=== PATIENT | male | born 1955 | race Caucasian/White ===

== ENCOUNTER 2019-11-23 12:37 | Outpatient (CLI) | payer OTHER, SELFPAY ==
--- NOTE | 2019-11-23 15:55 | N.ONRAD NP_ITS ---
Radiation Oncology New Patient Visit Patient: Paxton Kumar MR#: [id number] : 1955> Age: 63> Sex: Male> Dictated by: Dr. Tom Camarillo Date of Service: 11/23/2019 Referring Physician(s) : Diagnosis: Metastatic carcinoma, primary uncertain, urothelium and lung or primary considerations. Radiotherapy to date: Summary > brain RT in [place] at [facility]. Presumed SRT. He states he received 5 treatments. Chief Complaint / History of Present Illness: Mr. Kumar is a 63-year-old man with a history of carcinoma of the bladder who presented with a recent history of headaches, dysphasia, facial weakness and confusion. A CT of the head was performed which showed an approximately 6 cm metastasis in the right frontal lobe. He was transferred to [facility] in [place] where he underwent surgery. The pathology returned poorly differentiated carcinoma. The primary was not identified from the tissue obtained. Possibilities to consider are a urothelial primary or a lung primary. A PET scan was performed at [facility]. We do not him have images but the report indicates that there is right cervical, supraclavicular, mediastinal, and hilar lymphadenopathy. The largest lymph node mass was in the right hilum and measured 2.2 x 3.3 cm. Other measurements given were right supraclavicular lymphadenopathy measuring 1.7 to 1.4 cm, right cervical lymphadenopathy measuring 2.7 x 1.4 cm and right paratracheal lymphadenopathy measuring 2.8 x 1.5 cm. There were no other areas of abnormality. Specifically, there was no uptake visible to suggest a primary cancer. Mr. Kumar received 5 radiation treatments at [place]. We do not have any specific information. These treatments were delivered to the brain and it is presumed they were SRT to the tumor bed and the other small metastasis. He states that he is referred for evaluation for treatment of the disease in his chest. Mr. Kumar feels well. He has moderate fatigue. He has no pulmonary symptoms at all. He denies pain or weight loss. His only medication is Keppra, which she is taking prophylactically. .Current Medications: Keppra. Allergies: No Known Allergies Medical History: No history of collagen vascular disease. No previous radiation therapy. Surgical History: Bladder cancer and removal of brain tumor. Family History: Father is at age 92 having experienced myocardial infarction. Mother is at age 85 having experienced old age. pt states all other sibilings have no illness to mention Social History: Last screened on 11/23/2019 - Current every day smoker 1.0 pack/day for 39 years (39 pack years). Last screened on 11/23/2019 - Active drinker 2 drinks/day 4 days/week. Current Complaints / Review of Systems: . Moderate fatigue. No neurologic symptoms such as change in vision, headaches, dizziness, blackouts, double vision, seizures, speech difficulty, or unilateral weakness. In terms of pulmonary, he has no cough, hemoptysis, wheezing, or shortness of breath. He denies joint pain, bone pain, stiffness, or back problems. Vital Signs: Performed on 11/23/2019 1:10 PM Height - 64.00 in, Weight - 144.8 lbs (high), BSA - 1.71 sq.m, BMI - 24.86, Temperature - 98.4 f, Pulse - 97 /min, Respiration - 20 /min, O2 Sat - 97 %, Pain - 0, BP - 103/ 71 mm(hg), Performed on 11/23/2019 2:15 PM BMI - 24.855 kg/m2 (high), Height - 64.00 in, Weight - 144.8 lbs, Temperature - 98.4 f, Pulse - 97, Respiration - 20, O2 Sat - 97 %, Pain - 0 and BP - 103/ 71 mm(hg). Physical Exam: Alert oriented no acute distress. No cervical or supraclavicular lymphadenopathy. Lungs are clear to percussion. On auscultation no rales rhonchi or wheezes. Heart rhythm regular with no murmur gallop or rub. Abdomen no distention. No organomegaly or mass or tenderness. Performance Status: KPS: 90 Pathology: Lab: Imaging: See HPI Impression: Mr. 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 He has a history of bladder cancer and that may be the etiology. Lung is also considered a possibility but there is no evidence of a primary lung cancer on imaging. Mr. Kumar has received treatment for the brain metastases at [facility]. He will be getting imaging every 3 months for follow-up. In terms of the chest, he does not have any bulky lymphadenopathy and he is completely asymptomatic. As long as he can receive systemic therapy which is likely to be of benefit, I do not feel that he needs to proceed with any radiation to the thorax at this time. I told him that in the event of failing systemic therapy that radiation can be used for salvage. Also discussed that in the event of an excellent response to systemic therapy, radiation can be used for consolidation. For now, unless Dr. Clark has a different opinion, we will not proceed with radiation. Plan: No radiation planned at this time. Signed by: 11/23/2019 3:54:26 PM <<Signature on File>> Time spent with patient: CPT Code: CPT Code:
--- NOTE | 2019-11-24 10:48 | ONC CON_ITS ---
Dr. Clark New Patient Note Patient: Paxton Kumar Unit #: [id number]: 1955 Dicatated By: Sae Clark M.D.Date of Visit: Nov 23, 2019 Onc MED New Patient/Consult Referring Physician: Dr. AARON STEWART M.D. History of Present Illness: Mr. Paxton Kumar, is a 63-year-old gentleman with history of bladder cancer status post TURP in January 2017 at [facility] in [place], [place], as per patient's daughter that took care of his bladder cancer. And then in September 2019 patient went to local emergency room with headache and facial droop, CT scan of the head was done which showed right frontal lobe mass with edema and midline shift, patient was transferred to [facility] in [place] where on October 23, 2019 he underwent right frontal lobe tumor resection, as repeat neuro CT MR showed solitary, gently lobulated but predominantly well-circumscribed homogeneously low-attenuation, noncalcified, intra-axial 5 x 6.2 x 4.5 cm mass in the right frontal region. There is significant perilesional vasogenic edema, resulting subfalcine herniation and 0.9 cm right to left midline shift. And pathology showed metastatic poorly differentiated carcinoma with solid to papillary/pseudopapillary growth pattern with a brisk mitotic activity and patchy presence of necrosis. Immunohistochemistry showed diffusely positive for CK7, also widespread reactivity for CK 5/6, GATA3, with very focal expression of Napsin-A. Tumor cells are nonreactive to CDX2, p63, CD20, TTF-1, chromogranin, synaptophysin, and uroplakin. AB/PAS histochemical stain demonstrate focal presence of mucin. Pathology comments were morphological findings are dose of poorly differentiated carcinoma, while definite comment on primary site is limited by its somewhat nonspecific immunoprofile, the possibilities being considered are urothelial and lung among others. Further clinical and imaging correlation to confirm exact site of origin is suggested. Again patient has history of bladder cancer, diagnosed in January, at [facility], where he underwent TURP. CT chest /abd scan done on October 21, 2019 showed No definitively suspicious pulmonary nodule or mass mediastinal right hilar and right supraclavicular adenopathy some of which is necrotic favoring a metastatic process including recurrence of patient's history of prior malignancy.Right paratracheal lymph node measures 1.4 x 1.6 cm, right hilar adenopathy Tiny lytic foci in L5 vertebral body of indeterminate. Scattered small enhancing foci in the liver favored to represent focal areas of vascular shunting versus small hemangiomas CT PET scan done on October 25, 2019 showed right hilar lymphadenopathy with a maximum SUV of 14.9 measuring 2.2 x 3.3 cm this is the most FDG avid lesion. Right supraclavicular lymphadenopathy with maximum SUV 12.2 measuring 1.7 x 1.4 cm. Right cervical level 5 lymph nodes with a maximum SUV of 6.7 measuring 2.7 x 1.4 cm Right paratracheal lymphadenopathy measuring 2.8 x 1.5 cm with SUV of 9.9. The lytic focus in L5 vertebral body is not hypermetabolic.Patient underwent CT scan of head on November 12, 2019, which showed postsurgical changes of right craniotomy and right frontal lobe tumor resection with residual enhancement along the anterior, medial and superior/posterior margins of the resection bed suspicious for residual tumor., Subsequently patient was treated with SBRT, as per patient he received 5 doses and completed recently. Patient said he has seen medical oncologist Dr. Lofton at [facility], who informed him that he has a lung cancer and PDL 1 status was ordered and some other blood test were done to identify specific therapy. And they are waiting for the report, as per patient he will send the record to us for further care here as cancer center [place] is more convenient to him. Patient denies any headaches or blurred vision or double vision today, denies any fever or chills, denies any dysphagia, denies any nausea vomiting, denies any hemoptysis or hematemesis, denies any hematuria or dysuria. Appetite is good, Past Medical History: There is no documented medical history. Past Surgical History: Mr. Kumar's surgical/procedural history consists of bladder cancer and removal of brain tumor. Medications: Keppra 1 Tablet (of 1000 mg) Tablet Oral b.i.d. Allergies: No Known Allergies. Social History: Mr. Kumar is and he is an unknown. He is a daily smoker who has smoked 1.0 pack/day for 39 years. He is an active drinker.He consumes 2 drinks/day 4 days/week. Family History: Mr. Kumar's mother at age 85: old age. Mr. Monroes father at age 92: myocardial infarction. pt states all other sibilings have no illness to mention. Review Of Symptoms: Constitutional - Complains of mild fatigue. Denies lack of appetite, fever, night sweats and change in weight, Eyes - Denies blurred vision and double vision, ENMT - Denies dysphagia, ear pain, mouth dryness, stomatitis and altered taste, Neck - Denies neck pain, Integumentary - Has itchiness around the eyes, Cardiovascular - Denies arrhythmias, chest pain and edema, Respiratory - Denies cough, dyspnea, hiccoughs and wheezing, Gastrointestinal - Denies abdominal pain, constipation, diarrhea, heartburn / dyspepsia, hemorrhoids, nausea and vomiting, Genitourinary (M) - Denies dysuria, frequency, hematuria and urgency, Musculoskeletal - Denies bone pain, joint pain and muscle weakness, Neurologic - Denies dizziness, abnormal gait, headaches and seizure, Endocrine - Denies diabetes and thyroid disease, Hematologic/Lymphatic - Denies tender or enlarged lymph nodes, Constitutional - Appetite is good and weight is stable. No fever, night sweats, or hot flashes. Energy level is poor, ENMT - No sinus congestion/drainage. No mouth sores. No sore throat or difficulty swallowing, Hematologic/Lymphatic - No abnormal bruising or bleeding, Respiratory - No shortness of breath. No cough. No pleuritic pain or hemoptysis, Cardiovascular - No angina pain. No palpitations, Gastrointestinal - No nausea or vomiting. No heartburn or acid reflux. No diarrhea or constipation. No blood in the stool or black stools, Genitourinary (M) - No dysuria or hematuria. No urinary frequency. No urgency or incontinence, Musculoskeletal - No joint or bone pain, Neurologic - No headache or dizziness. No numbness or tingling. No other focal neurologic symptoms, Psychiatric - Positive for anxiety, no depression. No insomnia. Vital Signs: Performed on Nov 23, 2019 14:15: 64.00 in, 144.8 lbs, 98.4 F, 97, 20, 103/71 mm(hg), 97 %, 0, Performed on Nov 23, 2019 14:15: 24.855 kg/m2 (HIGH), and Performed on Nov 23, 2019 13:10: 1.71 sq.m. Performance Status: 1 - No physically strenuous activity, but ambulatory and able to carry out light or sedentary work (e.g. office work, light house work). (ECOG) Physical Examination: ENMT - No mouth sores, no thrush no jaundice, Respiratory - Lungs are clear, Cardiovascular - Regular rate and rhythm of heart, Abdomen - Soft, bowel sounds present, Extremities - No visible edema. Lab/Imaging: Most recent lab results are not available for this patient. Impression: Poorly differentiated carcinoma involving right frontal lobe status post partial resection done on October 23, 2019. Immunohistochemistry showed tumor cells to be strongly and diffusely positive for CK7, also widespread reactivity for CK 5/6 and GA TA 3, with very focal expression of Napsin-A. And tumor cell nonreactive to CDX 2, p63, CD20, TTF-1, chromogranin, synaptophysin, uroplakin. AB/PAS histochemical stain demonstrated focal presence of mucin. CT PET scan done on October 25, 2019 showed right hilar lymphadenopathy, 2.2 x 3.3 cm with SUV 14.9 Right supraclavicular lymphadenopathy 1.7 x 1.4 cm with SUV of 12.2 Right paratracheal lymphadenopathy 2.8 x 1.5 cm with SUV of 9.9. Lytic focus in L5 vertebral body is non-hypermetabolic. History of bladder cancer, diagnosed in January 2017 at [facility] in [place], status post TURP Plan: Discussed with patient regarding his disease status and treatment options, patient has already received SBRT to the right frontal lobe post resection residual lesion, as per patient he tolerated radiation therapy to the right frontal lesion well and recently finished it without any problem. Patient has seen Dr. Lofton, medical oncologist at [facility], as per patient and his daughter they were informed that patient has a lung cancer and PDL 1 status and other blood test were ordered to identify specific therapy and results are pending in the meantime patient wants to transfer his care to [place] because of convenience. His pathology was reviewed with him where, it was not clear whether patient has a lung as a primary as pathologist mentioned that tumor ImmunoProfile was somewhat nonspecific and based on tumor morphological finding,, urothelial or lung and others primaries should be considered. We will discuss his case with pathology and request cancer type ID to confirm the primary and also consider next nation sequencing on tumor if is not already done, to identify targetable therapy. Patient will return to clinic in 2 weeks, in the meantime will obtain records from [facility] medical oncology and pathology department. Signed By: Sae Clark M.D. <<Signature on File>>
== END 2019-11-23 12:38 | disposition home or self-care (01) ==
LOC: ONCMED 12:45
PROVIDERS: PCP Emergency Medicine Emergency Medical Services; Visit Provider Internal Medicine Hematology & Oncology
DX: C80.1 Malignant (primary) neoplasm, unspecified (principal); C78.1 Secondary malignant neoplasm of mediastinum; C79.31 Secondary malignant neoplasm of brain; R59.0 Localized enlarged lymph nodes; F17.210 Nicotine dependence, cigarettes, uncomplicated; Z85.51 Personal history of malignant neoplasm of bladder; Z92.3 Personal history of irradiation; Z79.899 Other long term (current) drug therapy
CPT/HCPCS: 99204; 99214

== ENCOUNTER → 2019-12-04 11:32 | Outpatient (BNVA) | payer OTHER, SELFPAY | PROVIDERS: PCP Emergency Medicine Emergency Medical Services; Visit Provider Internal Medicine Hematology & Oncology | DX: C34.90 Malignant neoplasm of unspecified part of unspecified bronchus or lung (principal) | CPT/HCPCS: 80053; 85025 ==

== ENCOUNTER 2019-12-05 12:47 | Outpatient (CLI) | payer OTHER, SELFPAY ==
--- NOTE | 2019-12-05 18:29 | ONC FU_ITS ---
Dr. Clark follow up note Patient: Paxton Kumar Unit #: [id number]: 1955 Dicatated By: Sae Clark M.D.Date of Visit:Dec 05, 2019 Onc Med Follow-up/Prog Note History of Present Illness: Mr. Paxton Kumar, is a 63-year-old gentleman with history of bladder cancer status post TURP in January 2017 at [facility] in [place], [place], as per patient's daughter that took care of his bladder cancer. And then in September 2019 patient went to local emergency room with headache and facial droop, CT scan of the head was done which showed right frontal lobe mass with edema and midline shift, patient was transferred to [facility] in [place] where on October 23, 2019 he underwent right frontal lobe tumor resection, as repeat neuro CT MR showed solitary, gently lobulated but predominantly well-circumscribed homogeneously low-attenuation, noncalcified, intra-axial 5 x 6.2 x 4.5 cm mass in the right frontal region. There is significant perilesional vasogenic edema, resulting subfalcine herniation and 0.9 cm right to left midline shift. And pathology showed metastatic poorly differentiated carcinoma with solid to papillary/pseudopapillary growth pattern with a brisk mitotic activity and patchy presence of necrosis. Immunohistochemistry showed diffusely positive for CK7, also widespread reactivity for CK 5/6, GATA3, with very focal expression of Napsin-A. Tumor cells are nonreactive to CDX2, p63, CD20, TTF-1, chromogranin, synaptophysin, and uroplakin. AB/PAS histochemical stain demonstrate focal presence of mucin. Pathology comments were morphological findings are dose of poorly differentiated carcinoma, while definite comment on primary site is limited by its somewhat nonspecific immunoprofile, the possibilities being considered are urothelial and lung among others. Further clinical and imaging correlation to confirm exact site of origin is suggested. Again patient has history of bladder cancer, diagnosed in January, at [facility], where he underwent TURP. CT chest /abd scan done on October 21, 2019 showed No definitively suspicious pulmonary nodule or mass mediastinal right hilar and right supraclavicular adenopathy some of which is necrotic favoring a metastatic process including recurrence of patient's history of prior malignancy.Right paratracheal lymph node measures 1.4 x 1.6 cm, right hilar adenopathy Tiny lytic foci in L5 vertebral body of indeterminate. Scattered small enhancing foci in the liver favored to represent focal areas of vascular shunting versus small hemangiomas CT PET scan done on October 25, 2019 showed right hilar lymphadenopathy with a maximum SUV of 14.9 measuring 2.2 x 3.3 cm this is the most FDG avid lesion. Right supraclavicular lymphadenopathy with maximum SUV 12.2 measuring 1.7 x 1.4 cm. Right cervical level 5 lymph nodes with a maximum SUV of 6.7 measuring 2.7 x 1.4 cm Right paratracheal lymphadenopathy measuring 2.8 x 1.5 cm with SUV of 9.9. The lytic focus in L5 vertebral body is not hypermetabolic.Patient underwent CT scan of head on November 12, 2019, which showed postsurgical changes of right craniotomy and right frontal lobe tumor resection with residual enhancement along the anterior, medial and superior/posterior margins of the resection bed suspicious for residual tumor., Subsequently patient was treated with SBRT, as per patient he received 5 doses and completed recently. Patient said he has seen medical oncologist Dr. Lofton at [facility], who informed him that he has a lung cancer and PDL 1 status was ordered and some other blood test were done to identify specific therapy. And they are waiting for the report, as per patient, he will send the record to us for further care here as cancer center [place] is more convenient to him. Came for follow-up, denies any specific complaints, no fever chills, no nausea or vomiting, no diarrhea or constipation, no headaches blurred vision double vision but mild to moderate anxiety attacks because of fever of unknown. Medications: Aspirin 81 1 Tablet (of 81 mg) Tablet, enteric coated Oral daily, Keppra 1 Tablet (of 1000 mg) Tablet Oral b.i.d., Multivitamin 1 Tablet Oral daily Allergies: No Known Allergies. Review of Systems: Review of Systems is not available for this patient. Vital Signs: Performed on Dec 05, 2019 13:04 Height - 64.00 in Weight - 146.2 lbs (HIGH) BSA - 1.71 sq.m BMI - 25.10 Temperature - 97.6 F (LOW) Pulse - 91 /min Respiration - 18 /min BP - 102/73 mm(hg) O2 Sat - 98 % Pain - 0 Performance Status: 1 - No physically strenuous activity, but ambulatory and able to carry out light or sedentary work (e.g. office work, light house work). (ECOG) Physical Examination: ENMT - No mouth sores, no thrush, no jaundice, Respiratory - Lungs are clear, Cardiovascular - Regular rate and rhythm of heart, Abdomen - Soft, bowel sounds present, Extremities - No visible edema. Lab/Imaging: Most recent lab results are not available for this patient. Impression: Poorly differentiated carcinoma involving right frontal lobe status post partial resection done on October 23, 2019. Immunohistochemistry showed tumor cells to be strongly and diffusely positive for CK7, also widespread reactivity for CK 5/6 and GA TA 3, with very focal expression of Napsin-A. And tumor cell nonreactive to CDX 2, p63, CD20, TTF-1, chromogranin, synaptophysin, uroplakin. AB/PAS histochemical stain demonstrated focal presence of mucin. CT PET scan done on October 25, 2019 showed right hilar lymphadenopathy, 2.2 x 3.3 cm with SUV 14.9 Right supraclavicular lymphadenopathy 1.7 x 1.4 cm with SUV of 12.2 Right paratracheal lymphadenopathy 2.8 x 1.5 cm with SUV of 9.9. Lytic focus in L5 vertebral body is non-hypermetabolic. History of bladder cancer, diagnosed in January 2017 at [facility] in [place], status post TURP Plan: Discussed with patient regarding his labs white blood count 9 hemoglobin 15 crit 46.6 platelets 446,000 CMP within normal limits Clinically, patient is doing reasonably well, treatment options discussed with patient, as per recommendation by Dr. Spring medical oncologist at [facility], will consider pembrolizumab and makah based regimen e.g. carboplatin and Taxol. As per his note, patient has metastatic non-small cell lung cancer So we will consider weekly carboplatin AUC 2 Taxol 50 mg/m??? day 1 and 8 and repeat every 21 days along with pembrolizumab 200 mg IV every 3 weeks x [address] PET scan if good response, then switch to maintenance therapy with pembrolizumab. All the side effects possible benefits associated with systemic therapy were mentioned and further teaching will be done by chemotherapy nurse in the meantime will obtain approval from his his insurance company and consider Port-A-Cath placement to facilitate chemotherapy. And also start him on Ativan 0.5 mg every 6 hours as needed basis for anxiety but there was a concern regarding pathology as pathologist mentioned that immunohistochemistry was inconclusive whereas morphology showed urothelial type cells and patient has history of bladder cancer in the past. So case was discussed with pathologist at [facility] and cancer type ID was requested to specify primary or to identify targetable therapy. In the meantime we will proceed with systemic therapy and once cancer type ID information available then will review and plan. Patient will return to clinic 1 week after chemotherapy is initiated Signed By: Sae Clark M.D. <<Signature on File>>
== END 2019-12-05 12:48 | disposition home or self-care (01) ==
PROVIDERS: PCP Emergency Medicine Emergency Medical Services; Visit Provider Internal Medicine Hematology & Oncology
DX: C71.1 Malignant neoplasm of frontal lobe (principal); R59.0 Localized enlarged lymph nodes; Z85.51 Personal history of malignant neoplasm of bladder
CPT/HCPCS: 99214

== ENCOUNTER 2019-12-18 06:44 | Day surgery (SDC) | payer OTHER, SELFPAY ==
[2019-12-15 09:11] VITALS: BMI 24.8
--- NOTE | 2019-12-18 | SCC_ITS ---
Procedure Done: Placement of PowerPort in the left subclavian vein 38.5 seconds of fluoroscopic guidance, for a cumulative dose of 5.59 mGy, was provided to Dr. Gaona by the radiology department. C-arm images of the chest were saved for the patient's permanent record. [facility]
[2019-12-18 07:00] VITALS: BP 129/84; PULSE 92; RESP 18; TEMP 36.9; O2SAT 97
[2019-12-18] MEDS: sodium chloride 0.9% 1,000 ML 30 ML IV (07:07)
--- NOTE | 2019-12-18 07:09 | W.PM.OPSUD ---
Surgery/Procedure H&P Update DATE OF PROCEDURE: December 18, 2019 DATE H&P PERFORMED: 12/11/19 H&P UPDATE INFORMATION: I have reviewed H&P completed within last 30 days, I have examined patient prior to procedure and No changes to prior documentation PREOP DIAGNOSIS: Cancer PLANNED PROCEDURE: Operation Date: 12/18/19 08:30 Proposed Procedures p Portacath Placement 07637 C67.9(Not Applicable) - Iain Gaona MD
--- NOTE | 2019-12-18 07:32 | ANES.PREANE2 ---
Pre-Anesthetic Assessment Pre-Anesthetic Assessment: Height/Weight: Height 1.64 m Weight 66.678 kg Temp Pulse Resp BP Pulse Ox 98.5 F 92 18 129/84 97 12/18/19 07:00 12/18/19 07:00 12/18/19 07:00 12/18/19 07:00 12/18/19 07:00 Preop Diagnosis: Cancer Proposed Procedure: Operation Date: 12/18/19 08:30 Proposed Procedures p Portacath Placement 90203 C67.9(Not Applicable) - Iain Gaona MD Familial anesthetic complications: None Was Beta Filipe taken within 24 hours: N/A Last intake: Intake Last Liquid Date 12/17/19 Last Liquid Time 20:00 Last Solid Date 12/17/19 Last Solid Time 20:00 Social: Social History: Tobacco and No alcohol Exam: Pre-Anes Outpt Exam: alert, oriented x 3, clear to auscultation bilaterally and regular rate & rhythm Airway: Cervical ROM: WNL MP: 2 Dentition: Full Pulmonary: Pulmonary: None reported CV/HEM: CV/HEM: None reported : : None reported Comments: bladder cancer Neuropsych: Neuropsych: Seizure Comments: frontal lobe tumor - removed Anesthetic Plan: ASA status: 3 Anesthesia: MAC Risk of > 500 ml blood loss (7ml/kg in children): No Meds/Allergies Current Medications: Current Medications Generic Name Dose Route Start Last Admin Trade Name Freq PRN Reason Stop Dose Admin Sodium Chloride 1,000 mls @ 30 ml s/hr 12/18/19 07:00 12/18/19 07:07 Sodium Chloride 0.9% IV 12/19/19 06:59 30 mls/hr .Q24H RENATA Administration PFSH Anesthesia PFSH: Medical History (Updated 12/11/19 @ 15:04 by Iain Gaona MD) Bladder cancer 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 Surgical History H/O brain surgery H/O colonoscopy past 6 yrs Hx of transurethral resection of prostate S/P thoracostomy tube placement Family History Brother CAD (coronary artery disease) Denies family history of Diabetes Anesthesia complication Bleeding disorder Cancer Social History Smoking and tobacco status: current every day smoker Alcohol intake: current Alcohol intake frequency: holidays/special occasions only Household members: significant other Marital status: Single Current occupational status: retired History of recent travel: No Data Anesthesia Cardiac Studies: No Data to Display
--- NOTE | 2019-12-18 08:37 | SC_ITS ---
WS: [id number] C-ARM RADIOGRAPHS CHEST; 2 IMAGES HISTORY: surgery COMPARISON: None available. Intraoperative imaging during Port-A-Cath placement through the LEFT subclavian vein. SC/C-arm FL for CVA [id number] IMPRESSION: Intraoperative imaging during Port-A-Cath placement.
[2019-12-18] MEDS: heparin, porcine 1,000 unit/mL INJ 10 mL 10000 UNIT INJECTION (08:54)
[2019-12-18] MEDS: lidocaine 1% INJ 20 mL IM (09:14)
--- NOTE | 2019-12-18 09:30 | P.OP_ITS ---
Operative Report Date of procedure: December 18, 2019 Pre-op Diagnosis: Bladder cancer, metastatic non-small cell lung cancer Post-op diagnosis: same Procedure Done: Placement of PowerPort in the left subclavian vein Fluoroscopic guidance and interpretation for placement of catheter Pathology: none sent Surgeon: Iain Gaona Anesthesia: MAC Estimated blood loss (mL): 10 Condition: stable Disposition: same day Procedure: The patient was taken to the Operating Room and the chest and neck bilaterally were prepped and draped in a sterile manner after the antibiotic had been administered and shoulder rolls had been placed. A total of 10 mL of 1% li docaine with 0.5% Marcaine was infiltrated under the clavicle on the left side at the site of the planned entry into the subclavian vein. An introducer needle was then used to access the subclavian vein under the clavicle and after withdrawing blood syringe was removed and a guidewire passed under fluoroscopy into the superior vena cava. The site of the planned port was then marked on the chest and a 15 blade was used to make a 3 cm skin incision this was extended into the subcutaneous tissue using electrocautery and a subcutaneous pocket over the pectoralis fascia was created 2-0 Vicryl suture was used to suture the port to the pectoral fascia in the pocket on 3 sides. The catheter, after having been flushed with hep saline, was attached to the tunneler and a tunnel created between the port site and the subclavian vein entry site. Under fluoroscopy the dilator sheath was passed over the guidewire into the proximal superior vena cava. The inner dilator was removed and the sheath left behind and~ the catheter was introduced through the peel-away sheath with the tip in the superior vena cava. The peel-away sheath was removed. The proximal end of the catheter was cut to the right size and was attached to the port. Using a Borjas needle the port was accessed, it withdrew blood easily and flushed easily. A final 5cc of heparin was used to flush the PowerPort. The subcutaneous tissue was approximated using interrupted 3-0 Vicryl sutures and the skin at the introducer site and the port site was closed using subcuticular running 4-0 Monocryl sutures. Surgical glue was applied and the patient was stable throughout the procedure. Fluoroscopic guidance and interpretation was performed for introduction of the guidewire in the left subclavian vein, passage of dilator and placement of catheter tip in the distal superior vena cava.
[2019-12-18 09:32] VITALS: BP 110/80; PULSE 82; RESP 18; TEMP 35.9; O2SAT 93
[2019-12-18 09:45] VITALS: BP 124/89; PULSE 83; RESP 18; O2SAT 98
== END 2019-12-18 10:10 | disposition home or self-care (01) ==
PROVIDERS: PCP Emergency Medicine Emergency Medical Services; Visit Provider Surgery
PROC: (CPT 36561; principal; 2019-12-18 08:30)
DX: C67.9 Malignant neoplasm of bladder, unspecified (principal); C78.00 Secondary malignant neoplasm of unspecified lung; F17.210 Nicotine dependence, cigarettes, uncomplicated; Z79.82 Long term (current) use of aspirin
CPT/HCPCS: 36561; 12345; 76000; 77001; C1788; J0690; J1644; J2250; J2704; J3490; J7030

== ENCOUNTER 2019-12-28 13:48 | Outpatient (CLI) | payer OTHER, SELFPAY ==
[2019-12-28 14:28] LABS: Basophils % 0.5 %; Eosinophils # 0.4 10^3/uL (0.0-0.8); Eosinophils % 4.8 %; Hematocrit 40.3 % (42.0-52.0); Hemoglobin 12.9 g/dL (11.7-16.6); Lymphocytes # 2.7 10^3/uL (0.8-4.8); Lymphocytes % 32.5 %; Mean Corpuscular Hemoglobin 29.3 pg (28.0-34.0); Mean Corpuscular Volume 91.4 fL (80-94); Mean Platelet Volume 8.9 fL (7.4-10.4); Monocytes # 0.9 10^3/uL (0.2-0.9); Monocytes % 10.4 %; Neutrophils % 51.6 %; Nucleated Red Blood Cells % 0 %; Platelet Count 225 10^3/cmm (130-400); Red Blood Count 4.41 10^6/uL (4.1-5.3); Red Cell Distribution Width 13.2 % (12.1-15.1); White Blood Count 8.3 10^3/uL (4.0-10.0)
[2019-12-28 14:46] LABS: Alanine Aminotransferase 12 U/L (0-41); Albumin Level 4.1 g/dL (3.5-5.2); Alkaline Phosphatase 64 IU/L (40-130); Anion Gap 10.1 (5-19); Aspartate Amino Transferase 18 U/L (0-40); Blood Urea Nitrogen 10 mg/dL (8-23); Calcium 9.1 mg/dL (8.5-10.5); Carbon Dioxide 29 mmol/L (22-29); Chloride 106 mmol/L (98-107); Globulin 2.4 g/dL (1.3-4.6); Glomerular Filtration Rate 96.7 mL/min (90-130); Glucose 94 mg/dL (65-115); Osmolality Calculated 288 mOsm/kg (285-295); Potassium 4.1 mmol/L (3.5-5.1); Sodium 141 mmol/L (136-145); Total Bilirubin 0.2 mg/dL (0.15-1.2); Total Protein 6.5 g/dL (6.6-8.7)
--- NOTE | 2019-12-29 12:15 | ONC FU_ITS ---
Dr. Clark follow up note Patient: Paxton Kumar Unit #: [id number]: [id number] Dicatated By: Sae Clark M.D.Date of Visit:Dec 28, 2019 Onc Med Follow-up/Prog Note History of Present Illness: Mr. Paxton Kumar, is a 64-year-old gentleman with history of bladder cancer status post TURP in January 2017 at [facility] in [place], [place], as per patient's daughter that took care of his bladder cancer. And then in September 2019 patient went to local emergency room with headache and facial droop, CT scan of the head was done which showed right frontal lobe mass with edema and midline shift, patient was transferred to [facility] in [place] where on October 23, 2019 he underwent right frontal lobe tumor resection, as repeat neuro CT MR showed solitary, gently lobulated but predominantly well-circumscribed homogeneously low-attenuation, noncalcified, intra-axial 5 x 6.2 x 4.5 cm mass in the right frontal region. There is significant perilesional vasogenic edema, resulting subfalcine herniation and 0.9 cm right to left midline shift. And pathology showed metastatic poorly differentiated carcinoma with solid to papillary/pseudopapillary growth pattern with a brisk mitotic activity and patchy presence of necrosis. Immunohistochemistry showed diffusely positive for CK7, also widespread reactivity for CK 5/6, GATA3, with very focal expression of Napsin-A. Tumor cells are nonreactive to CDX2, p63, CD20, TTF-1, chromogranin, synaptophysin, and uroplakin. AB/PAS histochemical stain demonstrate focal presence of mucin. Pathology comments were morphological findings are dose of poorly differentiated carcinoma, while definite comment on primary site is limited by its somewhat nonspecific immunoprofile, the possibilities being considered are urothelial and lung among others. Further clinical and imaging correlation to confirm exact site of origin is suggested.So cancer type ID was done which was reported on December 19, 2019, urothelial carcinoma and urinary bladder being primary with 90% probability, Again patient has history of bladder cancer, diagnosed in January, at [facility], where he underwent TURP. CT chest /abd scan done on October 21, 2019 showed No definitively suspicious pulmonary nodule or mass mediastinal right hilar and right supraclavicular adenopathy some of which is necrotic favoring a metastatic process including recurrence of patient's history of prior malignancy.Right paratracheal lymph node measures 1.4 x 1.6 cm, right hilar adenopathy Tiny lytic foci in L5 vertebral body of indeterminate. Scattered small enhancing foci in the liver favored to represent focal areas of vascular shunting versus small hemangiomas CT PET scan done on October 25, 2019 showed right hilar lymphadenopathy with a maximum SUV of 14.9 measuring 2.2 x 3.3 cm this is the most FDG avid lesion. Right supraclavicular lymphadenopathy with maximum SUV 12.2 measuring 1.7 x 1.4 cm. Right cervical level 5 lymph nodes with a maximum SUV of 6.7 measuring 2.7 x 1.4 cm Right paratracheal lymphadenopathy measuring 2.8 x 1.5 cm with SUV of 9.9. The lytic focus in L5 vertebral body is not hypermetabolic.Patient underwent CT scan of head on November 12, 2019, which showed postsurgical changes of right craniotomy and right frontal lobe tumor resection with residual enhancement along the anterior, medial and superior/posterior margins of the resection bed suspicious for residual tumor., Subsequently patient was treated with SBRT, as per patient he received 5 doses and completed recently. Patient said he has seen medical oncologist Dr. Lofton at [facility], who informed him that he has a lung cancer and PDL 1 status was ordered and some other blood test were done to identify specific therapy. And they are waiting for the report, as per patient, he will send the record to us for further care here as [facility] convenient to him. Case was discussed with Dr. Parul Lopez, as it was not sure why significance of urothelial carcinoma or lung cancer so cancer type ID was ordered and reported on December 19, 2019 as urothelial carcinoma, urinary bladder as a primary with 90% probability. Case was discussed with Dr. Lopez on December 28, 2019 and she concurred with cancer type ID confirmation and signing out final pathology report as urothelial carcinoma, Came for follow-up, denies any specific complaints, no fever chills, no nausea or vomiting, no diarrhea or constipation, no hematuria or dysuria, no hemoptysis or hematemesis, no headaches or blurred vision or double vision. Appetite is good. Medications: Aspirin 81 1 Tablet (of 81 mg) Tablet, enteric coated Oral daily, Keppra 1 Tablet (of 1000 mg) Tablet Oral b.i.d., LORazepam 1 - 2 Tablet (of 0.5 mg) Oral q 6 to 8 hours PRN, Multivitamin 1 Tablet Oral daily Allergies: No Known Allergies. Review of Systems: Constitutional - Appetite is good and weight is stable. No fever, night sweats, or hot flashes. Energy level is poor, ENMT - No sinus congestion/drainage. No mouth sores. No sore throat or difficulty swallowing, Hematologic/Lymphatic - No abnormal bruising or bleeding, Respiratory - No shortness of breath. No cough. No pleuritic pain or hemoptysis, Cardiovascular - No angina pain. No palpitations, Gastrointestinal - No nausea or vomiting. No heartburn or acid reflux. No diarrhea or constipation. No blood in the stool or black stools, Genitourinary (M) - No dysuria or hematuria. No urinary frequency. No urgency or incontinence, Musculoskeletal - No joint or bone pain, Neurologic - No headache or dizziness. No numbness or tingling. No other focal neurologic symptoms, Psychiatric - Positive for anxiety, no depression. No insomnia. Vital Signs: Performed on Dec 28, 2019 15:23 Height - 64.00 in Weight - 150.6 lbs (HIGH) BSA - 1.73 sq.m BMI - 25.85 Temperature - 98.4 F Pulse - 87 /min Respiration - 18 /min BP - 122/77 mm(hg) O2 Sat - 96 % Pain - 0 Performance Status: 1 - No physically strenuous activity, but ambulatory and able to carry out light or sedentary work (e.g. office work, light house work). (ECOG) Physical Examination: ENMT - No mouth sores, no thrush, no deafness, Respiratory - Lungs are clear, Cardiovascular - Regular rate and rhythm of heart, Abdomen - Soft, bowel sounds present, Extremities - No visible edema. Lab/Imaging: Most recent lab results are not available for this patient. Impression: Poorly differentiated carcinoma involving right frontal lobe status post partial resection done on October 23, 2019. Immunohistochemistry showed tumor cells to be strongly and diffusely positive for CK7, also widespread reactivity for CK 5/6 and GA TA 3, with very focal expression of Napsin-A. And tumor cell nonreactive to CDX 2, p63, CD20, TTF-1, chromogranin, synaptophysin, uroplakin. AB/PAS histochemical stain demonstrated focal presence of mucin. Cancer type ID reported on December 19, 2019 confirmed urothelial carcinoma, urinary bladder being primary with 90% probability CT PET scan done on October 25, 2019 showed right hilar lymphadenopathy, 2.2 x 3.3 cm with SUV 14.9 Right supraclavicular lymphadenopathy 1.7 x 1.4 cm with SUV of 12.2 Right paratracheal lymphadenopathy 2.8 x 1.5 cm with SUV of 9.9. Lytic focus in L5 vertebral body is non-hypermetabolic. History of bladder cancer, diagnosed in January 2017 at [facility] in [place], status post TURP Plan: Discussed with patient regarding his labs white blood count 8.3 hemoglobin 12.9 hematocrit 40.3 platelets 225,000 CMP within normal limits Cancer type ID reported on December 19, 2019 confirmed brain mets being urothelial carcinoma with urinary bladder being primary with a 90% probability Clinically, patient is doing well with no signs symptoms suggestive of disease progression, there was a concern regarding cancer of unknown primary, lung versus urothelial, so cancer type ID was ordered after discussion with , pathologist at [facility], as mentioned above it confirmed urothelial carcinoma. Discussed with patient regarding systemic chemotherapy and treatment options include MVAC and cisplatin/gemcitabine followed by maintenance immunotherapy with avelumab, considering patient's age and comorbid condition, will consider cisplatin and split dose along with gemcitabine on day 1 and 8 and repeat cycle every 21 days x [address] PET scan and MRI scan of the head if it shows complete remission, then consider maintenance therapy with immunotherapy Avelumab. All the side effects possible benefits associated with cisplatin 25 mg/m??? on day 1 and 8 along with gemcitabine thousand milligrams per meter square, were discussed in detail including but not limited to bone marrow suppression, hair loss, nausea vomiting, thrombocytopenia especially with gemcitabine, nephro/pawel toxicity especially with cisplatin. Further teaching will done by chemotherapy nurse. Patient already has Port-A-Cath placement. Will obtain approval from his insurance prior to the treatment and then patient will return to clinic 1 week after chemotherapy is initiated with CBC CMP Signed By: Sae Clark M.D. <<Signature on File>>
== END 2019-12-28 13:49 | disposition home or self-care (01) ==
LOC: ONCMED 13:51
PROVIDERS: PCP Emergency Medicine Emergency Medical Services; Visit Provider Internal Medicine Hematology & Oncology
DX: C79.31 Secondary malignant neoplasm of brain (principal); Z85.51 Personal history of malignant neoplasm of bladder
CPT/HCPCS: 36591; 80053; 85025; 99214

== ENCOUNTER 2020-01-24 05:42 | Outpatient (RCR) | payer OTHER, SELFPAY ==
[2020-01-10] MEDS: sodium chloride 0.9% 250 ML 75 ML IV (08:34)
[2020-01-10 08:56] LABS: Basophils % 0.4 %; Eosinophils # 0.3 10^3/uL (0.0-0.8); Eosinophils % 3.4 %; Hemoglobin 13.6 g/dL (11.7-16.6); Lymphocytes # 2.2 10^3/uL (0.8-4.8); Lymphocytes % 23.5 %; Mean Corpuscular HGB Conc 32.4 g/dL (30.0-36.0); Mean Corpuscular Volume 92.5 fL (80-94); Mean Platelet Volume 9.1 fL (7.4-10.4); Monocytes % 10.6 %; Neutrophils # 5.91 10^3/uL (1.8-7.7); Neutrophils % 61.8 %; Nucleated Red Blood Cells % 0 %; Platelet Count 251 10^3/cmm (130-400); Red Blood Count 4.54 10^6/uL (4.1-5.3); Red Cell Distribution Width 13.2 % (12.1-15.1); White Blood Count 9.6 10^3/uL (4.0-10.0)
[2020-01-10 09:20] LABS: Alanine Aminotransferase 10 U/L (0-41); Albumin Level 4.1 g/dL (3.5-5.2); Alkaline Phosphatase 69 IU/L (40-130); Anion Gap 10.9 (5-19); Aspartate Amino Transferase 15 U/L (0-40); Blood Urea Nitrogen 11 mg/dL (8-23); Calcium 8.7 mg/dL (8.5-10.5); Carbon Dioxide 28 mmol/L (22-29); Chloride 104 mmol/L (98-107); Globulin 2.9 g/dL (1.3-4.6); Glomerular Filtration Rate 112.8 mL/min (90-130); Glucose 113 mg/dL (65-115); Osmolality Calculated 285 mOsm/kg (285-295); Potassium 3.9 mmol/L (3.5-5.1); Sodium 139 mmol/L (136-145); Total Bilirubin 0.3 mg/dL (0.15-1.2)
[2020-01-10] MEDS: FUROsemide 10 mg/mL SDV 2mL 20 MG IV (13:06)
[2020-01-10] MEDS: potassium chloride 20 MEQ in sodium chloride 0.9% 500 ML 500 MEQ IV (13:08)
[2020-01-17 08:26] LABS: Basophils % 0.8 %; Eosinophils # 0.1 10^3/uL (0.0-0.8); Eosinophils % 2.1 %; Hematocrit 41.5 % (42.0-52.0); Hemoglobin 13.3 g/dL (11.7-16.6); Lymphocytes # 1.4 10^3/uL (0.8-4.8); Lymphocytes % 36.8 %; Mean Corpuscular Volume 90.6 fL (80-94); Mean Platelet Volume 8.9 fL (7.4-10.4); Monocytes # 0.2 10^3/uL (0.2-0.9); Monocytes % 4.2 %; Neutrophils # 2.11 10^3/uL (1.8-7.7); Neutrophils % 55.6 %; Nucleated Red Blood Cells % 0 %; Platelet Count 190 10^3/cmm (130-400); Red Blood Count 4.58 10^6/uL (4.1-5.3); Red Cell Distribution Width 12.6 % (12.1-15.1); White Blood Count 3.8 10^3/uL (4.0-10.0)
[2020-01-17] MEDS: sodium chloride 0.9% 250 ML 75 ML IV ×2 (08:35→12:00)
[2020-01-17 08:48] LABS: Alanine Aminotransferase 18 U/L (0-41); Albumin Level 4.1 g/dL (3.5-5.2); Alkaline Phosphatase 75 IU/L (40-130); Anion Gap 12.9 (5-19); Aspartate Amino Transferase 15 U/L (0-40); Blood Urea Nitrogen 12 mg/dL (8-23); Calcium 8.9 mg/dL (8.5-10.5); Carbon Dioxide 27 mmol/L (22-29); Chloride 103 mmol/L (98-107); Glomerular Filtration Rate 134.8 mL/min (90-130); Glucose 133 mg/dL (65-115); Osmolality Calculated 286 mOsm/kg (285-295); Potassium 3.9 mmol/L (3.5-5.1); Sodium 139 mmol/L (136-145); Total Bilirubin 0.2 mg/dL (0.15-1.2); Total Protein 7.1 g/dL (6.6-8.7)
[2020-01-17] MEDS: FUROsemide 10 mg/mL SDV 2mL 20 MG IV (12:53)
[2020-01-17] MEDS: potassium chloride 20 MEQ in sodium chloride 0.9% 500 ML 500 MEQ IV (12:55)
[2020-01-24 08:38] LABS: Basophils % 0.8 %; Eosinophils % 0.8 %; Hematocrit 37.9 % (42.0-52.0); Hemoglobin 12.4 g/dL (11.7-16.6); Lymphocytes # 1.5 10^3/uL (0.8-4.8); Lymphocytes % 56.8 %; Mean Corpuscular HGB Conc 32.7 g/dL (30.0-36.0); Mean Corpuscular Hemoglobin 30.2 pg (28.0-34.0); Mean Corpuscular Volume 92.2 fL (80-94); Mean Platelet Volume 8.5 fL (7.4-10.4); Monocytes # 0.1 10^3/uL (0.2-0.9); Monocytes % 2.3 %; Neutrophils # 1.01 10^3/uL (1.8-7.7); Neutrophils % 38.9 %; Nucleated Red Blood Cells % 0 %; Platelet Count 97 10^3/cmm (130-400); Red Blood Count 4.11 10^6/uL (4.1-5.3); Red Cell Distribution Width 12.7 % (12.1-15.1); White Blood Count 2.6 10^3/uL (4.0-10.0)
[2020-01-24 09:07] LABS: Alanine Aminotransferase 19 U/L (0-41); Albumin Level 4.2 g/dL (3.5-5.2); Alkaline Phosphatase 77 IU/L (40-130); Anion Gap 10.3 (5-19); Aspartate Amino Transferase 14 U/L (0-40); Blood Urea Nitrogen 11 mg/dL (8-23); Calcium 8.9 mg/dL (8.5-10.5); Carbon Dioxide 26 mmol/L (22-29); Chloride 105 mmol/L (98-107); Globulin 2.7 g/dL (1.3-4.6); Glomerular Filtration Rate 112.8 mL/min (90-130); Glucose 100 mg/dL (65-115); Osmolality Calculated 280 mOsm/kg (285-295); Potassium 4.3 mmol/L (3.5-5.1); Sodium 137 mmol/L (136-145); Total Bilirubin 0.2 mg/dL (0.15-1.2); Total Protein 6.9 g/dL (6.6-8.7)
--- NOTE | 2020-01-28 12:10 | ONC FU_ITS ---
Sharri Young Patient Note Patient: Paxton Kumar Unit #: [id number]: 1955 Dictated By: Eugenio HealyDate of Visit: Jan 24, 2020 Onc MED Follow-Up/Prog Note Chief Complaint: Brain mets History of Present Illness: Mr. Kumar is a 64-year-old gentleman with history of bladder cancer status post TURP in January 2017 at [facility] in [place], [place]. Mr Kumar's daughter reported that took care of his bladder cancer. In September 2019, he went to a local emergency room with headache and facial droop. A CT scan of the head was done which showed right frontal lobe mass with edema and midline shift. Mr Kumar was transferred to [facility] in [place] where on October 23, 2019 he underwent right frontal lobe tumor resection. Repeat neuro CT MR showed solitary, gently lobulated but predominantly well-circumscribed homogeneously low-attenuation, noncalcified, intra-axial 5 x 6.2 x 4.5 cm mass in the right frontal region. There was significant perilesional vasogenic edema, resulting subfalcine herniation and 0.9 cm right to left midline shift. Pathology showed metastatic poorly differentiated carcinoma with solid to papillary/pseudopapillary growth pattern with a brisk mitotic activity and patchy presence of necrosis. Immunohistochemistry showed diffusely positive for CK7, also widespread reactivity for CK 5/6, GATA3, with very focal expression of Napsin-A. Tumor cells are nonreactive to CDX2, p63, CD20, TTF-1, chromogranin, synaptophysin, and uroplakin. AB/PAS histochemical stain demonstrate focal presence of mucin. Pathology comments were morphological findings are dose of poorly differentiated carcinoma, while definite comment on primary site is limited by its somewhat nonspecific immunoprofile, the possibilities being considered are urothelial and lung among others. Further clinical and imaging correlation to confirm exact site of origin is suggested.So cancer type ID was done which was reported on December 19, 2019, urothelial carcinoma and urinary bladder being primary with 90% probability, Again patient has history of bladder cancer, diagnosed in January, at [facility], where he underwent TURP. CT chest /abd scan done on October 21, 2019 showed No definitively suspicious pulmonary nodule or mass mediastinal right hilar and right supraclavicular adenopathy some of which is necrotic favoring a metastatic process including recurrence of patient's history of prior malignancy.Right paratracheal lymph node measures 1.4 x 1.6 cm, right hilar adenopathy Tiny lytic foci in L5 vertebral body of indeterminate. Scattered small enhancing foci in the liver favored to represent focal areas of vascular shunting versus small hemangiomas CT PET scan done on October 25, 2019 showed right hilar lymphadenopathy with a maximum SUV of 14.9 measuring 2.2 x 3.3 cm this is the most FDG avid lesion. Right supraclavicular lymphadenopathy with maximum SUV 12.2 measuring 1.7 x 1.4 cm. Right cervical level 5 lymph nodes with a maximum SUV of 6.7 measuring 2.7 x 1.4 cm Right paratracheal lymphadenopathy measuring 2.8 x 1.5 cm with SUV of 9.9. The lytic focus in L5 vertebral body is not hypermetabolic. Mr Kumar underwent CT scan of head on November 12, 2019, which showed postsurgical changes of right craniotomy and right frontal lobe tumor resection with residual enhancement along the anterior, medial and superior/posterior margins of the resection bed suspicious for residual tumor., Subsequently patient was treated with SBRT, as per patient he received 5 doses and completed recently. Mr Kumar said he has seen medical oncologist Dr. Lofton at [facility], who informed him that he has a lung cancer and PDL 1 status was ordered and some other blood test were done to identify specific therapy. And they are waiting for the report, as per patient, he will send the record to us for further care here as cancer center [place] is more convenient to him. Case was discussed with Dr. Parul Lopez, as it was not sure why significance of urothelial carcinoma or lung cancer so cancer type ID was ordered and reported on December 19, 2019 as urothelial carcinoma, urinary bladder as a primary with 90% probability. Case was discussed with Dr. Lopez on December 28, 2019 and she concurred with cancer type ID confirmation and signing out final pathology report as urothelial carcinoma. With that diagnosis Mr Kumar was offered treatmweent with Cisplatin/gemcitabine. He began his first cycle on 01/10/2020. He has tolerated it well thus far. Mr Kumar is here today for followup. He is accompanied by his daughter. He states overall he feels good! He has been active around home-doing his normal chores. He states he is eating well. He states he had slight nausea after treatment but took 1 nausea medication and lack controlled. He has not had any further nausea and has not required any further antiemetics. He denies any new shortness of breath orthopnea. He denies any chest pain, palpitations or syncope/near syncope. He states he thinks he is doing well overall. He denies any neuropathy. He has had no urinary frequency or hesitancy. He denies diarrhea or constipation. His daughter states she has not noticed any hearing changes. She to thinks he is doing well overall. His ECOG is 0. Past Medical History: Past Surgical History: Bladder cancer Removal of brain tumor Allergies: No Known Allergies. Medications: Aspirin 81 1 Tablet (of 81 mg) Tablet, enteric coated Oral daily Keppra 1 Tablet (of 1000 mg) Tablet Oral b.i.d. LORazepam 1 - 2 Tablet (of 1 mg) Oral q 6 to 8 hours PRN Multivitamin 1 Tablet Oral daily Family History: Mr. Kumar's mother at age 85: old age. Mr. Kumar's father at age 92: myocardial infarction. pt states all other sibilings have no illness to mention. Social History: Mr. Kumar is and he is an unknown. He is a daily smoker who has smoked 1.0 pack/day for 39 years. He is an active drinker.He consumes 2 drinks/day 4 days/week. Review Of Symptoms: Constitutional Denies fevers, chills, night sweats, excessive fatigue or weight loss. Allergic/Immunologic No reactions. Eyes Denies significant visual changes. No diplopia. No amaurosis. ENMT Denies changes in hearing, sore throat, mouth sores, difficulty or changes in swallowing ability, and/or sinus drainage. Endocrine No diabetes, thyroid disease or hormone replacement. Denies hot flashes or night sweats. Hematologic/Lymphatic Denies easy bruising or bleeding. The patient denies any tender or palpable lymph nodes. Respiratory Denies dyspnea on exertion, chest pain, cough or hemoptysis. Denies orthopnea. Cardiovascular Denies anginal chest pain, palpitations or orthopnea. Gastrointestinal Denies persistent nausea, vomiting, diarrhea, GI bleeding, or constipation. Denies change in bowel habits and/or stool color, no heartburn or early satiety. Genitourinary (M) Denies hematuria, dysuria, increased frequency, urgency, hesitancy or incontinence. Musculoskeletal Denies joint pain, swelling or redness. No decreased range of motion. Integumentary Denies chronic rashes, inflammation, ulcerations or skin changes. Neurologic Denies headache, blurred vision, and no areas of focal weakness or numbness. Normal gait. No sensory problems. Psychiatric Denies insomnia, depression, k[place] or mood swings. Vital Signs: Performed on Jan 24, 2020 09:39 Height - 64.00 in Weight - 147.8 lbs (LOW) BSA - 1.72 sq.m BMI - 25.37 Temperature - 97.6 F (LOW) Pulse - 71 /min Respiration - 17 /min BP - 113/77 mm(hg) O2 Sat - 98 % Pain - 0,1 - No physically strenuous activity, but ambulatory and able to carry out light or sedentary work (e.g. office work, light house work). (ECOG) Physical Examination: Constitutional Alert, oriented, no acute distress. Skin pink, warm and dry. Head Normocephalic; atraumatic. Eyes Conjunctivae and sclerae are clear and without icterus. Pupils are reactive and equal. Neck Supple without masses or thyromegaly. No jugular venous distension. Hematologic/Lymphatic No petechiae or purpura. No tender or palpable lymph nodes in the cervical or supraclavicular areas. Respiratory Lungs are clear to auscultation without rhonchi or wheezing. Cardiovascular Regular rate and rhythm of heart without murmurs,clicks, gallops or rubs. Abdomen Non-tender, non-distended, no masses or ascites. Good bowel sounds noted in all quads. No guarding or rebound tenderness. No pulsatile masses. Back/Spine Non-tender to palpation. Extremities No visible deformities, no cyanosis, clubbing or edema. Musculoskeletal No tenderness or swelling, normal range of motion without obvious weakness. Integumentary No rashes or lesions. Neurologic No sensory or motor deficits, normal cerebellar function, normal gait. Psychiatric Alert and oriented times three. Coherent speech. Verbalizes understanding of our discussions today. Laboratory:Test performed on Jan 24, 2020 08:20 Sodium 137 mmol/L Potassium 4.3 mmol/L Chloride 105 mmol/L CO2 26 mmol/L Anion Gap 10.3 BUN 11 mg/dL Creatinine 0.7 mg/dL Cr Clearance (Est) 100.3000 mL/min eGFR 112.8 mL/min Glucose 100 mg/dL Calcium 8.9 mg/dL Protein, Total 6.9 g/dL Albumin 4.2 g/dL Globulin 2.7 g/dL Bilirubin, Total 0.2 mg/dL ALT (SGPT) 19 U/L AST (SGOT) 14 U/L Alkaline Phosphatase 77 IU/L WBC 2.6 10 3/uL RBC 4.11 10 6/uL HGB 12.4 g/dL HCT 37.9 % MCV 92.2 fL MCH 30.2 pg MCHC 32.7 g/dL RDW 12.7 % Platelet Count 97 10 3/cmm MPV 8.5 fL Neutrophils 1.01 10 3/uL Lymphocytes 1.5 10 3/uL Monocytes 0.1 10 3/uL Eosinophils 0.0 10 3/uL Basophils 0.0 10 3/uL Neutrophil % 38.9 % Lymphocyte % 56.8 % Monocyte % 2.3 % Eosinophil % 0.8 % Basophils % 0.8 % NRBC % 0 % Impression: Poorly differentiated carcinoma involving right frontal lobe status post partial resection done on October 23, 2019. Immunohistochemistry showed tumor cells to be strongly and diffusely positive for CK7, also widespread reactivity for CK 5/6 and GA TA 3, with very focal expression of Napsin-A. And tumor cell nonreactive to CDX 2, p63, CD20, TTF-1, chromogranin, synaptophysin, uroplakin. AB/PAS histochemical stain demonstrated focal presence of mucin. Cancer type ID reported on December 19, 2019 confirmed urothelial carcinoma, urinary bladder being primary with 90% probability CT PET scan done on October 25, 2019 showed right hilar lymphadenopathy, 2.2 x 3.3 cm with SUV 14.9 Right supraclavicular lymphadenopathy 1.7 x 1.4 cm with SUV of 12.2 Right paratracheal lymphadenopathy 2.8 x 1.5 cm with SUV of 9.9. Lytic focus in L5 vertebral body is non-hypermetabolic. History of bladder cancer, diagnosed in January 2017 at [facility] in [place], status post TURP Cancer type ID reported on December 19, 2019 confirmed brain mets being urothelial carcinoma with urinary bladder being primary with a 90% probability Clinically, patient is doing well with no signs symptoms suggestive of disease progression, there was a concern regarding cancer of unknown primary, lung versus urothelial, so cancer type ID was ordered after discussion with , pathologist at [facility], as mentioned above it confirmed urothelial carcinoma. Discussed with patient regarding systemic chemotherapy and treatment options include MVAC and cisplatin/gemcitabine followed by maintenance immunotherapy with avelumab, considering patient's age and comorbid condition, will consider cisplatin and split dose along with gemcitabine on day 1 and 8 and repeat cycle every 21 days x [address] PET scan and MRI scan of the head if it shows complete remission, then consider maintenance therapy with immunotherapy Avelumab. All the side effects possible benefits associated with cisplatin 25 mg/m??? on day 1 and 8 along with gemcitabine thousand milligrams per meter square, were discussed in detail including but not limited to bone marrow suppression, hair loss, nausea vomiting, thrombocytopenia especially with gemcitabine, nephro/pawel toxicity especially with cisplatin. Plan: 1. Continue with cycle 1. This is day 15. He has tolerated it well overall. 2. We will request a prior authorization for Neulasta. He may need it with future cycles. His ANC on day 1 was 5900. Today on day 15 it is 1000. He is asymptomatic. 3. He will continue his current antiemetics premeds and antiemetics at home as this is working well for him. 4. Labs from today were reviewed in detail and discussed with Mr. Kumar and his daughter and a copy was given to them. WBC 2.6, hemoglobin 12.4, platelets 97,000 ANC is 8000. Sodium 137 creatinine 0.7 LFTs are normal. 5. A prescription for Levaquin 500 mg 1 daily #14 was [facility] to [facility] for use of neutropenia in the event that he does develop a fever or signs or symptoms of infection. 6. Neutropenic precautions were reviewed in detail and written information sheet was given to them. 7. We will plan to see him back in 1 week with CBC CMP for cycle 2-day 1 cisplatin gemcitabine. The current plan is to complete 4 cycles of gemcitabine cisplatin and then follow-up with a PET CT and MRI scan of the head. 8. Mr. Kumar was instructed to contact us in interim should questions or problems arise. Signed By: Eugenio Healy-, [facility] Sae Clark MD <<Signature on File>>
== END 2020-01-29 23:59 | disposition home or self-care (01) ==
LOC: ONCMED 05:42
PROVIDERS: Internal Medicine Hematology & Oncology; PCP Emergency Medicine Emergency Medical Services; Visit Provider Nurse Practitioner
DX: Z51.11 Encounter for antineoplastic chemotherapy (principal); C79.31 Secondary malignant neoplasm of brain; C77.8 Secondary and unspecified malignant neoplasm of lymph nodes of multiple regions; Z85.51 Personal history of malignant neoplasm of bladder
CPT/HCPCS: 36591; 80053; 85025; 96366; 96367; 96375; 96413; 96417; 99214; J1100; J1200; J1453; J1940; J2469; J3475; J3480; J7030; J7040; J7050; J9060; J9201

== ENCOUNTER 2020-02-28 05:32 | Outpatient (RCR) | payer OTHER, SELFPAY ==
[2020-01-31] MEDS: sodium chloride 0.9% 250 ML 75 ML IV (08:24)
[2020-01-31 08:42] LABS: Basophils % 0.2 %; Eosinophils # 0.1 10^3/uL (0.0-0.8); Eosinophils % 1.5 %; Hematocrit 37.8 % (42.0-52.0); Hemoglobin 12.4 g/dL (11.7-16.6); Lymphocytes # 1.4 10^3/uL (0.8-4.8); Lymphocytes % 26.7 %; Mean Corpuscular HGB Conc 32.8 g/dL (30.0-36.0); Mean Corpuscular Hemoglobin 29.6 pg (28.0-34.0); Mean Corpuscular Volume 90.2 fL (80-94); Mean Platelet Volume 8.5 fL (7.4-10.4); Monocytes # 0.5 10^3/uL (0.2-0.9); Monocytes % 9.6 %; Neutrophils # 3.27 10^3/uL (1.8-7.7); Neutrophils % 61.6 %; Nucleated Red Blood Cells % 0 %; Platelet Count 309 10^3/cmm (130-400); Red Blood Count 4.19 10^6/uL (4.1-5.3); Red Cell Distribution Width 13.2 % (12.1-15.1); White Blood Count 5.3 10^3/uL (4.0-10.0)
[2020-01-31 09:05] LABS: Alanine Aminotransferase 18 U/L (0-41); Alkaline Phosphatase 75 IU/L (40-130); Anion Gap 11.8 (5-19); Aspartate Amino Transferase 15 U/L (0-40); Blood Urea Nitrogen 8 mg/dL (8-23); Calcium 8.9 mg/dL (8.5-10.5); Carbon Dioxide 27 mmol/L (22-29); Chloride 105 mmol/L (98-107); Globulin 2.6 g/dL (1.3-4.6); Glomerular Filtration Rate 96.7 mL/min (90-130); Glucose 143 mg/dL (65-115); Osmolality Calculated 288 mOsm/kg (285-295); Potassium 3.8 mmol/L (3.5-5.1); Sodium 140 mmol/L (136-145); Total Bilirubin 0.3 mg/dL (0.15-1.2); Total Protein 6.6 g/dL (6.6-8.7)
[2020-01-31] MEDS: FUROsemide 10 mg/mL SDV 2mL 20 MG IV (13:14)
[2020-01-31] MEDS: potassium chloride 20 MEQ in sodium chloride 0.9% 500 ML 500 MEQ IV (13:16)
--- NOTE | 2020-02-01 13:26 | ONC FU_ITS ---
Dr. Clark follow up note Patient: Paxton Kumar Unit #: [id number]: 1955 Dicatated By: Sae Clark M.D.Date of Visit:Jan 31, 2020 Onc Med Follow-up/Prog Note History of Present Illness: Mr. Kumar is a 64-year-old gentleman with history of bladder cancer status post TURP in January 2017 at [facility] in [place], [place]. Mr Kumar's daughter reported that took care of his bladder cancer. In September 2019, he went to a local emergency room with headache and facial droop. A CT scan of the head was done which showed right frontal lobe mass with edema and midline shift. Mr Kumar was transferred to [facility] in [place] where on October 23, 2019 he underwent right frontal lobe tumor resection. Repeat neuro CT MR showed solitary, gently lobulated but predominantly well-circumscribed homogeneously low-attenuation, noncalcified, intra-axial 5 x 6.2 x 4.5 cm mass in the right frontal region. There was significant perilesional vasogenic edema, resulting subfalcine herniation and 0.9 cm right to left midline shift. Pathology showed metastatic poorly differentiated carcinoma with solid to papillary/pseudopapillary growth pattern with a brisk mitotic activity and patchy presence of necrosis. Immunohistochemistry showed diffusely positive for CK7, also widespread reactivity for CK 5/6, GATA3, with very focal expression of Napsin-A. Tumor cells are nonreactive to CDX2, p63, CD20, TTF-1, chromogranin, synaptophysin, and uroplakin. AB/PAS histochemical stain demonstrate focal presence of mucin. Pathology comments were morphological findings are dose of poorly differentiated carcinoma, while definite comment on primary site is limited by its somewhat nonspecific immunoprofile, the possibilities being considered are urothelial and lung among others. Further clinical and imaging correlation to confirm exact site of origin is suggested.So cancer type ID was done which was reported on December 19, 2019, urothelial carcinoma and urinary bladder being primary with 90% probability, Again patient has history of bladder cancer, diagnosed in January, at [facility], where he underwent TURP. CT chest /abd scan done on October 21, 2019 showed No definitively suspicious pulmonary nodule or mass mediastinal right hilar and right supraclavicular adenopathy some of which is necrotic favoring a metastatic process including recurrence of patient's history of prior malignancy.Right paratracheal lymph node measures 1.4 x 1.6 cm, right hilar adenopathy Tiny lytic foci in L5 vertebral body of indeterminate. Scattered small enhancing foci in the liver favored to represent focal areas of vascular shunting versus small hemangiomas CT PET scan done on October 25, 2019 showed right hilar lymphadenopathy with a maximum SUV of 14.9 measuring 2.2 x 3.3 cm this is the most FDG avid lesion. Right supraclavicular lymphadenopathy with maximum SUV 12.2 measuring 1.7 x 1.4 cm. Right cervical level 5 lymph nodes with a maximum SUV of 6.7 measuring 2.7 x 1.4 cm Right paratracheal lymphadenopathy measuring 2.8 x 1.5 cm with SUV of 9.9. The lytic focus in L5 vertebral body is not hypermetabolic. Mr Kumar underwent CT scan of head on November 12, 2019, which showed postsurgical changes of right craniotomy and right frontal lobe tumor resection with residual enhancement along the anterior, medial and superior/posterior margins of the resection bed suspicious for residual tumor., Subsequently patient was treated with SBRT, as per patient he received 5 doses and completed recently. Mr Kumar said he has seen medical oncologist Dr. Lofton at [facility], who informed him that he has a lung cancer and PDL 1 status was ordered and some other blood test were done to identify specific therapy. And they are waiting for the report, as per patient, he will send the record to us for further care here as cancer center [place] is more convenient to him. Case was discussed with Dr. Parul Lopez, as it was not sure why significance of urothelial carcinoma or lung cancer so cancer type ID was ordered and reported on December 19, 2019 as urothelial carcinoma, urinary bladder as a primary with 90% probability. Case was discussed with Dr. Lopez on December 28, 2019 and she concurred with cancer type ID confirmation and signing out final pathology report as urothelial carcinoma. With that diagnosis Mr Kumar was offered treatmweent with Cisplatin/gemcitabine. He began his first cycle on 01/10/2020. He has tolerated it well thus far. Came for follow-up, denies any specific complaints, no fever chills, no nausea or vomiting, no diarrhea constipation, no more cough, patient quit smoking about a month ago. Tolerating systemic chemotherapy with cisplatin/gemcitabine well Medications: Aspirin 81 1 Tablet (of 81 mg) Tablet, enteric coated Oral daily, Keppra 1 Tablet (of 1000 mg) Tablet Oral b.i.d., LORazepam 1 - 2 Tablet (of 1 mg) Oral q 6 to 8 hours PRN, Multivitamin 1 Tablet Oral daily Allergies: No Known Allergies. Review of Systems: Review of Systems is not available for this patient. Vital Signs: Performed on Jan 31, 2020 09:30 Height - 64.00 in Weight - 149.4 lbs (HIGH) BSA - 1.73 sq.m BMI - 25.64 Temperature - 98.0 F (LOW) Pulse - 92 /min Respiration - 18 /min BP - 120/77 mm(hg) O2 Sat - 99 % Pain - 0 Performance Status: 0 - Fully active, able to carry on all predisease activities without restrictions. (ECOG) Physical Examination: ENMT - No mouth sores, no thrush, no jaundice, Respiratory - Lungs are clear, Cardiovascular - Regular rate and rhythm of heart, Abdomen - Soft, bowel sounds present, Extremities - No visible edema or rash. Lab/Imaging: Test performed on Jan 24, 2020 08:20 Sodium 137 mmol/L Potassium 4.3 mmol/L Chloride 105 mmol/L CO2 26 mmol/L Anion Gap 10.3 BUN 11 mg/dL Creatinine 0.7 mg/dL Cr Clearance (Est) 100.3000 mL/min eGFR 112.8 mL/min Glucose 100 mg/dL Calcium 8.9 mg/dL Protein, Total 6.9 g/dL Albumin 4.2 g/dL Globulin 2.7 g/dL Bilirubin, Total 0.2 mg/dL ALT (SGPT) 19 U/L AST (SGOT) 14 U/L Alkaline Phosphatase 77 IU/L WBC 2.6 10 3/uL RBC 4.11 10 6/uL HGB 12.4 g/dL HCT 37.9 % MCV 92.2 fL MCH 30.2 pg MCHC 32.7 g/dL RDW 12.7 % Platelet Count 97 10 3/cmm MPV 8.5 fL Neutrophils 1.01 10 3/uL Lymphocytes 1.5 10 3/uL Monocytes 0.1 10 3/uL Eosinophils 0.0 10 3/uL Basophils 0.0 10 3/uL Neutrophil % 38.9 % Lymphocyte % 56.8 % Monocyte % 2.3 % Eosinophil % 0.8 % Basophils % 0.8 % NRBC % 0 % Impression: Poorly differentiated carcinoma involving right frontal lobe status post partial resection done on October 23, 2019. Immunohistochemistry showed tumor cells to be strongly and diffusely positive for CK7, also widespread reactivity for CK 5/6 and GA TA 3, with very focal expression of Napsin-A. And tumor cell nonreactive to CDX 2, p63, CD20, TTF-1, chromogranin, synaptophysin, uroplakin. AB/PAS histochemical stain demonstrated focal presence of mucin. Cancer type ID reported on December 19, 2019 confirmed urothelial carcinoma, urinary bladder being primary with 90% probability CT PET scan done on October 25, 2019 showed right hilar lymphadenopathy, 2.2 x 3.3 cm with SUV 14.9 Right supraclavicular lymphadenopathy 1.7 x 1.4 cm with SUV of 12.2 Right paratracheal lymphadenopathy 2.8 x 1.5 cm with SUV of 9.9. Lytic focus in L5 vertebral body is non-hypermetabolic. History of bladder cancer, diagnosed in January 2017 at [facility] in [place], status post TURP Cancer type ID reported on December 19, 2019 confirmed brain mets being urothelial carcinoma with urinary bladder being primary with a 90% probability Clinically, patient is doing well with no signs symptoms suggestive of disease progression, there was a concern regarding cancer of unknown primary, lung versus urothelial, so cancer type ID was ordered after discussion with , pathologist at [facility], as mentioned above it confirmed urothelial carcinoma. Discussed with patient regarding systemic chemotherapy and treatment options include MVAC and cisplatin/gemcitabine followed by maintenance immunotherapy with avelumab, considering patient's age and comorbid condition, will consider cisplatin and split dose along with gemcitabine on day 1 and 8 and repeat cycle every 21 days x [address] PET scan and MRI scan of the head if it shows complete remission, then consider maintenance therapy with immunotherapy Avelumab. All the side effects possible benefits associated with cisplatin 25 mg/m??? on day 1 and 8 along with gemcitabine thousand milligrams per meter square, were discussed in detail including but not limited to bone marrow suppression, hair loss, nausea vomiting, thrombocytopenia especially with gemcitabine, nephro/pawel toxicity especially with cisplatin. Plan: Discussed with patient regarding his labs white blood count 5.3 hemoglobin 12.4 hematocrit 37.8 platelets 309,000 CMP within normal limits Clinically, patient is doing well, tolerating systemic chemotherapy with split dose cisplatin/gemcitabine well but with expected side effects. We will proceed with next cycle #2 with day 1 cisplatin/gemcitabine today and then he will return to clinic in 1 week with CBC CMP blood count looks reasonable for day 8 chemotherapy. Signed By: Sae Clark M.D. <<Signature on File>>
[2020-02-06] MEDS: sodium chloride 0.9% 250 ML 75 ML IV (08:30)
[2020-02-06 09:25] LABS: Basophils % 0.6 %; Eosinophils % 1.1 %; Hematocrit 37.2 % (42.0-52.0); Lymphocytes # 1.8 10^3/uL (0.8-4.8); Lymphocytes % 49.9 %; Mean Corpuscular HGB Conc 32.3 g/dL (30.0-36.0); Mean Corpuscular Hemoglobin 29.4 pg (28.0-34.0); Mean Corpuscular Volume 91.2 fL (80-94); Monocytes # 0.2 10^3/uL (0.2-0.9); Monocytes % 4.2 %; Neutrophils # 1.54 10^3/uL (1.8-7.7); Neutrophils % 42.8 %; Nucleated Red Blood Cells % 0 %; Platelet Count 491 10^3/cmm (130-400); Red Blood Count 4.08 10^6/uL (4.1-5.3); Red Cell Distribution Width 13.2 % (12.1-15.1); White Blood Count 3.6 10^3/uL (4.0-10.0)
[2020-02-06 09:45] LABS: Alanine Aminotransferase 17 U/L (0-41); Albumin Level 3.9 g/dL (3.5-5.2); Alkaline Phosphatase 72 IU/L (40-130); Aspartate Amino Transferase 14 U/L (0-40); Blood Urea Nitrogen 11 mg/dL (8-23); Calcium 8.5 mg/dL (8.5-10.5); Carbon Dioxide 26 mmol/L (22-29); Chloride 105 mmol/L (98-107); Globulin 2.8 g/dL (1.3-4.6); Glomerular Filtration Rate 134.8 mL/min (90-130); Glucose 99 mg/dL (65-115); Osmolality Calculated 280 mOsm/kg (285-295); Sodium 137 mmol/L (136-145); Total Bilirubin 0.2 mg/dL (0.15-1.2); Total Protein 6.7 g/dL (6.6-8.7)
[2020-02-06] MEDS: FUROsemide 10 mg/mL SDV 2mL 20 MG IV (13:57)
[2020-02-06] MEDS: potassium chloride 20 MEQ in sodium chloride 0.9% 500 ML 500 MEQ IV (14:00)
[2020-02-06] MEDS: pegfilgrastim 6 mg/0.6 mL Kit (onpro) SUBCUT (15:33)
--- NOTE | 2020-02-10 14:59 | ONC FU_ITS ---
Sharri Young Patient Note Patient: Paxton Kumar Unit #: [id number]: [id number] Dictated By: Eugenio HealyDate of Visit: Feb 06, 2020 Onc MED Follow-Up/Prog Note Chief Complaint: Bladder Cancer with brain metastasis History of Present Illness: Mr. Kumar is a 64-year-old gentleman with history of bladder cancer status post TURP in January 2017 at [facility] in [place], [place]. Mr Kumar's daughter reported that took care of his bladder cancer. In September 2019, he went to a local emergency room with headache and facial droop. A CT scan of the head was done which showed right frontal lobe mass with edema and midline shift. Mr Kumar was transferred to [facility] in [place] where on October 23, 2019 he underwent right frontal lobe tumor resection. Repeat neuro CT MR showed solitary, gently lobulated but predominantly well-circumscribed homogeneously low-attenuation, noncalcified, intra-axial 5 x 6.2 x 4.5 cm mass in the right frontal region. There was significant perilesional vasogenic edema, resulting subfalcine herniation and 0.9 cm right to left midline shift. Pathology showed metastatic poorly differentiated carcinoma with solid to papillary/pseudopapillary growth pattern with a brisk mitotic activity and patchy presence of necrosis. Immunohistochemistry showed diffusely positive for CK7, also widespread reactivity for CK 5/6, GATA3, with very focal expression of Napsin-A. Tumor cells are nonreactive to CDX2, p63, CD20, TTF-1, chromogranin, synaptophysin, and uroplakin. AB/PAS histochemical stain demonstrate focal presence of mucin. Pathology comments were morphological findings are dose of poorly differentiated carcinoma, while definite comment on primary site is limited by its somewhat nonspecific immunoprofile, the possibilities being considered are urothelial and lung among others. Further clinical and imaging correlation to confirm exact site of origin is suggested.So cancer type ID was done which was reported on December 19, 2019, urothelial carcinoma and urinary bladder being primary with 90% probability, Again patient has history of bladder cancer, diagnosed in January, at [facility], where he underwent TURP. CT chest /abd scan done on October 21, 2019 showed No definitively suspicious pulmonary nodule or mass mediastinal right hilar and right supraclavicular adenopathy some of which is necrotic favoring a metastatic process including recurrence of patient's history of prior malignancy.Right paratracheal lymph node measures 1.4 x 1.6 cm, right hilar adenopathy Tiny lytic foci in L5 vertebral body of indeterminate. Scattered small enhancing foci in the liver favored to represent focal areas of vascular shunting versus small hemangiomas CT PET scan done on October 25, 2019 showed right hilar lymphadenopathy with a maximum SUV of 14.9 measuring 2.2 x 3.3 cm this is the most FDG avid lesion. Right supraclavicular lymphadenopathy with maximum SUV 12.2 measuring 1.7 x 1.4 cm. Right cervical level 5 lymph nodes with a maximum SUV of 6.7 measuring 2.7 x 1.4 cm Right paratracheal lymphadenopathy measuring 2.8 x 1.5 cm with SUV of 9.9. The lytic focus in L5 vertebral body is not hypermetabolic. Mr Kumar underwent CT scan of head on November 12, 2019, which showed postsurgical changes of right craniotomy and right frontal lobe tumor resection with residual enhancement along the anterior, medial and superior/posterior margins of the resection bed suspicious for residual tumor., Subsequently patient was treated with SBRT, as per patient he received 5 doses and completed recently. Mr Kumar said he has seen medical oncologist Dr. Lofton at [facility], who informed him that he has a lung cancer and PDL 1 status was ordered and some other blood test were done to identify specific therapy. And they are waiting for the report, as per patient, he will send the record to us for further care here as cancer [facility] is more convenient to him. His case was discussed with Dr. Parul Lopez, as it was not sure why significance of urothelial carcinoma or lung cancer so cancer type ID was ordered and reported on December 19, 2019 as urothelial carcinoma, urinary bladder as a primary with 90% probability. Once again his case was discussed with Dr. Lopez on December 28, 2019 and she concurred with cancer type ID confirmation and signing out final pathology report as urothelial carcinoma. With that diagnosis Mr Kumar was offered treatmweent with Cisplatin/gemcitabine. He began his first cycle on 01/10/2020. He has tolerated it well thus far. Mr. Kumar is here today for follow-up. He is due for cycle 2-day 8 cisplatin gemcitabine. He states overall he is doing good. He states he is more tired in the afternoon but does rest and he feels much better. He denies any recent seizures. He states his seizure medication is now at 2 twice daily and he is tolerating this well. He states he might of had slight hearing changes with the treatment but has not noticed a significant difference at all. He states his appetite is good. Overall he is able to do all his ADLs without any assistance. He denies any mouth sores, he has had no shortness of breath orthopnea. He denies fever or chills. He states that his breathing is good he has not had any productive cough or no hemoptysis. He denies nausea or vomiting. He has had no peripheral neuropathy symptoms at present. He states his bowels and bladder are normal for him. His ECOG is 1. Past Medical History: Past Surgical History: Bladder cancer Removal of brain tumor Allergies: No Known Allergies. Medications: Aspirin 81 1 Tablet (of 81 mg) Tablet, enteric coated Oral daily Keppra 1 Tablet (of 1000 mg) Tablet Oral b.i.d. levoFLOXacin 1 Tablet (of 750 mg) Oral PRN LORazepam 1 - 2 Tablet (of 1 mg) Oral q 6 to 8 hours PRN Multivitamin 1 Tablet Oral daily Prochlorperazine Maleate 1 Tablet (of 10 mg) Oral q 4 hours PRN Family History: Mr. Kumar's mother at age 85: old age. Mr. Kumar's father at age 92: myocardial infarction. pt states all other sibilings have no illness to mention. Social History: Mr. Kumar is and he is an unknown. He is a daily smoker who has smoked 1.0 pack/day for 39 years. He is an active drinker.He consumes 2 drinks/day 4 days/week. Review Of Symptoms: Constitutional Denies fevers, chills, night sweats, excessive fatigue or weight loss. Slight hearing changes but not dramatic. Mild fatigue. Allergic/Immunologic No reactions. Eyes Denies significant visual changes. No diplopia. No amaurosis. ENMT Denies changes in hearing, sore throat, mouth sores, difficulty or changes in swallowing ability, and/or sinus drainage. Endocrine No diabetes, thyroid disease or hormone replacement. Denies hot flashes or night sweats. Hematologic/Lymphatic Denies easy bruising or bleeding. The patient denies any tender or palpable lymph nodes. Respiratory Denies dyspnea on exertion, chest pain, cough or hemoptysis. Denies orthopnea. Cardiovascular Denies anginal chest pain, palpitations or orthopnea. Gastrointestinal Denies persistent nausea, vomiting, diarrhea, GI bleeding, or constipation. Denies change in bowel habits and/or stool color, no heartburn or early satiety. Genitourinary (M) Denies hematuria, dysuria, increased frequency, urgency, hesitancy or incontinence. Musculoskeletal Denies joint pain, swelling or redness. No decreased range of motion. Integumentary Denies chronic rashes, inflammation, ulcerations or skin changes. Neurologic Denies headache, blurred vision, and no areas of focal weakness or numbness. Normal gait. No sensory problems. Psychiatric Denies insomnia, depression, [place] or mood swings. Vital Signs: Performed on Feb 06, 2020 09:25 Height - 64.00 in Weight - 150.8 lbs (HIGH) BSA - 1.73 sq.m BMI - 25.88 Temperature - 97.6 F (LOW) Pulse - 79 /min Respiration - 16 /min BP - 110/72 mm(hg) O2 Sat - 100 % Pain - 0,1 - No physically strenuous activity, but ambulatory and able to carry out light or sedentary work (e.g. office work, light house work). (ECOG) Physical Examination: Constitutional Alert, oriented, no acute distress. Skin pink, warm and dry. Head Normocephalic; atraumatic. Eyes Conjunctivae and sclerae are clear and without icterus. Pupils are reactive and equal. ENMT No oral exudates, ulcers, masses, thrush or mucositis. Oropharynx clear. Tongue normal. Neck Supple without masses or thyromegaly. No jugular venous distension. Hematologic/Lymphatic No petechiae or purpura. No tender or palpable lymph nodes in the cervical or supraclavicular areas. Respiratory Lungs are clear to auscultation without rhonchi or wheezing. Cardiovascular Regular rate and rhythm of heart without murmurs,clicks, gallops or rubs. Abdomen Non-tender, non-distended, no masses or ascites. Good bowel sounds noted in all quads. No guarding or rebound tenderness. No pulsatile masses. Back/Spine Non-tender to palpation. Extremities No visible deformities, no cyanosis, clubbing or edema. Musculoskeletal No tenderness or swelling, normal range of motion without obvious weakness. Integumentary No rashes or lesions. Neurologic No sensory or motor deficits, normal cerebellar function, normal gait. Psychiatric Alert and oriented times three. Coherent speech. Verbalizes understanding of our discussions today. Laboratory:Test performed on Feb 06, 2020 08:20 Sodium 137 mmol/L Potassium 4.0 mmol/L Chloride 105 mmol/L CO2 26 mmol/L Anion Gap 10.0 BUN 11 mg/dL Creatinine 0.6 mg/dL Cr Clearance (Est) 117.0200 mL/min eGFR 134.8 mL/min Glucose 99 mg/dL Calcium 8.5 mg/dL Protein, Total 6.7 g/dL Albumin 3.9 g/dL Globulin 2.8 g/dL Bilirubin, Total 0.2 mg/dL ALT (SGPT) 17 U/L AST (SGOT) 14 U/L Alkaline Phosphatase 72 IU/L WBC 3.6 10 3/uL RBC 4.08 10 6/uL HGB 12.0 g/dL HCT 37.2 % MCV 91.2 fL MCH 29.4 pg MCHC 32.3 g/dL RDW 13.2 % Platelet Count 491 10 3/cmm MPV 9.0 fL Neutrophils 1.54 10 3/uL Lymphocytes 1.8 10 3/uL Monocytes 0.2 10 3/uL Eosinophils 0.0 10 3/uL Basophils 0.0 10 3/uL Neutrophil % 42.8 % Lymphocyte % 49.9 % Monocyte % 4.2 % Eosinophil % 1.1 % Basophils % 0.6 % NRBC % 0 % Impression: Poorly differentiated carcinoma involving right frontal lobe status post partial resection done on October 23, 2019. Immunohistochemistry showed tumor cells to be strongly and diffusely positive for CK7, also widespread reactivity for CK 5/6 and GA TA 3, with very focal expression of Napsin-A. And tumor cell nonreactive to CDX 2, p63, CD20, TTF-1, chromogranin, synaptophysin, uroplakin. AB/PAS histochemical stain demonstrated focal presence of mucin. Cancer type ID reported on December 19, 2019 confirmed urothelial carcinoma, urinary bladder being primary with 90% probability CT PET scan done on October 25, 2019 showed right hilar lymphadenopathy, 2.2 x 3.3 cm with SUV 14.9 Right supraclavicular lymphadenopathy 1.7 x 1.4 cm with SUV of 12.2 Right paratracheal lymphadenopathy 2.8 x 1.5 cm with SUV of 9.9. Lytic focus in L5 vertebral body is non-hypermetabolic. History of bladder cancer, diagnosed in January 2017 at [facility] in [place], status post TURP Cancer type ID reported on December 19, 2019 confirmed brain mets being urothelial carcinoma with urinary bladder being primary with a 90% probability Clinically, patient is doing well with no signs symptoms suggestive of disease progression, there was a concern regarding cancer of unknown primary, lung versus urothelial, so cancer type ID was ordered after discussion with , pathologist at [facility], as mentioned above it confirmed urothelial carcinoma. Discussed with patient regarding systemic chemotherapy and treatment options include MVAC and cisplatin/gemcitabine followed by maintenance immunotherapy with avelumab, considering patient's age and comorbid condition, will consider cisplatin and split dose along with gemcitabine on day 1 and 8 and repeat cycle every 21 days x [address] PET scan and MRI scan of the head if it shows complete remission, then consider maintenance therapy with immunotherapy Avelumab. Mr Kumar is tolerating treatment well overall but does have chemo induced neutropenia. We will try adding Neulasta and proceeding with cycle 2 day 8. Plan: 1. Continue with cycle 2 day 8 Cisplatin gemcitabine. Add Neulasta Onc Pro today for chemo induced neutropenia-ANC today is 1540. He is on high risk regimen with extensive disease. He is high risk for continue worsening of his chemo induced neutropenia. 2. He will continue his current antiemetics premeds and antiemetics at home as this is working well for him. 3. He does havve Levaquin 500 mg tablets on hand in the event of fever or signs of infection. 4. Labs from today were reviewed in detail and discussed with Mr. Kumar and a copy was given to him. WBC 3.6, hemoglobin 12.0, platelets 491,000 ANC is 1540. 5. Neutropenic precautions were reviewed in detail. 6. We will plan to see him back in 2 weeks with CBC CMP for cycle 3-day 1 cisplatin gemcitabine. The current plan is to complete 4 cycles of gemcitabine cisplatin and then follow-up with a PET CT and MRI scan of the head. 7. Mr. Kumar was instructed to contact us in interim should questions or problems arise. 8. REfill lorazepam 0.5 mg 2 tablets am and 1 tablet pm # 90. Signed By: Mike HealyNHeather-, CNP Sae Clark MD <<Signature on File>>
[2020-02-13 11:13] LABS: Hematocrit 36.8 % (42.0-52.0); Hemoglobin 12.1 g/dL (11.7-16.6); Mean Corpuscular HGB Conc 32.9 g/dL (30.0-36.0); Mean Corpuscular Hemoglobin 30.3 pg (28.0-34.0); Mean Corpuscular Volume 92.2 fL (80-94); Mean Platelet Volume 8.8 fL (7.4-10.4); Platelet Count 161 10^3/cmm (130-400); Red Blood Count 3.99 10^6/uL (4.1-5.3); Red Cell Distribution Width 13.8 % (12.1-15.1); White Blood Count 24.4 10^3/uL (4.0-10.0)
[2020-02-13 11:34] LABS: Alanine Aminotransferase 15 U/L (0-41); Alkaline Phosphatase 184 IU/L (40-130); Anion Gap 12.8 (5-19); Aspartate Amino Transferase 20 U/L (0-40); Blood Urea Nitrogen 8 mg/dL (8-23); Carbon Dioxide 27 mmol/L (22-29); Chloride 102 mmol/L (98-107); Globulin 2.6 g/dL (1.3-4.6); Glomerular Filtration Rate 96.7 mL/min (90-130); Glucose 129 mg/dL (65-115); Osmolality Calculated 284 mOsm/kg (285-295); Potassium 3.8 mmol/L (3.5-5.1); Sodium 138 mmol/L (136-145); Total Bilirubin 0.2 mg/dL (0.15-1.2); Total Protein 6.6 g/dL (6.6-8.7)
[2020-02-13 11:42] LABS: Slide Review Slide Review Perform
[2020-02-13 11:44] LABS: Absolute Neutrophil 18.8 10^3/cmm (1.4-6.5); Absolute Segmented Neutrophil 7.6 10/cmm (1.6-7.1); Band Neutrophils Absolute 11.2 10^3/cmm (0.0-1.2); Lymphocytes 13 %; Monocytes Absolute 2.2 10^3/cmm (0.1-0.6); Platelet Estimate Normal (Normal); Segmented Neutrophils 31 %; Total Cells Counted 100 (0-100)
[2020-02-20] MEDS: sodium chloride 0.9% 250 ML 75 ML IV (08:20)
[2020-02-20 08:25] LABS: Hematocrit 36.8 % (42.0-52.0); Mean Corpuscular HGB Conc 32.6 g/dL (30.0-36.0); Mean Corpuscular Hemoglobin 29.9 pg (28.0-34.0); Mean Corpuscular Volume 91.8 fL (80-94); Mean Platelet Volume 9.4 fL (7.4-10.4); Platelet Count 189 10^3/cmm (130-400); Red Blood Count 4.01 10^6/uL (4.1-5.3); Red Cell Distribution Width 14.7 % (12.1-15.1); White Blood Count 17.1 10^3/uL (4.0-10.0)
[2020-02-20 08:43] LABS: Alanine Aminotransferase 18 U/L (0-41); Alkaline Phosphatase 116 IU/L (40-130); Anion Gap 12.1 (5-19); Aspartate Amino Transferase 18 U/L (0-40); Blood Urea Nitrogen 11 mg/dL (8-23); Calcium 8.6 mg/dL (8.5-10.5); Carbon Dioxide 27 mmol/L (22-29); Chloride 105 mmol/L (98-107); Globulin 2.7 g/dL (1.3-4.6); Glomerular Filtration Rate 112.8 mL/min (90-130); Glucose 106 mg/dL (65-115); Osmolality Calculated 290 mOsm/kg (285-295); Potassium 4.1 mmol/L (3.5-5.1); Sodium 140 mmol/L (136-145); Total Bilirubin 0.2 mg/dL (0.15-1.2); Total Protein 6.7 g/dL (6.6-8.7)
[2020-02-20 09:29] LABS: Slide Review Slide Review Perform
[2020-02-20 09:31] LABS: Absolute Neutrophil 12.1 10^3/cmm (1.4-6.5); Absolute Segmented Neutrophil 6.8 10/cmm (1.6-7.1); Band Neutrophils Absolute 5.3 10^3/cmm (0.0-1.2); Lymphocytes 19 %; Monocytes Absolute 0.9 10^3/cmm (0.1-0.6); Platelet Estimate Normal (Normal); Poikilocytosis Trace; Polychromasia Trace; Segmented Neutrophils 40 %; Tear Drop Cells Trace; Total Cells Counted 100 (0-100)
[2020-02-20] MEDS: FUROsemide 10 mg/mL SDV 2mL 20 MG IV (13:02)
[2020-02-20] MEDS: potassium chloride 20 MEQ in sodium chloride 0.9% 500 ML 500 MEQ IV (13:05)
--- NOTE | 2020-02-21 17:41 | ONC FU_ITS ---
Dr. Clark follow up note Patient: Paxton Kumar Unit #: [id number]: [id number] Dicatated By: Sae Clark M.D.Date of Visit:Feb 20, 2020 Onc Med Follow-up/Prog Note History of Present Illness: Mr. Kumar is a 64-year-old gentleman with history of bladder cancer status post TURP in January 2017 at [facility] in [place], [place]. Mr Kumar's daughter reported that took care of his bladder cancer. In September 2019, he went to a local emergency room with headache and facial droop. A CT scan of the head was done which showed right frontal lobe mass with edema and midline shift. Mr Kumar was transferred to [facility] in [place] where on October 23, 2019 he underwent right frontal lobe tumor resection. Repeat neuro CT MR showed solitary, gently lobulated but predominantly well-circumscribed homogeneously low-attenuation, noncalcified, intra-axial 5 x 6.2 x 4.5 cm mass in the right frontal region. There was significant perilesional vasogenic edema, resulting subfalcine herniation and 0.9 cm right to left midline shift. Pathology showed metastatic poorly differentiated carcinoma with solid to papillary/pseudopapillary growth pattern with a brisk mitotic activity and patchy presence of necrosis. Immunohistochemistry showed diffusely positive for CK7, also widespread reactivity for CK 5/6, GATA3, with very focal expression of Napsin-A. Tumor cells are nonreactive to CDX2, p63, CD20, TTF-1, chromogranin, synaptophysin, and uroplakin. AB/PAS histochemical stain demonstrate focal presence of mucin. Pathology comments were morphological findings are dose of poorly differentiated carcinoma, while definite comment on primary site is limited by its somewhat nonspecific immunoprofile, the possibilities being considered are urothelial and lung among others. Further clinical and imaging correlation to confirm exact site of origin is suggested.So cancer type ID was done which was reported on December 19, 2019, urothelial carcinoma and urinary bladder being primary with 90% probability, Again patient has history of bladder cancer, diagnosed in January, at [facility], where he underwent TURP. CT chest /abd scan done on October 21, 2019 showed No definitively suspicious pulmonary nodule or mass mediastinal right hilar and right supraclavicular adenopathy some of which is necrotic favoring a metastatic process including recurrence of patient's history of prior malignancy.Right paratracheal lymph node measures 1.4 x 1.6 cm, right hilar adenopathy Tiny lytic foci in L5 vertebral body of indeterminate. Scattered small enhancing foci in the liver favored to represent focal areas of vascular shunting versus small hemangiomas CT PET scan done on October 25, 2019 showed right hilar lymphadenopathy with a maximum SUV of 14.9 measuring 2.2 x 3.3 cm this is the most FDG avid lesion. Right supraclavicular lymphadenopathy with maximum SUV 12.2 measuring 1.7 x 1.4 cm. Right cervical level 5 lymph nodes with a maximum SUV of 6.7 measuring 2.7 x 1.4 cm Right paratracheal lymphadenopathy measuring 2.8 x 1.5 cm with SUV of 9.9. The lytic focus in L5 vertebral body is not hypermetabolic. Mr Kumar underwent CT scan of head on November 12, 2019, which showed postsurgical changes of right craniotomy and right frontal lobe tumor resection with residual enhancement along the anterior, medial and superior/posterior margins of the resection bed suspicious for residual tumor., Subsequently patient was treated with SBRT, as per patient he received 5 doses and completed recently. Mr Kumar said he has seen medical oncologist Dr. Lofton at [facility], who informed him that he has a lung cancer and PDL 1 status was ordered and some other blood test were done to identify specific therapy. And they are waiting for the report, as per patient, he will send the record to us for further care here as cancer [facility] more convenient to him. His case was discussed with Dr. Parul Lopez, as it was not sure why significance of urothelial carcinoma or lung cancer so cancer type ID was ordered and reported on December 19, 2019 as urothelial carcinoma, urinary bladder as a primary with 90% probability. Once again his case was discussed with Dr. Lopez on December 28, 2019 and she concurred with cancer type ID confirmation and signing out final pathology report as urothelial carcinoma. With that diagnosis Mr Kumar was offered treatmweent with Cisplatin/gemcitabine. He began his first cycle on 01/10/2020. He has tolerated it well thus far. Came for follow-up, denies any specific complaints, except generalized weakness and fatigue. But no fever chills, no nausea or vomiting, no diarrhea constipation, patient is on antiseizure medication as well as antianxiety meds. And not seeing neurologist to monitor antiseizure medication. Tolerating systemic therapy with cisplatin/gemcitabine well Medications: Aspirin 81 1 Tablet (of 81 mg) Tablet, enteric coated Oral daily, Keppra 1 Tablet (of 1000 mg) Tablet Oral b.i.d., levoFLOXacin 1 Tablet (of 750 mg) Oral PRN, LORazepam 1 - 2 Tablet (of 1 mg) Oral q 6 to 8 hours PRN, Multivitamin 1 Tablet Oral daily, Prochlorperazine Maleate 1 Tablet (of 10 mg) Oral q 4 hours PRN Allergies: No Known Allergies. Review of Systems: Constitutional - Appetite is good and weight is stable. No fever, night sweats, or hot flashes. Energy level is poor, ENMT - No sinus congestion/drainage. No mouth sores. No sore throat or difficulty swallowing, Hematologic/Lymphatic - No abnormal bruising or bleeding, Respiratory - No shortness of breath. No cough. No pleuritic pain or hemoptysis, Cardiovascular - No angina pain. No palpitations, Gastrointestinal - No nausea or vomiting. No heartburn or acid reflux. No diarrhea or constipation. No blood in the stool or black stools, Genitourinary (M) - No dysuria or hematuria. No urinary frequency. No urgency or incontinence, Musculoskeletal - No joint or bone pain, Neurologic - No headache or dizziness. No numbness or tingling. No other focal neurologic symptoms, Psychiatric - Positive for anxiety, no depression. No insomnia. Vital Signs: Performed on Feb 20, 2020 09:09 Height - 64.00 in Weight - 149.8 lbs (LOW) BSA - 1.73 sq.m BMI - 25.71 Temperature - 98.5 F Pulse - 92 /min Respiration - 18 /min BP - 113/74 mm(hg) O2 Sat - 97 % Pain - 0 Performance Status: 1 - No physically strenuous activity, but ambulatory and able to carry out light or sedentary work (e.g. office work, light house work). (ECOG) Physical Examination: ENMT - No mouth sores, no thrush, no jaundice, Respiratory - Lungs are clear to auscultation, Cardiovascular - Regular rate and rhythm of heart, Abdomen - Soft, bowel sounds present, Extremities - No visible edema. Lab/Imaging: Test performed on Feb 06, 2020 08:20 Sodium 137 mmol/L Potassium 4.0 mmol/L Chloride 105 mmol/L CO2 26 mmol/L Anion Gap 10.0 BUN 11 mg/dL Creatinine 0.6 mg/dL Cr Clearance (Est) 117.0200 mL/min eGFR 134.8 mL/min Glucose 99 mg/dL Calcium 8.5 mg/dL Protein, Total 6.7 g/dL Albumin 3.9 g/dL Globulin 2.8 g/dL Bilirubin, Total 0.2 mg/dL ALT (SGPT) 17 U/L AST (SGOT) 14 U/L Alkaline Phosphatase 72 IU/L Test performed on Dec 28, 2019 14:12 WBC 8.3 10 3/uL RBC 4.41 10 6/uL HGB 12.9 g/dL HCT 40.3 % MCV 91.4 fL MCH 29.3 pg MCHC 32.0 g/dL RDW 13.2 % Platelet Count 225 10 3/cmm MPV 8.9 fL Neutrophils 4.30 10 3/uL Lymphocytes 2.7 10 3/uL Monocytes 0.9 10 3/uL Eosinophils 0.4 10 3/uL Basophils 0.0 10 3/uL Neutrophil % 51.6 % Lymphocyte % 32.5 % Monocyte % 10.4 % Eosinophil % 4.8 % Basophils % 0.5 % NRBC % 0 % Impression: Poorly differentiated carcinoma involving right frontal lobe status post partial resection done on October 23, 2019. Immunohistochemistry showed tumor cells to be strongly and diffusely positive for CK7, also widespread reactivity for CK 5/6 and GA TA 3, with very focal expression of Napsin-A. And tumor cell nonreactive to CDX 2, p63, CD20, TTF-1, chromogranin, synaptophysin, uroplakin. AB/PAS histochemical stain demonstrated focal presence of mucin. Cancer type ID reported on December 19, 2019 confirmed urothelial carcinoma, urinary bladder being primary with 90% probability CT PET scan done on October 25, 2019 showed right hilar lymphadenopathy, 2.2 x 3.3 cm with SUV 14.9 Right supraclavicular lymphadenopathy 1.7 x 1.4 cm with SUV of 12.2 Right paratracheal lymphadenopathy 2.8 x 1.5 cm with SUV of 9.9. Lytic focus in L5 vertebral body is non-hypermetabolic. History of bladder cancer, diagnosed in January 2017 at [facility] in [place], status post TURP Cancer type ID reported on December 19, 2019 confirmed brain mets being urothelial carcinoma with urinary bladder being primary with a 90% probability Clinically, patient is doing well with no signs symptoms suggestive of disease progression, there was a concern regarding cancer of unknown primary, lung versus urothelial, so cancer type ID was ordered after discussion with , pathologist at [facility], as mentioned above it confirmed urothelial carcinoma. Discussed with patient regarding systemic chemotherapy and treatment options include MVAC and cisplatin/gemcitabine followed by maintenance immunotherapy with avelumab, considering patient's age and comorbid condition, will consider cisplatin and split dose along with gemcitabine on day 1 and 8 and repeat cycle every 21 days x [address] PET scan and MRI scan of the head if it shows complete remission, then consider maintenance therapy with immunotherapy Avelumab. Mr Kumar is tolerating treatment well overall but does have chemo induced neutropenia. We will try adding Neulasta and proceeding with cycle 2 day 8. Plan: Discussed with patient regarding his labs white blood count 17.1 hemoglobin 12 hematocrit 36.8 platelets 179,000 CMP within normal limits Clinically, patient is doing well, tolerating systemic therapy with cisplatin/gemcitabine well but with expected side effects. We will proceed with next cycle number 3-day 1 with split dose cisplatin/gemcitabine today and then he will return to clinic in 1 week with CBC CMP and a blood count looks reasonable for systemic chemotherapy. As far as generalized weakness and fatigue is concerned could be due to antiseizure/antianxiety meds as well. We will refer him to neurology for evaluation and adjustment of antiseizure medication. Signed By: Sae Clark M.D. <<Signature on File>>
[2020-02-28 08:38] LABS: Basophils % 0.6 %; Eosinophils # 0.1 10^3/uL (0.0-0.8); Hematocrit 34.1 % (42.0-52.0); Hemoglobin 11.2 g/dL (11.7-16.6); Lymphocytes # 1.7 10^3/uL (0.8-4.8); Mean Corpuscular HGB Conc 32.8 g/dL (30.0-36.0); Mean Corpuscular Hemoglobin 29.7 pg (28.0-34.0); Mean Corpuscular Volume 90.5 fL (80-94); Mean Platelet Volume 9.1 fL (7.4-10.4); Monocytes # 0.8 10^3/uL (0.2-0.9); Monocytes % 11.3 %; Neutrophils # 4.51 10^3/uL (1.8-7.7); Neutrophils % 62.1 %; Nucleated Red Blood Cells % 0 %; Platelet Count 270 10^3/cmm (130-400); Red Blood Count 3.77 10^6/uL (4.1-5.3); Red Cell Distribution Width 14.5 % (12.1-15.1); White Blood Count 7.3 10^3/uL (4.0-10.0)
[2020-02-28] MEDS: sodium chloride 0.9% 250 ML 35 ML IV ×2 (08:55)
[2020-02-28 08:59] LABS: Alanine Aminotransferase 19 U/L (0-41); Albumin Level 4.1 g/dL (3.5-5.2); Alkaline Phosphatase 79 IU/L (40-130); Anion Gap 11.8 (5-19); Aspartate Amino Transferase 17 U/L (0-40); Blood Urea Nitrogen 8 mg/dL (8-23); Calcium 8.8 mg/dL (8.5-10.5); Carbon Dioxide 27 mmol/L (22-29); Chloride 103 mmol/L (98-107); Globulin 2.6 g/dL (1.3-4.6); Glomerular Filtration Rate 134.8 mL/min (90-130); Glucose 108 mg/dL (65-115); Osmolality Calculated 285 mOsm/kg (285-295); Potassium 3.8 mmol/L (3.5-5.1); Sodium 138 mmol/L (136-145); Total Bilirubin 0.2 mg/dL (0.15-1.2); Total Protein 6.7 g/dL (6.6-8.7)
[2020-02-28] MEDS: FUROsemide 10 mg/mL SDV 2mL 20 MG IV (13:37)
[2020-02-28] MEDS: potassium chloride 20 MEQ in sodium chloride 0.9% 500 ML 255 MEQ IV (13:40)
--- NOTE | 2020-02-28 14:22 | ONC FU_ITS ---
Dr. Clark follow up note Patient: Paxton Kumar Unit #: [id number]: 1955 Dicatated By: Sae Clark M.D.Date of Visit:Feb 28, 2020 Onc Med Follow-up/Prog Note History of Present Illness: Mr. Kumar is a 64-year-old gentleman with history of bladder cancer status post TURP in January 2017 at [facility] in [place], [place]. Mr Kumar's daughter reported that took care of his bladder cancer. In September 2019, he went to a local emergency room with headache and facial droop. A CT scan of the head was done which showed right frontal lobe mass with edema and midline shift. Mr Kumar was transferred to [facility] in [place] where on October 23, 2019 he underwent right frontal lobe tumor resection. Repeat neuro CT MR showed solitary, gently lobulated but predominantly well-circumscribed homogeneously low-attenuation, noncalcified, intra-axial 5 x 6.2 x 4.5 cm mass in the right frontal region. There was significant perilesional vasogenic edema, resulting subfalcine herniation and 0.9 cm right to left midline shift. Pathology showed metastatic poorly differentiated carcinoma with solid to papillary/pseudopapillary growth pattern with a brisk mitotic activity and patchy presence of necrosis. Immunohistochemistry showed diffusely positive for CK7, also widespread reactivity for CK 5/6, GATA3, with very focal expression of Napsin-A. Tumor cells are nonreactive to CDX2, p63, CD20, TTF-1, chromogranin, synaptophysin, and uroplakin. AB/PAS histochemical stain demonstrate focal presence of mucin. Pathology comments were morphological findings are dose of poorly differentiated carcinoma, while definite comment on primary site is limited by its somewhat nonspecific immunoprofile, the possibilities being considered are urothelial and lung among others. Further clinical and imaging correlation to confirm exact site of origin is suggested.So cancer type ID was done which was reported on December 19, 2019, urothelial carcinoma and urinary bladder being primary with 90% probability, Again patient has history of bladder cancer, diagnosed in January, at [facility], where he underwent TURP. CT chest /abd scan done on October 21, 2019 showed No definitively suspicious pulmonary nodule or mass mediastinal right hilar and right supraclavicular adenopathy some of which is necrotic favoring a metastatic process including recurrence of patient's history of prior malignancy.Right paratracheal lymph node measures 1.4 x 1.6 cm, right hilar adenopathy Tiny lytic foci in L5 vertebral body of indeterminate. Scattered small enhancing foci in the liver favored to represent focal areas of vascular shunting versus small hemangiomas CT PET scan done on October 25, 2019 showed right hilar lymphadenopathy with a maximum SUV of 14.9 measuring 2.2 x 3.3 cm this is the most FDG avid lesion. Right supraclavicular lymphadenopathy with maximum SUV 12.2 measuring 1.7 x 1.4 cm. Right cervical level 5 lymph nodes with a maximum SUV of 6.7 measuring 2.7 x 1.4 cm Right paratracheal lymphadenopathy measuring 2.8 x 1.5 cm with SUV of 9.9. The lytic focus in L5 vertebral body is not hypermetabolic. Mr Kumar underwent CT scan of head on November 12, 2019, which showed postsurgical changes of right craniotomy and right frontal lobe tumor resection with residual enhancement along the anterior, medial and superior/posterior margins of the resection bed suspicious for residual tumor., Subsequently patient was treated with SBRT, as per patient he received 5 doses and completed recently. Mr Kumar said he has seen medical oncologist Dr. Lofton at [facility], who informed him that he has a lung cancer and PDL 1 status was ordered and some other blood test were done to identify specific therapy. And they are waiting for the report, as per patient, he will send the record to us for further care here as [facility] more convenient to him. His case was discussed with Dr. Parul Lopez, as it was not sure why significance of urothelial carcinoma or lung cancer so cancer type ID was ordered and reported on December 19, 2019 as urothelial carcinoma, urinary bladder as a primary with 90% probability. Once again his case was discussed with Dr. Lopez on December 28, 2019 and she concurred with cancer type ID confirmation and signing out final pathology report as urothelial carcinoma. With that diagnosis Mr Kumar was offered treatmweent with Cisplatin/gemcitabine. He began his first cycle on 01/10/2020. He has tolerated it well thus far. Came for follow-up, denies any specific complaints, no fever chills, no nausea or vomiting, no diarrhea constipation, no seizure-like activity, no melena or hematochezia, no nosebleed. Patient said he went to [facility] where he had MRI scan of the head done and he was told that 'looks' good. Tolerating systemic chemotherapy with cisplatin/gemcitabine well Medications: Aspirin 81 1 Tablet (of 81 mg) Tablet, enteric coated Oral daily, Keppra 1 Tablet (of 1000 mg) Tablet Oral b.i.d., levoFLOXacin 1 Tablet (of 750 mg) Oral PRN, LORazepam 1 - 2 Tablet (of 1 mg) Oral q 6 to 8 hours PRN, Multivitamin 1 Tablet Oral daily, Prochlorperazine Maleate 1 Tablet (of 10 mg) Oral q 4 hours PRN Allergies: No Known Allergies. Review of Systems: Constitutional - Appetite is good and weight is stable. No fever, night sweats, or hot flashes. Energy level is poor, ENMT - No sinus congestion/drainage. No mouth sores. No sore throat or difficulty swallowing, Hematologic/Lymphatic - No abnormal bruising or bleeding, Respiratory - No shortness of breath. No cough. No pleuritic pain or hemoptysis, Cardiovascular - No angina pain. No palpitations, Gastrointestinal - No nausea or vomiting. No heartburn or acid reflux. No diarrhea or constipation. No blood in the stool or black stools, Genitourinary (M) - No dysuria or hematuria. No urinary frequency. No urgency or incontinence, Musculoskeletal - No joint or bone pain, Neurologic - No headache or dizziness. No numbness or tingling. No other focal neurologic symptoms, Psychiatric - Positive for anxiety, no depression. No insomnia. Vital Signs: Performed on Feb 28, 2020 09:54 Height - 64.00 in Weight - 147.6 lbs (LOW) BSA - 1.72 sq.m BMI - 25.34 Temperature - 98.2 F (LOW) Pulse - 78 /min Respiration - 18 /min BP - 126/80 mm(hg) O2 Sat - 98 % Pain - 0 Performance Status: 0 - Fully active, able to carry on all predisease activities without restrictions. (ECOG) Physical Examination: ENMT - No mouth sores, no thrush, no jaundice, Respiratory - Lungs are clear to auscultation, Cardiovascular - Regular rate and rhythm of heart, Abdomen - Soft, bowel sounds present, Extremities - No visible edema. Lab/Imaging: Test performed on Feb 06, 2020 08:20 Sodium 137 mmol/L Potassium 4.0 mmol/L Chloride 105 mmol/L CO2 26 mmol/L Anion Gap 10.0 BUN 11 mg/dL Creatinine 0.6 mg/dL Cr Clearance (Est) 117.0200 mL/min eGFR 134.8 mL/min Glucose 99 mg/dL Calcium 8.5 mg/dL Protein, Total 6.7 g/dL Albumin 3.9 g/dL Globulin 2.8 g/dL Bilirubin, Total 0.2 mg/dL ALT (SGPT) 17 U/L AST (SGOT) 14 U/L Alkaline Phosphatase 72 IU/L Test performed on Dec 28, 2019 14:12 WBC 8.3 10 3/uL RBC 4.41 10 6/uL HGB 12.9 g/dL HCT 40.3 % MCV 91.4 fL MCH 29.3 pg MCHC 32.0 g/dL RDW 13.2 % Platelet Count 225 10 3/cmm MPV 8.9 fL Neutrophils 4.30 10 3/uL Lymphocytes 2.7 10 3/uL Monocytes 0.9 10 3/uL Eosinophils 0.4 10 3/uL Basophils 0.0 10 3/uL Neutrophil % 51.6 % Lymphocyte % 32.5 % Monocyte % 10.4 % Eosinophil % 4.8 % Basophils % 0.5 % NRBC % 0 % Impression: Poorly differentiated carcinoma involving right frontal lobe status post partial resection done on October 23, 2019. Immunohistochemistry showed tumor cells to be strongly and diffusely positive for CK7, also widespread reactivity for CK 5/6 and GA TA 3, with very focal expression of Napsin-A. And tumor cell nonreactive to CDX 2, p63, CD20, TTF-1, chromogranin, synaptophysin, uroplakin. AB/PAS histochemical stain demonstrated focal presence of mucin. Cancer type ID reported on December 19, 2019 confirmed urothelial carcinoma, urinary bladder being primary with 90% probability CT PET scan done on October 25, 2019 showed right hilar lymphadenopathy, 2.2 x 3.3 cm with SUV 14.9 Right supraclavicular lymphadenopathy 1.7 x 1.4 cm with SUV of 12.2 Right paratracheal lymphadenopathy 2.8 x 1.5 cm with SUV of 9.9. Lytic focus in L5 vertebral body is non-hypermetabolic. History of bladder cancer, diagnosed in January 2017 at [facility] in [place], status post TURP Cancer type ID reported on December 19, 2019 confirmed brain mets being urothelial carcinoma with urinary bladder being primary with a 90% probability Clinically, patient is doing well with no signs symptoms suggestive of disease progression, there was a concern regarding cancer of unknown primary, lung versus urothelial, so cancer type ID was ordered after discussion with , pathologist at [facility], as mentioned above it confirmed urothelial carcinoma. Discussed with patient regarding systemic chemotherapy and treatment options include MVAC and cisplatin/gemcitabine followed by maintenance immunotherapy with avelumab, considering patient's age and comorbid condition, will consider cisplatin and split dose along with gemcitabine on day 1 and 8 and repeat cycle every 21 days x [address] PET scan and MRI scan of the head if it shows complete remission, then consider maintenance therapy with immunotherapy Avelumab. Mr Kumar is tolerating treatment well overall but does have chemo induced neutropenia. We will try adding Neulasta and proceeding with cycle 2 day 8. Plan: Discussed with patient regarding his labs white blood count 7.3 hemoglobin 11.2 hematocrit 34.1 platelets 270,000, CMP within normal limits Clinically, patient is doing well with no signs symptom suggestive of disease progression, tolerating systemic chemotherapy with cisplatin/gemcitabine well, will proceed with day 8 chemotherapy with cisplatin/gemcitabine and then he will return to clinic in 2 weeks with CBC CMP. And we will obtain his MRI scan report from [facility] and planning to consider CT PET scan after next cycle to assess disease response Signed By: Sae Clark M.D. <<Signature on File>>
[2020-02-28] MEDS: pegfilgrastim 6 mg/0.6 mL Kit (onpro) SUBCUT (14:35)
== END 2020-02-28 23:59 | disposition home or self-care (01) ==
LOC: ONCMED 05:32
PROVIDERS: Nurse Practitioner; PCP Emergency Medicine Emergency Medical Services; Visit Provider Internal Medicine Hematology & Oncology
DX: Z51.11 Encounter for antineoplastic chemotherapy (principal); C67.9 Malignant neoplasm of bladder, unspecified; C79.31 Secondary malignant neoplasm of brain; R59.1 Generalized enlarged lymph nodes
CPT/HCPCS: 36591; 80053; 85007; 85025; 96366; 96367; 96372; 96375; 96413; 96417; 99214; J1100; J1200; J1453; J1940; J2469; J2505; J3475; J3480; J7030; J7040; J7050; J9060; J9201

== ENCOUNTER 2020-03-21 05:38 | Outpatient (RCR) | payer OTHER, SELFPAY ==
[2020-03-13] MEDS: sodium chloride 0.9% 250 ML 75 ML IV (09:35)
[2020-03-13 09:46] LABS: Basophils # 0.1 10^3/uL (0.0-0.1); Basophils % 0.4 %; Eosinophils # 0.2 10^3/uL (0.0-0.8); Eosinophils % 1.6 %; Hematocrit 36.3 % (42.0-52.0); Hemoglobin 11.7 g/dL (11.7-16.6); Lymphocytes # 2.5 10^3/uL (0.8-4.8); Lymphocytes % 19.4 %; Mean Corpuscular HGB Conc 32.2 g/dL (30.0-36.0); Mean Corpuscular Hemoglobin 30.1 pg (28.0-34.0); Mean Corpuscular Volume 93.3 fL (80-94); Mean Platelet Volume 9.2 fL (7.4-10.4); Monocytes # 1.7 10^3/uL (0.2-0.9); Monocytes % 12.6 %; Neutrophils # 8.19 10^3/uL (1.8-7.7); Neutrophils % 62.8 %; Nucleated Red Blood Cells % 0 %; Platelet Count 263 10^3/cmm (130-400); Red Blood Count 3.89 10^6/uL (4.1-5.3); White Blood Count 13.1 10^3/uL (4.0-10.0)
[2020-03-13 10:07] LABS: Alanine Aminotransferase 13 U/L (0-41); Albumin Level 4.2 g/dL (3.5-5.2); Alkaline Phosphatase 128 IU/L (40-130); Anion Gap 13.2 (5-19); Aspartate Amino Transferase 17 U/L (0-40); Blood Urea Nitrogen 11 mg/dL (8-23); Calcium 9.6 mg/dL (8.5-10.5); Carbon Dioxide 25 mmol/L (22-29); Chloride 104 mmol/L (98-107); Globulin 2.9 g/dL (1.3-4.6); Glomerular Filtration Rate 112.8 mL/min (90-130); Glucose 86 mg/dL (65-115); Osmolality Calculated 285 mOsm/kg (285-295); Potassium 4.2 mmol/L (3.5-5.1); Sodium 138 mmol/L (136-145); Total Bilirubin 0.2 mg/dL (0.15-1.2); Total Protein 7.1 g/dL (6.6-8.7)
--- NOTE | 2020-03-13 10:56 | ONC FU_ITS ---
Dr. Clark follow up note Patient: Paxton Kumar Unit #: [id number]: 1955 Dicatated By: Sae Clark M.D.Date of Visit:Mar 13, 2020 Onc Med Follow-up/Prog Note History of Present Illness: Mr. Kumar is a 64-year-old gentleman with history of bladder cancer status post TURP in January 2017 at [facility] in [place], [place]. Mr Kumar's daughter reported that took care of his bladder cancer. In September 2019, he went to a local emergency room with headache and facial droop. A CT scan of the head was done which showed right frontal lobe mass with edema and midline shift. Mr Kumar was transferred to [facility] in [place] where on October 23, 2019 he underwent right frontal lobe tumor resection. Repeat neuro CT MR showed solitary, gently lobulated but predominantly well-circumscribed homogeneously low-attenuation, noncalcified, intra-axial 5 x 6.2 x 4.5 cm mass in the right frontal region. There was significant perilesional vasogenic edema, resulting subfalcine herniation and 0.9 cm right to left midline shift. Pathology showed metastatic poorly differentiated carcinoma with solid to papillary/pseudopapillary growth pattern with a brisk mitotic activity and patchy presence of necrosis. Immunohistochemistry showed diffusely positive for CK7, also widespread reactivity for CK 5/6, GATA3, with very focal expression of Napsin-A. Tumor cells are nonreactive to CDX2, p63, CD20, TTF-1, chromogranin, synaptophysin, and uroplakin. AB/PAS histochemical stain demonstrate focal presence of mucin. Pathology comments were morphological findings are dose of poorly differentiated carcinoma, while definite comment on primary site is limited by its somewhat nonspecific immunoprofile, the possibilities being considered are urothelial and lung among others. Further clinical and imaging correlation to confirm exact site of origin is suggested.So cancer type ID was done which was reported on December 19, 2019, urothelial carcinoma and urinary bladder being primary with 90% probability, Again patient has history of bladder cancer, diagnosed in January, at [facility] [place] [facility], where he underwent TURP. CT chest /abd scan done on October 21, 2019 showed No definitively suspicious pulmonary nodule or mass mediastinal right hilar and right supraclavicular adenopathy some of which is necrotic favoring a metastatic process including recurrence of patient's history of prior malignancy.Right paratracheal lymph node measures 1.4 x 1.6 cm, right hilar adenopathy Tiny lytic foci in L5 vertebral body of indeterminate. Scattered small enhancing foci in the liver favored to represent focal areas of vascular shunting versus small hemangiomas CT PET scan done on October 25, 2019 showed right hilar lymphadenopathy with a maximum SUV of 14.9 measuring 2.2 x 3.3 cm this is the most FDG avid lesion. Right supraclavicular lymphadenopathy with maximum SUV 12.2 measuring 1.7 x 1.4 cm. Right cervical level 5 lymph nodes with a maximum SUV of 6.7 measuring 2.7 x 1.4 cm Right paratracheal lymphadenopathy measuring 2.8 x 1.5 cm with SUV of 9.9. The lytic focus in L5 vertebral body is not hypermetabolic. Mr Kumar underwent CT scan of head on November 12, 2019, which showed postsurgical changes of right craniotomy and right frontal lobe tumor resection with residual enhancement along the anterior, medial and superior/posterior margins of the resection bed suspicious for residual tumor., Subsequently patient was treated with SBRT, as per patient he received 5 doses and completed recently. Mr Kumar said he has seen medical oncologist Dr. Lofton at [facility], who informed him that he has a lung cancer and PDL 1 status was ordered and some other blood test were done to identify specific therapy. And they are waiting for the report, as per patient, he will send the record to us for further care here as [facility] is more convenient to him. His case was discussed with Dr. Parul Lopez, as it was not sure why significance of urothelial carcinoma or lung cancer so cancer type ID was ordered and reported on December 19, 2019 as urothelial carcinoma, urinary bladder as a primary with 90% probability. Once again his case was discussed with Dr. Lopez on December 28, 2019 and she concurred with cancer type ID confirmation and signing out final pathology report as urothelial carcinoma. With that diagnosis Mr uKmar was offered treatmweent with Cisplatin/gemcitabine. He began his first cycle on 01/10/2020. He has tolerated it well thus far. Came for follow-up, denies any specific complaints, no fever chills, no diarrhea or constipation, no mouth sores, no headaches no blurred vision double vision, no jaundice. Tolerating systemic therapy with cisplatin/gemcitabine well Medications: Aspirin 81 1 Tablet (of 81 mg) Tablet, enteric coated Oral daily, Keppra 1 Tablet (of 1000 mg) Tablet Oral b.i.d., levoFLOXacin 1 Tablet (of 750 mg) Oral PRN, LORazepam 1 - 2 Tablet (of 1 mg) Oral q 6 to 8 hours PRN, Multivitamin 1 Tablet Oral daily, Prochlorperazine Maleate 1 Tablet (of 10 mg) Oral q 4 hours PRN Allergies: No Known Allergies. Review of Systems: Constitutional - Appetite is good and weight is stable. No fever, night sweats, or hot flashes. Energy level is fair today, ENMT - No sinus congestion/drainage. No mouth sores. No sore throat or difficulty swallowing, Hematologic/Lymphatic - No abnormal bruising or bleeding, Respiratory - No shortness of breath. No cough. No pleuritic pain or hemoptysis, Cardiovascular - No angina pain. No palpitations, Gastrointestinal - No nausea or vomiting. No heartburn or acid reflux. No diarrhea or constipation. No blood in the stool or black stools, Genitourinary (M) - No dysuria or hematuria. No urinary frequency. No urgency or incontinence, Musculoskeletal - No joint or bone pain, Neurologic - No headache or dizziness. No numbness or tingling. No other focal neurologic symptoms, Psychiatric - Positive for anxiety, no depression. No insomnia. Vital Signs: Performed on Mar 13, 2020 10:37 Height - 64.00 in Weight - 153.4 lbs (HIGH) BSA - 1.75 sq.m BMI - 26.33 Temperature - 97.5 F (LOW) Pulse - 86 /min Respiration - 16 /min BP - 127/78 mm(hg) O2 Sat - 97 % Pain - 0 Performance Status: 0 - Fully active, able to carry on all predisease activities without restrictions. (ECOG) Physical Examination: ENMT - No mouth sores, no thrush, no jaundice, Respiratory - Lungs are clear to auscultation, Cardiovascular - Regular rate and rhythm of heart, Abdomen - Soft, bowel sounds present, Extremities - No visible edema. Lab/Imaging: Test performed on Feb 06, 2020 08:20 Sodium 137 mmol/L Potassium 4.0 mmol/L Chloride 105 mmol/L CO2 26 mmol/L Anion Gap 10.0 BUN 11 mg/dL Creatinine 0.6 mg/dL Cr Clearance (Est) 117.0200 mL/min eGFR 134.8 mL/min Glucose 99 mg/dL Calcium 8.5 mg/dL Protein, Total 6.7 g/dL Albumin 3.9 g/dL Globulin 2.8 g/dL Bilirubin, Total 0.2 mg/dL ALT (SGPT) 17 U/L AST (SGOT) 14 U/L Alkaline Phosphatase 72 IU/L Test performed on Dec 28, 2019 14:12 WBC 8.3 10 3/uL RBC 4.41 10 6/uL HGB 12.9 g/dL HCT 40.3 % MCV 91.4 fL MCH 29.3 pg MCHC 32.0 g/dL RDW 13.2 % Platelet Count 225 10 3/cmm MPV 8.9 fL Neutrophils 4.30 10 3/uL Lymphocytes 2.7 10 3/uL Monocytes 0.9 10 3/uL Eosinophils 0.4 10 3/uL Basophils 0.0 10 3/uL Neutrophil % 51.6 % Lymphocyte % 32.5 % Monocyte % 10.4 % Eosinophil % 4.8 % Basophils % 0.5 % NRBC % 0 % Impression: Poorly differentiated carcinoma involving right frontal lobe status post partial resection done on October 23, 2019. Immunohistochemistry showed tumor cells to be strongly and diffusely positive for CK7, also widespread reactivity for CK 5/6 and GA TA 3, with very focal expression of Napsin-A. And tumor cell nonreactive to CDX 2, p63, CD20, TTF-1, chromogranin, synaptophysin, uroplakin. AB/PAS histochemical stain demonstrated focal presence of mucin. Cancer type ID reported on December 19, 2019 confirmed urothelial carcinoma, urinary bladder being primary with 90% probability CT PET scan done on October 25, 2019 showed right hilar lymphadenopathy, 2.2 x 3.3 cm with SUV 14.9 Right supraclavicular lymphadenopathy 1.7 x 1.4 cm with SUV of 12.2 Right paratracheal lymphadenopathy 2.8 x 1.5 cm with SUV of 9.9. Lytic focus in L5 vertebral body is non-hypermetabolic. History of bladder cancer, diagnosed in January 2017 at [facility] in [place], status post TURP Cancer type ID reported on December 19, 2019 confirmed brain mets being urothelial carcinoma with urinary bladder being primary with a 90% probability Clinically, patient is doing well with no signs symptoms suggestive of disease progression, there was a concern regarding cancer of unknown primary, lung versus urothelial, so cancer type ID was ordered after discussion with , pathologist at [facility], as mentioned above it confirmed urothelial carcinoma. Discussed with patient regarding systemic chemotherapy and treatment options include MVAC and cisplatin/gemcitabine followed by maintenance immunotherapy with avelumab, considering patient's age and comorbid condition, will consider cisplatin and split dose along with gemcitabine on day 1 and 8 and repeat cycle every 21 days x [address] PET scan and MRI scan of the head if it shows complete remission, then consider maintenance therapy with immunotherapy Avelumab. Mr Kumar is tolerating treatment well overall but does have chemo induced neutropenia. We will try adding Neulasta and proceeding with cycle 2 day 8. Plan: Discussed with patient regarding his labs white blood count 13.1 hemoglobin 11.7 hematocrit 36.3 platelets 263,000 CMP within normal limits Clinically, patient doing well, tolerating systemic chemotherapy with cisplatin/gemcitabine well, will proceed with cycle number 4-day 1 with weekly cisplatin/gemcitabine today and then he will return to clinic in 1 week with CBC CMP if blood count looks reasonable for day 8 chemotherapy with cisplatin/gemcitabine and after that he will get CT PET scan to assess disease response. Signed By: Sae Clark M.D. <<Signature on File>>
[2020-03-13] MEDS: FUROsemide 10 mg/mL SDV 2mL 20 MG IV (14:11)
[2020-03-13] MEDS: potassium chloride 20 MEQ in sodium chloride 0.9% 500 ML 500 MEQ IV (14:15)
[2020-03-21] MEDS: sodium chloride 0.9% 250 ML 75 ML IV (09:16)
[2020-03-21 09:28] LABS: Basophils % 0.5 %; Eosinophils # 0.1 10^3/uL (0.0-0.8); Eosinophils % 1.4 %; Hematocrit 33.2 % (42.0-52.0); Hemoglobin 10.7 g/dL (11.7-16.6); Lymphocytes # 1.9 10^3/uL (0.8-4.8); Lymphocytes % 30.8 %; Mean Corpuscular HGB Conc 32.2 g/dL (30.0-36.0); Mean Platelet Volume 8.9 fL (7.4-10.4); Monocytes # 0.6 10^3/uL (0.2-0.9); Monocytes % 9.2 %; Neutrophils # 3.59 10^3/uL (1.8-7.7); Nucleated Red Blood Cells % 0 %; Platelet Count 246 10^3/cmm (130-400); Red Blood Count 3.57 10^6/uL (4.1-5.3); Red Cell Distribution Width 16.2 % (12.1-15.1); White Blood Count 6.3 10^3/uL (4.0-10.0)
[2020-03-21 09:52] LABS: Alanine Aminotransferase 16 U/L (0-41); Albumin Level 4.1 g/dL (3.5-5.2); Alkaline Phosphatase 86 IU/L (40-130); Aspartate Amino Transferase 15 U/L (0-40); Blood Urea Nitrogen 14 mg/dL (8-23); Calcium 9.1 mg/dL (8.5-10.5); Carbon Dioxide 26 mmol/L (22-29); Chloride 103 mmol/L (98-107); Globulin 2.5 g/dL (1.3-4.6); Glomerular Filtration Rate 112.8 mL/min (90-130); Glucose 88 mg/dL (65-115); Osmolality Calculated 284 mOsm/kg (285-295); Sodium 137 mmol/L (136-145); Total Bilirubin 0.2 mg/dL (0.15-1.2); Total Protein 6.6 g/dL (6.6-8.7)
[2020-03-21] MEDS: FUROsemide 10 mg/mL SDV 2mL 20 MG IV (14:18)
[2020-03-21] MEDS: potassium chloride 20 MEQ in sodium chloride 0.9% 500 ML 500 MEQ IV (14:20)
[2020-03-21] MEDS: pegfilgrastim 6 mg/0.6 mL Kit (onpro) SUBCUT (15:20)
--- NOTE | 2020-03-23 14:52 | ONC FU_ITS ---
[facility] Patient Note Patient: Paxton Kumar Unit #: [id number]: 1955 Dictated By: Eugenio HealyDate of Visit: Mar 21, 2020 Onc MED Follow-Up/Prog Note Chief Complaint: Brain mets History of Present Illness: Mr. Kumar is a 64-year-old gentleman with history of bladder cancer status post TURP in January 2017 at [facility] in [place], [place]. Mr Kumar's daughter reported that took care of his bladder cancer. In September 2019, he went to a local emergency room with headache and facial droop. A CT scan of the head was done which showed right frontal lobe mass with edema and midline shift. Mr Kumar was transferred to [facility] [address] in [place] where on October 23, 2019 he underwent right frontal lobe tumor resection. Repeat neuro CT MR showed solitary, gently lobulated but predominantly well-circumscribed homogeneously low-attenuation, noncalcified, intra-axial 5 x 6.2 x 4.5 cm mass in the right frontal region. There was significant perilesional vasogenic edema, resulting subfalcine herniation and 0.9 cm right to left midline shift. Pathology showed metastatic poorly differentiated carcinoma with solid to papillary/pseudopapillary growth pattern with a brisk mitotic activity and patchy presence of necrosis. Immunohistochemistry showed diffusely positive for CK7, also widespread reactivity for CK 5/6, GATA3, with very focal expression of Napsin-A. Tumor cells are nonreactive to CDX2, p63, CD20, TTF-1, chromogranin, synaptophysin, and uroplakin. AB/PAS histochemical stain demonstrate focal presence of mucin. Pathology comments were morphological findings are dose of poorly differentiated carcinoma, while definite comment on primary site is limited by its somewhat nonspecific immunoprofile, the possibilities being considered are urothelial and lung among others. Further clinical and imaging correlation to confirm exact site of origin is suggested.So cancer type ID was done which was reported on December 19, 2019, urothelial carcinoma and urinary bladder being primary with 90% probability, Again patient has history of bladder cancer, diagnosed in January, at [facility], where he underwent TURP. CT chest /abd scan done on October 21, 2019 showed No definitively suspicious pulmonary nodule or mass mediastinal right hilar and right supraclavicular adenopathy some of which is necrotic favoring a metastatic process including recurrence of patient's history of prior malignancy.Right paratracheal lymph node measures 1.4 x 1.6 cm, right hilar adenopathy Tiny lytic foci in L5 vertebral body of indeterminate. Scattered small enhancing foci in the liver favored to represent focal areas of vascular shunting versus small hemangiomas CT PET scan done on October 25, 2019 showed right hilar lymphadenopathy with a maximum SUV of 14.9 measuring 2.2 x 3.3 cm this is the most FDG avid lesion. Right supraclavicular lymphadenopathy with maximum SUV 12.2 measuring 1.7 x 1.4 cm. Right cervical level 5 lymph nodes with a maximum SUV of 6.7 measuring 2.7 x 1.4 cm Right paratracheal lymphadenopathy measuring 2.8 x 1.5 cm with SUV of 9.9. The lytic focus in L5 vertebral body is not hypermetabolic. Mr Kumar underwent CT scan of head on November 12, 2019, which showed postsurgical changes of right craniotomy and right frontal lobe tumor resection with residual enhancement along the anterior, medial and superior/posterior margins of the resection bed suspicious for residual tumor., Subsequently patient was treated with SBRT, as per patient he received 5 doses and completed recently. Mr Kumar said he has seen medical oncologist Dr. Lofton at [facility] [address], who informed him that he has a lung cancer and PDL 1 status was ordered and some other blood test were done to identify specific therapy. And they are waiting for the report, as per patient, he will send the record to us for further care here as [facility] more convenient to him. His case was discussed with Dr. Parul Lopez, as it was not sure why significance of urothelial carcinoma or lung cancer so cancer type ID was ordered and reported on December 19, 2019 as urothelial carcinoma, urinary bladder as a primary with 90% probability. Once again his case was discussed with Dr. Lopez on December 28, 2019 and she concurred with cancer type ID confirmation and signing out final pathology report as urothelial carcinoma. With that diagnosis Mr Kumar was offered treatmweent with Cisplatin/gemcitabine. He began his first cycle on 01/10/2020. He has tolerated it well thus far. Mr. Kumar is here today for follow-up. He is due for cycle 4-day 8 cisplatin gemcitabine. He has tolerated it well overall. He has been able to obtain his day 1 and 8 treatments thus far. His blood counts have held well. He does do Neulasta support on day 8. He has no new concerns today. He states overall he feels good. He denies any fever or chills. He has had no mouth sores, sore throat or difficulty swallowing. He denies any known Covid exposure, symptoms or pending test. He states his appetite is good. He is swallowing good. He states he continues to be somewhat short of breath but overall it is better. He does have occasional productive cough but no hemoptysis. He denies any diarrhea or constipation. He denies any hearing changes. He denies any neuropathy symptoms at this time. He states his energy is slowly improving as well. His ECOG is 1. Past Medical History: Past Surgical History: Bladder cancer Removal of brain tumor Allergies: No Known Allergies. Medications: Aspirin 81 1 Tablet (of 81 mg) Tablet, enteric coated Oral daily Keppra 1 Tablet (of 1000 mg) Tablet Oral b.i.d. levoFLOXacin 1 Tablet (of 750 mg) Oral PRN LORazepam 1 - 2 Tablet (of 1 mg) Oral q 6 to 8 hours PRN Multivitamin 1 Tablet Oral daily Prochlorperazine Maleate 1 Tablet (of 10 mg) Oral q 4 hours PRN Family History: Mr. Kumar's mother at age 85: old age. Mr. Kumar's father at age 92: myocardial infarction. pt states all other sibilings have no illness to mention. Social History: Mr. Kumar is and he is an unknown. Mr. Kumar no longer smokes but had smoked 1.0 pack/day for 39 years. He has no history of drinking. Review Of Symptoms: Constitutional Denies fevers, chills, night sweats, excessive fatigue or weight loss. Mild fatigue. Allergic/Immunologic No reactions. Eyes Denies significant visual changes. No diplopia. No amaurosis. ENMT Denies changes in hearing, sore throat, mouth sores, difficulty or changes in swallowing ability, and/or sinus drainage. Endocrine No diabetes, thyroid disease or hormone replacement. Denies hot flashes or night sweats. Hematologic/Lymphatic Denies easy bruising or bleeding. The patient denies any tender or palpable lymph nodes. Respiratory Denies dyspnea on exertion, chest pain, cough or hemoptysis. Denies orthopnea. Cardiovascular Denies anginal chest pain, palpitations or orthopnea. Gastrointestinal Denies persistent nausea, vomiting, diarrhea, GI bleeding, or constipation. Denies change in bowel habits and/or stool color, no heartburn or early satiety. Genitourinary (M) Denies hematuria, dysuria, increased frequency, urgency, hesitancy or incontinence. Musculoskeletal Denies joint pain, swelling or redness. No decreased range of motion. Integumentary Denies chronic rashes, inflammation, ulcerations or skin changes. Neurologic Denies headache, blurred vision, and no areas of focal weakness or numbness. Normal gait. No sensory problems. Psychiatric Denies insomnia, depression, ken[place] or mood swings. Vital Signs: Performed on Mar 21, 2020 10:39 Height - 64.00 in Weight - 150.6 lbs (LOW) BSA - 1.73 sq.m BMI - 25.85 Temperature - 97.5 F (LOW) Pulse - 81 /min Respiration - 18 /min BP - 114/76 mm(hg) O2 Sat - 100 % Pain - 0,1 - No physically strenuous activity, but ambulatory and able to carry out light or sedentary work (e.g. office work, light house work). (ECOG) Physical Examination: Constitutional Alert, oriented, no acute distress. Skin pink, warm and dry. Head Normocephalic; atraumatic. Eyes Conjunctivae and sclerae are clear and without icterus. Pupils are reactive and equal. ENMT No oral exudates, ulcers, masses, thrush or mucositis. Oropharynx clear. Tongue normal. Neck Supple without masses or thyromegaly. No jugular venous distension. Hematologic/Lymphatic No petechiae or purpura. No tender or palpable lymph nodes in the cervical or supraclavicular areas. Respiratory Lungs are clear to auscultation without rhonchi or wheezing. Cardiovascular Regular rate and rhythm of heart without murmurs,clicks, gallops or rubs. Chest Left subclavian venous access device insertion site has healed well. Abdomen Non-tender, non-distended, no masses or ascites. Good bowel sounds noted in all quads. No guarding or rebound tenderness. No pulsatile masses. Back/Spine Non-tender to palpation. Extremities No visible deformities, no cyanosis, clubbing or edema. Musculoskeletal No tenderness or swelling, normal range of motion without obvious weakness. Integumentary No rashes or lesions. Neurologic No sensory or motor deficits, normal cerebellar function, normal gait. Psychiatric Alert and oriented times three. Coherent speech. Verbalizes understanding of our discussions today. Laboratory:Test performed on Mar 21, 2020 09:09 Sodium 137 mmol/L Potassium 4.0 mmol/L Chloride 103 mmol/L CO2 26 mmol/L Anion Gap 12.0 BUN 14 mg/dL Creatinine 0.7 mg/dL Cr Clearance (Est) 100.3000 mL/min eGFR 112.8 mL/min Glucose 88 mg/dL Osmolality - Calculated 284 mOsm/kg Calcium 9.1 mg/dL Protein, Total 6.6 g/dL Albumin 4.1 g/dL Globulin 2.5 g/dL Bilirubin, Total 0.2 mg/dL ALT (SGPT) 16 U/L AST (SGOT) 15 U/L Alkaline Phosphatase 86 IU/L WBC 6.3 10 3/uL RBC 3.57 10 6/uL HGB 10.7 g/dL HCT 33.2 % MCV 93.0 fL MCH 30.0 pg MCHC 32.2 g/dL RDW 16.2 % Platelet Count 246 10 3/cmm MPV 8.9 fL Neutrophils 3.59 10 3/uL Lymphocytes 1.9 10 3/uL Monocytes 0.6 10 3/uL Eosinophils 0.1 10 3/uL Basophils 0.0 10 3/uL Neutrophil % 57.0 % Lymphocyte % 30.8 % Monocyte % 9.2 % Eosinophil % 1.4 % Basophils % 0.5 % NRBC % 0 % Impression: Poorly differentiated carcinoma involving right frontal lobe status post partial resection done on October 23, 2019. Immunohistochemistry showed tumor cells to be strongly and diffusely positive for CK7, also widespread reactivity for CK 5/6 and GA TA 3, with very focal expression of Napsin-A. And tumor cell nonreactive to CDX 2, p63, CD20, TTF-1, chromogranin, synaptophysin, uroplakin. AB/PAS histochemical stain demonstrated focal presence of mucin. Cancer type ID reported on December 19, 2019 confirmed urothelial carcinoma, urinary bladder being primary with 90% probability CT PET scan done on October 25, 2019 showed right hilar lymphadenopathy, 2.2 x 3.3 cm with SUV 14.9 Right supraclavicular lymphadenopathy 1.7 x 1.4 cm with SUV of 12.2 Right paratracheal lymphadenopathy 2.8 x 1.5 cm with SUV of 9.9. Lytic focus in L5 vertebral body is non-hypermetabolic. History of bladder cancer, diagnosed in January 2017 at [facility] in [place], status post TURP Cancer type ID reported on December 19, 2019 confirmed brain mets being urothelial carcinoma with urinary bladder being primary with a 90% probability Clinically, patient is doing well with no signs symptoms suggestive of disease progression, there was a concern regarding cancer of unknown primary, lung versus urothelial, so cancer type ID was ordered after discussion with , pathologist at [facility], as mentioned above it confirmed urothelial carcinoma. Discussed with patient regarding systemic chemotherapy and treatment options include MVAC and cisplatin/gemcitabine followed by maintenance immunotherapy with avelumab, considering patient's age and comorbid condition, will consider cisplatin and split dose along with gemcitabine on day 1 and 8 and repeat cycle every 21 days x [address] scan and MRI scan of the head if it shows complete remission, then consider maintenance therapy with immunotherapy Avelumab. Mr Kumar is tolerating treatment well overall but does have chemo induced neutropenia. We will try adding Neulasta and proceeding with cycle 2 day 8. Plan: Discussed with patient regarding his labs white blood count 13.1 hemoglobin 11.7 hematocrit 36.3 platelets 263,000 CMP within normal limits Clinically, patient doing well, tolerating systemic chemotherapy with cisplatin/gemcitabine well, will proceed with cycle number 4-day 1 with weekly cisplatin/gemcitabine today and then he will return to clinic in 1 week with CBC CMP if blood count looks reasonable for day 8 chemotherapy with cisplatin/gemcitabine and after that he will get CT PET scan to assess disease response. 1. Continue with cycle 4 day 8 Cisplatin gemcitabine. Continue Neulasta Onc Pro today for chemo induced neutropenia-ANC today is 3600. He is on high risk regimen with extensive disease. He is high risk for continue worsening of his chemo induced neutropenia. 2. He will continue his current antiemetics premeds and antiemetics at home as this is working well for him. 3. He does have Levaquin 500 mg tablets on hand in the event of fever or signs of infection. 4. Labs from today were reviewed in detail and discussed with Mr. Kumar and a copy was given to him. WBC 6.3, hemoglobin 10.7, platelets 10 46,000, ANC is 3600. Creatinine 0.7 random glucose 88 LFTs are normal. 6. We will plan to see him back in 2-3 weeks with CBC CMP for possible cycle 5-day 1 cisplatin gemcitabine. The current plan is to complete 4 cycles of gemcitabine cisplatin and then follow-up with a PET CT and MRI scan of the head. The followup PEt/CT was requested for 04/06/2020. 7. Mr. Kumar was instructed to contact us in interim should questions or problems arise. Signed By: Eugenio Healy-AOCNP Sae Clark MD <<Signature on File>>
== END 2020-03-30 23:59 | disposition home or self-care (01) ==
LOC: ONCMED 05:38
PROVIDERS: Internal Medicine Hematology & Oncology; PCP Emergency Medicine Emergency Medical Services; Visit Provider Nurse Practitioner
DX: Z51.11 Encounter for antineoplastic chemotherapy (principal); C67.9 Malignant neoplasm of bladder, unspecified; C79.31 Secondary malignant neoplasm of brain; C77.8 Secondary and unspecified malignant neoplasm of lymph nodes of multiple regions; D70.1 Agranulocytosis secondary to cancer chemotherapy; T45.1X5A Adverse effect of antineoplastic and immunosuppressive drugs, initial encounter; Z79.82 Long term (current) use of aspirin
CPT/HCPCS: 80053; 85025; 96366; 96367; 96372; 96375; 96413; 96417; 99214; J1100; J1200; J1453; J1940; J2469; J2505; J3475; J3480; J7030; J7040; J7050; J9060; J9201

== ENCOUNTER 2020-04-18 05:20 | Outpatient (RCR) | payer OTHER, SELFPAY ==
[2020-04-11] MEDS: sodium chloride 0.9% 250 ML 75 ML IV ×2 (08:28)
[2020-04-11 08:31] LABS: Basophils % 0.4 %; Eosinophils # 0.2 10^3/uL (0.0-0.8); Hematocrit 37.6 % (42.0-52.0); Hemoglobin 11.9 g/dL (11.7-16.6); Lymphocytes # 2.1 10^3/uL (0.8-4.8); Lymphocytes % 28.4 %; Mean Corpuscular HGB Conc 31.6 g/dL (30.0-36.0); Mean Corpuscular Hemoglobin 30.8 pg (28.0-34.0); Mean Corpuscular Volume 97.4 fL (80-94); Mean Platelet Volume 9.1 fL (7.4-10.4); Monocytes # 1.2 10^3/uL (0.2-0.9); Monocytes % 15.9 %; Neutrophils # 3.93 10^3/uL (1.8-7.7); Neutrophils % 52.4 %; Nucleated Red Blood Cells % 0 %; Platelet Count 321 10^3/cmm (130-400); Red Blood Count 3.86 10^6/uL (4.1-5.3); Red Cell Distribution Width 17.5 % (12.1-15.1); White Blood Count 7.5 10^3/uL (4.0-10.0)
[2020-04-11 08:53] LABS: Alanine Aminotransferase 16 U/L (0-41); Alkaline Phosphatase 99 IU/L (40-130); Anion Gap 11.1 (5-19); Aspartate Amino Transferase 16 U/L (0-40); Blood Urea Nitrogen 12 mg/dL (8-23); Calcium 8.8 mg/dL (8.5-10.5); Carbon Dioxide 27 mmol/L (22-29); Chloride 107 mmol/L (98-107); Globulin 2.4 g/dL (1.3-4.6); Glomerular Filtration Rate 134.8 mL/min (90-130); Glucose 95 mg/dL (65-115); Osmolality Calculated 292 mOsm/kg (285-295); Potassium 4.1 mmol/L (3.5-5.1); Sodium 141 mmol/L (136-145); Total Bilirubin 0.2 mg/dL (0.15-1.2); Total Protein 6.4 g/dL (6.6-8.7)
[2020-04-11] MEDS: FUROsemide 10 mg/mL SDV 2mL 20 MG IV (13:23)
[2020-04-11] MEDS: potassium chloride 20 MEQ in sodium chloride 0.9% 500 ML 500 MEQ IV (13:25)
--- NOTE | 2020-04-11 17:06 | ONC FU_ITS ---
Dr. Clark follow up note Patient: Paxton Kumar Unit #: [id number]: 1955 Dicatated By: Sae Clark M.D.Date of Visit:Apr 11, 2020 Onc Med Follow-up/Prog Note History of Present Illness: Mr. Kumar is a 64-year-old gentleman with history of bladder cancer status post TURP in January 2017 at [facility] in [place], [place]. Mr Kumar's daughter reported that took care of his bladder cancer. In September 2019, he went to a local emergency room with headache and facial droop. A CT scan of the head was done which showed right frontal lobe mass with edema and midline shift. Mr Kumar was transferred to [facility] in [place] where on October 23, 2019 he underwent right frontal lobe tumor resection. Repeat neuro CT MR showed solitary, gently lobulated but predominantly well-circumscribed homogeneously low-attenuation, noncalcified, intra-axial 5 x 6.2 x 4.5 cm mass in the right frontal region. There was significant perilesional vasogenic edema, resulting subfalcine herniation and 0.9 cm right to left midline shift. Pathology showed metastatic poorly differentiated carcinoma with solid to papillary/pseudopapillary growth pattern with a brisk mitotic activity and patchy presence of necrosis. Immunohistochemistry showed diffusely positive for CK7, also widespread reactivity for CK 5/6, GATA3, with very focal expression of Napsin-A. Tumor cells are nonreactive to CDX2, p63, CD20, TTF-1, chromogranin, synaptophysin, and uroplakin. AB/PAS histochemical stain demonstrate focal presence of mucin. Pathology comments were morphological findings are dose of poorly differentiated carcinoma, while definite comment on primary site is limited by its somewhat nonspecific immunoprofile, the possibilities being considered are urothelial and lung among others. Further clinical and imaging correlation to confirm exact site of origin is suggested.So cancer type ID was done which was reported on December 19, 2019, urothelial carcinoma and urinary bladder being primary with 90% probability, Again patient has history of bladder cancer, diagnosed in January, at [facility], where he underwent TURP. CT chest /abd scan done on October 21, 2019 showed No definitively suspicious pulmonary nodule or mass mediastinal right hilar and right supraclavicular adenopathy some of which is necrotic favoring a metastatic process including recurrence of patient's history of prior malignancy.Right paratracheal lymph node measures 1.4 x 1.6 cm, right hilar adenopathy Tiny lytic foci in L5 vertebral body of indeterminate. Scattered small enhancing foci in the liver favored to represent focal areas of vascular shunting versus small hemangiomas CT PET scan done on October 25, 2019 showed right hilar lymphadenopathy with a maximum SUV of 14.9 measuring 2.2 x 3.3 cm this is the most FDG avid lesion. Right supraclavicular lymphadenopathy with maximum SUV 12.2 measuring 1.7 x 1.4 cm. Right cervical level 5 lymph nodes with a maximum SUV of 6.7 measuring 2.7 x 1.4 cm Right paratracheal lymphadenopathy measuring 2.8 x 1.5 cm with SUV of 9.9. The lytic focus in L5 vertebral body is not hypermetabolic. Mr Kumar underwent CT scan of head on November 12, 2019, which showed postsurgical changes of right craniotomy and right frontal lobe tumor resection with residual enhancement along the anterior, medial and superior/posterior margins of the resection bed suspicious for residual tumor., Subsequently patient was treated with SBRT, as per patient he received 5 doses and completed recently. Mr Kumar said he has seen medical oncologist Dr. Lofton at [facility], who informed him that he has a lung cancer and PDL 1 status was ordered and some other blood test were done to identify specific therapy. And they are waiting for the report, as per patient, he will send the record to us for further care here as [facility] more convenient to him. His case was discussed with Dr. Parul Lopez, as it was not sure why significance of urothelial carcinoma or lung cancer so cancer type ID was ordered and reported on December 19, 2019 as urothelial carcinoma, urinary bladder as a primary with 90% probability. Once again his case was discussed with Dr. Lopez on December 28, 2019 and she concurred with cancer type ID confirmation and signing out final pathology report as urothelial carcinoma. With that diagnosis Mr Kumar was offered treatmweent with Cisplatin/gemcitabine. He began his first cycle on 01/10/2020. He has tolerated it well thus far. Follow-up CT PET scan done on April 10, 2020 at [facility] in [place] showed right-sided level 3 lymph node involvement with a single 1.5 x 1.2 cm lymph node with SUV of 8.48, right-sided pretracheal, paratracheal, precarinal, bronchial lymphadenopathy with index lesion right precarinal lymph node is 0.7 cm with SUV of 13.82. Soft tissue nodular lesion is present in the right upper lobe posteriorly with increased metabolic activity 1.1 x 0.8 cm with SUV of 6.92. No other abnormality seen. No intra-abdominal disease. And this PET scan was not compared with the PET scan done in September 2019 at [facility] prior to palliative chemotherapy started in December 2019 Medications: Aspirin 81 1 Tablet (of 81 mg) Tablet, enteric coated Oral daily, Keppra 1 Tablet (of 1000 mg) Tablet Oral b.i.d., levoFLOXacin 1 Tablet (of 750 mg) Oral PRN, LORazepam 1 - 2 Tablet (of 1 mg) Oral q 6 to 8 hours PRN, Multivitamin 1 Tablet Oral daily, Prochlorperazine Maleate 1 Tablet (of 10 mg) Oral q 4 hours PRN Allergies: No Known Allergies. Review of Systems: Constitutional - Appetite is good and weight is stable. No fever, night sweats, or hot flashes. Energy level is fair today, ENMT - No sinus congestion/drainage. No mouth sores. No sore throat or difficulty swallowing, Hematologic/Lymphatic - No abnormal bruising or bleeding, Respiratory - No shortness of breath. No cough. No pleuritic pain or hemoptysis, Cardiovascular - No angina pain. No palpitations, Gastrointestinal - No nausea or vomiting. No heartburn or acid reflux. No diarrhea or constipation. No blood in the stool or black stools, Genitourinary (M) - No dysuria or hematuria. No urinary frequency. No urgency or incontinence, Musculoskeletal - No joint or bone pain, Neurologic - No headache or dizziness. No numbness or tingling. No other focal neurologic symptoms, Psychiatric - Positive for anxiety, no depression. No insomnia. Vital Signs: Performed on Apr 11, 2020 09:15 Height - 64.00 in Weight - 155.4 lbs (HIGH) BSA - 1.76 sq.m BMI - 26.67 Temperature - 97.8 F (LOW) Pulse - 90 /min Respiration - 24 /min BP - 118/80 mm(hg) O2 Sat - 99 % Pain - 0 Performance Status: 1 - No physically strenuous activity, but ambulatory and able to carry out light or sedentary work (e.g. office work, light house work). (ECOG) Physical Examination: ENMT - No mouth sores, no thrush, no jaundice, Respiratory - Lungs are clear to auscultation, Cardiovascular - Regular rate and rhythm of heart, Abdomen - Soft, bowel sounds present, Extremities - No visible edema. Lab/Imaging: Test performed on Apr 10, 2020 12:45 Glucose 76 mg/dL Test performed on Mar 21, 2020 09:09 Sodium 137 mmol/L Potassium 4.0 mmol/L Chloride 103 mmol/L CO2 26 mmol/L Anion Gap 12.0 BUN 14 mg/dL Creatinine 0.7 mg/dL Cr Clearance (Est) 100.3000 mL/min eGFR 112.8 mL/min Osmolality - Calculated 284 mOsm/kg Calcium 9.1 mg/dL Protein, Total 6.6 g/dL Albumin 4.1 g/dL Globulin 2.5 g/dL Bilirubin, Total 0.2 mg/dL ALT (SGPT) 16 U/L AST (SGOT) 15 U/L Alkaline Phosphatase 86 IU/L WBC 6.3 10 3/uL RBC 3.57 10 6/uL HGB 10.7 g/dL HCT 33.2 % MCV 93.0 fL MCH 30.0 pg MCHC 32.2 g/dL RDW 16.2 % Platelet Count 246 10 3/cmm MPV 8.9 fL Neutrophils 3.59 10 3/uL Lymphocytes 1.9 10 3/uL Monocytes 0.6 10 3/uL Eosinophils 0.1 10 3/uL Basophils 0.0 10 3/uL Neutrophil % 57.0 % Lymphocyte % 30.8 % Monocyte % 9.2 % Eosinophil % 1.4 % Basophils % 0.5 % NRBC % 0 % Test performed on Feb 20, 2020 08:10 Manual Segs % 40 % Manual Bands % 31.0 % Manual Lymphs % 19 % Manual Monos % 5.0 % Total Cells Counted 100 Metamyelocytes % 4.0 % Myelocytes % 1.0 % Polychromasia Trace CBC Slide Review Slide Review Perform Poikilocytosis Trace Tear Drop Cells Trace Platelet Estimate Normal Manual Segs Abs 6.8 10/cmm Manual Bands Abs 5.3 10 3/cmm Manual Neutrophils Abs 12.1 10 3/cmm Manual Monocytes Abs 0.9 10 3/cmm Impression: Poorly differentiated carcinoma involving right frontal lobe status post partial resection done on October 23, 2019. Immunohistochemistry showed tumor cells to be strongly and diffusely positive for CK7, also widespread reactivity for CK 5/6 and GA TA 3, with very focal expression of Napsin-A. And tumor cell nonreactive to CDX 2, p63, CD20, TTF-1, chromogranin, synaptophysin, uroplakin. AB/PAS histochemical stain demonstrated focal presence of mucin. Cancer type ID reported on December 19, 2019 confirmed urothelial carcinoma, urinary bladder being primary with 90% probability CT PET scan done on October 25, 2019 showed right hilar lymphadenopathy, 2.2 x 3.3 cm with SUV 14.9 Right supraclavicular lymphadenopathy 1.7 x 1.4 cm with SUV of 12.2 Right paratracheal lymphadenopathy 2.8 x 1.5 cm with SUV of 9.9. Lytic focus in L5 vertebral body is non-hypermetabolic. History of bladder cancer, diagnosed in January 2017 at [facility] in [place], status post TURP Cancer type ID reported on December 19, 2019 confirmed brain mets being urothelial carcinoma with urinary bladder being primary with a 90% probability Clinically, patient is doing well with no signs symptoms suggestive of disease progression, there was a concern regarding cancer of unknown primary, lung versus urothelial, so cancer type ID was ordered after discussion with , pathologist at [facility], as mentioned above it confirmed urothelial carcinoma. Discussed with patient regarding systemic chemotherapy and treatment options include MVAC and cisplatin/gemcitabine followed by maintenance immunotherapy with avelumab, considering patient's age and comorbid condition, will consider cisplatin and split dose along with gemcitabine on day 1 and 8 and repeat cycle every 21 days x [address] PET scan and MRI scan of the head if it shows complete remission, then consider maintenance therapy with immunotherapy Avelumab. Mr Kumar is tolerating treatment well overall but does have chemo induced neutropenia. We will try adding Neulasta and proceeding with cycle 2 day 8. Plan: Discussed with patient regarding his labs white blood count 7.5 hemoglobin 11.9 hematocrit 37.6 platelets 321,000 CMP within normal limits and follow-up CT PET scan, Clinically, patient doing well with no new signs symptoms, tolerating palliative chemotherapy with split dose cisplatin and gemcitabine well, his follow-up CT PET scan done after 4 cycles of chemotherapy showed excellent response when compared to CT PET scan done in September 2019 at [facility] and keeping in mind his chemotherapy was started in December 2019 as patient was undergoing radiation therapy to the brain and also time taken by cancer type ID to confirm the primary as initial impression was lung being primary bilateral cancer type ID confirmed urothelial carcinoma., At this point we will continue with same chemotherapy regimen for 3 more cycles and then repeat CT PET scan as follow-up CT PET scan done recently shows significant improvement but with still active disease with a high SUV value. We will proceed with cycle #5 with split dose cisplatin and gemcitabine today and then return to clinic in 1 week with CBC CMP if reasonable, day 8 cisplatin/gemcitabine. Signed By: Sae Clark M.D. <<Signature on File>>
[2020-04-18 09:20] LABS: Basophils % 0.6 %; Eosinophils # 0.1 10^3/uL (0.0-0.8); Eosinophils % 1.1 %; Hematocrit 34.3 % (42.0-52.0); Lymphocytes % 37.2 %; Mean Corpuscular HGB Conc 32.1 g/dL (30.0-36.0); Mean Corpuscular Hemoglobin 30.7 pg (28.0-34.0); Mean Corpuscular Volume 95.8 fL (80-94); Mean Platelet Volume 8.9 fL (7.4-10.4); Monocytes # 0.3 10^3/uL (0.2-0.9); Monocytes % 5.4 %; Neutrophils # 2.97 10^3/uL (1.8-7.7); Neutrophils % 55.3 %; Nucleated Red Blood Cells % 0 %; Platelet Count 200 10^3/cmm (130-400); Red Blood Count 3.58 10^6/uL (4.1-5.3); Red Cell Distribution Width 15.4 % (12.1-15.1); White Blood Count 5.4 10^3/uL (4.0-10.0)
[2020-04-18 09:40] LABS: Alanine Aminotransferase 18 U/L (0-41); Albumin Level 4.2 g/dL (3.5-5.2); Alkaline Phosphatase 83 IU/L (40-130); Aspartate Amino Transferase 17 U/L (0-40); Blood Urea Nitrogen 10 mg/dL (8-23); Calcium 8.9 mg/dL (8.5-10.5); Carbon Dioxide 28 mmol/L (22-29); Chloride 102 mmol/L (98-107); Globulin 2.3 g/dL (1.3-4.6); Glomerular Filtration Rate 112.8 mL/min (90-130); Glucose 127 mg/dL (65-115); Osmolality Calculated 287 mOsm/kg (285-295); Sodium 138 mmol/L (136-145); Total Bilirubin 0.2 mg/dL (0.15-1.2); Total Protein 6.5 g/dL (6.6-8.7)
[2020-04-18] MEDS: sodium chloride 0.9% 250 ML 75 ML IV (12:00)
[2020-04-18] MEDS: FUROsemide 10 mg/mL SDV 2mL 20 MG IV (14:22)
[2020-04-18] MEDS: potassium chloride 20 MEQ in sodium chloride 0.9% 500 ML 15 MEQ IV (14:25)
[2020-04-18] MEDS: pegfilgrastim 6 mg/0.6 mL Kit (onpro) SUBCUT (15:10)
--- NOTE | 2020-04-23 23:13 | ONC FU_ITS ---
[facility] Patient Note Patient: Paxton Kumar Unit #: [id number]: 1955 Dictated By: Eugenio HealyDate of Visit: Apr 18, 2020 Onc MED Follow-Up/Prog Note Chief Complaint: Brain mets, Bladder Cancer History of Present Illness: Mr. Kumar is a 64-year-old gentleman with history of bladder cancer status post TURP in January 2017 at [facility] in [place], [place]. Mr Kumar's daughter reported that took care of his bladder cancer. In September 2019, he went to a local emergency room with headache and facial droop. A CT scan of the head was done which showed right frontal lobe mass with edema and midline shift. Mr Kumar was transferred to [facility] in [place] where on October 23, 2019 he underwent right frontal lobe tumor resection. Repeat neuro CT MR showed solitary, gently lobulated but predominantly well-circumscribed homogeneously low-attenuation, noncalcified, intra-axial 5 x 6.2 x 4.5 cm mass in the right frontal region. There was significant perilesional vasogenic edema, resulting subfalcine herniation and 0.9 cm right to left midline shift. Pathology showed metastatic poorly differentiated carcinoma with solid to papillary/pseudopapillary growth pattern with a brisk mitotic activity and patchy presence of necrosis. Immunohistochemistry showed diffusely positive for CK7, also widespread reactivity for CK 5/6, GATA3, with very focal expression of Napsin-A. Tumor cells are nonreactive to CDX2, p63, CD20, TTF-1, chromogranin, synaptophysin, and uroplakin. AB/PAS histochemical stain demonstrate focal presence of mucin. Pathology comments were morphological findings are dose of poorly differentiated carcinoma, while definite comment on primary site is limited by its somewhat nonspecific immunoprofile, the possibilities being considered are urothelial and lung among others. Further clinical and imaging correlation to confirm exact site of origin is suggested. A cancer type ID was done which was reported on December 19, 2019, urothelial carcinoma and urinary bladder being primary with 90% probability, Again patient has history of bladder cancer, diagnosed in January, at [facility], where he underwent TURP. CT chest /abd scan done on October 21, 2019 showed No definitively suspicious pulmonary nodule or mass mediastinal right hilar and right supraclavicular adenopathy some of which is necrotic favoring a metastatic process including recurrence of patient's history of prior malignancy.Right paratracheal lymph node measures 1.4 x 1.6 cm, right hilar adenopathy Tiny lytic foci in L5 vertebral body of indeterminate. Scattered small enhancing foci in the liver favored to represent focal areas of vascular shunting versus small hemangiomas CT PET scan done on October 25, 2019 showed right hilar lymphadenopathy with a maximum SUV of 14.9 measuring 2.2 x 3.3 cm this is the most FDG avid lesion. Right supraclavicular lymphadenopathy with maximum SUV 12.2 measuring 1.7 x 1.4 cm. Right cervical level 5 lymph nodes with a maximum SUV of 6.7 measuring 2.7 x 1.4 cm Right paratracheal lymphadenopathy measuring 2.8 x 1.5 cm with SUV of 9.9. The lytic focus in L5 vertebral body is not hypermetabolic. Mr Kumar underwent CT scan of head on November 12, 2019, which showed postsurgical changes of right craniotomy and right frontal lobe tumor resection with residual enhancement along the anterior, medial and superior/posterior margins of the resection bed suspicious for residual tumor., Subsequently patient was treated with SBRT, as per patient he received 5 doses and completed recently. Mr Kumar said he has seen medical oncologist Dr. Lofton at [facility], who informed him that he has a lung cancer and PDL 1 status was ordered and some other blood test were done to identify specific therapy. And they are waiting for the report, as per patient, He did send the record to us for further care here as [facility] to him. His case was discussed with Dr. Parul Lopez, as it was not sure why significance of urothelial carcinoma or lung cancer so cancer type ID was ordered and reported on December 19, 2019 as urothelial carcinoma, urinary bladder as a primary with 90% probability. Once again his case was discussed with Dr. Lopez on December 28, 2019 and she concurred with cancer type ID confirmation and signing out final pathology report as urothelial carcinoma. With that diagnosis Mr Kumar was offered treatmweent with Cisplatin/gemcitabine. He began his first cycle on 01/10/2020. He has tolerated it well thus far. Follow-up CT PET scan done on April 10, 2020 at [facility] in [place] showed right-sided level 3 lymph node involvement with a single 1.5 x 1.2 cm lymph node with SUV of 8.48, right-sided pretracheal, paratracheal, precarinal, bronchial lymphadenopathy with index lesion right precarinal lymph node is 0.7 cm with SUV of 13.82. Soft tissue nodular lesion is present in the right upper lobe posteriorly with increased metabolic activity 1.1 x 0.8 cm with SUV of 6.92. No other abnormality seen. No intra-abdominal disease. And this PET scan was not compared with the PET scan done in September 2019 at [facility] prior to palliative chemotherapy started in December 2019. Mr Kumar is here today for followup. His last treatment of cisplatin gemcitabine was on April 11, 2020. He is here today for follow-up and consideration of cycle 5-day 8 cisplatin gemcitabine. He has no complaints. He states he is doing well. His energy is good and his appetite is good. He is able to get some things accomplished around the house best to stop and rest. He denies any fever or chills. He denies mouth sores, sore throat or difficulty swallowing. He denies any chest pain orthopnea. He denies diarrhea or constipation. He has had no hearing changes and states that he has not noted any numbness or tingling in his hands or feet at this point. His ECOG is 1. Past Medical History: Past Surgical History: Bladder cancer Removal of brain tumor Allergies: No Known Allergies. Medications: Aspirin 81 1 Tablet (of 81 mg) Tablet, enteric coated Oral daily Keppra 1 Tablet (of 1000 mg) Tablet Oral b.i.d. levoFLOXacin 1 Tablet (of 750 mg) Oral PRN LORazepam 1 - 2 Tablet (of 1 mg) Oral q 6 to 8 hours PRN Multivitamin 1 Tablet Oral daily Prochlorperazine Maleate 1 Tablet (of 10 mg) Oral q 4 hours PRN Family History: Mr. Kumar's mother at age 85: old age. Mr. Kumar's father at age 92: myocardial infarction. pt states all other sibilings have no illness to mention. Social History: Mr. Kumar is and he is an unknown. Mr. Kumar no longer smokes but had smoked 1.0 pack/day for 40 years. He has no history of drinking. Review Of Symptoms: Constitutional Denies fevers, chills, night sweats, excessive fatigue or weight loss. Mild fatigue. Allergic/Immunologic No reactions. Eyes Denies significant visual changes. No diplopia. No amaurosis. ENMT Denies changes in hearing, sore throat, mouth sores, difficulty or changes in swallowing ability, and/or sinus drainage. Endocrine No diabetes, thyroid disease or hormone replacement. Denies hot flashes or night sweats. Hematologic/Lymphatic Denies easy bruising or bleeding. The patient denies any tender or palpable lymph nodes. Respiratory Denies dyspnea on exertion, chest pain, cough or hemoptysis. Denies orthopnea. Cardiovascular Denies anginal chest pain, palpitations or orthopnea. Gastrointestinal Denies persistent nausea, vomiting, diarrhea, GI bleeding, or constipation. Denies change in bowel habits and/or stool color, no heartburn or early satiety. Genitourinary (M) Denies hematuria, dysuria, increased frequency, urgency, hesitancy or incontinence. Musculoskeletal Denies joint pain, swelling or redness. No decreased range of motion. Integumentary Denies chronic rashes, inflammation, ulcerations or skin changes. Neurologic Denies headache, blurred vision, and no areas of focal weakness or numbness. Normal gait. No sensory problems. Psychiatric Denies insomnia, depression, k[place] or mood swings. Vital Signs: Performed on Apr 18, 2020 15:27 Height - 64.00 in Temperature - 98.1 F (LOW) Pulse - 103 /min (HIGH) Respiration - 20 /min BP - 129/86 mm(hg),1 - No physically strenuous activity, but ambulatory and able to carry out light or sedentary work (e.g. office work, light house work). (ECOG) Physical Examination: Constitutional Alert, oriented, no acute distress. Skin pink, warm and dry. Head Normocephalic; atraumatic. Eyes Conjunctivae and sclerae are clear and without icterus. Pupils are reactive and equal. ENMT No oral exudates, ulcers, masses, thrush or mucositis. Oropharynx clear. Tongue normal. Neck Supple without masses or thyromegaly. No jugular venous distension. Hematologic/Lymphatic No petechiae or purpura. No tender or palpable lymph nodes in the cervical or supraclavicular areas. Respiratory Lungs are clear to auscultation without rhonchi or wheezing. Cardiovascular Regular rate and rhythm of heart without murmurs,clicks, gallops or rubs. Chest Left subclavian venous access device insertion site has healed well. Abdomen Non-tender, non-distended, no masses or ascites. Good bowel sounds noted in all quads. No guarding or rebound tenderness. No pulsatile masses. Back/Spine Non-tender to palpation. Extremities No visible deformities, no cyanosis, clubbing or edema. Musculoskeletal No tenderness or swelling, normal range of motion without obvious weakness. Integumentary No rashes or lesions. Neurologic No sensory or motor deficits, normal cerebellar function, normal gait. Psychiatric Alert and oriented times three. Coherent speech. Verbalizes understanding of our discussions today. Laboratory:Test performed on Apr 18, 2020 09:10 Sodium 138 mmol/L Potassium 4.0 mmol/L Chloride 102 mmol/L CO2 28 mmol/L Anion Gap 12.0 BUN 10 mg/dL Creatinine 0.7 mg/dL Cr Clearance (Est) 100.3000 mL/min eGFR 112.8 mL/min Glucose 127 mg/dL Osmolality - Calculated 287 mOsm/kg Calcium 8.9 mg/dL Protein, Total 6.5 g/dL Albumin 4.2 g/dL Globulin 2.3 g/dL Bilirubin, Total 0.2 mg/dL ALT (SGPT) 18 U/L AST (SGOT) 17 U/L Alkaline Phosphatase 83 IU/L WBC 5.4 10 3/uL RBC 3.58 10 6/uL HGB 11.0 g/dL HCT 34.3 % MCV 95.8 fL MCH 30.7 pg MCHC 32.1 g/dL RDW 15.4 % Platelet Count 200 10 3/cmm MPV 8.9 fL Neutrophils 2.97 10 3/uL Lymphocytes 2.0 10 3/uL Monocytes 0.3 10 3/uL Eosinophils 0.1 10 3/uL Basophils 0.0 10 3/uL Neutrophil % 55.3 % Lymphocyte % 37.2 % Monocyte % 5.4 % Eosinophil % 1.1 % Basophils % 0.6 % NRBC % 0 % Impression: Poorly differentiated carcinoma involving right frontal lobe status post partial resection done on October 23, 2019. Immunohistochemistry showed tumor cells to be strongly and diffusely positive for CK7, also widespread reactivity for CK 5/6 and GA TA 3, with very focal expression of Napsin-A. And tumor cell nonreactive to CDX 2, p63, CD20, TTF-1, chromogranin, synaptophysin, uroplakin. AB/PAS histochemical stain demonstrated focal presence of mucin. Cancer type ID reported on December 19, 2019 confirmed urothelial carcinoma, urinary bladder being primary with 90% probability CT PET scan done on October 25, 2019 showed right hilar lymphadenopathy, 2.2 x 3.3 cm with SUV 14.9 Right supraclavicular lymphadenopathy 1.7 x 1.4 cm with SUV of 12.2 Right paratracheal lymphadenopathy 2.8 x 1.5 cm with SUV of 9.9. Lytic focus in L5 vertebral body is non-hypermetabolic. History of bladder cancer, diagnosed in January 2017 at [facility] in [place], status post TURP Cancer type ID reported on December 19, 2019 confirmed brain mets being urothelial carcinoma with urinary bladder being primary with a 90% probability Clinically, patient is doing well with no signs symptoms suggestive of disease progression, there was a concern regarding cancer of unknown primary, lung versus urothelial, so cancer type ID was ordered after discussion with , pathologist at [facility], as mentioned above it confirmed urothelial carcinoma. Discussed with patient regarding systemic chemotherapy and treatment options include MVAC and cisplatin/gemcitabine followed by maintenance immunotherapy with avelumab, considering patient's age and comorbid condition, will consider cisplatin and split dose along with gemcitabine on day 1 and 8 and repeat cycle every 21 days x [address] PET scan and MRI scan of the head if it shows complete remission, then consider maintenance therapy with immunotherapy Avelumab. Mr Kumar is tolerating treatment well overall but does have chemo induced neutropenia. We will try adding Neulasta and proceeding with cycle 2 day 8. The additional growth factor support with Neulasta has allowed him to stay on treatment as planned. He is currently on cycle 5. He is due for day 8 today. Clinically, patient doing well with no new signs symptoms, tolerating palliative chemotherapy with split dose cisplatin and gemcitabine well, his follow-up CT PET scan done after 4 cycles of chemotherapy. It showed excellent response when compared to CT PET scan done in September [address] [facility]. Keep in mind his chemotherapy was started in December 2019 as patient was undergoing radiation therapy to the brain. Time was taken by cancer type ID to confirm the primary as initial impression was lung being primary bilateral cancer type ID confirmed urothelial carcinoma., At this point we will continue with same chemotherapy regimen for 3 more cycles and then repeat CT PET scan as follow-up CT PET scan done recently shows significant improvement but with still active disease with a high SUV value. Plan: 1. Proceed with cycle 5-day 8 cisplatin gemcitabine. 2. Labs from today reviewed in detail discussed with Mr. Kumar and a copy was given to him. 3. We will plan to have him return in 3-4 weeks depending on the students. He will need CBC, CMP and followup with that treatment plan. 4. Mr. Kumar was encouraged to contact us in the interim should questions or problems arise. Signed By: Eugenio Healy-, AOCNP Sae Clark MD <<Signature on File>>
== END 2020-04-29 23:59 | disposition home or self-care (01) ==
LOC: ONCMED 05:20
PROVIDERS: Internal Medicine Hematology & Oncology; PCP Emergency Medicine Emergency Medical Services; Visit Provider Nurse Practitioner
DX: Z51.11 Encounter for antineoplastic chemotherapy (principal); C67.9 Malignant neoplasm of bladder, unspecified; C79.31 Secondary malignant neoplasm of brain; C77.8 Secondary and unspecified malignant neoplasm of lymph nodes of multiple regions; Z79.899 Other long term (current) drug therapy
CPT/HCPCS: 80053; 85025; 96366; 96367; 96372; 96375; 96413; 96417; 99214; J1100; J1200; J1453; J1940; J2469; J2505; J3475; J3480; J7030; J7040; J7050; J9060; J9201

== ENCOUNTER → 2020-05-07 11:28 | Outpatient (BNVA) | payer OTHER, SELFPAY | PROVIDERS: PCP Emergency Medicine Emergency Medical Services; Referring Provider Emergency Medicine Emergency Medical Services; Visit Provider Specialist | DX: G40.909 Epilepsy, unspecified, not intractable, without status epilepticus (principal); C67.9 Malignant neoplasm of bladder, unspecified; C79.31 Secondary malignant neoplasm of brain; F17.210 Nicotine dependence, cigarettes, uncomplicated | CPT/HCPCS: 99204 ==

== ENCOUNTER 2020-05-30 05:40 | Outpatient (RCR) | payer OTHER, SELFPAY ==
[2020-05-01] MEDS: sodium chloride 0.9% 250 ML 75 ML IV ×2 (08:40)
[2020-05-01 08:47] LABS: Basophils % 0.3 %; Eosinophils # 0.2 10^3/uL (0.0-0.8); Eosinophils % 1.5 %; Hematocrit 35.5 % (42.0-52.0); Hemoglobin 11.6 g/dL (11.7-16.6); Lymphocytes # 2.4 10^3/uL (0.8-4.8); Lymphocytes % 19.4 %; Mean Corpuscular HGB Conc 32.7 g/dL (30.0-36.0); Mean Corpuscular Hemoglobin 31.6 pg (28.0-34.0); Mean Corpuscular Volume 96.7 fL (80-94); Mean Platelet Volume 9.2 fL (7.4-10.4); Monocytes # 0.9 10^3/uL (0.2-0.9); Monocytes % 7.5 %; Neutrophils # 8.61 10^3/uL (1.8-7.7); Neutrophils % 69.4 %; Nucleated Red Blood Cells % 0 %; Platelet Count 241 10^3/cmm (130-400); Red Blood Count 3.67 10^6/uL (4.1-5.3); Red Cell Distribution Width 15.9 % (12.1-15.1); White Blood Count 12.4 10^3/uL (4.0-10.0)
[2020-05-01 09:09] LABS: Alanine Aminotransferase 14 U/L (0-41); Albumin Level 4.2 g/dL (3.5-5.2); Alkaline Phosphatase 136 IU/L (40-130); Anion Gap 11.9 (5-19); Aspartate Amino Transferase 14 U/L (0-40); Blood Urea Nitrogen 8 mg/dL (8-23); Calcium 9.1 mg/dL (8.5-10.5); Carbon Dioxide 28 mmol/L (22-29); Chloride 104 mmol/L (98-107); Globulin 2.4 g/dL (1.3-4.6); Glomerular Filtration Rate 112.8 mL/min (90-130); Glucose 118 mg/dL (65-115); Osmolality Calculated 289 mOsm/kg (285-295); Potassium 3.9 mmol/L (3.5-5.1); Sodium 140 mmol/L (136-145); Total Bilirubin 0.2 mg/dL (0.15-1.2); Total Protein 6.6 g/dL (6.6-8.7)
[2020-05-01] MEDS: diphenhydrAMINE 50 mg/mL SDV 1mL 25 MG IV (10:05)
[2020-05-01] MEDS: palonosetron 0.25 mg/5 mL SDV IV (10:11)
[2020-05-01] MEDS: potassium chloride 20 MEQ in sodium chloride 0.9% 500 ML 900 MEQ IV (13:00)
[2020-05-01] MEDS: FUROsemide 10 mg/mL SDV 2mL 20 MG IV (13:09)
[2020-05-08 08:33] LABS: Basophils % 0.5 %; Eosinophils # 0.1 10^3/uL (0.0-0.8); Eosinophils % 1.1 %; Hematocrit 32.2 % (42.0-52.0); Hemoglobin 10.4 g/dL (11.7-16.6); Lymphocytes # 1.8 10^3/uL (0.8-4.8); Lymphocytes % 40.8 %; Mean Corpuscular HGB Conc 32.3 g/dL (30.0-36.0); Mean Corpuscular Hemoglobin 31.8 pg (28.0-34.0); Mean Corpuscular Volume 98.5 fL (80-94); Mean Platelet Volume 8.6 fL (7.4-10.4); Monocytes # 0.4 10^3/uL (0.2-0.9); Monocytes % 8.9 %; Neutrophils # 2.09 10^3/uL (1.8-7.7); Neutrophils % 47.6 %; Nucleated Red Blood Cells % 0 %; Platelet Count 322 10^3/cmm (130-400); Red Blood Count 3.27 10^6/uL (4.1-5.3); Red Cell Distribution Width 14.4 % (12.1-15.1); White Blood Count 4.4 10^3/uL (4.0-10.0)
[2020-05-08] MEDS: sodium chloride 0.9% 250 ML 75 ML IV (08:40)
[2020-05-08 09:10] LABS: Alanine Aminotransferase 18 U/L (0-41); Alkaline Phosphatase 95 IU/L (40-130); Anion Gap 10.9 (5-19); Aspartate Amino Transferase 14 U/L (0-40); Blood Urea Nitrogen 9 mg/dL (8-23); Calcium 8.8 mg/dL (8.5-10.5); Carbon Dioxide 27 mmol/L (22-29); Chloride 103 mmol/L (98-107); Globulin 2.2 g/dL (1.3-4.6); Glomerular Filtration Rate 112.8 mL/min (90-130); Glucose 89 mg/dL (65-115); Osmolality Calculated 282 mOsm/kg (285-295); Potassium 3.9 mmol/L (3.5-5.1); Sodium 137 mmol/L (136-145); Total Bilirubin 0.2 mg/dL (0.15-1.2); Total Protein 6.2 g/dL (6.6-8.7)
--- NOTE | 2020-05-08 09:20 | ONC FU_ITS ---
Shar[facility] Young Patient Note Patient: Paxton Kumar Unit #: [id number]: 1955 Dictated By: Eugenio HealyDate of Visit: May 01, 2020 Onc MED Follow-Up/Prog Note Chief Complaint: Brain mets History of Present Illness: Mr. Kumar is a 64-year-old gentleman with history of bladder cancer status post TURP in January 2017 at [facility] in [place], [place]. Mr Kumar's daughter reported that took care of his bladder cancer. In September 2019, he went to a local emergency room with headache and facial droop. A CT scan of the head was done which showed right frontal lobe mass with edema and midline shift. Mr Kumar was transferred to [facility] in [place] where on October 23, 2019 he underwent right frontal lobe tumor resection. Repeat neuro CT MR showed solitary, gently lobulated but predominantly well-circumscribed homogeneously low-attenuation, noncalcified, intra-axial 5 x 6.2 x 4.5 cm mass in the right frontal region. There was significant perilesional vasogenic edema, resulting subfalcine herniation and 0.9 cm right to left midline shift. Pathology showed metastatic poorly differentiated carcinoma with solid to papillary/pseudopapillary growth pattern with a brisk mitotic activity and patchy presence of necrosis. Immunohistochemistry showed diffusely positive for CK7, also widespread reactivity for CK 5/6, GATA3, with very focal expression of Napsin-A. Tumor cells are nonreactive to CDX2, p63, CD20, TTF-1, chromogranin, synaptophysin, and uroplakin. AB/PAS histochemical stain demonstrate focal presence of mucin. Pathology comments were morphological findings are dose of poorly differentiated carcinoma, while definite comment on primary site is limited by its somewhat nonspecific immunoprofile, the possibilities being considered are urothelial and lung among others. Further clinical and imaging correlation to confirm exact site of origin is suggested. A cancer type ID was done which was reported on December 19, 2019, urothelial carcinoma and urinary bladder being primary with 90% probability, Again patient has history of bladder cancer, diagnosed in January, at [facility], where he underwent TURP. CT chest /abd scan done on October 21, 2019 showed No definitively suspicious pulmonary nodule or mass mediastinal right hilar and right supraclavicular adenopathy some of which is necrotic favoring a metastatic process including recurrence of patient's history of prior malignancy.Right paratracheal lymph node measures 1.4 x 1.6 cm, right hilar adenopathy Tiny lytic foci in L5 vertebral body of indeterminate. Scattered small enhancing foci in the liver favored to represent focal areas of vascular shunting versus small hemangiomas CT PET scan done on October 25, 2019 showed right hilar lymphadenopathy with a maximum SUV of 14.9 measuring 2.2 x 3.3 cm this is the most FDG avid lesion. Right supraclavicular lymphadenopathy with maximum SUV 12.2 measuring 1.7 x 1.4 cm. Right cervical level 5 lymph nodes with a maximum SUV of 6.7 measuring 2.7 x 1.4 cm Right paratracheal lymphadenopathy measuring 2.8 x 1.5 cm with SUV of 9.9. The lytic focus in L5 vertebral body is not hypermetabolic. Mr Kumar underwent CT scan of head on November 12, 2019, which showed postsurgical changes of right craniotomy and right frontal lobe tumor resection with residual enhancement along the anterior, medial and superior/posterior margins of the resection bed suspicious for residual tumor., Subsequently patient was treated with SBRT, as per patient he received 5 doses and completed recently. Mr Kumar said he has seen medical oncologist Dr. Lofton at [facility], who informed him that he has a lung cancer and PDL 1 status was ordered and some other blood test were done to identify specific therapy. And they are waiting for the report, as per patient, he will send the record to us for further care here [facility] to him. His case was discussed with Dr. Parul Lopez, as it was not sure why significance of urothelial carcinoma or lung cancer so cancer type ID was ordered and reported on December 19, 2019 as urothelial carcinoma, urinary bladder as a primary with 90% probability. Once again his case was discussed with Dr. Lopez on December 28, 2019 and she concurred with cancer type ID confirmation and signing out final pathology report as urothelial carcinoma. With that diagnosis, Mr Kumar was offered treatmweent with Cisplatin/gemcitabine. He began his first cycle on 01/10/2020. He has tolerated it well thus far. Follow-up CT PET scan done on April 10, 2020 at [facility] in [place] showed right-sided level 3 lymph node involvement with a single 1.5 x 1.2 cm lymph node with SUV of 8.48, right-sided pretracheal, paratracheal, precarinal, bronchial lymphadenopathy with index lesion right precarinal lymph node is 0.7 cm with SUV of 13.82. Soft tissue nodular lesion is present in the right upper lobe posteriorly with increased metabolic activity 1.1 x 0.8 cm with SUV of 6.92. No other abnormality seen. No intra-abdominal disease. And this PET scan was not compared with the PET scan done in September 2019 at [facility] prior to palliative chemotherapy started in December 2019. Mr Kumar is here today for followup. His last treatment of cisplatin gemcitabine was on April 18, 2020. He is here today for follow-up and consideration of cycle 6-day 1 cisplatin gemcitabine. He states that he is doing well overall. He states he is sleeping better. He denies any fever or chills. He has had no known Covid exposure or symptoms. He states his appetite is good. He denies any trouble with mouth sores or trouble swallowing. He states his breathing is good. He denies any chest pain or palpitations. He states his nausea is pretty well gone at this point. He denies any emesis. He denies any diarrhea or constipation. He states his bladder is normal for him as well. He denies any lower extremity edema. He denies any neuropathy symptoms at this time. Overall he seems to be tolerating chemotherapy well. He has not noted any hearing changes. His ECOG is 0. Past Medical History: Past Surgical History: Bladder cancer Removal of brain tumor Allergies: No Known Allergies. Medications: Aspirin 81 1 Tablet (of 81 mg) Tablet, enteric coated Oral daily Keppra 1 Tablet (of 750 mg) Oral b.i.d. levoFLOXacin 1 Tablet (of 750 mg) Oral PRN LORazepam 1 - 2 Tablet (of 1 mg) Oral q 6 to 8 hours PRN Multivitamin 1 Tablet Oral daily Prochlorperazine Maleate 1 Tablet (of 10 mg) Oral q 4 hours PRN Family History: Mr. Kumar's mother at age 85: old age. Mr. Monroes father at age 92: myocardial infarction. pt states all other sibilings have no illness to mention. Social History: Mr. Kumar is and he is an unknown. Mr. Kumar no longer smokes but had smoked 1.0 pack/day for 40 years. He has no history of drinking. Review Of Symptoms: Constitutional Denies fevers, chills, night sweats, excessive fatigue or weight loss. Mild fatigue. Allergic/Immunologic No reactions. Eyes Denies significant visual changes. No diplopia. No amaurosis. ENMT Denies changes in hearing, sore throat, mouth sores, difficulty or changes in swallowing ability, and/or sinus drainage. Endocrine No diabetes, thyroid disease or hormone replacement. Denies hot flashes or night sweats. Hematologic/Lymphatic Denies easy bruising or bleeding. The patient denies any tender or palpable lymph nodes. Respiratory Denies dyspnea on exertion, chest pain, cough or hemoptysis. Denies orthopnea. Cardiovascular Denies anginal chest pain, palpitations or orthopnea. Gastrointestinal Denies persistent nausea, vomiting, diarrhea, GI bleeding, or constipation. Denies change in bowel habits and/or stool color, no heartburn or early satiety. Genitourinary (M) Denies hematuria, dysuria, increased frequency, urgency, hesitancy or incontinence. Musculoskeletal Denies joint pain, swelling or redness. No decreased range of motion. Integumentary Denies chronic rashes, inflammation, ulcerations or skin changes. Neurologic Denies headache, blurred vision, and no areas of focal weakness or numbness. Normal gait. No sensory problems. Psychiatric Denies insomnia, depression, k[place] or mood swings. Vital Signs: Performed on May 01, 2020 09:12 Height - 64.00 in Weight - 151.2 lbs (LOW) BSA - 1.74 sq.m BMI - 25.95 Temperature - 98.1 F (LOW) Pulse - 88 /min Respiration - 18 /min BP - 105/67 mm(hg) O2 Sat - 97 % Pain - 0,0 - Fully active, able to carry on all predisease activities without restrictions. (ECOG) Physical Examination: Constitutional Alert, oriented, no acute distress. Skin pink, warm and dry. Head Normocephalic; atraumatic. Eyes Conjunctivae and sclerae are clear and without icterus. Pupils are reactive and equal. Neck Supple without masses or thyromegaly. No jugular venous distension. Hematologic/Lymphatic No petechiae or purpura. No tender or palpable lymph nodes in the cervical or supraclavicular areas. Respiratory Lungs are clear to auscultation without rhonchi or wheezing. Cardiovascular Regular rate and rhythm of heart without murmurs,clicks, gallops or rubs. Chest Left subclavian venous access device insertion site has healed well. Abdomen Non-tender, non-distended, no masses or ascites. Good bowel sounds noted in all quads. No guarding or rebound tenderness. No pulsatile masses. Back/Spine Non-tender to palpation. Extremities No visible deformities, no cyanosis, clubbing or edema. Musculoskeletal No tenderness or swelling, normal range of motion without obvious weakness. Integumentary No rashes or lesions. Neurologic No sensory or motor deficits, normal cerebellar function, normal gait. Psychiatric Alert and oriented times three. Coherent speech. Verbalizes understanding of our discussions today. Laboratory:Test performed on May 01, 2020 08:04 Sodium 140 mmol/L Potassium 3.9 mmol/L Chloride 104 mmol/L CO2 28 mmol/L Anion Gap 11.9 BUN 8 mg/dL Creatinine 0.7 mg/dL Cr Clearance (Est) 100.3000 mL/min eGFR 112.8 mL/min Glucose 118 mg/dL Osmolality - Calculated 289 mOsm/kg Calcium 9.1 mg/dL Protein, Total 6.6 g/dL Albumin 4.2 g/dL Globulin 2.4 g/dL Bilirubin, Total 0.2 mg/dL ALT (SGPT) 14 U/L AST (SGOT) 14 U/L Alkaline Phosphatase 136 IU/L WBC 12.4 10 3/uL RBC 3.67 10 6/uL HGB 11.6 g/dL HCT 35.5 % MCV 96.7 fL MCH 31.6 pg MCHC 32.7 g/dL RDW 15.9 % Platelet Count 241 10 3/cmm MPV 9.2 fL Neutrophils 8.61 10 3/uL Lymphocytes 2.4 10 3/uL Monocytes 0.9 10 3/uL Eosinophils 0.2 10 3/uL Basophils 0.0 10 3/uL Neutrophil % 69.4 % Lymphocyte % 19.4 % Monocyte % 7.5 % Eosinophil % 1.5 % Basophils % 0.3 % NRBC % 0 % Test performed on Feb 20, 2020 08:10 Manual Segs % 40 % Manual Bands % 31.0 % Manual Lymphs % 19 % Manual Monos % 5.0 % Total Cells Counted 100 Metamyelocytes % 4.0 % Myelocytes % 1.0 % Polychromasia Trace CBC Slide Review Slide Review Perform Poikilocytosis Trace Tear Drop Cells Trace Platelet Estimate Normal Manual Segs Abs 6.8 10/cmm Manual Bands Abs 5.3 10 3/cmm Manual Neutrophils Abs 12.1 10 3/cmm Manual Monocytes Abs 0.9 10 3/cmm Impression: Poorly differentiated carcinoma involving right frontal lobe status post partial resection done on October 23, 2019. Immunohistochemistry showed tumor cells to be strongly and diffusely positive for CK7, also widespread reactivity for CK 5/6 and GA TA 3, with very focal expression of Napsin-A. And tumor cell nonreactive to CDX 2, p63, CD20, TTF-1, chromogranin, synaptophysin, uroplakin. AB/PAS histochemical stain demonstrated focal presence of mucin. Cancer type ID reported on December 19, 2019 confirmed urothelial carcinoma, urinary bladder being primary with 90% probability CT PET scan done on October 25, 2019 showed right hilar lymphadenopathy, 2.2 x 3.3 cm with SUV 14.9 Right supraclavicular lymphadenopathy 1.7 x 1.4 cm with SUV of 12.2 Right paratracheal lymphadenopathy 2.8 x 1.5 cm with SUV of 9.9. Lytic focus in L5 vertebral body is non-hypermetabolic. History of bladder cancer, diagnosed in January 2017 at [facility] in [place], status post TURP Cancer type ID reported on December 19, 2019 confirmed brain mets being urothelial carcinoma with urinary bladder being primary with a 90% probability Clinically, patient is doing well with no signs symptoms suggestive of disease progression, there was a concern regarding cancer of unknown primary, lung versus urothelial, so cancer type ID was ordered after discussion with Dr.Dahiya, pathologist at [facility] [place] [facility], as mentioned above it confirmed urothelial carcinoma. Discussed with patient regarding systemic chemotherapy and treatment options include MVAC and cisplatin/gemcitabine followed by maintenance immunotherapy with avelumab, considering patient's age and comorbid condition, will consider cisplatin and split dose along with gemcitabine on day 1 and 8 and repeat cycle every 21 days x [address] PET scan and MRI scan of the head if it shows complete remission, then consider maintenance therapy with immunotherapy Avelumab. Mr Kumar is tolerating treatment well overall but does have chemo induced neutropenia. We will try adding Neulasta and proceeding with cycle 2 day 8. The additional growth factor support with Neulasta has allowed him to stay on treatment as planned. He is currently on cycle 6 . He is due for day 1 today. Clinically, patient doing well with no new signs symptoms, tolerating palliative chemotherapy with split dose cisplatin and gemcitabine well, his 04-10-2020 follow-up CT PET scan done after 4 cycles of chemotherapy. It showed excellent response when compared to CT PET scan done in September 2019 at [facility]. Keep in mind his chemotherapy was started in December 2019 as patient was undergoing radiation therapy to the brain. Time was taken by cancer type ID to confirm the primary as initial impression was lung being primary bilateral cancer type ID confirmed urothelial carcinoma., At this point we will continue with same chemotherapy regimen for 3 more cycles and then repeat CT PET scan as follow-up CT PET scan (03/2020) done recently shows significant improvement but with still active disease with a high SUV value. Plan: 1. Proceed with cycle 6-day 1 cisplatin gemcitabine. 2. Labs from today reviewed in detail discussed with Mr. Kumar and a copy was given to him. WBC 12.4, hemoglobin 11.6, platelets 241,000, ANC is 8600. Creatinine 0.7 LFTs are normal potassium 3.9. 3. We will plan to have him return in 1 week for day 8 treatment. He will need CBC, CMP and followup with that treatment plan. He will most likely need Neulasta after his treatment on day 8. 4. Mr. Kumar was encouraged to contact us in the interim should questions or problems arise. Signed By: Eugenio Healy-BECCA, AOGALLITO Clark MD <<Signature on File>>
--- NOTE | 2020-05-08 09:59 | ONC FU_ITS ---
[facility] Patient Note Patient: Paxton Kumar Unit #: [id number]: [id number] Dictated By: Eugenio HealyDate of Visit: May 08, 2020 Onc MED Follow-Up/Prog Note Chief Complaint: Bladder cancer with brain mets History of Present Illness: Mr. Kumar is a 64-year-old gentleman with history of bladder cancer status post TURP in January 2017 at [facility] in [place], [place]. Mr Kumar's daughter reported that took care of his bladder cancer. In September 2019, he went to a local emergency room with headache and facial droop. A CT scan of the head was done which showed right frontal lobe mass with edema and midline shift. Mr Kumar was transferred to [facility] in [place] where on October 23, 2019 he underwent right frontal lobe tumor resection. Repeat neuro CT MR showed solitary, gently lobulated but predominantly well-circumscribed homogeneously low-attenuation, noncalcified, intra-axial 5 x 6.2 x 4.5 cm mass in the right frontal region. There was significant perilesional vasogenic edema, resulting subfalcine herniation and 0.9 cm right to left midline shift. Pathology showed metastatic poorly differentiated carcinoma with solid to papillary/pseudopapillary growth pattern with a brisk mitotic activity and patchy presence of necrosis. Immunohistochemistry showed diffusely positive for CK7, also widespread reactivity for CK 5/6, GATA3, with very focal expression of Napsin-A. Tumor cells are nonreactive to CDX2, p63, CD20, TTF-1, chromogranin, synaptophysin, and uroplakin. AB/PAS histochemical stain demonstrate focal presence of mucin. Pathology comments were morphological findings are dose of poorly differentiated carcinoma, while definite comment on primary site is limited by its somewhat nonspecific immunoprofile, the possibilities being considered are urothelial and lung among others. Further clinical and imaging correlation to confirm exact site of origin is suggested. A cancer type ID was done which was reported on December 19, 2019, urothelial carcinoma and urinary bladder being primary with 90% probability, Again patient has history of bladder cancer, diagnosed in January, at [facility], where he underwent TURP. CT chest /abd scan done on October 21, 2019 showed No definitively suspicious pulmonary nodule or mass mediastinal right hilar and right supraclavicular adenopathy some of which is necrotic favoring a metastatic process including recurrence of patient's history of prior malignancy.Right paratracheal lymph node measures 1.4 x 1.6 cm, right hilar adenopathy Tiny lytic foci in L5 vertebral body of indeterminate. Scattered small enhancing foci in the liver favored to represent focal areas of vascular shunting versus small hemangiomas CT PET scan done on October 25, 2019 showed right hilar lymphadenopathy with a maximum SUV of 14.9 measuring 2.2 x 3.3 cm this is the most FDG avid lesion. Right supraclavicular lymphadenopathy with maximum SUV 12.2 measuring 1.7 x 1.4 cm. Right cervical level 5 lymph nodes with a maximum SUV of 6.7 measuring 2.7 x 1.4 cm Right paratracheal lymphadenopathy measuring 2.8 x 1.5 cm with SUV of 9.9. The lytic focus in L5 vertebral body is not hypermetabolic. Mr Kumar underwent CT scan of head on November 12, 2019, which showed postsurgical changes of right craniotomy and right frontal lobe tumor resection with residual enhancement along the anterior, medial and superior/posterior margins of the resection bed suspicious for residual tumor., Subsequently patient was treated with SBRT, as per patient he received 5 doses and completed recently. Mr Kumar said he has seen medical oncologist Dr. Lofton at [facility], who informed him that he has a lung cancer and PDL 1 status was ordered and some other blood test were done to identify specific therapy. And they are waiting for the report, as per patient, he will send the record to us for further care here as cancer center [facility] is more convenient to him. His case was discussed with Dr. Parul Lopez, as it was not sure why significance of urothelial carcinoma or lung cancer so cancer type ID was ordered and reported on December 19, 2019 as urothelial carcinoma, urinary bladder as a primary with 90% probability. Once again his case was discussed with Dr. Lopez on December 28, 2019 and she concurred with cancer type ID confirmation and signing out final pathology report as urothelial carcinoma. With that diagnosis, Mr Kumar was offered treatmweent with Cisplatin/gemcitabine. He began his first cycle on 01/10/2020. He has tolerated it well thus far. Follow-up CT PET scan done on April 10, 2020 at [facility] in [place] showed right-sided level 3 lymph node involvement with a single 1.5 x 1.2 cm lymph node with SUV of 8.48, right-sided pretracheal, paratracheal, precarinal, bronchial lymphadenopathy with index lesion right precarinal lymph node is 0.7 cm with SUV of 13.82. Soft tissue nodular lesion is present in the right upper lobe posteriorly with increased metabolic activity 1.1 x 0.8 cm with SUV of 6.92. No other abnormality seen. No intra-abdominal disease. And this PET scan was not compared with the PET scan done in September 2019 at [facility] prior to palliative chemotherapy started in December 2019. Mr Kumar is here today for followup. His last treatment of cisplatin gemcitabine was on April 18, 2020. He is here today for follow-up and consideration of cycle 6-day 8 cisplatin gemcitabine. Mr. Kumar reports that he continues to do well. He states he has had some nausea in the morning but Compazine controls it. He states it only takes 1 dose and he has no further nausea. He reports he did see Dr. Wan yesterday and she has begin to wean his seizure medicine. He denies any headaches or vision changes. He denies any seizures. He states he has never had seizures after the brain surgery. He states he is eating good. His energy is good. He states the first couple days after chemo he is a little draggy but then on day 3 and 4 he recovers and can do his normal activities without restrictions. He denies any diarrhea or constipation. He denies any trouble with his bladder. He denies any hematuria. He has no new concerns today. His ECOG is 0. Past Medical History: Past Surgical History: Bladder cancer Removal of brain tumor Allergies: No Known Allergies. Medications: Aspirin 81 1 Tablet (of 81 mg) Tablet, enteric coated Oral daily Keppra 1 Tablet (of 750 mg) Oral b.i.d. levoFLOXacin 1 Tablet (of 750 mg) Oral PRN LORazepam 1 - 2 Tablet (of 1 mg) Oral q 6 to 8 hours PRN Multivitamin 1 Tablet Oral daily Prochlorperazine Maleate 1 Tablet (of 10 mg) Oral q 4 hours PRN Family History: Mr. Kumar's mother at age 85: old age. Mr. Kumar's father at age 92: myocardial infarction. pt states all other sibilings have no illness to mention. Social History: Mr. Kumar is and he is an unknown. Mr. Kumar no longer smokes but had smoked 1.0 pack/day for 40 years. He has no history of drinking. Review Of Symptoms: Constitutional Denies fevers, chills, night sweats, excessive fatigue or weight loss. Mild fatigue for 2 days post treatment-no worse. Allergic/Immunologic No reactions. Eyes Denies significant visual changes. No diplopia. No amaurosis. ENMT Denies changes in hearing, sore throat, mouth sores, difficulty or changes in swallowing ability, and/or sinus drainage. Hematologic/Lymphatic Denies easy bruising or bleeding. The patient denies any tender or palpable lymph nodes. Respiratory Denies dyspnea on exertion, chest pain, cough or hemoptysis. Denies orthopnea. Cardiovascular Denies anginal chest pain, palpitations or orthopnea. Gastrointestinal Denies persistent nausea, vomiting, diarrhea, GI bleeding, or constipation. Denies change in bowel habits and/or stool color, no heartburn or early satiety. Has nausea of am sometimes but Compazine controls it and it only takes 1 dose. Genitourinary (M) Denies hematuria, dysuria, increased frequency, urgency, hesitancy or incontinence. Musculoskeletal Denies joint pain, swelling or redness. No decreased range of motion. Integumentary Denies chronic rashes, inflammation, ulcerations or skin changes. Neurologic Denies headache, blurred vision, and no areas of focal weakness or numbness. Normal gait. No sensory problems. Psychiatric Denies insomnia, depression, ken[place] or mood swings. Vital Signs: Performed on May 08, 2020 09:07 Height - 64.00 in Weight - 151.4 lbs (HIGH) BSA - 1.74 sq.m BMI - 25.99 Temperature - 97.8 F (LOW) Pulse - 89 /min Respiration - 16 /min BP - 131/76 mm(hg) O2 Sat - 99 % Pain - 0,1 - No physically strenuous activity, but ambulatory and able to carry out light or sedentary work (e.g. office work, light house work). (ECOG) Physical Examination: Extremities He is missing his third and fourth digit on the right hand. This is an old injury. Otherwise his extremities are normal. Constitutional Alert, oriented, no acute distress. Skin pink, warm and dry. Head Normocephalic; atraumatic. Eyes Conjunctivae and sclerae are clear and without icterus. Pupils are reactive and equal. Neck Supple without masses or thyromegaly. No jugular venous distension. Hematologic/Lymphatic No petechiae or purpura. No tender or palpable lymph nodes in the cervical or supraclavicular areas. Respiratory Lungs are clear to auscultation without rhonchi or wheezing. Cardiovascular Regular rate and rhythm of heart without murmurs,clicks, gallops or rubs. Chest Left subclavian venous access device insertion site has healed well. Abdomen Non-tender, non-distended, no masses or ascites. Good bowel sounds noted in all quads. No guarding or rebound tenderness. No pulsatile masses. Back/Spine Non-tender to palpation. Musculoskeletal No tenderness or swelling, normal range of motion without obvious weakness. Integumentary No rashes or lesions. Neurologic No sensory or motor deficits, normal cerebellar function, normal gait. Psychiatric Alert and oriented times three. Coherent speech. Verbalizes understanding of our discussions today. Laboratory:Test performed on May 08, 2020 08:15 Sodium 137 mmol/L Potassium 3.9 mmol/L Chloride 103 mmol/L CO2 27 mmol/L Anion Gap 10.9 BUN 9 mg/dL Creatinine 0.7 mg/dL Cr Clearance (Est) 100.3000 mL/min eGFR 112.8 mL/min Glucose 89 mg/dL Osmolality - Calculated 282 mOsm/kg Calcium 8.8 mg/dL Protein, Total 6.2 g/dL Albumin 4.0 g/dL Globulin 2.2 g/dL Bilirubin, Total 0.2 mg/dL ALT (SGPT) 18 U/L AST (SGOT) 14 U/L Alkaline Phosphatase 95 IU/L WBC 4.4 10 3/uL RBC 3.27 10 6/uL HGB 10.4 g/dL HCT 32.2 % MCV 98.5 fL MCH 31.8 pg MCHC 32.3 g/dL RDW 14.4 % Platelet Count 322 10 3/cmm MPV 8.6 fL Neutrophils 2.09 10 3/uL Lymphocytes 1.8 10 3/uL Monocytes 0.4 10 3/uL Eosinophils 0.1 10 3/uL Basophils 0.0 10 3/uL Neutrophil % 47.6 % Lymphocyte % 40.8 % Monocyte % 8.9 % Eosinophil % 1.1 % Basophils % 0.5 % NRBC % 0 % Impression: Poorly differentiated carcinoma involving right frontal lobe status post partial resection done on October 23, 2019. Immunohistochemistry showed tumor cells to be strongly and diffusely positive for CK7, also widespread reactivity for CK 5/6 and GA TA 3, with very focal expression of Napsin-A. And tumor cell nonreactive to CDX 2, p63, CD20, TTF-1, chromogranin, synaptophysin, uroplakin. AB/PAS histochemical stain demonstrated focal presence of mucin. Cancer type ID reported on December 19, 2019 confirmed urothelial carcinoma, urinary bladder being primary with 90% probability CT PET scan done on October 25, 2019 showed right hilar lymphadenopathy, 2.2 x 3.3 cm with SUV 14.9 Right supraclavicular lymphadenopathy 1.7 x 1.4 cm with SUV of 12.2 Right paratracheal lymphadenopathy 2.8 x 1.5 cm with SUV of 9.9. Lytic focus in L5 vertebral body is non-hypermetabolic. History of bladder cancer, diagnosed in January 2017 at [facility] in [place], status post TURP Cancer type ID reported on December 19, 2019 confirmed brain mets being urothelial carcinoma with urinary bladder being primary with a 90% probability Clinically, patient is doing well with no signs symptoms suggestive of disease progression, there was a concern regarding cancer of unknown primary, lung versus urothelial, so cancer type ID was ordered after discussion with , pathologist at [facility], as mentioned above it confirmed urothelial carcinoma. Discussed with patient regarding systemic chemotherapy and treatment options include MVAC and cisplatin/gemcitabine followed by maintenance immunotherapy with avelumab, considering patient's age and comorbid condition, will consider cisplatin and split dose along with gemcitabine on day 1 and 8 and repeat cycle every 21 days x [address] PET scan and MRI scan of the head if it shows complete remission, then consider maintenance therapy with immunotherapy Avelumab. Mr Kumar is tolerating treatment well overall but does have chemo induced neutropenia. We tried adding Neulasta with cycle 2 day 8. The additional growth factor support with Neulasta has allowed him to stay on treatment as planned. He is currently on cycle 6 . He is due for day 8 today. Clinically, patient doing well with no new signs symptoms, tolerating palliative chemotherapy with split dose cisplatin and gemcitabine well, his 04-10-2020 follow-up CT PET scan done after 4 cycles of chemotherapy. It showed excellent response when compared to CT PET scan done in September 2019 at [facility]. Keep in mind his chemotherapy was started in December 2019 as patient was undergoing radiation therapy to the brain. Time was taken by cancer type ID to confirm the primary as initial impression was lung being primary bilateral cancer type ID confirmed urothelial carcinoma. At this point we will continue with same chemotherapy regimen for 3 more cycles and then repeat CT PET scan as follow-up CT PET scan (03/2020) done recently shows significant improvement but with still active disease with a high SUV value. He will complete 2 of the 3 cycles planned (before the next PET/CT) today. Plan: 1. Metastatic bladder cancer: A. Proceed with cycle 6-day 8 cisplatin gemcitabine. He will require Neulasta with this cycle. His ANC last week was 8600. It is 2000 today. B. Labs from today reviewed in detail discussed with Mr. Kumar and a copy was given to him. WBC 4.4, hemoglobin 10.4, platelets 03/19/2000 ANC is 2000 creatinine 0.7 random glucose 89 LFTs are normal. C. Continue prn use of Compazine for intermittnet nausea of am-chemotherapy related. 2. Brain metastasis: Wean Keppra per Dr. Wan's instructions. Follow-up brain MRI due in May [address] [facility]. 3. Followup Plan: We will plan to have him return in 2 weeks for cycle 7 treatment. He will need CBC, CMP and followup with that treatment plan. 4. Mr. Kumar was encouraged to contact us in the interim should questions or problems arise. Signed By: Aron Healy.P.-BECCA, AOGALLITO Clark MD <<Signature on File>>
[2020-05-08] MEDS: diphenhydrAMINE 50 mg/mL SDV 1mL 25 MG IV (10:13)
[2020-05-08] MEDS: palonosetron 0.25 mg/5 mL SDV IV (10:40)
[2020-05-08] MEDS: FUROsemide 10 mg/mL SDV 2mL 20 MG IV (12:40)
[2020-05-08] MEDS: potassium chloride 20 MEQ in sodium chloride 0.9% 500 ML 255 MEQ IV (12:45)
[2020-05-08] MEDS: pegfilgrastim 6 mg/0.6 mL Kit (onpro) SUBCUT (13:30)
[2020-05-22] MEDS: sodium chloride 0.9% 250 ML 75 ML IV (11:45)
[2020-05-22 11:48] LABS: Basophils # 0.1 10^3/uL (0.0-0.1); Basophils % 0.5 %; Eosinophils # 0.1 10^3/uL (0.0-0.8); Eosinophils % 0.5 %; Hematocrit 34.5 % (42.0-52.0); Lymphocytes # 2.4 10^3/uL (0.8-4.8); Lymphocytes % 16.9 %; Mean Corpuscular HGB Conc 31.9 g/dL (30.0-36.0); Mean Corpuscular Hemoglobin 31.8 pg (28.0-34.0); Mean Corpuscular Volume 99.7 fL (80-94); Mean Platelet Volume 9.2 fL (7.4-10.4); Monocytes # 1.2 10^3/uL (0.2-0.9); Monocytes % 8.3 %; Neutrophils % 71.8 %; Nucleated Red Blood Cells % 0 %; Platelet Count 253 10^3/cmm (130-400); Red Blood Count 3.46 10^6/uL (4.1-5.3); Red Cell Distribution Width 15.2 % (12.1-15.1); White Blood Count 14.3 10^3/uL (4.0-10.0)
[2020-05-22 12:21] LABS: Alanine Aminotransferase 13 U/L (0-41); Alkaline Phosphatase 124 IU/L (40-130); Anion Gap 11.9 (5-19); Aspartate Amino Transferase 15 U/L (0-40); Blood Urea Nitrogen 8 mg/dL (8-23); Calcium 8.8 mg/dL (8.5-10.5); Carbon Dioxide 27 mmol/L (22-29); Chloride 105 mmol/L (98-107); Globulin 2.4 g/dL (1.3-4.6); Glomerular Filtration Rate 112.8 mL/min (90-130); Glucose 102 mg/dL (65-115); Osmolality Calculated 289 mOsm/kg (285-295); Potassium 3.9 mmol/L (3.5-5.1); Sodium 140 mmol/L (136-145); Total Bilirubin 0.2 mg/dL (0.15-1.2); Total Protein 6.4 g/dL (6.6-8.7)
[2020-05-22] MEDS: palonosetron 0.25 mg/5 mL SDV IV (13:30)
--- NOTE | 2020-05-22 13:42 | ONC FU_ITS ---
Dr. Clark follow up note Patient: Paxton Kumar Unit #: [id number]: [id number] Dicatated By: Sae Clark M.D.Date of Visit:May 22, 2020 Onc Med Follow-up/Prog Note History of Present Illness: Mr. Kumar is a 64-year-old gentleman with history of bladder cancer status post TURP in January 2017 at [facility] in [place], [place]. Mr Kumar's daughter reported that took care of his bladder cancer. In September 2019, he went to a local emergency room with headache and facial droop. A CT scan of the head was done which showed right frontal lobe mass with edema and midline shift. Mr Kumar was transferred to [facility] in [place] where on October 23, 2019 he underwent right frontal lobe tumor resection. Repeat neuro CT MR showed solitary, gently lobulated but predominantly well-circumscribed homogeneously low-attenuation, noncalcified, intra-axial 5 x 6.2 x 4.5 cm mass in the right frontal region. There was significant perilesional vasogenic edema, resulting subfalcine herniation and 0.9 cm right to left midline shift. Pathology showed metastatic poorly differentiated carcinoma with solid to papillary/pseudopapillary growth pattern with a brisk mitotic activity and patchy presence of necrosis. Immunohistochemistry showed diffusely positive for CK7, also widespread reactivity for CK 5/6, GATA3, with very focal expression of Napsin-A. Tumor cells are nonreactive to CDX2, p63, CD20, TTF-1, chromogranin, synaptophysin, and uroplakin. AB/PAS histochemical stain demonstrate focal presence of mucin. Pathology comments were morphological findings are dose of poorly differentiated carcinoma, while definite comment on primary site is limited by its somewhat nonspecific immunoprofile, the possibilities being considered are urothelial and lung among others. Further clinical and imaging correlation to confirm exact site of origin is suggested. A cancer type ID was done which was reported on December 19, 2019, urothelial carcinoma and urinary bladder being primary with 90% probability, Again patient has history of bladder cancer, diagnosed in January, at [facility], where he underwent TURP. CT chest /abd scan done on October 21, 2019 showed No definitively suspicious pulmonary nodule or mass mediastinal right hilar and right supraclavicular adenopathy some of which is necrotic favoring a metastatic process including recurrence of patient's history of prior malignancy.Right paratracheal lymph node measures 1.4 x 1.6 cm, right hilar adenopathy Tiny lytic foci in L5 vertebral body of indeterminate. Scattered small enhancing foci in the liver favored to represent focal areas of vascular shunting versus small hemangiomas CT PET scan done on October 25, 2019 showed right hilar lymphadenopathy with a maximum SUV of 14.9 measuring 2.2 x 3.3 cm this is the most FDG avid lesion. Right supraclavicular lymphadenopathy with maximum SUV 12.2 measuring 1.7 x 1.4 cm. Right cervical level 5 lymph nodes with a maximum SUV of 6.7 measuring 2.7 x 1.4 cm Right paratracheal lymphadenopathy measuring 2.8 x 1.5 cm with SUV of 9.9. The lytic focus in L5 vertebral body is not hypermetabolic. Mr Kumar underwent CT scan of head on November 12, 2019, which showed postsurgical changes of right craniotomy and right frontal lobe tumor resection with residual enhancement along the anterior, medial and superior/posterior margins of the resection bed suspicious for residual tumor., Subsequently patient was treated with SBRT, as per patient he received 5 doses and completed recently. Mr Kumar said he has seen medical oncologist Dr. Lofton at [facility], who informed him that he has a lung cancer and PDL 1 status was ordered and some other blood test were done to identify specific therapy. And they are waiting for the report, as per patient, he will send the record to us for further care here as [facility] to him. His case was discussed with Dr. Parul Lopez, as it was not sure why significance of urothelial carcinoma or lung cancer so cancer type ID was ordered and reported on December 19, 2019 as urothelial carcinoma, urinary bladder as a primary with 90% probability. Once again his case was discussed with Dr. Lopez on December 28, 2019 and she concurred with cancer type ID confirmation and signing out final pathology report as urothelial carcinoma. With that diagnosis, Mr Kumar was offered treatmweent with Cisplatin/gemcitabine. He began his first cycle on 01/10/2020. He has tolerated it well thus far. Follow-up CT PET scan done on April 10, 2020 at [facility] in [place] showed right-sided level 3 lymph node involvement with a single 1.5 x 1.2 cm lymph node with SUV of 8.48, right-sided pretracheal, paratracheal, precarinal, bronchial lymphadenopathy with index lesion right precarinal lymph node is 0.7 cm with SUV of 13.82. Soft tissue nodular lesion is present in the right upper lobe posteriorly with increased metabolic activity 1.1 x 0.8 cm with SUV of 6.92. No other abnormality seen. No intra-abdominal disease. And this PET scan was not compared with the PET scan done in September 2019 at [facility] prior to palliative chemotherapy started in December 2019. Came for follow-up, denies any specific complaints, no fever chills, no nausea or vomiting, no diarrhea constipation, no peripheral neuropathy, no headaches, no hemoptysis or hematemesis, no hematuria, no melena or hematochezia. Tolerating systemic chemotherapy with cisplatin/gemcitabine well Medications: Aspirin 81 1 Tablet (of 81 mg) Tablet, enteric coated Oral daily, Keppra 1 Tablet (of 750 mg) Oral b.i.d., levoFLOXacin 1 Tablet (of 750 mg) Oral PRN, LORazepam 1 - 2 Tablet (of 1 mg) Oral q 6 to 8 hours PRN, Multivitamin 1 Tablet Oral daily, Prochlorperazine Maleate 1 Tablet (of 10 mg) Oral q 4 hours PRN Allergies: No Known Allergies. Review of Systems: Review of Systems is not available for this patient. Vital Signs: Performed on May 22, 2020 12:58 Height - 64.00 in Weight - 154.8 lbs (HIGH) BSA - 1.75 sq.m BMI - 26.57 Temperature - 98.1 F (LOW) Pulse - 82 /min Respiration - 14 /min BP - 122/81 mm(hg) O2 Sat - 98 % Pain - 0 Performance Status: 1 - No physically strenuous activity, but ambulatory and able to carry out light or sedentary work (e.g. office work, light house work). (ECOG) Physical Examination: ENMT - No mouth sores, no thrush, no jaundice, Respiratory - Lungs are clear to auscultation, Cardiovascular - Regular rate and rhythm of heart, Abdomen - Soft, bowel sounds present, Extremities - No visible edema or rash. Lab/Imaging: Test performed on May 08, 2020 08:15 Sodium 137 mmol/L Potassium 3.9 mmol/L Chloride 103 mmol/L CO2 27 mmol/L Anion Gap 10.9 BUN 9 mg/dL Creatinine 0.7 mg/dL Cr Clearance (Est) 100.3000 mL/min eGFR 112.8 mL/min Glucose 89 mg/dL Osmolality - Calculated 282 mOsm/kg Calcium 8.8 mg/dL Protein, Total 6.2 g/dL Albumin 4.0 g/dL Globulin 2.2 g/dL Bilirubin, Total 0.2 mg/dL ALT (SGPT) 18 U/L AST (SGOT) 14 U/L Alkaline Phosphatase 95 IU/L WBC 4.4 10 3/uL RBC 3.27 10 6/uL HGB 10.4 g/dL HCT 32.2 % MCV 98.5 fL MCH 31.8 pg MCHC 32.3 g/dL RDW 14.4 % Platelet Count 322 10 3/cmm MPV 8.6 fL Neutrophils 2.09 10 3/uL Lymphocytes 1.8 10 3/uL Monocytes 0.4 10 3/uL Eosinophils 0.1 10 3/uL Basophils 0.0 10 3/uL Neutrophil % 47.6 % Lymphocyte % 40.8 % Monocyte % 8.9 % Eosinophil % 1.1 % Basophils % 0.5 % NRBC % 0 % Test performed on Feb 20, 2020 08:10 Manual Segs % 40 % Manual Bands % 31.0 % Manual Lymphs % 19 % Manual Monos % 5.0 % Total Cells Counted 100 Metamyelocytes % 4.0 % Myelocytes % 1.0 % Polychromasia Trace CBC Slide Review Slide Review Perform Poikilocytosis Trace Tear Drop Cells Trace Platelet Estimate Normal Manual Segs Abs 6.8 10/cmm Manual Bands Abs 5.3 10 3/cmm Manual Neutrophils Abs 12.1 10 3/cmm Manual Monocytes Abs 0.9 10 3/cmm Impression: Poorly differentiated carcinoma involving right frontal lobe status post partial resection done on October 23, 2019. Immunohistochemistry showed tumor cells to be strongly and diffusely positive for CK7, also widespread reactivity for CK 5/6 and GA TA 3, with very focal expression of Napsin-A. And tumor cell nonreactive to CDX 2, p63, CD20, TTF-1, chromogranin, synaptophysin, uroplakin. AB/PAS histochemical stain demonstrated focal presence of mucin. Cancer type ID reported on December 19, 2019 confirmed urothelial carcinoma, urinary bladder being primary with 90% probability CT PET scan done on October 25, 2019 showed right hilar lymphadenopathy, 2.2 x 3.3 cm with SUV 14.9 Right supraclavicular lymphadenopathy 1.7 x 1.4 cm with SUV of 12.2 Right paratracheal lymphadenopathy 2.8 x 1.5 cm with SUV of 9.9. Lytic focus in L5 vertebral body is non-hypermetabolic. History of bladder cancer, diagnosed in January [address] [facility] in [place], status post TURP Cancer type ID reported on December 19, 2019 confirmed brain mets being urothelial carcinoma with urinary bladder being primary with a 90% probability Clinically, patient is doing well with no signs symptoms suggestive of disease progression, there was a concern regarding cancer of unknown primary, lung versus urothelial, so cancer type ID was ordered after discussion with , pathologist at [facility], as mentioned above it confirmed urothelial carcinoma. Discussed with patient regarding systemic chemotherapy and treatment options include MVAC and cisplatin/gemcitabine followed by maintenance immunotherapy with avelumab, considering patient's age and comorbid condition, will consider cisplatin and split dose along with gemcitabine on day 1 and 8 and repeat cycle every 21 days x [address] scan and MRI scan of the head if it shows complete remission, then consider maintenance therapy with immunotherapy Avelumab. Mr Kumar is tolerating treatment well overall but does have chemo induced neutropenia. We will try adding Neulasta and proceeding with cycle 2 day 8. The additional growth factor support with Neulasta has allowed him to stay on treatment as planned. He is currently on cycle 6 . He is due for day 8 today. Clinically, patient doing well with no new signs symptoms, tolerating palliative chemotherapy with split dose cisplatin and gemcitabine well, his 04-10-2020 follow-up CT PET scan done after 4 cycles of chemotherapy. It showed excellent response when compared to CT PET scan done in September 2019 at [facility]. Keep in mind his chemotherapy was started in December 2019 as patient was undergoing radiation therapy to the brain. Time was taken by cancer type ID to confirm the primary as initial impression was lung being primary bilateral cancer type ID confirmed urothelial carcinoma. At this point we will continue with same chemotherapy regimen for 3 more cycles and then repeat CT PET scan as follow-up CT PET scan (03/2020) done recently shows significant improvement but with still active disease with a high SUV value. He will complete 2 of the 3 cycles planned (before the next PET/CT) today. Plan: Discussed with patient regarding his labs white blood count 14.3 hemoglobin 11 hematocrit 34.5 platelets 253,000 CMP within normal limits Clinically, patient doing well with no new signs symptoms, tolerating palliative chemotherapy with split dose cisplatin/gemcitabine well, will proceed with next cycle day 1 with split dose cisplatin and gemcitabine return to clinic 1 week with CBC CMP if reasonable for next dose of chemotherapy followed by CT PET scan to assess the response. We will schedule him for CT PET scan after next cycle of chemotherapy to assess the response and then plan accordingly Signed By: Sae Clark M.D. <<Signature on File>>
[2020-05-22] MEDS: diphenhydrAMINE 50 mg/mL SDV 1mL 25 MG IVP (13:46)
[2020-05-22] MEDS: FUROsemide 10 mg/mL SDV 2mL 20 MG IV (15:45)
[2020-05-22] MEDS: potassium chloride 20 MEQ in sodium chloride 0.9% 500 ML 500 MEQ IV (15:50)
[2020-05-30 10:41] LABS: Basophils % 0.5 %; Eosinophils # 0.1 10^3/uL (0.0-0.8); Eosinophils % 2.2 %; Hematocrit 32.9 % (42.0-52.0); Hemoglobin 10.6 g/dL (11.7-16.6); Lymphocytes # 1.8 10^3/uL (0.8-4.8); Lymphocytes % 27.8 %; Mean Corpuscular HGB Conc 32.2 g/dL (30.0-36.0); Mean Corpuscular Hemoglobin 32.3 pg (28.0-34.0); Mean Corpuscular Volume 100.3 fL (80-94); Mean Platelet Volume 9.1 fL (7.4-10.4); Monocytes # 0.5 10^3/uL (0.2-0.9); Monocytes % 8.2 %; Neutrophils # 3.93 10^3/uL (1.8-7.7); Neutrophils % 60.4 %; Nucleated Red Blood Cells % 0 %; Platelet Count 261 10^3/cmm (130-400); Red Blood Count 3.28 10^6/uL (4.1-5.3); White Blood Count 6.5 10^3/uL (4.0-10.0)
[2020-05-30 10:58] LABS: Alanine Aminotransferase 13 U/L (0-41); Alkaline Phosphatase 91 IU/L (40-130); Anion Gap 10.9 (5-19); Aspartate Amino Transferase 14 U/L (0-40); Blood Urea Nitrogen 10 mg/dL (8-23); Calcium 8.9 mg/dL (8.5-10.5); Carbon Dioxide 28 mmol/L (22-29); Chloride 104 mmol/L (98-107); Globulin 2.4 g/dL (1.3-4.6); Glomerular Filtration Rate 112.8 mL/min (90-130); Glucose 140 mg/dL (65-115); Osmolality Calculated 289 mOsm/kg (285-295); Potassium 3.9 mmol/L (3.5-5.1); Sodium 139 mmol/L (136-145); Total Bilirubin 0.2 mg/dL (0.15-1.2); Total Protein 6.4 g/dL (6.6-8.7)
[2020-05-30] MEDS: diphenhydrAMINE 50 mg/mL SDV 1mL 25 MG IVP (12:30)
[2020-05-30] MEDS: sodium chloride 0.9% 250 ML 75 ML IV (12:30)
[2020-05-30] MEDS: palonosetron 0.25 mg/5 mL SDV IV (12:38)
[2020-05-30] MEDS: pegfilgrastim 6 mg/0.6 mL Kit (onpro) SUBCUT (14:40)
[2020-05-30] MEDS: FUROsemide 10 mg/mL SDV 2mL 20 MG IV (14:40)
[2020-05-30] MEDS: potassium chloride 20 MEQ in sodium chloride 0.9% 500 ML 500 MEQ IV (16:23)
--- NOTE | 2020-06-04 23:31 | ONC FU_ITS ---
[facility] Patient Note Patient: Paxton Kumar Unit #: [id number]: 1955 Dictated By: Eugenio HealyDate of Visit: May 30, 2020 Onc MED Follow-Up/Prog Note Chief Complaint: Brain mets History of Present Illness: Mr. Kumar is a 64-year-old gentleman with history of bladder cancer status post TURP in January 2017 at [facility] in [place], [place]. Mr Kumar's daughter reported that took care of his bladder cancer. In September 2019, he went to a local emergency room with headache and facial droop. A CT scan of the head was done which showed right frontal lobe mass with edema and midline shift. Mr Kumar was transferred to [facility] in [place] where on October 23, 2019 he underwent right frontal lobe tumor resection. Repeat neuro CT MR showed solitary, gently lobulated but predominantly well-circumscribed homogeneously low-attenuation, noncalcified, intra-axial 5 x 6.2 x 4.5 cm mass in the right frontal region. There was significant perilesional vasogenic edema, resulting subfalcine herniation and 0.9 cm right to left midline shift. Pathology showed metastatic poorly differentiated carcinoma with solid to papillary/pseudopapillary growth pattern with a brisk mitotic activity and patchy presence of necrosis. Immunohistochemistry showed diffusely positive for CK7, also widespread reactivity for CK 5/6, GATA3, with very focal expression of Napsin-A. Tumor cells are nonreactive to CDX2, p63, CD20, TTF-1, chromogranin, synaptophysin, and uroplakin. AB/PAS histochemical stain demonstrate focal presence of mucin. Pathology comments were morphological findings are dose of poorly differentiated carcinoma, while definite comment on primary site is limited by its somewhat nonspecific immunoprofile, the possibilities being considered are urothelial and lung among others. Further clinical and imaging correlation to confirm exact site of origin is suggested. A cancer type ID was done which was reported on December 19, 2019, urothelial carcinoma and urinary bladder being primary with 90% probability, Again patient has history of bladder cancer, diagnosed in January, at [facility], where he underwent TURP. CT chest /abd scan done on October 21, 2019 showed No definitively suspicious pulmonary nodule or mass mediastinal right hilar and right supraclavicular adenopathy some of which is necrotic favoring a metastatic process including recurrence of patient's history of prior malignancy.Right paratracheal lymph node measures 1.4 x 1.6 cm, right hilar adenopathy Tiny lytic foci in L5 vertebral body of indeterminate. Scattered small enhancing foci in the liver favored to represent focal areas of vascular shunting versus small hemangiomas CT PET scan done on October 25, 2019 showed right hilar lymphadenopathy with a maximum SUV of 14.9 measuring 2.2 x 3.3 cm this is the most FDG avid lesion. Right supraclavicular lymphadenopathy with maximum SUV 12.2 measuring 1.7 x 1.4 cm. Right cervical level 5 lymph nodes with a maximum SUV of 6.7 measuring 2.7 x 1.4 cm Right paratracheal lymphadenopathy measuring 2.8 x 1.5 cm with SUV of 9.9. The lytic focus in L5 vertebral body is not hypermetabolic. Mr Kumar underwent CT scan of head on November 12, 2019, which showed postsurgical changes of right craniotomy and right frontal lobe tumor resection with residual enhancement along the anterior, medial and superior/posterior margins of the resection bed suspicious for residual tumor., Subsequently patient was treated with SBRT, as per patient he received 5 doses and completed recently. Mr Kumar said he has seen medical oncologist Dr. Lofton at [facility], who informed him that he has a lung cancer and PDL 1 status was ordered and some other blood test were done to identify specific therapy. And they are waiting for the report, as per patient, he will send the record to us for further care here as cancer [facility] is more convenient to him. His case was discussed with Dr. Parul Lopez, as it was not sure why significance of urothelial carcinoma or lung cancer so cancer type ID was ordered and reported on December 19, 2019 as urothelial carcinoma, urinary bladder as a primary with 90% probability. Once again his case was discussed with Dr. Lopez on December 28, 2019 and she concurred with cancer type ID confirmation and signing out final pathology report as urothelial carcinoma. With that diagnosis, Mr Kumar was offered treatmweent with Cisplatin/gemcitabine. He began his first cycle on 01/10/2020. He has tolerated it well thus far. Follow-up CT PET scan done on April 10, 2020 at [facility] in [place] showed right-sided level 3 lymph node involvement with a single 1.5 x 1.2 cm lymph node with SUV of 8.48, right-sided pretracheal, paratracheal, precarinal, bronchial lymphadenopathy with index lesion right precarinal lymph node is 0.7 cm with SUV of 13.82. Soft tissue nodular lesion is present in the right upper lobe posteriorly with increased metabolic activity 1.1 x 0.8 cm with SUV of 6.92. No other abnormality seen. No intra-abdominal disease. And this PET scan was not compared with the PET scan done in September 2019 at [facility] prior to palliative chemotherapy started in December 2019. Mr. Kumar is here today for follow-up. He is due for cycle 7-day 8 cisplatin gemcitabine. He states overall he is doing well. His appetite is good. His energy is good. He denies any new concerns. He denies any headaches or vision changes. He denies any nausea or vomiting. He states he has not had any neuropathy symptoms. He denies any hearing changes. He states he has not had any mouth sores, sore throat or difficulty swallowing. He denies any new shortness of breath orthopnea. He denies any hemoptysis. He states he has not had problems with diarrhea or constipation. He also states that his urinary function is normal for him. His ECOG is 1. Past Medical History: High-grade superficial bladder cancer diagnosed on 02/11/2017 treated with TURBT followed by adjuvant BCG. 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 Past Surgical History: Bladder cancer Removal of brain tumor Allergies: No Known Allergies. Medications: Aspirin 81 1 Tablet (of 81 mg) Tablet, enteric coated Oral daily Cholecalciferol 1 Tablet (of 125 mcg ) Oral daily Keppra 1 Tablet (of 750 mg) Oral b.i.d. levoFLOXacin 1 Tablet (of 750 mg) Oral PRN LORazepam 1 - 2 Tablet (of 1 mg) Oral q 6 to 8 hours PRN Prochlorperazine Maleate 1 Tablet (of 10 mg) Oral q 4 hours PRN Family History: Mr. Kumar's mother at age 85: old age. Mr. Kumar's father at age 92: myocardial infarction. pt states all other sibilings have no illness to mention. Social History: Mr. Kumar is and he is an unknown. Mr. Kumar no longer smokes but had smoked 1.0 pack/day for 40 years. He has no history of drinking. Review Of Symptoms: Constitutional Denies fevers, chills, night sweats, excessive fatigue or weight loss. Mild fatigue for 2 days post treatment-no worse. Allergic/Immunologic No reactions. Eyes Denies significant visual changes. No diplopia. No amaurosis. ENMT Denies changes in hearing, sore throat, mouth sores, difficulty or changes in swallowing ability, and/or sinus drainage. Endocrine No diabetes, thyroid disease or hormone replacement. Denies hot flashes or night sweats. Hematologic/Lymphatic Denies easy bruising or bleeding. The patient denies any tender or palpable lymph nodes. Respiratory Denies dyspnea on exertion, chest pain, cough or hemoptysis. Denies orthopnea. Cardiovascular Denies anginal chest pain, palpitations or orthopnea. Gastrointestinal Denies persistent nausea, vomiting, diarrhea, GI bleeding, or constipation. Denies change in bowel habits and/or stool color, no heartburn or early satiety. Has nausea of am sometimes but Compazine controls it. Genitourinary (M) Denies hematuria, dysuria, increased frequency, urgency, hesitancy or incontinence. Musculoskeletal Denies joint pain, swelling or redness. No decreased range of motion. Integumentary Denies chronic rashes, inflammation, ulcerations or skin changes. Neurologic Denies headache, blurred vision, and no areas of focal weakness or numbness. Normal gait. No sensory problems. Psychiatric Denies insomnia, depression, [place] or mood swings. Vital Signs: Performed on May 30, 2020 12:08 Height - 64.00 in Weight - 154.0 lbs (LOW) BSA - 1.75 sq.m BMI - 26.43 Temperature - 97.2 F (LOW) Pulse - 88 /min Respiration - 16 /min BP - 134/81 mm(hg) O2 Sat - 99 % Pain - 0 Fatigue - 0,1 - No physically strenuous activity, but ambulatory and able to carry out light or sedentary work (e.g. office work, light house work). (ECOG) Physical Examination: Constitutional Alert, oriented, no acute distress. Skin pink, warm and dry. Head Normocephalic; atraumatic. Eyes Conjunctivae and sclerae are clear and without icterus. Pupils are reactive and equal. ENMT No oral exudates, ulcers, masses, thrush or mucositis. Oropharynx clear. Tongue normal. Neck Supple without masses or thyromegaly. No jugular venous distension. Hematologic/Lymphatic No petechiae or purpura. No tender or palpable lymph nodes in the cervical or supraclavicular areas. Respiratory Lungs are clear to auscultation without rhonchi or wheezing. Cardiovascular Regular rate and rhythm of heart without murmurs,clicks, gallops or rubs. Chest Left subclavian venous access device insertion site has healed well. Abdomen Non-tender, non-distended, no masses or ascites. Good bowel sounds noted in all quads. No guarding or rebound tenderness. No pulsatile masses. Back/Spine Non-tender to palpation. Extremities He is missing his third and fourth digit on the right hand. This is an old injury. Otherwise his extremities are normal. Musculoskeletal No tenderness or swelling, normal range of motion without obvious weakness. Integumentary No rashes or lesions. Neurologic No sensory or motor deficits, normal cerebellar function, normal gait. Psychiatric Alert and oriented times three. Coherent speech. Verbalizes understanding of our discussions today. Laboratory:Test performed on May 30, 2020 10:10 Sodium 139 mmol/L Potassium 3.9 mmol/L Chloride 104 mmol/L CO2 28 mmol/L Anion Gap 10.9 BUN 10 mg/dL Creatinine 0.7 mg/dL Cr Clearance (Est) 100.3000 mL/min eGFR 112.8 mL/min Glucose 140 mg/dL Osmolality - Calculated 289 mOsm/kg Calcium 8.9 mg/dL Protein, Total 6.4 g/dL Albumin 4.0 g/dL Globulin 2.4 g/dL Bilirubin, Total 0.2 mg/dL ALT (SGPT) 13 U/L AST (SGOT) 14 U/L Alkaline Phosphatase 91 IU/L WBC 6.5 10 3/uL RBC 3.28 10 6/uL HGB 10.6 g/dL HCT 32.9 % MCV 100.3 fL MCH 32.3 pg MCHC 32.2 g/dL RDW 14.0 % Platelet Count 261 10 3/cmm MPV 9.1 fL Neutrophils 3.93 10 3/uL Lymphocytes 1.8 10 3/uL Monocytes 0.5 10 3/uL Eosinophils 0.1 10 3/uL Basophils 0.0 10 3/uL Neutrophil % 60.4 % Lymphocyte % 27.8 % Monocyte % 8.2 % Eosinophil % 2.2 % Basophils % 0.5 % NRBC % 0 % Impression: Poorly differentiated carcinoma involving right frontal lobe status post partial resection done on October 23, 2019. Immunohistochemistry showed tumor cells to be strongly and diffusely positive for CK7, also widespread reactivity for CK 5/6 and GA TA 3, with very focal expression of Napsin-A. And tumor cell nonreactive to CDX 2, p63, CD20, TTF-1, chromogranin, synaptophysin, uroplakin. AB/PAS histochemical stain demonstrated focal presence of mucin. Cancer type ID reported on December 19, 2019 confirmed urothelial carcinoma, urinary bladder being primary with 90% probability CT PET scan done on October 25, 2019 showed right hilar lymphadenopathy, 2.2 x 3.3 cm with SUV 14.9 Right supraclavicular lymphadenopathy 1.7 x 1.4 cm with SUV of 12.2 Right paratracheal lymphadenopathy 2.8 x 1.5 cm with SUV of 9.9. Lytic focus in L5 vertebral body is non-hypermetabolic. History of bladder cancer, diagnosed in January 2017 at [facility] in [place], status post TURP Cancer type ID reported on December 19, 2019 confirmed brain mets being urothelial carcinoma with urinary bladder being primary with a 90% probability Clinically, patient is doing well with no signs symptoms suggestive of disease progression, there was a concern regarding cancer of unknown primary, lung versus urothelial, so cancer type ID was ordered after discussion with , pathologist at [facility], as mentioned above it confirmed urothelial carcinoma. Discussed with patient regarding systemic chemotherapy and treatment options include MVAC and cisplatin/gemcitabine followed by maintenance immunotherapy with avelumab, considering patient's age and comorbid condition, will consider cisplatin and split dose along with gemcitabine on day 1 and 8 and repeat cycle every 21 days x [address] scan and MRI scan of the head if it shows complete remission, then consider maintenance therapy with immunotherapy Avelumab. Mr Kumar is tolerating treatment well overall but does have chemo induced neutropenia. We will try adding Neulasta and proceeding with cycle 2 day 8. The additional growth factor support with Neulasta has allowed him to stay on treatment as planned. He is currently on cycle 7 . He is due for day 8 today. Clinically, patient doing well with no new signs symptoms, tolerating palliative chemotherapy with split dose cisplatin and gemcitabine well, his 04-10-2020 follow-up CT PET scan done after 4 cycles of chemotherapy. It showed excellent response when compared to CT PET scan done in September 2019 at [facility]. Keep in mind his chemotherapy was started in December 2019 as patient was undergoing radiation therapy to the brain. Time was taken by cancer type ID to confirm the primary as initial impression was lung being primary bilateral cancer type ID confirmed urothelial carcinoma. It was recommended that he continue with same chemotherapy regimen for 3 more cycles and then repeat CT PET scan as follow-up CT PET scan (03/2020) done recently shows significant improvement but with still active disease with a high SUV value. He will complete 3 of the 3 cycles planned (before the next PET/CT) today. Plan: 1. Proceed with cycle 7 day 8 Cisplatin/Gemzar at same dosing. 2. Continue current antiemetics as previously administered as these are working well for him. He has required aggressive antiemetics due to his regimen. 3. He will continue support with growth factor with Neulasta Onpro given that his ANC on day 1 was 10,300 and today is 3930. 4. Labs from today were reviewed in detail and discussed with Mr. Kumar and a copy was given to him. WBC 6.5, hemoglobin 10.6 platelets 261,000 ANC is 3930 creatinine 0.7 potassium 3.9 random glucose 140 calcium 8.9 sodium 139 LFTs are normal. His weight is stable at 154. 5. Mr. Kumar reports that he has a MRI of the brain for follow-up scheduled in [place] on June 04. He will also see his neurosurgeon for follow-up after the MRI. 6. He has now completed 3 additional cycles of chemotherapy and will be due for restaging PET CT just prior to his next exam. We will plan to see him back in 3 weeks with CBC CMP and consideration of further chemotherapy depending on the PET CT results. 7. We will refill his lorazepam to [facility]. 8. We will inquire to see if there is any kind of transportation assistance for him to return for visits as his daughter has been staying with him but permanently lives in [place] and is wanting to go home later in May 2020. He states that he feels he can drive over for his chemotherapy but is somewhat sleepy afterwards and is concerned about driving home post treatment. 9. Mr. Kumar is encouraged to contact us in the interim should questions or problems arise. Signed By: Eugenio Healy-, AOCNP Sae Clark MD <<Signature on File>>
== END 2020-05-30 23:59 | disposition home or self-care (01) ==
LOC: ONCMED 05:40
PROVIDERS: Internal Medicine Hematology & Oncology; PCP Emergency Medicine Emergency Medical Services; Visit Provider Nurse Practitioner
DX: Z51.11 Encounter for antineoplastic chemotherapy (principal); C79.31 Secondary malignant neoplasm of brain; C67.9 Malignant neoplasm of bladder, unspecified; D70.1 Agranulocytosis secondary to cancer chemotherapy; T45.1X5A Adverse effect of antineoplastic and immunosuppressive drugs, initial encounter; Z51.81 Encounter for therapeutic drug level monitoring; Z79.899 Other long term (current) drug therapy; Z92.3 Personal history of irradiation; Z87.891 Personal history of nicotine dependence
CPT/HCPCS: 80053; 85025; 96366; 96367; 96372; 96375; 96413; 96417; 99214; J1100; J1200; J1453; J1940; J2469; J2505; J3475; J3480; J7030; J7040; J7050; J9060; J9201

== ENCOUNTER 2020-06-26 05:33 | Outpatient (RCR) | payer OTHER, SELFPAY ==
[2020-06-20] MEDS: sodium chloride 0.9% 250 ML 75 ML IV (08:15)
[2020-06-20 08:47] LABS: Basophils % 0.3 %; Eosinophils # 0.1 10^3/uL (0.0-0.8); Eosinophils % 1.6 %; Hematocrit 35.9 % (42.0-52.0); Hemoglobin 11.5 g/dL (11.7-16.6); Lymphocytes # 1.9 10^3/uL (0.8-4.8); Lymphocytes % 25.5 %; Mean Corpuscular Hemoglobin 31.1 pg (28.0-34.0); Mean Platelet Volume 8.7 fL (7.4-10.4); Monocytes # 1.1 10^3/uL (0.2-0.9); Monocytes % 14.2 %; Neutrophils # 4.25 10^3/uL (1.8-7.7); Neutrophils % 57.7 %; Nucleated Red Blood Cells % 0 %; Platelet Count 356 10^3/cmm (130-400); Red Cell Distribution Width 13.6 % (12.1-15.1); White Blood Count 7.4 10^3/uL (4.0-10.0)
[2020-06-20 09:10] LABS: Alanine Aminotransferase 10 U/L (0-41); Alkaline Phosphatase 104 IU/L (40-130); Aspartate Amino Transferase 15 U/L (0-40); Blood Urea Nitrogen 11 mg/dL (8-23); Calcium 8.9 mg/dL (8.5-10.5); Carbon Dioxide 28 mmol/L (22-29); Chloride 103 mmol/L (98-107); Globulin 2.7 g/dL (1.3-4.6); Glomerular Filtration Rate 112.8 mL/min (90-130); Glucose 133 mg/dL (65-115); Osmolality Calculated 289 mOsm/kg (285-295); Sodium 139 mmol/L (136-145); Total Bilirubin 0.2 mg/dL (0.15-1.2); Total Protein 6.7 g/dL (6.6-8.7)
[2020-06-20] MEDS: diphenhydrAMINE 50 mg/mL SDV 1mL 25 MG IVP (10:30)
[2020-06-20] MEDS: palonosetron 0.25 mg/5 mL SDV IVP (10:45)
[2020-06-20] MEDS: potassium chloride 20 MEQ in sodium chloride 0.9% 500 ML 500 MEQ IV (13:10)
[2020-06-20] MEDS: pegfilgrastim 6 mg/0.6 mL Kit (onpro) SUBCUT (13:45)
[2020-06-20] MEDS: FUROsemide 10 mg/mL SDV 2mL 20 MG IV (15:00)
--- NOTE | 2020-06-21 13:14 | ONC FU_ITS ---
Dr. Clark follow up note Patient: Paxton Kumar Unit #: [id number]: [id number] Dicatated By: Sae Clark M.D.Date of Visit:Jun 20, 2020 Onc Med Follow-up/Prog Note History of Present Illness: Mr. Kumar is a 64-year-old gentleman with history of bladder cancer status post TURP in January 2017 at [facility] in [place], [place]. Mr Kumar's daughter reported that took care of his bladder cancer. In September 2019, he went to a local emergency room with headache and facial droop. A CT scan of the head was done which showed right frontal lobe mass with edema and midline shift. Mr Kumar was transferred to [facility] in [place] where on October 23, 2019 he underwent right frontal lobe tumor resection. Repeat neuro CT MR showed solitary, gently lobulated but predominantly well-circumscribed homogeneously low-attenuation, noncalcified, intra-axial 5 x 6.2 x 4.5 cm mass in the right frontal region. There was significant perilesional vasogenic edema, resulting subfalcine herniation and 0.9 cm right to left midline shift. Pathology showed metastatic poorly differentiated carcinoma with solid to papillary/pseudopapillary growth pattern with a brisk mitotic activity and patchy presence of necrosis. Immunohistochemistry showed diffusely positive for CK7, also widespread reactivity for CK 5/6, GATA3, with very focal expression of Napsin-A. Tumor cells are nonreactive to CDX2, p63, CD20, TTF-1, chromogranin, synaptophysin, and uroplakin. AB/PAS histochemical stain demonstrate focal presence of mucin. Pathology comments were morphological findings are dose of poorly differentiated carcinoma, while definite comment on primary site is limited by its somewhat nonspecific immunoprofile, the possibilities being considered are urothelial and lung among others. Further clinical and imaging correlation to confirm exact site of origin is suggested. A cancer type ID was done which was reported on December 19, 2019, urothelial carcinoma and urinary bladder being primary with 90% probability, Again patient has history of bladder cancer, diagnosed in January, at [facility] [place] [facility], where he underwent TURP. CT chest /abd scan done on October 21, 2019 showed No definitively suspicious pulmonary nodule or mass mediastinal right hilar and right supraclavicular adenopathy some of which is necrotic favoring a metastatic process including recurrence of patient's history of prior malignancy.Right paratracheal lymph node measures 1.4 x 1.6 cm, right hilar adenopathy Tiny lytic foci in L5 vertebral body of indeterminate. Scattered small enhancing foci in the liver favored to represent focal areas of vascular shunting versus small hemangiomas CT PET scan done on October 25, 2019 showed right hilar lymphadenopathy with a maximum SUV of 14.9 measuring 2.2 x 3.3 cm this is the most FDG avid lesion. Right supraclavicular lymphadenopathy with maximum SUV 12.2 measuring 1.7 x 1.4 cm. Right cervical level 5 lymph nodes with a maximum SUV of 6.7 measuring 2.7 x 1.4 cm Right paratracheal lymphadenopathy measuring 2.8 x 1.5 cm with SUV of 9.9. The lytic focus in L5 vertebral body is not hypermetabolic. Mr Kumar underwent CT scan of head on November 12, 2019, which showed postsurgical changes of right craniotomy and right frontal lobe tumor resection with residual enhancement along the anterior, medial and superior/posterior margins of the resection bed suspicious for residual tumor., Subsequently patient was treated with SBRT, as per patient he received 5 doses and completed recently. Mr Kumar said he has seen medical oncologist Dr. Lofton at [facility], who informed him that he has a lung cancer and PDL 1 status was ordered and some other blood test were done to identify specific therapy. And they are waiting for the report, as per patient, he will send the record to us for further care here as cancer [facility] is more convenient to him. His case was discussed with Dr. Parul Lopez, as it was not sure why significance of urothelial carcinoma or lung cancer so cancer type ID was ordered and reported on December 19, 2019 as urothelial carcinoma, urinary bladder as a primary with 90% probability. Once again his case was discussed with Dr. Lopez on December 28, 2019 and she concurred with cancer type ID confirmation and signing out final pathology report as urothelial carcinoma. With that diagnosis, Mr Kumar was offered treatmweent with Cisplatin/gemcitabine. He began his first cycle on 01/10/2020. He has tolerated it well thus far. Follow-up CT PET scan done on April 10, [address] [facility] in [place] showed right-sided level 3 lymph node involvement with a single 1.5 x 1.2 cm lymph node with SUV of 8.48, right-sided pretracheal, paratracheal, precarinal, bronchial lymphadenopathy with index lesion right precarinal lymph node is 0.7 cm with SUV of 13.82. Soft tissue nodular lesion is present in the right upper lobe posteriorly with increased metabolic activity 1.1 x 0.8 cm with SUV of 6.92. No other abnormality seen. No intra-abdominal disease. And this PET scan was not compared with the PET scan done in September 2019 at [facility] prior to palliative chemotherapy started in December 2019 .Follow-up CT PET scan done After 7 cycles of palliative chemotherapy with cisplatin/gemcitabine on June 13, 2020 showed persistent photopenic defect within the right frontal lobe. Right supraclavicular lymph node measuring 1.4 x 0.9 cm with maximum SUV of 8.46 compared to 8.48 previously. No additional cervical lymphadenopathy. Right paratracheal lymph node measuring 1.1 x 0.8 cm with SUV of 10.8 previously 1.1 x 0.8 cm SUV of 13.8. Right upper lobe pulmonary nodule with maximal SUV of 4.8 previously 6.9. Overall findings, consistent with partial response Came for follow-up, denies any specific complaints, no fever chills, no nausea or vomiting, no diarrhea or constipation, no shortness of breath, no peripheral numbness, no headaches blurred vision double vision, no dysphagia, no hemoptysis or hematemesis, tolerating palliative chemotherapy with split dose cisplatin and gemcitabine well Medications: Aspirin 81 1 Tablet (of 81 mg) Tablet, enteric coated Oral daily, Cholecalciferol 1 Tablet (of 125 mcg ) Oral daily, Keppra 1 Tablet (of 750 mg) Oral b.i.d., levoFLOXacin 1 Tablet (of 750 mg) Oral PRN, LORazepam 1 - 2 Tablet (of 1 mg) Oral q 6 to 8 hours PRN, Prochlorperazine Maleate 1 Tablet (of 10 mg) Oral q 4 hours PRN Allergies: No Known Allergies. Review of Systems: Constitutional - Appetite is good and weight is stable. No fever, night sweats, or hot flashes. Energy level is fair today, ENMT - No sinus congestion/drainage. No mouth sores. No sore throat or difficulty swallowing, Hematologic/Lymphatic - No abnormal bruising or bleeding, Respiratory - No shortness of breath. No cough. No pleuritic pain or hemoptysis, Cardiovascular - No angina pain. No palpitations, Gastrointestinal - No nausea or vomiting. No heartburn or acid reflux. No diarrhea or constipation. No blood in the stool or black stools, Genitourinary (M) - No dysuria or hematuria. No urinary frequency. No urgency or incontinence, Musculoskeletal - No joint or bone pain, Neurologic - No headache or dizziness. No numbness or tingling. No other focal neurologic symptoms, Psychiatric - Positive for anxiety, no depression. No insomnia. Vital Signs: Performed on Jun 20, 2020 13:50 Height - 64.00 in Temperature - 97 F (LOW) Pulse - 98 /min Respiration - 18 /min BP - 120/79 mm(hg) O2 Sat - 97 % Pain - 0 Fatigue - 0 Performed on Jun 20, 2020 09:29 Height - 64.00 in Weight - 150.0 lbs (LOW) BSA - 1.73 sq.m BMI - 25.75 Temperature - 97.6 F (LOW) Pulse - 91 /min Respiration - 16 /min BP - 115/73 mm(hg) O2 Sat - 99 % Pain - 0 Performance Status: 1 - No physically strenuous activity, but ambulatory and able to carry out light or sedentary work (e.g. office work, light house work). (ECOG) Physical Examination: ENMT - No visible mouth sores or thrush or jaundice, Respiratory - Lungs are clear to auscultation, Cardiovascular - Regular rate and rhythm of heart, Abdomen - Soft, bowel sounds present, Extremities - No visible edema. Lab/Imaging: Test performed on May 30, 2020 10:10 Sodium 139 mmol/L Potassium 3.9 mmol/L Chloride 104 mmol/L CO2 28 mmol/L Anion Gap 10.9 BUN 10 mg/dL Creatinine 0.7 mg/dL Cr Clearance (Est) 100.3000 mL/min eGFR 112.8 mL/min Glucose 140 mg/dL Osmolality - Calculated 289 mOsm/kg Calcium 8.9 mg/dL Protein, Total 6.4 g/dL Albumin 4.0 g/dL Globulin 2.4 g/dL Bilirubin, Total 0.2 mg/dL ALT (SGPT) 13 U/L AST (SGOT) 14 U/L Alkaline Phosphatase 91 IU/L WBC 6.5 10 3/uL RBC 3.28 10 6/uL HGB 10.6 g/dL HCT 32.9 % MCV 100.3 fL MCH 32.3 pg MCHC 32.2 g/dL RDW 14.0 % Platelet Count 261 10 3/cmm MPV 9.1 fL Neutrophils 3.93 10 3/uL Lymphocytes 1.8 10 3/uL Monocytes 0.5 10 3/uL Eosinophils 0.1 10 3/uL Basophils 0.0 10 3/uL Neutrophil % 60.4 % Lymphocyte % 27.8 % Monocyte % 8.2 % Eosinophil % 2.2 % Basophils % 0.5 % NRBC % 0 % Test performed on Feb 20, 2020 08:10 Manual Segs % 40 % Manual Bands % 31.0 % Manual Lymphs % 19 % Manual Monos % 5.0 % Total Cells Counted 100 Metamyelocytes % 4.0 % Myelocytes % 1.0 % Polychromasia Trace CBC Slide Review Slide Review Perform Poikilocytosis Trace Tear Drop Cells Trace Platelet Estimate Normal Manual Segs Abs 6.8 10/cmm Manual Bands Abs 5.3 10 3/cmm Manual Neutrophils Abs 12.1 10 3/cmm Manual Monocytes Abs 0.9 10 3/cmm Impression: Poorly differentiated carcinoma involving right frontal lobe status post partial resection done on October 23, 2019. Immunohistochemistry showed tumor cells to be strongly and diffusely positive for CK7, also widespread reactivity for CK 5/6 and GA TA 3, with very focal expression of Napsin-A. And tumor cell nonreactive to CDX 2, p63, CD20, TTF-1, chromogranin, synaptophysin, uroplakin. AB/PAS histochemical stain demonstrated focal presence of mucin. Cancer type ID reported on December 19, 2019 confirmed urothelial carcinoma, urinary bladder being primary with 90% probability CT PET scan done on October 25, 2019 showed right hilar lymphadenopathy, 2.2 x 3.3 cm with SUV 14.9 Right supraclavicular lymphadenopathy 1.7 x 1.4 cm with SUV of 12.2 Right paratracheal lymphadenopathy 2.8 x 1.5 cm with SUV of 9.9. Lytic focus in L5 vertebral body is non-hypermetabolic. History of bladder cancer, diagnosed in January 2017 at [facility] in [place], status post TURP Cancer type ID reported on December 19, 2019 confirmed brain mets being urothelial carcinoma with urinary bladder being primary with a 90% probability Clinically, patient is doing well with no signs symptoms suggestive of disease progression, there was a concern regarding cancer of unknown primary, lung versus urothelial, so cancer type ID was ordered after discussion with , pathologist at [facility], as mentioned above it confirmed urothelial carcinoma. Discussed with patient regarding systemic chemotherapy and treatment options include MVAC and cisplatin/gemcitabine followed by maintenance immunotherapy with avelumab, considering patient's age and comorbid condition, will consider cisplatin and split dose along with gemcitabine on day 1 and 8 and repeat cycle every 21 days x [address] PET scan and MRI scan of the head if it shows complete remission, then consider maintenance therapy with immunotherapy Avelumab. Mr Kumar is tolerating treatment well overall but does have chemo induced neutropenia. We will try adding Neulasta and proceeding with cycle 2 day 8. The additional growth factor support with Neulasta has allowed him to stay on treatment as planned. He is currently on cycle 7 . He is due for day 8 today. Clinically, patient doing well with no new signs symptoms, tolerating palliative chemotherapy with split dose cisplatin and gemcitabine well, his 04-10-2020 follow-up CT PET scan done after 4 cycles of chemotherapy. It showed excellent response when compared to CT PET scan done in September 2019 at [facility]. Keep in mind his chemotherapy was started in December 2019 as patient was undergoing radiation therapy to the brain. Time was taken by cancer type ID to confirm the primary as initial impression was lung being primary bilateral cancer type ID confirmed urothelial carcinoma. Follow-up CT PET scan done after total of 7 cycles of cisplatin/gemcitabine on June 13, 2020 showed partial response with a decrease FDG uptake within the right upper lobe pulmonary nodule as well as decreased FDG uptake within mediastinal lymphadenopathy and unchanged size and FDG uptake in the right supraclavicular lymph node. No evidence of new lesion or metastatic disease below diaphragm. Plan: Discussed with patient regarding his labs white blood count 7.4 hemoglobin 11.5 hematocrit 35.9 platelets 356,000 CMP within normal limits and CT PET scan finding Clinically, patient is doing well with no new signs symptoms, tolerating palliative chemotherapy with split dose cisplatin and gemcitabine well but with expected side effect e.g. off and on generalized weakness and fatigue. Discussed with patient regarding his f follow-up CT PET scan which was done after total of 7 cycles of split dose cisplatin/gemcitabine and when compared with PET scan done in March 2020 it showed further improvement in the metastatic disease and read as a partial response. So treatment options including continue with same regimen as patient is tolerating well and his response seen in the metastatic disease with 3 more cycles followed by CT PET scan and second option was referred to radiation oncology for evaluation for SBRT and third option was switching him to single agent immunotherapy with Keytruda and fourth was observation alone with follow-up CT scan. As per patient and his daughter Dacia who was on the phone, they would prefer to continue with systemic chemotherapy as patient is tolerating very well and follow-up scan shows no new lesions and consistent improvement in the low volume metastatic disease and if in future there is a disease progression then there may consider immunotherapy or refer to radiation oncology or if future scan shows no further improvement but stable disease then the consider observation alone. So in that case we will proceed with cycle #8 with split dose cisplatin and gemcitabine and then he will return to clinic in 1 week with CBC CMP and for next dose and will plan CT PET scan after 3 cycles to assess disease status Signed By: Sae Clark M.D. <<Signature on File>>
[2020-06-26] MEDS: sodium chloride 0.9% 250 ML 75 ML IV (08:40)
[2020-06-26 12:12] LABS: Hematocrit 35.7 % (42.0-52.0); Hemoglobin 11.5 g/dL (11.7-16.6); Mean Corpuscular HGB Conc 32.2 g/dL (30.0-36.0); Mean Corpuscular Hemoglobin 31.6 pg (28.0-34.0); Mean Corpuscular Volume 98.1 fL (80-94); Mean Platelet Volume 9.2 fL (7.4-10.4); Platelet Count 228 10^3/cmm (130-400); Red Blood Count 3.64 10^6/uL (4.1-5.3); Red Cell Distribution Width 14.1 % (12.1-15.1)
[2020-06-26 12:48] LABS: Alanine Aminotransferase 18 U/L (0-41); Alkaline Phosphatase 293 IU/L (40-130); Anion Gap 11.7 (5-19); Aspartate Amino Transferase 13 U/L (0-40); Blood Urea Nitrogen 10 mg/dL (8-23); Calcium 9.2 mg/dL (8.5-10.5); Carbon Dioxide 30 mmol/L (22-29); Chloride 101 mmol/L (98-107); Globulin 2.7 g/dL (1.3-4.6); Glomerular Filtration Rate 112.8 mL/min (90-130); Glucose 116 mg/dL (65-115); Osmolality Calculated 288 mOsm/kg (285-295); Potassium 3.7 mmol/L (3.5-5.1); Sodium 139 mmol/L (136-145); Total Bilirubin 0.2 mg/dL (0.15-1.2); Total Protein 6.7 g/dL (6.6-8.7)
[2020-06-26 12:56] LABS: Slide Review Slide Review Perform
[2020-06-26 12:57] LABS: White Blood Count 40.2 10^3/uL (4.0-10.0)
[2020-06-26 13:05] LABS: Absolute Neutrophil 37.4 10^3/cmm (1.4-6.5); Absolute Segmented Neutrophil 17.3 10/cmm (1.6-7.1); Band Neutrophils Absolute 20.1 10^3/cmm (0.0-1.2); Lymphocytes 4 %; Monocytes Absolute 1.2 10^3/cmm (0.1-0.6); Platelet Estimate Normal (Normal); Segmented Neutrophils 43 %; Total Cells Counted 100 (0-100)
[2020-06-26 13:06] LABS: Eosinophils 0 %
--- NOTE | 2020-07-01 12:35 | ONC FU_ITS ---
[facility] Patient Note Patient: Paxton Kumar Unit #: [id number]: [id number] Dictated By: Eugenio HealyDate of Visit: Jun 26, 2020 Onc MED Follow-Up/Prog Note Chief Complaint: Brain mets History of Present Illness: Mr. Kumar is a 64-year-old gentleman with history of bladder cancer status post TURP in January 2017 at [facility] in [place], [place]. Mr Kumar's daughter reported that took care of his bladder cancer. In September 2019, he went to a local emergency room with headache and facial droop. A CT scan of the head was done which showed right frontal lobe mass with edema and midline shift. Mr Kumar was transferred to [facility] [address] [facility] in [place] where on October 23, 2019 he underwent right frontal lobe tumor resection. Repeat neuro CT MR showed solitary, gently lobulated but predominantly well-circumscribed homogeneously low-attenuation, noncalcified, intra-axial 5 x 6.2 x 4.5 cm mass in the right frontal region. There was significant perilesional vasogenic edema, resulting subfalcine herniation and 0.9 cm right to left midline shift. Pathology showed metastatic poorly differentiated carcinoma with solid to papillary/pseudopapillary growth pattern with a brisk mitotic activity and patchy presence of necrosis. Immunohistochemistry showed diffusely positive for CK7, also widespread reactivity for CK 5/6, GATA3, with very focal expression of Napsin-A. Tumor cells are nonreactive to CDX2, p63, CD20, TTF-1, chromogranin, synaptophysin, and uroplakin. AB/PAS histochemical stain demonstrate focal presence of mucin. Pathology comments were morphological findings are dose of poorly differentiated carcinoma, while definite comment on primary site is limited by its somewhat nonspecific immunoprofile, the possibilities being considered are urothelial and lung among others. Further clinical and imaging correlation to confirm exact site of origin is suggested. A cancer type ID was done which was reported on December 19, 2019, urothelial carcinoma and urinary bladder being primary with 90% probability, Again patient has history of bladder cancer, diagnosed in January, at [facility], where he underwent TURP. CT chest /abd scan done on October 21, 2019 showed No definitively suspicious pulmonary nodule or mass mediastinal right hilar and right supraclavicular adenopathy some of which is necrotic favoring a metastatic process including recurrence of patient's history of prior malignancy.Right paratracheal lymph node measures 1.4 x 1.6 cm, right hilar adenopathy Tiny lytic foci in L5 vertebral body of indeterminate. Scattered small enhancing foci in the liver favored to represent focal areas of vascular shunting versus small hemangiomas CT PET scan done on October 25, 2019 showed right hilar lymphadenopathy with a maximum SUV of 14.9 measuring 2.2 x 3.3 cm this is the most FDG avid lesion. Right supraclavicular lymphadenopathy with maximum SUV 12.2 measuring 1.7 x 1.4 cm. Right cervical level 5 lymph nodes with a maximum SUV of 6.7 measuring 2.7 x 1.4 cm Right paratracheal lymphadenopathy measuring 2.8 x 1.5 cm with SUV of 9.9. The lytic focus in L5 vertebral body is not hypermetabolic. Mr Kumar underwent CT scan of head on November 12, 2019, which showed postsurgical changes of right craniotomy and right frontal lobe tumor resection with residual enhancement along the anterior, medial and superior/posterior margins of the resection bed suspicious for residual tumor., Subsequently patient was treated with SBRT, as per patient he received 5 doses and completed recently. Mr Kumar said he has seen medical oncologist Dr. Lofton at [facility], who informed him that he has a lung cancer and PDL 1 status was ordered and some other blood test were done to identify specific therapy. And they are waiting for the report, as per patient, he will send the record to us for further care here as [facility] is more convenient to him. His case was discussed with Dr. Parul Lopez, as it was not sure why significance of urothelial carcinoma or lung cancer so cancer type ID was ordered and reported on December 19, 2019 as urothelial carcinoma, urinary bladder as a primary with 90% probability. Once again his case was discussed with Dr. Lopez on December 28, 2019 and she concurred with cancer type ID confirmation and signing out final pathology report as urothelial carcinoma. With that diagnosis, Mr Kumar was offered treatmweent with Cisplatin/gemcitabine. He began his first cycle on 01/10/2020. He has tolerated it well thus far. Follow-up CT PET scan done on April 10, 2020 at [facility] in [place] showed right-sided level 3 lymph node involvement with a single 1.5 x 1.2 cm lymph node with SUV of 8.48, right-sided pretracheal, paratracheal, precarinal, bronchial lymphadenopathy with index lesion right precarinal lymph node is 0.7 cm with SUV of 13.82. Soft tissue nodular lesion is present in the right upper lobe posteriorly with increased metabolic activity 1.1 x 0.8 cm with SUV of 6.92. No other abnormality seen. No intra-abdominal disease. And this PET scan was not compared with the PET scan done in September 2019 at [facility] prior to palliative chemotherapy started in December 2019 .Follow-up CT PET scan done After 7 cycles of palliative chemotherapy with cisplatin/gemcitabine on June 13, 2020 showed persistent photopenic defect within the right frontal lobe. Right supraclavicular lymph node measuring 1.4 x 0.9 cm with maximum SUV of 8.46 compared to 8.48 previously. No additional cervical lymphadenopathy. Right paratracheal lymph node measuring 1.1 x 0.8 cm with SUV of 10.8 previously 1.1 x 0.8 cm SUV of 13.8. Right upper lobe pulmonary nodule with maximal SUV of 4.8 previously 6.9. Overall findings, consistent with partial response Mr. Kumar is here today for follow-up. He is due for cycle 8-day 8 chemotherapy. Review of his treatment from 05/20/2021 it was discovered that he did have Neulasta on pro on day 1 and state of day 8 for unknown reasons. His white count today is reported at 40,200. He has no concerns today. He denies any fever or chills. Has had no bone aches. He denies any Covid symptoms, exposure or pending test. He denies nausea or vomiting. He states overall he feels good. His ECOG is 1. Past Medical History: Past Surgical History: Bladder cancer Removal of brain tumor Allergies: No Known Allergies. Medications: Aspirin 81 1 Tablet (of 81 mg) Tablet, enteric coated Oral daily Cholecalciferol 1 Tablet (of 125 mcg ) Oral daily Keppra 1 Tablet (of 750 mg) Oral b.i.d. levoFLOXacin 1 Tablet (of 750 mg) Oral PRN LORazepam 1 - 2 Tablet (of 1 mg) Oral q 6 to 8 hours PRN Prochlorperazine Maleate 1 Tablet (of 10 mg) Oral q 4 hours PRN Family History: Mr. Kumar's mother at age 85: old age. Mr. Kumar's father at age 92: myocardial infarction. pt states all other sibilings have no illness to mention. Social History: Mr. Kmuar is and he is an unknown. He is an occasional smoker who has smoked 1.0 pack/day for 40 years. He has no history of drinking. Review Of Symptoms: Constitutional Denies fevers, chills, night sweats, excessive fatigue or weight loss. Feels good today. Allergic/Immunologic No reactions. ENMT Denies changes in hearing, sore throat, mouth sores, difficulty or changes in swallowing ability, and/or sinus drainage. Hematologic/Lymphatic Denies easy bruising or bleeding. The patient denies any tender or palpable lymph nodes. Respiratory Denies dyspnea on exertion, chest pain, cough or hemoptysis. Denies orthopnea. Cardiovascular Denies anginal chest pain, palpitations or orthopnea. Gastrointestinal Denies persistent nausea, vomiting, diarrhea, GI bleeding, or constipation. Denies change in bowel habits and/or stool color, no heartburn or early satiety. Genitourinary (M) Denies hematuria, dysuria, increased frequency, urgency, hesitancy or incontinence. Musculoskeletal Denies joint pain, swelling or redness. No decreased range of motion. Integumentary Denies chronic rashes, inflammation, ulcerations or skin changes. Neurologic Denies headache, blurred vision, and no areas of focal weakness or numbness. Normal gait. No sensory problems. Psychiatric Denies insomnia, depression, [place] or mood swings. Vital Signs: ,1 - No physically strenuous activity, but ambulatory and able to carry out light or sedentary work (e.g. office work, light house work). (ECOG) Physical Examination: Constitutional Alert, oriented, no acute distress. Skin pink, warm and dry. Head Normocephalic; atraumatic. Eyes Conjunctivae and sclerae are clear and without icterus. Pupils are reactive and equal. Hematologic/Lymphatic No petechiae or purpura. Chest Left subclavian venous access device insertion site has healed well. Back/Spine Non-tender to palpation. Extremities He is missing his third and fourth digit on the right hand. This is an old injury. Otherwise his extremities are normal. Musculoskeletal No tenderness or swelling, normal range of motion without obvious weakness. Integumentary No rashes or lesions. Neurologic No sensory or motor deficits, normal cerebellar function, normal gait. Psychiatric Alert and oriented times three. Coherent speech. Verbalizes understanding of our discussions today. Laboratory:Test performed on Jun 26, 2020 11:30 Sodium 139 mmol/L Potassium 3.7 mmol/L Chloride 101 mmol/L CO2 30 mmol/L Anion Gap 11.7 BUN 10 mg/dL Creatinine 0.7 mg/dL Cr Clearance (Est) 100.3000 mL/min eGFR 112.8 mL/min Glucose 116 mg/dL Osmolality - Calculated 288 mOsm/kg Calcium 9.2 mg/dL Protein, Total 6.7 g/dL Albumin 4.0 g/dL Globulin 2.7 g/dL Bilirubin, Total 0.2 mg/dL ALT (SGPT) 18 U/L AST (SGOT) 13 U/L Alkaline Phosphatase 293 IU/L WBC 40.2 10 3/uL Manual Segs % 43 % Manual Bands % 50.0 % RBC 3.64 10 6/uL HGB 11.5 g/dL Manual Lymphs % 4 % Atypical Lymphs % 0.0 % HCT 35.7 % MCV 98.1 fL Total Cells Counted 100 Manual Monos % 3.0 % MCH 31.6 pg Manual Eos % 0 % MCHC 32.2 g/dL Manual Basos % 0.0 % RDW 14.1 % Platelet Count 228 10 3/cmm MPV 9.2 fL CBC Slide Review Slide Review Perform Platelet Estimate Normal Manual Segs Abs 17.3 10/cmm Manual Bands Abs 20.1 10 3/cmm Manual Neutrophils Abs 37.4 10 3/cmm Manual Monocytes Abs 1.2 10 3/cmm Manual Eosinophils Abs 0.0 10 3/cmm Manual Basophils Abs 0.0 10 3/cmm Test performed on May 30, 2020 10:10 Neutrophils 3.93 10 3/uL Lymphocytes 1.8 10 3/uL Monocytes 0.5 10 3/uL Eosinophils 0.1 10 3/uL Basophils 0.0 10 3/uL Neutrophil % 60.4 % Lymphocyte % 27.8 % Monocyte % 8.2 % Eosinophil % 2.2 % Basophils % 0.5 % NRBC % 0 % Test performed on Feb 20, 2020 08:10 Metamyelocytes % 4.0 % Myelocytes % 1.0 % Polychromasia Trace Poikilocytosis Trace Tear Drop Cells Trace Impression: Poorly differentiated carcinoma involving right frontal lobe status post partial resection done on October 23, 2019. Immunohistochemistry showed tumor cells to be strongly and diffusely positive for CK7, also widespread reactivity for CK 5/6 and GA TA 3, with very focal expression of Napsin-A. And tumor cell nonreactive to CDX 2, p63, CD20, TTF-1, chromogranin, synaptophysin, uroplakin. AB/PAS histochemical stain demonstrated focal presence of mucin. Cancer type ID reported on December 19, 2019 confirmed urothelial carcinoma, urinary bladder being primary with 90% probability CT PET scan done on October 25, 2019 showed right hilar lymphadenopathy, 2.2 x 3.3 cm with SUV 14.9 Right supraclavicular lymphadenopathy 1.7 x 1.4 cm with SUV of 12.2 Right paratracheal lymphadenopathy 2.8 x 1.5 cm with SUV of 9.9. Lytic focus in L5 vertebral body is non-hypermetabolic. History of bladder cancer, diagnosed in January 2017 at [facility] in [place], status post TURP Cancer type ID reported on December 19, 2019 confirmed brain mets being urothelial carcinoma with urinary bladder being primary with a 90% probability Clinically, patient is doing well with no signs symptoms suggestive of disease progression, there was a concern regarding cancer of unknown primary, lung versus urothelial, so cancer type ID was ordered after discussion with , pathologist at [facility], as mentioned above it confirmed urothelial carcinoma. Discussed with patient regarding systemic chemotherapy and treatment options include MVAC and cisplatin/gemcitabine followed by maintenance immunotherapy with avelumab, considering patient's age and comorbid condition, will consider cisplatin and split dose along with gemcitabine on day 1 and 8 and repeat cycle every 21 days x [address] PET scan and MRI scan of the head if it shows complete remission, then consider maintenance therapy with immunotherapy Avelumab. Mr Kumar is tolerating treatment well overall but does have chemo induced neutropenia. We will try adding Neulasta and proceeding with cycle 2 day 8. The additional growth factor support with Neulasta has allowed him to stay on treatment as planned. He is currently on cycle 8 . He is due for day 8 today. Clinically, patient doing well with no new signs symptoms, tolerating palliative chemotherapy with split dose cisplatin and gemcitabine well, his 04-10-2020 follow-up CT PET scan done after 4 cycles of chemotherapy. It showed excellent response when compared to CT PET scan done in September 2019 at [facility]. Keep in mind his chemotherapy was started in December 2019 as patient was undergoing radiation therapy to the brain. Time was taken by cancer type ID to confirm the primary as initial impression was lung being primary bilateral cancer type ID confirmed urothelial carcinoma. Follow-up CT PET scan done after total of 7 cycles of cisplatin/gemcitabine on June 13, 2020 showed partial response with a decrease FDG uptake within the right upper lobe pulmonary nodule as well as decreased FDG uptake within mediastinal lymphadenopathy and unchanged size and FDG uptake in the right supraclavicular lymph node. No evidence of new lesion or metastatic disease below diaphragm. Clinically, patient is doing well with no new signs symptoms and is tolerating palliative chemotherapy with split dose cisplatin and gemcitabine well but with expected side effect e.g. off and on generalized weakness and fatigue. Dr Clark reviewed the follow-up CT PET scan from 06-13-2020 (which was obtained after total of 7 cycles of split dose cisplatin/gemcitabine)-when compared with PET scan done in March 2020 it showed further improvement in the metastatic disease and read as a partial response. So treatment options include; continue with same regimen as patient is tolerating well and reassess his response after 3 more cycles followed by CT PET scan; the second option would be to refer to radiation oncology for evaluation for SBRT; third option would be to switch him to single agent immunotherapy with Keytruda; and fourth option would be to proceed with observation alone with follow-up with interval CT scans. Mr Kumar and his daughter, Dacia have opted to pursue systemic chemotherapy and reassess after 3 more cycles. Plan: PROBLEMS ADDRESSED TODAY 1. Poorly differentiated carcinoma involving right frontal region of the brain. Cancer I D reported on December 19, 2019 urothelial carcinoma and urinary bladder being primary with 9% probability. Undergoing systemic chemotherapy treatment currently. A. He is due for cycle 8-day 8 cisplatin gemcitabine however he was given Neulasta on pro on June 20, 2019. B. Today's labs reviewed in detail discussed with Mr. Kumar and a copy was given to him. WBC 40.2, hemoglobin 11.5, platelets 1 28,000. Potassium 3.7 creatinine 0.7 LFTs are normal alk phos is 293 presumed to be from the Neulasta on pro. C. We did review his recent PET/CT from June 13, 2020 reports partial response with decreased FDG uptake within the right upper lobe pulmonary nodule as well as decreased FDG uptake in the mediastinal lymphadenopathy, unchanged size and FDG uptake within the right supraclavicular lymphadenopathy. There is no evidence of new lesion or metastatic disease below the hemidiaphragm. D. We will plan to postpone his chemotherapy due to the Neulasta on pro administration on June 20, 2020. E. We will plan to see him back in 2 weeks with CBC CMP for cycle 9-day 1 chemotherapy with cisplatin gemcitabine. F. His current reimaging plan will be to follow-up 3 cycles after his PET/CT from June 13, 2020. After he completes 3 additional cycles we will repeat his PET/CT. G. Mr. Kumar was encouraged to contact us in interim should questions or problems arise. Signed By: Eugenio Healy-, AOCNP Estephania Clark MD <<Signature on File>>
== END 2020-06-30 23:59 | disposition home or self-care (01) ==
LOC: ONCMED 05:33
PROVIDERS: Internal Medicine Hematology & Oncology; PCP Emergency Medicine Emergency Medical Services; Visit Provider Nurse Practitioner
DX: Z51.11 Encounter for antineoplastic chemotherapy (principal); C67.9 Malignant neoplasm of bladder, unspecified; C77.8 Secondary and unspecified malignant neoplasm of lymph nodes of multiple regions; Z79.899 Other long term (current) drug therapy
CPT/HCPCS: 80053; 85007; 85025; 96365; 96366; 96367; 96372; 96375; 96413; 96417; 99214; 99215; J1100; J1200; J1453; J1940; J2469; J2505; J3475; J3480; J7030; J7040; J7050; J9060; J9201

== ENCOUNTER 2020-07-25 05:30 | Outpatient (RCR) | payer OTHER, SELFPAY ==
[2020-07-09 17:37] LABS: Basophils % 0.3 %; Eosinophils # 0.2 10^3/uL (0.0-0.8); Eosinophils % 2.1 %; Hematocrit 40.1 % (42.0-52.0); Hemoglobin 12.7 g/dL (11.7-16.6); Lymphocytes # 2.8 10^3/uL (0.8-4.8); Lymphocytes % 28.5 %; Mean Corpuscular HGB Conc 31.7 g/dL (30.0-36.0); Mean Corpuscular Hemoglobin 30.8 pg (28.0-34.0); Mean Corpuscular Volume 97.3 fL (80-94); Mean Platelet Volume 9.3 fL (7.4-10.4); Monocytes # 1.4 10^3/uL (0.2-0.9); Monocytes % 14.4 %; Neutrophils % 54.3 %; Nucleated Red Blood Cells % 0 %; Platelet Count 313 10^3/cmm (130-400); Red Blood Count 4.12 10^6/uL (4.1-5.3); Red Cell Distribution Width 14.4 % (12.1-15.1); White Blood Count 9.9 10^3/uL (4.0-10.0)
[2020-07-09 17:54] LABS: Alanine Aminotransferase 12 U/L (0-41); Albumin Level 4.2 g/dL (3.5-5.2); Alkaline Phosphatase 102 IU/L (40-130); Anion Gap 12.4 (5-19); Aspartate Amino Transferase 15 U/L (0-40); Blood Urea Nitrogen 8 mg/dL (8-23); Calcium 9.1 mg/dL (8.5-10.5); Carbon Dioxide 29 mmol/L (22-29); Chloride 101 mmol/L (98-107); Glomerular Filtration Rate 112.8 mL/min (90-130); Glucose 105 mg/dL (65-115); Osmolality Calculated 287 mOsm/kg (285-295); Potassium 3.4 mmol/L (3.5-5.1); Sodium 139 mmol/L (136-145); Total Bilirubin 0.2 mg/dL (0.15-1.2); Total Protein 7.2 g/dL (6.6-8.7)
[2020-07-16 16:56] LABS: Basophils % 0.3 %; Eosinophils # 0.2 10^3/uL (0.0-0.8); Eosinophils % 2.2 %; Hematocrit 39.7 % (42.0-52.0); Hemoglobin 12.7 g/dL (11.7-16.6); Lymphocytes # 3.1 10^3/uL (0.8-4.8); Lymphocytes % 31.2 %; Mean Corpuscular Hemoglobin 30.5 pg (28.0-34.0); Mean Corpuscular Volume 95.4 fL (80-94); Mean Platelet Volume 9.7 fL (7.4-10.4); Monocytes # 1.3 10^3/uL (0.2-0.9); Monocytes % 13.2 %; Neutrophils # 5.22 10^3/uL (1.8-7.7); Nucleated Red Blood Cells % 0 %; Platelet Count 307 10^3/cmm (130-400); Red Blood Count 4.16 10^6/uL (4.1-5.3); Red Cell Distribution Width 13.8 % (12.1-15.1); White Blood Count 9.9 10^3/uL (4.0-10.0)
[2020-07-16 17:13] LABS: Alanine Aminotransferase 14 U/L (0-41); Albumin Level 4.5 g/dL (3.5-5.2); Alkaline Phosphatase 90 IU/L (40-130); Anion Gap 14.6 (5-19); Aspartate Amino Transferase 17 U/L (0-40); Blood Urea Nitrogen 9 mg/dL (8-23); Calcium 9.2 mg/dL (8.5-10.5); Carbon Dioxide 26 mmol/L (22-29); Chloride 101 mmol/L (98-107); Globulin 2.7 g/dL (1.3-4.6); Glomerular Filtration Rate 112.8 mL/min (90-130); Glucose 105 mg/dL (65-115); Osmolality Calculated 285 mOsm/kg (285-295); Potassium 3.6 mmol/L (3.5-5.1); Sodium 138 mmol/L (136-145); Total Bilirubin 0.3 mg/dL (0.15-1.2); Total Protein 7.2 g/dL (6.6-8.7)
[2020-07-18] MEDS: sodium chloride 0.9% 250 ML 75 ML IV (14:05)
[2020-07-18] MEDS: fosaprepitant 150 MG in sodium chloride 0.9% 150 ML 300 MG IV (15:05)
[2020-07-18] MEDS: diphenhydrAMINE 50 mg/mL SDV 1mL 25 MG IV (15:25)
[2020-07-18] MEDS: palonosetron 0.25 mg/5 mL SDV IV (16:09)
[2020-07-18] MEDS: FUROsemide 10 mg/mL SDV 2mL 20 MG IV (16:15)
--- NOTE | 2020-07-19 11:36 | ONC FU_ITS ---
[facility] Patient Note Patient: Paxton Kumar Unit #: [id number]: [id number] Dictated By: Eugenio HealyDate of Visit: Jul 18, 2020 Onc MED Follow-Up/Prog Note Chief Complaint: Bladder cancer with brain mets History of Present Illness: Mr. Kumar is a 64-year-old gentleman with history of bladder cancer status post TURP in January 2017 at [facility] in [place], [place]. Mr Kumar's daughter reported that took care of his bladder cancer. In September 2019, he went to a local emergency room with headache and facial droop. A CT scan of the head was done which showed right frontal lobe mass with edema and midline shift. Mr Kumar was transferred to [facility] in [place] where on October 23, 2019 he underwent right frontal lobe tumor resection. Repeat neuro CT MR showed solitary, gently lobulated but predominantly well-circumscribed homogeneously low-attenuation, noncalcified, intra-axial 5 x 6.2 x 4.5 cm mass in the right frontal region. There was significant perilesional vasogenic edema, resulting subfalcine herniation and 0.9 cm right to left midline shift. Pathology showed metastatic poorly differentiated carcinoma with solid to papillary/pseudopapillary growth pattern with a brisk mitotic activity and patchy presence of necrosis. Immunohistochemistry showed diffusely positive for CK7, also widespread reactivity for CK 5/6, GATA3, with very focal expression of Napsin-A. Tumor cells are nonreactive to CDX2, p63, CD20, TTF-1, chromogranin, synaptophysin, and uroplakin. AB/PAS histochemical stain demonstrate focal presence of mucin. Pathology comments were morphological findings are dose of poorly differentiated carcinoma, while definite comment on primary site is limited by its somewhat nonspecific immunoprofile, the possibilities being considered are urothelial and lung among others. Further clinical and imaging correlation to confirm exact site of origin is suggested. A cancer type ID was done which was reported on December 19, 2019, urothelial carcinoma and urinary bladder being primary with 90% probability, Again patient has history of bladder cancer, diagnosed in January, at [facility], where he underwent TURP. CT chest /abd scan done on October 21, 2019 showed No definitively suspicious pulmonary nodule or mass mediastinal right hilar and right supraclavicular adenopathy some of which is necrotic favoring a metastatic process including recurrence of patient's history of prior malignancy.Right paratracheal lymph node measures 1.4 x 1.6 cm, right hilar adenopathy Tiny lytic foci in L5 vertebral body of indeterminate. Scattered small enhancing foci in the liver favored to represent focal areas of vascular shunting versus small hemangiomas CT PET scan done on October 25, 2019 showed right hilar lymphadenopathy with a maximum SUV of 14.9 measuring 2.2 x 3.3 cm this is the most FDG avid lesion. Right supraclavicular lymphadenopathy with maximum SUV 12.2 measuring 1.7 x 1.4 cm. Right cervical level 5 lymph nodes with a maximum SUV of 6.7 measuring 2.7 x 1.4 cm Right paratracheal lymphadenopathy measuring 2.8 x 1.5 cm with SUV of 9.9. The lytic focus in L5 vertebral body is not hypermetabolic. Mr Kumar underwent CT scan of head on November 12, 2019, which showed postsurgical changes of right craniotomy and right frontal lobe tumor resection with residual enhancement along the anterior, medial and superior/posterior margins of the resection bed suspicious for residual tumor., Subsequently patient was treated with SBRT, as per patient he received 5 doses and completed recently. Mr Kumar said he has seen medical oncologist Dr. Lofton at [facility], who informed him that he has a lung cancer and PDL 1 status was ordered and some other blood test were done to identify specific therapy. And they are waiting for the report, as per patient, he will send the record to us for further care here as [facility] to him. His case was discussed with Dr. Parul Lopez, as it was not sure why significance of urothelial carcinoma or lung cancer so cancer type ID was ordered and reported on December 19, 2019 as urothelial carcinoma, urinary bladder as a primary with 90% probability. Once again his case was discussed with Dr. Lopez on December 28, 2019 and she concurred with cancer type ID confirmation and signing out final pathology report as urothelial carcinoma. With that diagnosis, Mr Kumar was offered treatmweent with Cisplatin/gemcitabine. He began his first cycle on 01/10/2020. He has tolerated it well thus far. Follow-up CT PET scan done on April 10, 2020 at [facility] in [place] showed right-sided level 3 lymph node involvement with a single 1.5 x 1.2 cm lymph node with SUV of 8.48, right-sided pretracheal, paratracheal, precarinal, bronchial lymphadenopathy with index lesion right precarinal lymph node is 0.7 cm with SUV of 13.82. Soft tissue nodular lesion is present in the right upper lobe posteriorly with increased metabolic activity 1.1 x 0.8 cm with SUV of 6.92. No other abnormality seen. No intra-abdominal disease. And this PET scan was not compared with the PET scan done in September 2019 at [facility] prior to palliative chemotherapy started in December 2019 .Follow-up CT PET scan done After 7 cycles of palliative chemotherapy with cisplatin/gemcitabine on June 13, 2020 showed persistent photopenic defect within the right frontal lobe. Right supraclavicular lymph node measuring 1.4 x 0.9 cm with maximum SUV of 8.46 compared to 8.48 previously. No additional cervical lymphadenopathy. Right paratracheal lymph node measuring 1.1 x 0.8 cm with SUV of 10.8 previously 1.1 x 0.8 cm SUV of 13.8. Right upper lobe pulmonary nodule with maximal SUV of 4.8 previously 6.9. Overall findings, consistent with partial response Mr. Kumar is here today for follow-up. He is due for cycle 9-day 1 chemotherapy. Review of cycle 8 from 06/20/2020, it was discovered that he did have Neulasta on day 1 instead day 8 for unknown reasons. His day 8 was not given due to the adminstration of the Neulasta. He was unable to return the following week due inclement weather. He is here today for followup and consideration of day 1 of cycle 9. He has no concerns today. He denies any fever or chills. He denies any Covid symptoms, exposure or pending test. He denies nausea or vomiting. He states his bowels and bladder are normal for him. He denies any hematuria. He denies any neuropathy symptoms. He states he is eating good. He states overall he feels good. His ECOG is 1. Past Medical History: Past Surgical History: Bladder cancer Removal of brain tumor Allergies: No Known Allergies. Medications: Aspirin 81 1 Tablet (of 81 mg) Tablet, enteric coated Oral daily Cholecalciferol 1 Tablet (of 125 mcg ) Oral daily Keppra 1 Tablet (of 750 mg) Oral b.i.d. levoFLOXacin 1 Tablet (of 750 mg) Oral PRN LORazepam 1 - 2 Tablet (of 1 mg) Oral q 6 to 8 hours PRN Prochlorperazine Maleate 1 Tablet (of 10 mg) Oral q 4 hours PRN Family History: Mr. Kumar's mother at age 85: old age. Mr. Kumar's father at age 92: myocardial infarction. pt states all other sibilings have no illness to mention. Social History: Mr. Kumar is and he is an unknown. He is an occasional smoker who has smoked 1.0 pack/day for 40 years. He has no history of drinking. Review Of Symptoms: Constitutional Denies fevers, chills, night sweats, excessive fatigue or weight loss. Allergic/Immunologic No reactions. Eyes Denies significant visual changes. No diplopia. No amaurosis. ENMT Denies changes in hearing, sore throat, mouth sores, difficulty or changes in swallowing ability, and/or sinus drainage. Endocrine No diabetes, thyroid disease or hormone replacement. Denies hot flashes or night sweats. Hematologic/Lymphatic Denies easy bruising or bleeding. The patient denies any tender or palpable lymph nodes. Respiratory Denies dyspnea on exertion, chest pain, cough or hemoptysis. Denies orthopnea. Cardiovascular Denies anginal chest pain, palpitations or orthopnea. Gastrointestinal Denies persistent nausea, vomiting, diarrhea, GI bleeding, or constipation. Denies change in bowel habits and/or stool color, no heartburn or early satiety. Genitourinary (M) Denies hematuria, dysuria, increased frequency, urgency, hesitancy or incontinence. Musculoskeletal Denies joint pain, swelling or redness. No decreased range of motion. Integumentary Denies chronic rashes, inflammation, ulcerations or skin changes. Neurologic Denies headache, blurred vision, and no areas of focal weakness or numbness. Normal gait. No sensory problems. Psychiatric Denies insomnia, depression, [place] or mood swings. Vital Signs: Performed on Jul 18, 2020 13:24 Height - 64.00 in Temperature - 97.4 F (LOW) Pulse - 90 /min Respiration - 18 /min BP - 112/75 mm(hg) O2 Sat - 96 % Pain - 0 Fatigue - 0,1 - No physically strenuous activity, but ambulatory and able to carry out light or sedentary work (e.g. office work, light house work). (ECOG) Physical Examination: Constitutional Alert, oriented, no acute distress. Skin pink, warm and dry. Head Normocephalic; atraumatic. Eyes Conjunctivae and sclerae are clear and without icterus. Pupils are reactive and equal. Hematologic/Lymphatic No petechiae or purpura. Respiratory Lungs are clear to auscultation without rhonchi or wheezing. Cardiovascular Regular rate and rhythm of heart without murmurs,clicks, gallops or rubs. Chest Left subclavian venous access device insertion site has healed well. Abdomen Non-tender, non-distended, no masses or ascites. Good bowel sounds noted in all quads. No guarding or rebound tenderness. No pulsatile masses. Back/Spine Non-tender to palpation. Extremities He is missing his third and fourth digit on the right hand. This is an old injury. Otherwise his extremities are normal. Musculoskeletal No tenderness or swelling, normal range of motion without obvious weakness. Integumentary No rashes or lesions. Neurologic No sensory or motor deficits, normal cerebellar function, normal gait. Psychiatric Alert and oriented times three. Coherent speech. Verbalizes understanding of our discussions today. Laboratory:Test performed on Jun 26, 2020 11:30 Sodium 139 mmol/L Potassium 3.7 mmol/L Chloride 101 mmol/L CO2 30 mmol/L Anion Gap 11.7 BUN 10 mg/dL Creatinine 0.7 mg/dL Cr Clearance (Est) 100.3000 mL/min eGFR 112.8 mL/min Glucose 116 mg/dL Osmolality - Calculated 288 mOsm/kg Calcium 9.2 mg/dL Protein, Total 6.7 g/dL Albumin 4.0 g/dL Globulin 2.7 g/dL Bilirubin, Total 0.2 mg/dL ALT (SGPT) 18 U/L AST (SGOT) 13 U/L Alkaline Phosphatase 293 IU/L WBC 40.2 10 3/uL Manual Segs % 43 % Manual Bands % 50.0 % RBC 3.64 10 6/uL HGB 11.5 g/dL Manual Lymphs % 4 % Atypical Lymphs % 0.0 % HCT 35.7 % MCV 98.1 fL Total Cells Counted 100 Manual Monos % 3.0 % MCH 31.6 pg Manual Eos % 0 % MCHC 32.2 g/dL Manual Basos % 0.0 % RDW 14.1 % Platelet Count 228 10 3/cmm MPV 9.2 fL CBC Slide Review Slide Review Perform Platelet Estimate Normal Manual Segs Abs 17.3 10/cmm Manual Bands Abs 20.1 10 3/cmm Manual Neutrophils Abs 37.4 10 3/cmm Manual Monocytes Abs 1.2 10 3/cmm Manual Eosinophils Abs 0.0 10 3/cmm Manual Basophils Abs 0.0 10 3/cmm Test performed on Jun 20, 2020 08:29 Neutrophils 4.25 10 3/uL Lymphocytes 1.9 10 3/uL Monocytes 1.1 10 3/uL Eosinophils 0.1 10 3/uL Basophils 0.0 10 3/uL Neutrophil % 57.7 % Lymphocyte % 25.5 % Monocyte % 14.2 % Eosinophil % 1.6 % Basophils % 0.3 % NRBC % 0 % Test performed on Feb 20, 2020 08:10 Metamyelocytes % 4.0 % Myelocytes % 1.0 % Polychromasia Trace Poikilocytosis Trace Tear Drop Cells Trace Impression: Poorly differentiated carcinoma involving right frontal lobe status post partial resection done on October 23, 2019. Immunohistochemistry showed tumor cells to be strongly and diffusely positive for CK7, also widespread reactivity for CK 5/6 and GA TA 3, with very focal expression of Napsin-A. And tumor cell nonreactive to CDX 2, p63, CD20, TTF-1, chromogranin, synaptophysin, uroplakin. AB/PAS histochemical stain demonstrated focal presence of mucin. Cancer type ID reported on December 19, 2019 confirmed urothelial carcinoma, urinary bladder being primary with 90% probability CT PET scan done on October 25, 2019 showed right hilar lymphadenopathy, 2.2 x 3.3 cm with SUV 14.9 Right supraclavicular lymphadenopathy 1.7 x 1.4 cm with SUV of 12.2 Right paratracheal lymphadenopathy 2.8 x 1.5 cm with SUV of 9.9. Lytic focus in L5 vertebral body is non-hypermetabolic. History of bladder cancer, diagnosed in January 2017 at [facility] in [place], status post TURP Cancer type ID reported on December 19, 2019 confirmed brain mets being urothelial carcinoma with urinary bladder being primary with a 90% probability Clinically, patient is doing well with no signs symptoms suggestive of disease progression, there was a concern regarding cancer of unknown primary, lung versus urothelial, so cancer type ID was ordered after discussion with , pathologist at [facility], as mentioned above it confirmed urothelial carcinoma. Discussed with patient regarding systemic chemotherapy and treatment options include MVAC and cisplatin/gemcitabine followed by maintenance immunotherapy with avelumab, considering patient's age and comorbid condition, will consider cisplatin and split dose along with gemcitabine on day 1 and 8 and repeat cycle every 21 days x [address] scan and MRI scan of the head if it shows complete remission, then consider maintenance therapy with immunotherapy Avelumab. Mr Kumar is tolerating treatment well overall but does have chemo induced neutropenia. We will try adding Neulasta and proceeding with cycle 2 day 8. The additional growth factor support with Neulasta has allowed him to stay on treatment as planned. He is currently on cycle 8 . He is due for day 8 today. Clinically, patient doing well with no new signs symptoms, tolerating palliative chemotherapy with split dose cisplatin and gemcitabine well, his 04-10-2020 follow-up CT PET scan done after 4 cycles of chemotherapy. It showed excellent response when compared to CT PET scan done in September 2019 at [facility]. Keep in mind his chemotherapy was started in December 2019 as patient was undergoing radiation therapy to the brain. Time was taken by cancer type ID to confirm the primary as initial impression was lung being primary bilateral cancer type ID confirmed urothelial carcinoma. Follow-up CT PET scan done after total of 7 cycles of cisplatin/gemcitabine on June 13, 2020 showed partial response with a decrease FDG uptake within the right upper lobe pulmonary nodule as well as decreased FDG uptake within mediastinal lymphadenopathy and unchanged size and FDG uptake in the right supraclavicular lymph node. No evidence of new lesion or metastatic disease below diaphragm. Clinically, patient is doing well with no new signs symptoms and is tolerating palliative chemotherapy with split dose cisplatin and gemcitabine well but with expected side effect e.g. off and on generalized weakness and fatigue. Dr Clark reviewed the follow-up CT PET scan from 06-13-2020 (which was obtained after total of 7 cycles of split dose cisplatin/gemcitabine)-when compared with PET scan done in March 2020 it showed further improvement in the metastatic disease and read as a partial response. So treatment options include; continue with same regimen as patient is tolerating well and reassess his response after 3 more cycles followed by CT PET scan; the second option would be to refer to radiation oncology for evaluation for SBRT; third option would be to switch him to single agent immunotherapy with Keytruda; and fourth option would be to proceed with observation alone with follow-up with interval CT scans. Mr Kumar and his daughter, Dacia have opted to pursue systemic chemotherapy and reassess after 3 more cycles. Plan: PROBLEMS ADDRESSED TODAY 1. Poorly differentiated carcinoma involving right frontal region of the brain. Cancer I D reported on December 19, 2019 urothelial carcinoma and urinary bladder being primary with 9% probability. A. He is due for cycle 9-day 1 cisplatin gemcitabine. Cycle 8-day 8 gemcitabine cisplatin was not given as he was administered Neulasta on day 1 instead of day 8 of that cycle. He was then delayed the following week due to increment weather. B. lLabs from July 16, 2020 were reviewed in detail and discussed with Mr. Kumar and a copy was given to him. WBC 9.9, hemoglobin 12.7, platelets 307,000 ANC is 5220. Creatinine 0.7 random glucose 105 potassium 3.4 LFTs are normal. C. His recent PET/CT from June 13, 2020 reports partial response with decreased FDG uptake within the right upper lobe pulmonary nodule as well as decreased FDG uptake in the mediastinal lymphadenopathy, unchanged size and FDG uptake within the right supraclavicular lymphadenopathy. There is no evidence of new lesion or metastatic disease below the hemidiaphragm. D. We will plan to see him back in 1 week with CBC CMP for cycle 9-day 8 chemotherapy with cisplatin gemcitabine. E. His current reimaging plan will be to follow-up 3 cycles after his PET/CT from June 13, 2020. After he completes 3 additional cycles we will repeat his PET/CT. F. Mr. Kumar was encouraged to contact us in interim should questions or problems arise. Signed By: Eugenio Healy-, [facility] Sae [place] MD <<Signature on File>>
[2020-07-23 18:58] LABS: Basophils % 0.3 %; Eosinophils # 0.2 10^3/uL (0.0-0.8); Eosinophils % 3.2 %; Hematocrit 37.6 % (42.0-52.0); Lymphocytes # 2.2 10^3/uL (0.8-4.8); Lymphocytes % 36.4 %; Mean Corpuscular HGB Conc 31.9 g/dL (30.0-36.0); Mean Corpuscular Volume 97.2 fL (80-94); Mean Platelet Volume 9.9 fL (7.4-10.4); Monocytes # 0.1 10^3/uL (0.2-0.9); Monocytes % 1.2 %; Neutrophils % 58.7 %; Nucleated Red Blood Cells % 0 %; Platelet Count 211 10^3/cmm (130-400); Red Blood Count 3.87 10^6/uL (4.1-5.3); Red Cell Distribution Width 13.4 % (12.1-15.1)
[2020-07-23 20:37] LABS: Alanine Aminotransferase 19 U/L (0-41); Albumin Level 4.1 g/dL (3.5-5.2); Alkaline Phosphatase 82 IU/L (40-130); Aspartate Amino Transferase 14 U/L (0-40); Blood Urea Nitrogen 16 mg/dL (8-23); Calcium 9.1 mg/dL (8.5-10.5); Carbon Dioxide 29 mmol/L (22-29); Chloride 102 mmol/L (98-107); Globulin 2.4 g/dL (1.3-4.6); Glomerular Filtration Rate 112.8 mL/min (90-130); Glucose 80 mg/dL (65-115); Osmolality Calculated 286 mOsm/kg (285-295); Sodium 138 mmol/L (136-145); Total Bilirubin 0.2 mg/dL (0.15-1.2); Total Protein 6.5 g/dL (6.6-8.7)
[2020-07-25] MEDS: sodium chloride 0.9% 250 ML 75 ML IV (10:40)
[2020-07-25] MEDS: famotidine 20 mg/2 mL INJ IVP (11:35)
[2020-07-25] MEDS: palonosetron 0.25 mg/5 mL SDV IV (11:37)
[2020-07-25] MEDS: fosaprepitant 150 MG in sodium chloride 0.9% 150 ML 300 MG IV (11:50)
[2020-07-25] MEDS: diphenhydrAMINE 50 mg/mL SDV 1mL 25 MG IV (11:53)
[2020-07-25] MEDS: FUROsemide 10 mg/mL SDV 2mL 20 MG IV (13:16)
[2020-07-25] MEDS: pegfilgrastim 6 mg/0.6 mL Kit (onpro) SUBCUT (14:15)
--- NOTE | 2020-07-31 19:50 | ONC FU_ITS ---
[facility] Patient Note Patient: Paxton Kumar Unit #: [id number]: [id number] Dictated By: Eugenio HealyDate of Visit: Jul 25, 2020 Onc MED Follow-Up/Prog Note Chief Complaint: Brain mets History of Present Illness: Mr. Kumar is a 64-year-old gentleman with history of bladder cancer status post TURP in January 2017 at [facility] in [place], [place]. Mr Kumar's daughter reported that took care of his bladder cancer. In September 2019, he went to a local emergency room with headache and facial droop. A CT scan of the head was done which showed right frontal lobe mass with edema and midline shift. Mr Kumar was transferred to [facility] in [place] where on October 23, 2019 he underwent right frontal lobe tumor resection. Repeat neuro CT MR showed solitary, gently lobulated but predominantly well-circumscribed homogeneously low-attenuation, noncalcified, intra-axial 5 x 6.2 x 4.5 cm mass in the right frontal region. There was significant perilesional vasogenic edema, resulting subfalcine herniation and 0.9 cm right to left midline shift. Pathology showed metastatic poorly differentiated carcinoma with solid to papillary/pseudopapillary growth pattern with a brisk mitotic activity and patchy presence of necrosis. Immunohistochemistry showed diffusely positive for CK7, also widespread reactivity for CK 5/6, GATA3, with very focal expression of Napsin-A. Tumor cells are nonreactive to CDX2, p63, CD20, TTF-1, chromogranin, synaptophysin, and uroplakin. AB/PAS histochemical stain demonstrate focal presence of mucin. Pathology comments were morphological findings are dose of poorly differentiated carcinoma, while definite comment on primary site is limited by its somewhat nonspecific immunoprofile, the possibilities being considered are urothelial and lung among others. Further clinical and imaging correlation to confirm exact site of origin is suggested. A cancer type ID was done which was reported on December 19, 2019, urothelial carcinoma and urinary bladder being primary with 90% probability, Again patient has history of bladder cancer, diagnosed in January, at [facility], where he underwent TURP. CT chest /abd scan done on October 21, 2019 showed No definitively suspicious pulmonary nodule or mass mediastinal right hilar and right supraclavicular adenopathy some of which is necrotic favoring a metastatic process including recurrence of patient's history of prior malignancy.Right paratracheal lymph node measures 1.4 x 1.6 cm, right hilar adenopathy Tiny lytic foci in L5 vertebral body of indeterminate. Scattered small enhancing foci in the liver favored to represent focal areas of vascular shunting versus small hemangiomas CT PET scan done on October 25, 2019 showed right hilar lymphadenopathy with a maximum SUV of 14.9 measuring 2.2 x 3.3 cm this is the most FDG avid lesion. Right supraclavicular lymphadenopathy with maximum SUV 12.2 measuring 1.7 x 1.4 cm. Right cervical level 5 lymph nodes with a maximum SUV of 6.7 measuring 2.7 x 1.4 cm Right paratracheal lymphadenopathy measuring 2.8 x 1.5 cm with SUV of 9.9. The lytic focus in L5 vertebral body is not hypermetabolic. Mr Kumar underwent CT scan of head on November 12, 2019, which showed postsurgical changes of right craniotomy and right frontal lobe tumor resection with residual enhancement along the anterior, medial and superior/posterior margins of the resection bed suspicious for residual tumor., Subsequently patient was treated with SBRT, as per patient he received 5 doses and completed recently. Mr Kumar said he has seen medical oncologist Dr. Lofton at [facility], who informed him that he has a lung cancer and PDL 1 status was ordered and some other blood test were done to identify specific therapy. And they are waiting for the report, as per patient, he will send the record to us for further care here as [facility] [place] is more convenient to him. His case was discussed with Dr. Parul Lopez, as it was not sure why significance of urothelial carcinoma or lung cancer so cancer type ID was ordered and reported on December 19, 2019 as urothelial carcinoma, urinary bladder as a primary with 90% probability. Once again his case was discussed with Dr. Lopez on December 28, 2019 and she concurred with cancer type ID confirmation and signing out final pathology report as urothelial carcinoma. With that diagnosis, Mr Kumar was offered treatmweent with Cisplatin/gemcitabine. He began his first cycle on 01/10/2020. He has tolerated it well thus far. Follow-up CT PET scan done on April 10, 2020 at [facility] in [place] showed right-sided level 3 lymph node involvement with a single 1.5 x 1.2 cm lymph node with SUV of 8.48, right-sided pretracheal, paratracheal, precarinal, bronchial lymphadenopathy with index lesion right precarinal lymph node is 0.7 cm with SUV of 13.82. Soft tissue nodular lesion is present in the right upper lobe posteriorly with increased metabolic activity 1.1 x 0.8 cm with SUV of 6.92. No other abnormality seen. No intra-abdominal disease. And this PET scan was not compared with the PET scan done in September 2019 at [facility] prior to palliative chemotherapy started in December 2019 .Follow-up CT PET scan done After 7 cycles of palliative chemotherapy with cisplatin/gemcitabine on June 13, 2020 showed persistent photopenic defect within the right frontal lobe. Right supraclavicular lymph node measuring 1.4 x 0.9 cm with maximum SUV of 8.46 compared to 8.48 previously. No additional cervical lymphadenopathy. Right paratracheal lymph node measuring 1.1 x 0.8 cm with SUV of 10.8 previously 1.1 x 0.8 cm SUV of 13.8. Right upper lobe pulmonary nodule with maximal SUV of 4.8 previously 6.9. Overall findings, consistent with partial response Mr. Kumar is here today for follow-up. He is due for cycle 9-day 8 chemotherapy. Review of cycle 8 from 06/20/2020, it was discovered that he did have Neulasta on day 1 instead day 8 for unknown reasons. His day 8 was not given due to the adminstration of the Neulasta. He was unable to return the following week due inclement weather. So his cycle 9 was delayed by 1 week. He began cycle 9 on 07/18/2020. He is here today for followup and consideration of day 1 of cycle 9. He has no concerns today. He denies any fever or chills. He denies any Covid symptoms, exposure or pending test. He states he did have a little mild nausea after treatment last week. It responded to oral antiemetics at home he states only took 1 or 2 doses and is resolved currently. He denies vomiting. He states his bowels and bladder are normal for him. He denies any hematuria. He denies any neuropathy symptoms. He states he is eating good. He states overall he feels good. His ECOG is 1. Past Medical History: Past Surgical History: Bladder cancer Removal of brain tumor Allergies: No Known Allergies. Medications: Aspirin 81 1 Tablet (of 81 mg) Tablet, enteric coated Oral daily Cholecalciferol 1 Tablet (of 125 mcg ) Oral daily Keppra 1 Tablet (of 750 mg) Oral b.i.d. levoFLOXacin 1 Tablet (of 750 mg) Oral PRN LORazepam 1 - 2 Tablet (of 1 mg) Oral q 6 to 8 hours PRN Prochlorperazine Maleate 1 Tablet (of 10 mg) Oral q 4 hours PRN Family History: Mr. Kumar's mother at age 85: old age. Mr. Kumar's father at age 92: myocardial infarction. pt states all other sibilings have no illness to mention. Social History: Mr. Kumar is and he is an unknown. He is an occasional smoker who has smoked 1.0 pack/day for 40 years. He has no history of drinking. Review Of Symptoms: Constitutional Denies fevers, chills, night sweats, excessive fatigue or weight loss. Allergic/Immunologic No reactions. Eyes Denies significant visual changes. No diplopia. No amaurosis. ENMT Denies changes in hearing, sore throat, mouth sores, difficulty or changes in swallowing ability, and/or sinus drainage. Endocrine No diabetes, thyroid disease or hormone replacement. Denies hot flashes or night sweats. Hematologic/Lymphatic Denies easy bruising or bleeding. The patient denies any tender or palpable lymph nodes. Respiratory Denies dyspnea on exertion, chest pain, cough or hemoptysis. Denies orthopnea. Cardiovascular Denies anginal chest pain, palpitations or orthopnea. Gastrointestinal Denies persistent nausea, vomiting, diarrhea, GI bleeding, or constipation. Denies change in bowel habits and/or stool color, no heartburn or early satiety. Genitourinary (M) Denies hematuria, dysuria, increased frequency, urgency, hesitancy or incontinence. Musculoskeletal Denies joint pain, swelling or redness. No decreased range of motion. Integumentary Denies chronic rashes, inflammation, ulcerations or skin changes. Neurologic Denies headache, blurred vision, and no areas of focal weakness or numbness. Normal gait. No sensory problems. Psychiatric Denies insomnia, depression, [place] or mood swings. Vital Signs: Performed on Jul 25, 2020 09:24 Height - 64.00 in Weight - 152 lbs (HIGH) BSA - 1.74 sq.m BMI - 26.09 Temperature - 98 F (LOW) Pulse - 90 /min Respiration - 18 /min BP - 144/85 mm(hg) (HIGH) O2 Sat - 99 % Pain - 6 Fatigue - 0,1 - No physically strenuous activity, but ambulatory and able to carry out light or sedentary work (e.g. office work, light house work). (ECOG) Physical Examination: Constitutional Alert, oriented, no acute distress. Skin pink, warm and dry. Head Normocephalic; atraumatic. Eyes Conjunctivae and sclerae are clear and without icterus. Pupils are reactive and equal. Neck Supple without masses or thyromegaly. No jugular venous distension. Hematologic/Lymphatic No petechiae or purpura. Respiratory Lungs are clear to auscultation without rhonchi or wheezing. Cardiovascular Regular rate and rhythm of heart without murmurs,clicks, gallops or rubs. Chest Left subclavian venous access device insertion site is unremarkable. Abdomen Non-tender, non-distended, no masses or ascites. Good bowel sounds noted in all quads. No guarding or rebound tenderness. No pulsatile masses. Back/Spine Non-tender to palpation. Extremities He is missing his third and fourth digit on the right hand. This is an old injury. Otherwise his extremities are normal. Musculoskeletal No tenderness or swelling, normal range of motion without obvious weakness. Integumentary No rashes or lesions. Neurologic No sensory or motor deficits, normal cerebellar function, normal gait. Psychiatric Alert and oriented times three. Coherent speech. Verbalizes understanding of our discussions today. Laboratory:Test performed on Jun 26, 2020 11:30 Sodium 139 mmol/L Potassium 3.7 mmol/L Chloride 101 mmol/L CO2 30 mmol/L Anion Gap 11.7 BUN 10 mg/dL Creatinine 0.7 mg/dL Cr Clearance (Est) 100.3000 mL/min eGFR 112.8 mL/min Glucose 116 mg/dL Osmolality - Calculated 288 mOsm/kg Calcium 9.2 mg/dL Protein, Total 6.7 g/dL Albumin 4.0 g/dL Globulin 2.7 g/dL Bilirubin, Total 0.2 mg/dL ALT (SGPT) 18 U/L AST (SGOT) 13 U/L Alkaline Phosphatase 293 IU/L WBC 40.2 10 3/uL Manual Segs % 43 % Manual Bands % 50.0 % RBC 3.64 10 6/uL HGB 11.5 g/dL Manual Lymphs % 4 % Atypical Lymphs % 0.0 % HCT 35.7 % MCV 98.1 fL Total Cells Counted 100 Manual Monos % 3.0 % MCH 31.6 pg Manual Eos % 0 % MCHC 32.2 g/dL Manual Basos % 0.0 % RDW 14.1 % Platelet Count 228 10 3/cmm MPV 9.2 fL CBC Slide Review Slide Review Perform Platelet Estimate Normal Manual Segs Abs 17.3 10/cmm Manual Bands Abs 20.1 10 3/cmm Manual Neutrophils Abs 37.4 10 3/cmm Manual Monocytes Abs 1.2 10 3/cmm Manual Eosinophils Abs 0.0 10 3/cmm Manual Basophils Abs 0.0 10 3/cmm Test performed on Jun 20, 2020 08:29 Neutrophils 4.25 10 3/uL Lymphocytes 1.9 10 3/uL Monocytes 1.1 10 3/uL Eosinophils 0.1 10 3/uL Basophils 0.0 10 3/uL Neutrophil % 57.7 % Lymphocyte % 25.5 % Monocyte % 14.2 % Eosinophil % 1.6 % Basophils % 0.3 % NRBC % 0 % Test performed on Feb 20, 2020 08:10 Metamyelocytes % 4.0 % Myelocytes % 1.0 % Polychromasia Trace Poikilocytosis Trace Tear Drop Cells Trace Impression: Poorly differentiated carcinoma involving right frontal lobe status post partial resection done on October 23, 2019. Immunohistochemistry showed tumor cells to be strongly and diffusely positive for CK7, also widespread reactivity for CK 5/6 and GA TA 3, with very focal expression of Napsin-A. And tumor cell nonreactive to CDX 2, p63, CD20, TTF-1, chromogranin, synaptophysin, uroplakin. AB/PAS histochemical stain demonstrated focal presence of mucin. Cancer type ID reported on December 19, 2019 confirmed urothelial carcinoma, urinary bladder being primary with 90% probability CT PET scan done on October 25, 2019 showed right hilar lymphadenopathy, 2.2 x 3.3 cm with SUV 14.9 Right supraclavicular lymphadenopathy 1.7 x 1.4 cm with SUV of 12.2 Right paratracheal lymphadenopathy 2.8 x 1.5 cm with SUV of 9.9. Lytic focus in L5 vertebral body is non-hypermetabolic. History of bladder cancer, diagnosed in January 2017 at [facility] in [place], status post TURP Cancer type ID reported on December 19, 2019 confirmed brain mets being urothelial carcinoma with urinary bladder being primary with a 90% probability Clinically, patient is doing well with no signs symptoms suggestive of disease progression, there was a concern regarding cancer of unknown primary, lung versus urothelial, so cancer type ID was ordered after discussion with , pathologist at [facility], as mentioned above it confirmed urothelial carcinoma. Discussed with patient regarding systemic chemotherapy and treatment options include MVAC and cisplatin/gemcitabine followed by maintenance immunotherapy with avelumab, considering patient's age and comorbid condition, will consider cisplatin and split dose along with gemcitabine on day 1 and 8 and repeat cycle every 21 days x [address] scan and MRI scan of the head if it shows complete remission, then consider maintenance therapy with immunotherapy Avelumab. Mr Kumar is tolerating treatment well overall but does have chemo induced neutropenia. We will try adding Neulasta and proceeding with cycle 2 day 8. The additional growth factor support with Neulasta has allowed him to stay on treatment as planned. He is currently on cycle 8 . He is due for day 8 today. Clinically, patient doing well with no new signs symptoms, tolerating palliative chemotherapy with split dose cisplatin and gemcitabine well, his 04-10-2020 follow-up CT PET scan done after 4 cycles of chemotherapy. It showed excellent response when compared to CT PET scan done in September 2019 at [facility]. Keep in mind his chemotherapy was started in December 2019 as patient was undergoing radiation therapy to the brain. Time was taken by cancer type ID to confirm the primary as initial impression was lung being primary bilateral cancer type ID confirmed urothelial carcinoma. Follow-up CT PET scan done after total of 7 cycles of cisplatin/gemcitabine on June 13, 2020 showed partial response with a decrease FDG uptake within the right upper lobe pulmonary nodule as well as decreased FDG uptake within mediastinal lymphadenopathy and unchanged size and FDG uptake in the right supraclavicular lymph node. No evidence of new lesion or metastatic disease below diaphragm. Clinically, patient is doing well with no new signs symptoms and is tolerating palliative chemotherapy with split dose cisplatin and gemcitabine well but with expected side effect e.g. off and on generalized weakness and fatigue. Dr Clark reviewed the follow-up CT PET scan from 06-13-2020 (which was obtained after total of 7 cycles of split dose cisplatin/gemcitabine)-when compared with PET scan done in March 2020 it showed further improvement in the metastatic disease and read as a partial response. So treatment options include; continue with same regimen as patient is tolerating well and reassess his response after 3 more cycles followed by CT PET scan; the second option would be to refer to radiation oncology for evaluation for SBRT; third option would be to switch him to single agent immunotherapy with Keytruda; and fourth option would be to proceed with observation alone with follow-up with interval CT scans. Mr Kumar and his daughter, Dacia have opted to pursue systemic chemotherapy and reassess after 3 more cycles. Plan: PROBLEMS ADDRESSED TODAY 1. Poorly differentiated carcinoma involving right frontal region of the brain. Cancer I D reported on December 19, 2019 urothelial carcinoma and urinary bladder being primary with 9% probability. A. He is due for cycle 9-day 8 cisplatin gemcitabine. Cycle 8-day 8 gemcitabine cisplatin was not given as he was administered Neulasta on day 1 instead of day 8 of that cycle. He was then delayed the following week due to increment weather. B. Labs from July 23, 2020 were reviewed in detail and discussed with Mr. Kumar and a copy was given to him. WBC 6.0, hemoglobin 12.0, platelets 211,000 ANC is 3500. Creatinine 0.7 potassium 4.0 random glucose 80 LFTs are normal. C. His recent PET/CT from June 13, 2020 reports partial response with decreased FDG uptake within the right upper lobe pulmonary nodule as well as decreased FDG uptake in the mediastinal lymphadenopathy, unchanged size and FDG uptake within the right supraclavicular lymphadenopathy. There is no evidence of new lesion or metastatic disease below the hemidiaphragm. D. We will plan to see him back in 2 weeks with CBC CMP for cycle 10-day 1 chemotherapy with cisplatin gemcitabine. E. His current reimaging plan will be to follow-up 3 cycles after his PET/CT from June 13, 2020. After he completes 3 additional cycles we will repeat his PET/CT. This will complete his second cycle of the 3. F. Mr. Kumar was encouraged to contact us in interim should questions or problems arise. Signed By: Eugenio Healy-, AOCNP Sae Clark MD <<Signature on File>>
== END 2020-07-28 23:59 | disposition home or self-care (01) ==
LOC: ONCMED 05:30
PROVIDERS: Internal Medicine Hematology & Oncology; PCP Emergency Medicine Emergency Medical Services; Visit Provider Nurse Practitioner
DX: Z51.11 Encounter for antineoplastic chemotherapy (principal); C67.9 Malignant neoplasm of bladder, unspecified; C77.8 Secondary and unspecified malignant neoplasm of lymph nodes of multiple regions; Z79.899 Other long term (current) drug therapy
CPT/HCPCS: 80053; 85025; 96367; 96372; 96375; 96413; 96415; 96417; 99214; J1100; J1200; J1453; J1940; J2469; J2505; J3475; J3480; J3490; J7040; J7050; J9060; J9201

== ENCOUNTER 2020-08-21 05:29 | Outpatient (RCR) | payer OTHER, SELFPAY ==
[2020-08-13 17:13] LABS: Basophils # 0.2 10^3/uL (0.0-0.1); Basophils % 1.2 %; Eosinophils # 0.9 10^3/uL (0.0-0.8); Eosinophils % 4.3 %; Hematocrit 38.7 % (42.0-52.0); Hemoglobin 12.2 g/dL (11.7-16.6); Lymphocytes # 2.9 10^3/uL (0.8-4.8); Lymphocytes % 14.8 %; Mean Corpuscular HGB Conc 31.5 g/dL (30.0-36.0); Mean Corpuscular Volume 98.2 fL (80-94); Mean Platelet Volume 9.1 fL (7.4-10.4); Monocytes # 1.7 10^3/uL (0.2-0.9); Monocytes % 8.6 %; Neutrophils # 13.18 10^3/uL (1.8-7.7); Neutrophils % 66.4 %; Nucleated Red Blood Cells % 0 %; Platelet Count 517 10^3/cmm (130-400); Red Blood Count 3.94 10^6/uL (4.1-5.3); Red Cell Distribution Width 14.5 % (12.1-15.1); White Blood Count 19.8 10^3/uL (4.0-10.0)
[2020-08-13 17:33] LABS: Alanine Aminotransferase 13 U/L (0-41); Albumin Level 3.8 g/dL (3.5-5.2); Alkaline Phosphatase 96 IU/L (40-130); Anion Gap 11.5 (5-19); Aspartate Amino Transferase 14 U/L (0-40); Blood Urea Nitrogen 12 mg/dL (8-23); Calcium 8.9 mg/dL (8.5-10.5); Carbon Dioxide 31 mmol/L (22-29); Chloride 101 mmol/L (98-107); Globulin 2.8 g/dL (1.3-4.6); Glomerular Filtration Rate 112.8 mL/min (90-130); Glucose 105 mg/dL (65-115); Osmolality Calculated 290 mOsm/kg (285-295); Potassium 3.5 mmol/L (3.5-5.1); Sodium 140 mmol/L (136-145); Total Bilirubin 0.2 mg/dL (0.15-1.2); Total Protein 6.6 g/dL (6.6-8.7)
--- NOTE | 2020-08-15 09:26 | ONC FU_ITS ---
Dr. Clark follow up note Patient: Paxton Kumar Unit #: [id number]: 1955 Dicatated By: Sae Clark M.D.Date of Visit:Aug 15, 2020 Onc Med Follow-up/Prog Note History of Present Illness: Mr. Kumar is a 64-year-old gentleman with history of bladder cancer status post TURP in January 2017 at [facility] in [place], [place]. Mr Kumar's daughter reported that took care of his bladder cancer. In September 2019, he went to a local emergency room with headache and facial droop. A CT scan of the head was done which showed right frontal lobe mass with edema and midline shift. Mr Kumar was transferred to [facility] in [place] where on October 23, 2019 he underwent right frontal lobe tumor resection. Repeat neuro CT MR showed solitary, gently lobulated but predominantly well-circumscribed homogeneously low-attenuation, noncalcified, intra-axial 5 x 6.2 x 4.5 cm mass in the right frontal region. There was significant perilesional vasogenic edema, resulting subfalcine herniation and 0.9 cm right to left midline shift. Pathology showed metastatic poorly differentiated carcinoma with solid to papillary/pseudopapillary growth pattern with a brisk mitotic activity and patchy presence of necrosis. Immunohistochemistry showed diffusely positive for CK7, also widespread reactivity for CK 5/6, GATA3, with very focal expression of Napsin-A. Tumor cells are nonreactive to CDX2, p63, CD20, TTF-1, chromogranin, synaptophysin, and uroplakin. AB/PAS histochemical stain demonstrate focal presence of mucin. Pathology comments were morphological findings are dose of poorly differentiated carcinoma, while definite comment on primary site is limited by its somewhat nonspecific immunoprofile, the possibilities being considered are urothelial and lung among others. Further clinical and imaging correlation to confirm exact site of origin is suggested. A cancer type ID was done which was reported on December 19, 2019, urothelial carcinoma and urinary bladder being primary with 90% probability, Again patient has history of bladder cancer, diagnosed in January, at [facility], where he underwent TURP. CT chest /abd scan done on October 21, 2019 showed No definitively suspicious pulmonary nodule or mass mediastinal right hilar and right supraclavicular adenopathy some of which is necrotic favoring a metastatic process including recurrence of patient's history of prior malignancy.Right paratracheal lymph node measures 1.4 x 1.6 cm, right hilar adenopathy Tiny lytic foci in L5 vertebral body of indeterminate. Scattered small enhancing foci in the liver favored to represent focal areas of vascular shunting versus small hemangiomas CT PET scan done on October 25, 2019 showed right hilar lymphadenopathy with a maximum SUV of 14.9 measuring 2.2 x 3.3 cm this is the most FDG avid lesion. Right supraclavicular lymphadenopathy with maximum SUV 12.2 measuring 1.7 x 1.4 cm. Right cervical level 5 lymph nodes with a maximum SUV of 6.7 measuring 2.7 x 1.4 cm Right paratracheal lymphadenopathy measuring 2.8 x 1.5 cm with SUV of 9.9. The lytic focus in L5 vertebral body is not hypermetabolic. Mr Kumar underwent CT scan of head on November 12, 2019, which showed postsurgical changes of right craniotomy and right frontal lobe tumor resection with residual enhancement along the anterior, medial and superior/posterior margins of the resection bed suspicious for residual tumor., Subsequently patient was treated with SBRT, as per patient he received 5 doses and completed recently. Mr Kumar said he has seen medical oncologist Dr. Lofton at [facility], who informed him that he has a lung cancer and PDL 1 status was ordered and some other blood test were done to identify specific therapy. And they are waiting for the report, as per patient, he will send the record to us for further care here as [facility] convenient to him. His case was discussed with Dr. Parul Lopez, as it was not sure why significance of urothelial carcinoma or lung cancer so cancer type ID was ordered and reported on December 19, 2019 as urothelial carcinoma, urinary bladder as a primary with 90% probability. Once again his case was discussed with Dr. Lopez on December 28, 2019 and she concurred with cancer type ID confirmation and signing out final pathology report as urothelial carcinoma. With that diagnosis, Mr Kumar was offered treatmweent with Cisplatin/gemcitabine. He began his first cycle on 01/10/2020. He has tolerated it well thus far. Follow-up CT PET scan done on April 10, 2020 at [facility] in [place] showed right-sided level 3 lymph node involvement with a single 1.5 x 1.2 cm lymph node with SUV of 8.48, right-sided pretracheal, paratracheal, precarinal, bronchial lymphadenopathy with index lesion right precarinal lymph node is 0.7 cm with SUV of 13.82. Soft tissue nodular lesion is present in the right upper lobe posteriorly with increased metabolic activity 1.1 x 0.8 cm with SUV of 6.92. No other abnormality seen. No intra-abdominal disease. And this PET scan was not compared with the PET scan done in September 2019 at [facility] prior to palliative chemotherapy started in December 2019 .Follow-up CT PET scan done After 7 cycles of palliative chemotherapy with cisplatin/gemcitabine on June 13, 2020 showed persistent photopenic defect within the right frontal lobe. Right supraclavicular lymph node measuring 1.4 x 0.9 cm with maximum SUV of 8.46 compared to 8.48 previously. No additional cervical lymphadenopathy. Right paratracheal lymph node measuring 1.1 x 0.8 cm with SUV of 10.8 previously 1.1 x 0.8 cm SUV of 13.8. Right upper lobe pulmonary nodule with maximal SUV of 4.8 previously 6.9. Overall findings, consistent with partial response Day 8 cycle #8 was skipped because of patient's episode of allergic reaction to Covid vaccine and patient resumed cycle #9 on July 18, 2020 Came for follow-up, denies any specific complaints, no fever chills, no nausea or vomiting, no diarrhea or constipation, no dysuria, no hematuria, no new bony pains, no peripheral neuropathy, no itching or skin rash. Tolerating palliative chemotherapy with split dose cisplatin and gemcitabine well Medications: Aspirin 81 1 Tablet (of 81 mg) Tablet, enteric coated Oral daily, Cholecalciferol 1 Tablet (of 125 mcg ) Oral daily, Keppra 1 Tablet (of 750 mg) Oral b.i.d., levoFLOXacin 1 Tablet (of 750 mg) Oral PRN, LORazepam 1 - 2 Tablet (of 1 mg) Oral q 6 to 8 hours PRN, Prochlorperazine Maleate 1 Tablet (of 10 mg) Oral q 4 hours PRN Allergies: No Known Allergies. Review of Systems: Review of Systems is not available for this patient. Vital Signs: Performed on Aug 15, 2020 08:48 Height - 64.00 in Weight - 148 lbs (LOW) BSA - 1.72 sq.m BMI - 25.40 Temperature - 97.5 F (LOW) Pulse - 88 /min Respiration - 18 /min BP - 136/81 mm(hg) O2 Sat - 94 % (LOW) Pain - 6 Fatigue - 6 Performance Status: 1 - No physically strenuous activity, but ambulatory and able to carry out light or sedentary work (e.g. office work, light house work). (ECOG) Physical Examination: ENMT - No mouth sores, no thrush, no jaundice, Respiratory - Lungs are clear to auscultation, Cardiovascular - Regular rate and rhythm of heart, Abdomen - Soft, bowel sounds present, Extremities - No visible edema. Lab/Imaging: Test performed on Jun 26, 2020 11:30 Sodium 139 mmol/L Potassium 3.7 mmol/L Chloride 101 mmol/L CO2 30 mmol/L Anion Gap 11.7 BUN 10 mg/dL Creatinine 0.7 mg/dL Cr Clearance (Est) 100.3000 mL/min eGFR 112.8 mL/min Glucose 116 mg/dL Osmolality - Calculated 288 mOsm/kg Calcium 9.2 mg/dL Protein, Total 6.7 g/dL Albumin 4.0 g/dL Globulin 2.7 g/dL Bilirubin, Total 0.2 mg/dL ALT (SGPT) 18 U/L AST (SGOT) 13 U/L Alkaline Phosphatase 293 IU/L WBC 40.2 10 3/uL Manual Segs % 43 % Manual Bands % 50.0 % RBC 3.64 10 6/uL HGB 11.5 g/dL Manual Lymphs % 4 % Atypical Lymphs % 0.0 % HCT 35.7 % MCV 98.1 fL Total Cells Counted 100 Manual Monos % 3.0 % MCH 31.6 pg Manual Eos % 0 % MCHC 32.2 g/dL Manual Basos % 0.0 % RDW 14.1 % Platelet Count 228 10 3/cmm MPV 9.2 fL CBC Slide Review Slide Review Perform Platelet Estimate Normal Manual Segs Abs 17.3 10/cmm Manual Bands Abs 20.1 10 3/cmm Manual Neutrophils Abs 37.4 10 3/cmm Manual Monocytes Abs 1.2 10 3/cmm Manual Eosinophils Abs 0.0 10 3/cmm Manual Basophils Abs 0.0 10 3/cmm Test performed on Jun 20, 2020 08:29 Neutrophils 4.25 10 3/uL Lymphocytes 1.9 10 3/uL Monocytes 1.1 10 3/uL Eosinophils 0.1 10 3/uL Basophils 0.0 10 3/uL Neutrophil % 57.7 % Lymphocyte % 25.5 % Monocyte % 14.2 % Eosinophil % 1.6 % Basophils % 0.3 % NRBC % 0 % Test performed on Feb 20, 2020 08:10 Metamyelocytes % 4.0 % Myelocytes % 1.0 % Polychromasia Trace Poikilocytosis Trace Tear Drop Cells Trace Impression: Poorly differentiated carcinoma involving right frontal lobe status post partial resection done on October 23, 2019. Immunohistochemistry showed tumor cells to be strongly and diffusely positive for CK7, also widespread reactivity for CK 5/6 and GA TA 3, with very focal expression of Napsin-A. And tumor cell nonreactive to CDX 2, p63, CD20, TTF-1, chromogranin, synaptophysin, uroplakin. AB/PAS histochemical stain demonstrated focal presence of mucin. Cancer type ID reported on December 19, 2019 confirmed urothelial carcinoma, urinary bladder being primary with 90% probability CT PET scan done on October 25, 2019 showed right hilar lymphadenopathy, 2.2 x 3.3 cm with SUV 14.9 Right supraclavicular lymphadenopathy 1.7 x 1.4 cm with SUV of 12.2 Right paratracheal lymphadenopathy 2.8 x 1.5 cm with SUV of 9.9. Lytic focus in L5 vertebral body is non-hypermetabolic. History of bladder cancer, diagnosed in January 2017 at [facility] in [place], status post TURP Cancer type ID reported on December 19, 2019 confirmed brain mets being urothelial carcinoma with urinary bladder being primary with a 90% probability Clinically, patient is doing well with no signs symptoms suggestive of disease progression, there was a concern regarding cancer of unknown primary, lung versus urothelial, so cancer type ID was ordered after discussion with , pathologist at [facility], as mentioned above it confirmed urothelial carcinoma. Discussed with patient regarding systemic chemotherapy and treatment options include MVAC and cisplatin/gemcitabine followed by maintenance immunotherapy with avelumab, considering patient's age and comorbid condition, will consider cisplatin and split dose along with gemcitabine on day 1 and 8 and repeat cycle every 21 days x [address] PET scan and MRI scan of the head if it shows complete remission, then consider maintenance therapy with immunotherapy Avelumab. Mr Kumar is tolerating treatment well overall but does have chemo induced neutropenia. We will try adding Neulasta and proceeding with cycle 2 day 8. The additional growth factor support with Neulasta has allowed him to stay on treatment as planned. He is currently on cycle 8 . He is due for day 8 today. Clinically, patient doing well with no new signs symptoms, tolerating palliative chemotherapy with split dose cisplatin and gemcitabine well, his 04-10-2020 follow-up CT PET scan done after 4 cycles of chemotherapy. It showed excellent response when compared to CT PET scan done in September 2019 at [facility]. Keep in mind his chemotherapy was started in December 2019 as patient was undergoing radiation therapy to the brain. Time was taken by cancer type ID to confirm the primary as initial impression was lung being primary bilateral cancer type ID confirmed urothelial carcinoma. Follow-up CT PET scan done after total of 7 cycles of cisplatin/gemcitabine on June 13, 2020 showed partial response with a decrease FDG uptake within the right upper lobe pulmonary nodule as well as decreased FDG uptake within mediastinal lymphadenopathy and unchanged size and FDG uptake in the right supraclavicular lymph node. No evidence of new lesion or metastatic disease below diaphragm. Clinically, patient is doing well with no new signs symptoms and is tolerating palliative chemotherapy with split dose cisplatin and gemcitabine well but with expected side effect e.g. off and on generalized weakness and fatigue. Dr Clark reviewed the follow-up CT PET scan from 06-13-2020 (which was obtained after total of 7 cycles of split dose cisplatin/gemcitabine)-when compared with PET scan done in March 2020 it showed further improvement in the metastatic disease and read as a partial response. So treatment options include; continue with same regimen as patient is tolerating well and reassess his response after 3 more cycles followed by CT PET scan; the second option would be to refer to radiation oncology for evaluation for SBRT; third option would be to switch him to single agent immunotherapy with Keytruda; and fourth option would be to proceed with observation alone with follow-up with interval CT scans. Mr Kumar and his daughter, Dacia have opted to pursue systemic chemotherapy and reassess after 3 more cycles. Plan: Discussed with patient regarding his labs white blood count 19.8 hemoglobin 12.2 hematocrit 38.7 platelets 517,000 CMP within normal limits Clinically, patient doing well without any new signs symptoms, tolerating palliative chemotherapy with cisplatin/gemcitabine well, will proceed with cycle number 10-day 1 with cisplatin and gemcitabine and then he will return to clinic in 1 week for day 8 chemo, with CBC CMP, following that we will schedule him for follow-up CT PET scan to assess disease response Signed By: Sae Clark M.D. <<Signature on File>>
[2020-08-15] MEDS: diphenhydrAMINE 50 mg/mL SDV 1mL 25 MG IVP (09:45)
[2020-08-15] MEDS: sodium chloride 0.9% 250 ML 75 ML IV (09:45)
[2020-08-15] MEDS: palonosetron 0.25 mg/5 mL SDV IVP (09:48)
[2020-08-15] MEDS: FUROsemide 10 mg/mL SDV 2mL 20 MG IV (13:50)
[2020-08-20 18:33] LABS: Basophils % 0.5 %; Eosinophils # 0.2 10^3/uL (0.0-0.8); Eosinophils % 2.3 %; Hematocrit 38.2 % (42.0-52.0); Hemoglobin 12.4 g/dL (11.7-16.6); Lymphocytes # 2.2 10^3/uL (0.8-4.8); Lymphocytes % 25.8 %; Mean Corpuscular HGB Conc 32.5 g/dL (30.0-36.0); Mean Corpuscular Hemoglobin 30.3 pg (28.0-34.0); Mean Corpuscular Volume 93.4 fL (80-94); Monocytes # 0.2 10^3/uL (0.2-0.9); Monocytes % 1.7 %; Neutrophils # 6.01 10^3/uL (1.8-7.7); Neutrophils % 69.2 %; Nucleated Red Blood Cells % 0 %; Platelet Count 375 10^3/cmm (130-400); Red Blood Count 4.09 10^6/uL (4.1-5.3); Red Cell Distribution Width 14.1 % (12.1-15.1); White Blood Count 8.7 10^3/uL (4.0-10.0)
[2020-08-20 20:47] LABS: Alanine Aminotransferase 48 U/L (0-41); Alkaline Phosphatase 85 IU/L (40-130); Anion Gap 13.1 (5-19); Aspartate Amino Transferase 25 U/L (0-40); Blood Urea Nitrogen 12 mg/dL (8-23); Calcium 8.9 mg/dL (8.5-10.5); Carbon Dioxide 25 mmol/L (22-29); Chloride 98 mmol/L (98-107); Globulin 3.1 g/dL (1.3-4.6); Glomerular Filtration Rate 134.8 mL/min (90-130); Glucose 84 mg/dL (65-115); Osmolality Calculated 273 mOsm/kg (285-295); Potassium 4.1 mmol/L (3.5-5.1); Sodium 132 mmol/L (136-145); Total Bilirubin 0.2 mg/dL (0.15-1.2); Total Protein 7.1 g/dL (6.6-8.7)
--- NOTE | 2020-08-21 10:19 | ONC FU_ITS ---
[facility] Patient Note Patient: Paxton Kumar Unit #: [id number]: [id number] Dictated By: Eugenio HealyDate of Visit: Aug 21, 2020 Onc MED Follow-Up/Prog Note Chief Complaint: Brain mets History of Present Illness: Mr. Kumar is a 64-year-old gentleman with history of bladder cancer status post TURP in January 2017 at [facility] in [place], [place]. Mr Kumar's daughter reported that took care of his bladder cancer. In September 2019, he went to a local emergency room with headache and facial droop. A CT scan of the head was done which showed right frontal lobe mass with edema and midline shift. Mr Kumar was transferred to [facility] in [place] where on October 23, 2019 he underwent right frontal lobe tumor resection. Repeat neuro CT MR showed solitary, gently lobulated but predominantly well-circumscribed homogeneously low-attenuation, noncalcified, intra-axial 5 x 6.2 x 4.5 cm mass in the right frontal region. There was significant perilesional vasogenic edema, resulting subfalcine herniation and 0.9 cm right to left midline shift. Pathology showed metastatic poorly differentiated carcinoma with solid to papillary/pseudopapillary growth pattern with a brisk mitotic activity and patchy presence of necrosis. Immunohistochemistry showed diffusely positive for CK7, also widespread reactivity for CK 5/6, GATA3, with very focal expression of Napsin-A. Tumor cells are nonreactive to CDX2, p63, CD20, TTF-1, chromogranin, synaptophysin, and uroplakin. AB/PAS histochemical stain demonstrate focal presence of mucin. Pathology comments were morphological findings are dose of poorly differentiated carcinoma, while definite comment on primary site is limited by its somewhat nonspecific immunoprofile, the possibilities being considered are urothelial and lung among others. Further clinical and imaging correlation to confirm exact site of origin is suggested. A cancer type ID was done which was reported on December 19, 2019, urothelial carcinoma and urinary bladder being primary with 90% probability, Again patient has history of bladder cancer, diagnosed in January, at [facility], where he underwent TURP. CT chest /abd scan done on October 21, 2019 showed No definitively suspicious pulmonary nodule or mass mediastinal right hilar and right supraclavicular adenopathy some of which is necrotic favoring a metastatic process including recurrence of patient's history of prior malignancy.Right paratracheal lymph node measures 1.4 x 1.6 cm, right hilar adenopathy Tiny lytic foci in L5 vertebral body of indeterminate. Scattered small enhancing foci in the liver favored to represent focal areas of vascular shunting versus small hemangiomas CT PET scan done on October 25, 2019 showed right hilar lymphadenopathy with a maximum SUV of 14.9 measuring 2.2 x 3.3 cm this is the most FDG avid lesion. Right supraclavicular lymphadenopathy with maximum SUV 12.2 measuring 1.7 x 1.4 cm. Right cervical level 5 lymph nodes with a maximum SUV of 6.7 measuring 2.7 x 1.4 cm Right paratracheal lymphadenopathy measuring 2.8 x 1.5 cm with SUV of 9.9. The lytic focus in L5 vertebral body is not hypermetabolic. Mr Kumar underwent CT scan of head on November 12, 2019, which showed postsurgical changes of right craniotomy and right frontal lobe tumor resection with residual enhancement along the anterior, medial and superior/posterior margins of the resection bed suspicious for residual tumor., Subsequently patient was treated with SBRT, as per patient he received 5 doses and completed recently. Mr Kumar said he has seen medical oncologist Dr. Lofton at [facility], who informed him that he has a lung cancer and PDL 1 status was ordered and some other blood test were done to identify specific therapy. And they are waiting for the report, as per patient, he will send the record to us for further care here as [facility] convenient to him. His case was discussed with Dr. Parul Lopez, as it was not sure why significance of urothelial carcinoma or lung cancer so cancer type ID was ordered and reported on December 19, 2019 as urothelial carcinoma, urinary bladder as a primary with 90% probability. Once again his case was discussed with Dr. Lopez on December 28, 2019 and she concurred with cancer type ID confirmation and signing out final pathology report as urothelial carcinoma. With that diagnosis, Mr Kumar was offered treatmweent with Cisplatin/gemcitabine. He began his first cycle on 01/10/2020. He has tolerated it well thus far. Follow-up CT PET scan done on April 10, 2020 at [facility] in [place] showed right-sided level 3 lymph node involvement with a single 1.5 x 1.2 cm lymph node with SUV of 8.48, right-sided pretracheal, paratracheal, precarinal, bronchial lymphadenopathy with index lesion right precarinal lymph node is 0.7 cm with SUV of 13.82. Soft tissue nodular lesion is present in the right upper lobe posteriorly with increased metabolic activity 1.1 x 0.8 cm with SUV of 6.92. No other abnormality seen. No intra-abdominal disease. And this PET scan was not compared with the PET scan done in September 2019 at [facility] prior to palliative chemotherapy started in December 2019 .Follow-up CT PET scan done After 7 cycles of palliative chemotherapy with cisplatin/gemcitabine on June 13, 2020 showed persistent photopenic defect within the right frontal lobe. Right supraclavicular lymph node measuring 1.4 x 0.9 cm with maximum SUV of 8.46 compared to 8.48 previously. No additional cervical lymphadenopathy. Right paratracheal lymph node measuring 1.1 x 0.8 cm with SUV of 10.8 previously 1.1 x 0.8 cm SUV of 13.8. Right upper lobe pulmonary nodule with maximal SUV of 4.8 previously 6.9. Overall findings, consistent with partial response Day 8 cycle #8 was skipped because of patient's episode of allergic reaction to Covid vaccine and patient resumed cycle #9 on July 18, 2020. He is tolerating palliative chemotherapy with split dose cisplatin and gemcitabine well overall. Mr. Kumar is here today for follow-up. He is due for cycle 10-day 8 cisplatin gemcitabine. He states overall he still doing well. He has had some increase in fatigue over the last week but feels better today. He has some nausea in the morning but that is well controlled with his antiemetics which he generally takes once a day. He denies any vomiting. Has had no fever or chills. He denies any diarrhea. He states his bowels have been a little sluggish but that has been resolved with stool softener one at bedtime. He denies any lower extremity edema. He denies any new pain. He denies mouth sores, sore throat or difficulty swallowing. He states that he has had some numbness in the back of his legs at the top but states he has not been walking around doing much around the house either. We did encourage him to walk frequently throughout the house and see if this will help with his numbness . He denies any peripheral neuropathy in his hands or feet. His ECOG is 1. Past Medical History: Covid vaccine #1 in 2020 Past Surgical History: Bladder cancer Removal of brain tumor Allergies: No Known Allergies. Medications: Aspirin 81 1 Tablet (of 81 mg) Tablet, enteric coated Oral daily Cholecalciferol 1 Tablet (of 125 mcg ) Oral daily Keppra 1 Tablet (of 750 mg) Oral b.i.d. levoFLOXacin 1 Tablet (of 750 mg) Oral PRN LORazepam 1 - 2 Tablet (of 1 mg) Oral q 6 to 8 hours PRN Prochlorperazine Maleate 1 Tablet (of 10 mg) Oral q 4 hours PRN Family History: Mr. Kumar's mother at age 85: old age. Mr. Kumar's father at age 92: myocardial infarction. pt states all other sibilings have no illness to mention. Social History: Mr. Kumar is and he is an unknown. He is an occasional smoker who has smoked 1.0 pack/day for 40 years. He has no history of drinking. Review Of Symptoms: Constitutional Denies fevers, chills, night sweats, excessive fatigue or weight loss. He states his little more tired this week than what he has been but is recovering well with rest. His appetite is good and energy is fair. Allergic/Immunologic No reactions. Eyes Denies significant visual changes. No diplopia. No amaurosis. ENMT Denies changes in hearing, sore throat, mouth sores, difficulty or changes in swallowing ability, and/or sinus drainage. Hematologic/Lymphatic Denies easy bruising or bleeding. The patient denies any tender or palpable lymph nodes. Respiratory Denies dyspnea on exertion, chest pain, cough or hemoptysis. Denies orthopnea. Cardiovascular Denies anginal chest pain, palpitations or orthopnea. Gastrointestinal Denies persistent nausea, vomiting, diarrhea, GI bleeding, or constipation. Denies change in bowel habits and/or stool color, no heartburn or early satiety. Genitourinary (M) Denies hematuria, dysuria, increased frequency, urgency, hesitancy or incontinence. Musculoskeletal Denies joint pain, swelling or redness. No decreased range of motion. Integumentary Denies chronic rashes, inflammation, ulcerations or skin changes. Neurologic Denies headache, blurred vision, and no areas of focal weakness or numbness. Normal gait. No sensory problems. Psychiatric Denies insomnia, depression, kenya or mood swings. Vital Signs: Performed on Aug 21, 2020 09:34 Height - 64.00 in Weight - 145.4 lbs (LOW) BSA - 1.71 sq.m BMI - 24.96 Temperature - 97.8 F (LOW) Pulse - 71 /min Respiration - 18 /min BP - 110/68 mm(hg) O2 Sat - 99 % Pain - 0,1 - No physically strenuous activity, but ambulatory and able to carry out light or sedentary work (e.g. office work, light house work). (ECOG) Physical Examination: Constitutional Alert, oriented, no acute distress. Skin pink, warm and dry. Head Normocephalic; atraumatic. Eyes Conjunctivae and sclerae are clear and without icterus. Pupils are reactive and equal. ENMT No oral exudates, ulcers, masses, thrush or mucositis. Oropharynx clear. Tongue normal. Neck Supple without masses or thyromegaly. No jugular venous distension. Hematologic/Lymphatic No petechiae or purpura. Respiratory Lungs are clear to auscultation without rhonchi or wheezing. Cardiovascular Regular rate and rhythm of heart without murmurs,clicks, gallops or rubs. Chest Left subclavian venous access device insertion site is unremarkable. Abdomen Non-tender, non-distended, no masses or ascites. Good bowel sounds noted in all quads. No guarding or rebound tenderness. No pulsatile masses. Back/Spine Non-tender to palpation. Extremities He is missing his third and fourth digit on the right hand. This is an old injury. Otherwise his extremities are normal. Musculoskeletal No tenderness or swelling, normal range of motion without obvious weakness. Integumentary No rashes or lesions. Neurologic No sensory or motor deficits, normal cerebellar function, normal gait. Psychiatric Alert and oriented times three. Coherent speech. Verbalizes understanding of our discussions today. Laboratory:Test performed on Jun 26, 2020 11:30 Sodium 139 mmol/L Potassium 3.7 mmol/L Chloride 101 mmol/L CO2 30 mmol/L Anion Gap 11.7 BUN 10 mg/dL Creatinine 0.7 mg/dL Cr Clearance (Est) 100.3000 mL/min eGFR 112.8 mL/min Glucose 116 mg/dL Osmolality - Calculated 288 mOsm/kg Calcium 9.2 mg/dL Protein, Total 6.7 g/dL Albumin 4.0 g/dL Globulin 2.7 g/dL Bilirubin, Total 0.2 mg/dL ALT (SGPT) 18 U/L AST (SGOT) 13 U/L Alkaline Phosphatase 293 IU/L WBC 40.2 10 3/uL Manual Segs % 43 % Manual Bands % 50.0 % RBC 3.64 10 6/uL HGB 11.5 g/dL Manual Lymphs % 4 % Atypical Lymphs % 0.0 % HCT 35.7 % MCV 98.1 fL Total Cells Counted 100 Manual Monos % 3.0 % MCH 31.6 pg Manual Eos % 0 % MCHC 32.2 g/dL Manual Basos % 0.0 % RDW 14.1 % Platelet Count 228 10 3/cmm MPV 9.2 fL CBC Slide Review Slide Review Perform Platelet Estimate Normal Manual Segs Abs 17.3 10/cmm Manual Bands Abs 20.1 10 3/cmm Manual Neutrophils Abs 37.4 10 3/cmm Manual Monocytes Abs 1.2 10 3/cmm Manual Eosinophils Abs 0.0 10 3/cmm Manual Basophils Abs 0.0 10 3/cmm Test performed on Jun 20, 2020 08:29 Neutrophils 4.25 10 3/uL Lymphocytes 1.9 10 3/uL Monocytes 1.1 10 3/uL Eosinophils 0.1 10 3/uL Basophils 0.0 10 3/uL Neutrophil % 57.7 % Lymphocyte % 25.5 % Monocyte % 14.2 % Eosinophil % 1.6 % Basophils % 0.3 % NRBC % 0 % Impression: Poorly differentiated carcinoma involving right frontal lobe status post partial resection done on October 23, 2019. Immunohistochemistry showed tumor cells to be strongly and diffusely positive for CK7, also widespread reactivity for CK 5/6 and GA TA 3, with very focal expression of Napsin-A. And tumor cell nonreactive to CDX 2, p63, CD20, TTF-1, chromogranin, synaptophysin, uroplakin. AB/PAS histochemical stain demonstrated focal presence of mucin. Cancer type ID reported on December 19, 2019 confirmed urothelial carcinoma, urinary bladder being primary with 90% probability CT PET scan done on October 25, 2019 showed right hilar lymphadenopathy, 2.2 x 3.3 cm with SUV 14.9 Right supraclavicular lymphadenopathy 1.7 x 1.4 cm with SUV of 12.2 Right paratracheal lymphadenopathy 2.8 x 1.5 cm with SUV of 9.9. Lytic focus in L5 vertebral body is non-hypermetabolic. History of bladder cancer, diagnosed in January 2017 at [facility] in [place], status post TURP Cancer type ID reported on December 19, 2019 confirmed brain mets being urothelial carcinoma with urinary bladder being primary with a 90% probability Clinically, patient is doing well with no signs symptoms suggestive of disease progression, there was a concern regarding cancer of unknown primary, lung versus urothelial, so cancer type ID was ordered after discussion with , pathologist at [facility], as mentioned above it confirmed urothelial carcinoma. Discussed with patient regarding systemic chemotherapy and treatment options include MVAC and cisplatin/gemcitabine followed by maintenance immunotherapy with avelumab, considering patient's age and comorbid condition, will consider cisplatin and split dose along with gemcitabine on day 1 and 8 and repeat cycle every 21 days x [address] PET scan and MRI scan of the head if it shows complete remission, then consider maintenance therapy with immunotherapy Avelumab. Mr Kumar is tolerating treatment well overall but does have chemo induced neutropenia. We will try adding Neulasta and proceeding with cycle 2 day 8. The additional growth factor support with Neulasta has allowed him to stay on treatment as planned. He is currently on cycle 8 . He is due for day 8 today. Clinically, patient doing well with no new signs symptoms, tolerating palliative chemotherapy with split dose cisplatin and gemcitabine well, his 04-10-2020 follow-up CT PET scan done after 4 cycles of chemotherapy. It showed excellent response when compared to CT PET scan done in September 2019 at [facility]. Keep in mind his chemotherapy was started in December 2019 as patient was undergoing radiation therapy to the brain. Time was taken by cancer type ID to confirm the primary as initial impression was lung being primary bilateral cancer type ID confirmed urothelial carcinoma. Follow-up CT PET scan done after total of 7 cycles of cisplatin/gemcitabine on June 13, 2020 showed partial response with a decrease FDG uptake within the right upper lobe pulmonary nodule as well as decreased FDG uptake within mediastinal lymphadenopathy and unchanged size and FDG uptake in the right supraclavicular lymph node. No evidence of new lesion or metastatic disease below diaphragm. Clinically, patient is doing well with no new signs symptoms and is tolerating palliative chemotherapy with split dose cisplatin and gemcitabine well but with expected side effect e.g. off and on generalized weakness and fatigue. Dr Clark reviewed the follow-up CT PET scan from 06-13-2020 (which was obtained after total of 7 cycles of split dose cisplatin/gemcitabine)-when compared with PET scan done in March 2020 it showed further improvement in the metastatic disease and read as a partial response. So treatment options include; continue with same regimen as patient is tolerating well and reassess his response after 3 more cycles followed by CT PET scan; the second option would be to refer to radiation oncology for evaluation for SBRT; third option would be to switch him to single agent immunotherapy with Keytruda; and fourth option would be to proceed with observation alone with follow-up with interval CT scans. Mr Kumar and his daughter, Dacia have opted to pursue systemic chemotherapy and reassess after 3 more cycles. Plan: PROBLEMS ADDRESSED TODAY 1. Poorly differentiated carcinoma involving right frontal region of the brain. Cancer I D reported on December 19, 2019 urothelial carcinoma and urinary bladder being primary with 9% probability. A. He is due for cycle 10-day 8 cisplatin gemcitabine. Cycle 8-day 8 gemcitabine cisplatin was not given as he was administered Neulasta on day 1 instead of day 8 of that cycle. He was then delayed the following week due to increment weather. B. Labs from August 20, 2020 were reviewed in detail and discussed with Mr. Kumar and a copy was given to him. WBC 8.7, hemoglobin 12.4, platelets 375,000, ANC 6000. Potassium 4.1 random glucose 84 creatinine 0.6 his ALT is 48 his AST is 25 alk phos is 85 weight is stable at 145. C. His recent PET/CT from June 13, 2020 reports partial response with decreased FDG uptake within the right upper lobe pulmonary nodule as well as decreased FDG uptake in the mediastinal lymphadenopathy, unchanged size and FDG uptake within the right supraclavicular lymphadenopathy. There is no evidence of new lesion or metastatic disease below the hemidiaphragm. D. We will plan to see him back in 2-3 weeks with CBC CMP for review of repeat PET/CT imaging and possible cycle 11-day 1 chemotherapy with cisplatin gemcitabine. E. His current reimaging plan will be to follow-up 3 cycles after his PET/CT from June 13, 2020. After he completes 3 additional cycles we will repeat his PET/CT. This will complete his third cycle of the 3. We will request the PET/CT imaging and arrange followup with Dr Clark after the PET/CT is completed. F. Mr. Kumar was encouraged to contact us in interim should questions or problems arise. G. He states he is due for his second Covid shot August 29. He is planning to take Benadryl and Tylenol for couple days prior to his shot to see if he can dsouza off the reaction that he had last time. Signed By: Eugenio Healy-, CNP Sae Clark MD <<Signature on File>>
[2020-08-21] MEDS: sodium chloride 0.9% 250 ML 75 ML IV (10:40)
[2020-08-21] MEDS: palonosetron 0.25 mg/5 mL SDV IVP (11:15)
[2020-08-21] MEDS: famotidine 20 mg/2 mL INJ IVP (11:17)
[2020-08-21] MEDS: diphenhydrAMINE 50 mg/mL SDV 1mL 25 MG IVP (11:20)
[2020-08-21] MEDS: FUROsemide 10 mg/mL SDV 2mL 20 MG IV (13:50)
[2020-08-21] MEDS: pegfilgrastim 6 mg/0.6 mL Kit (onpro) SUBCUT (14:45)
== END 2020-08-28 23:59 | disposition home or self-care (01) ==
LOC: ONCMED 05:29
PROVIDERS: Internal Medicine Hematology & Oncology; PCP Emergency Medicine Emergency Medical Services; Visit Provider Nurse Practitioner
DX: Z51.11 Encounter for antineoplastic chemotherapy (principal); C67.9 Malignant neoplasm of bladder, unspecified; C77.8 Secondary and unspecified malignant neoplasm of lymph nodes of multiple regions; Z79.899 Other long term (current) drug therapy
CPT/HCPCS: 80053; 85025; 96366; 96367; 96372; 96375; 96413; 96415; 96417; 99214; 99215; J1100; J1200; J1453; J1940; J2469; J2505; J3475; J3480; J3490; J7040; J7050; J9060; J9201

== ENCOUNTER 2020-08-25 15:35 | Emergency (ER) | payer OTHER, MEDICARE, SELFPAY ==
--- NOTE | 2020-08-25 15:37 | XRR_ITS ---
PROCEDURE INFORMATION: Exam: XR Abdomen Exam date and time: 08/25/2020 3:40 PM Age: 64 years old Clinical indication: Abdominal pain; Additional info: Constipation TECHNIQUE: Imaging protocol: XR of the abdomen. Views: Frontal supine view of the abdomen. 1 View. COMPARISON: [place] Chest/[place] [id number] 10/21/2019 10:46 PM FINDINGS: Gastrointestinal tract: Normal. No bowel dilation. Bones/joints: Unremarkable. XR/XR KUB [id number] IMPRESSION: No acute findings.
[2020-08-25 15:51] VITALS: BP 108/73; PULSE 110; RESP 18; TEMP 36.6; O2SAT 98; BMI 26.7
--- NOTE | 2020-08-25 16:03 | ED_ITS ---
Documented by User: Celio Dill MD 08/25/20 17:55 HPI - Abdominal Pain General: Chief Complaint: Abdominal Pain Stated Complaint: constipation Time Seen by Provider: 08/25/20 15:59 Source: patient Mode of arrival: ambulatory Limitations: no limitations History of Present Illness: HPI narrative: 64-year-old male who has history of bladder cancer with mets and is currently on chemo. He states he has had constipation has not had a bowel movement in 5 days. He states he has had some abdominal cramping at times but denies any pain at this time. He states he has had some small loose stools states no large bowel movements. He denies any vomiting or nausea. He denies any fevers. Denies any worsening improving factors. MD elicited complaint: abdominal pain Associated Symptoms: Reports constipation; Denies chills, dysuria and fever(s) Review of Systems Const: Denies: fever(s), chills, body aches or change in appetite Eyes: Denies: blurry vision or eye discomfort ENMT: Denies: throat pain or dental pain Card: Denies: chest pain Resp: Denies: dyspnea GI: Reports: abdominal pain and constipation : Denies: dysuria Musc: Denies: neck pain or back pain Skin/Breast: Denies: rash Neuro: Denies: headache(s) Psych: Denies: depression Robbie/Lymph: Denies: easy bruising All/Imm: Denies: urticaria PFSH ED PFSH: Medical History Bladder cancer 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 Surgical History H/O brain surgery H/O colonoscopy past 6 yrs Hx of transurethral resection of prostate Port-A-Cath in place (12/18/19) S/P thoracostomy tube placement Family History Brother CAD (coronary artery disease) Denies family history of Diabetes Anesthesia complication Bleeding disorder Cancer Social History Smoking and tobacco status: current every day smoker Alcohol intake: current Alcohol intake frequency: holidays/special occasions only Household members: significant other Marital status: Single Current occupational status: retired History of recent travel: No Physical Exam Const: COMMON NORMALS: no acute distress, patient oriented x3 and healthy appearing HENMT: COMMON NORMALS: normocephalic and atraumatic HEAD & SCALP: normocephalic and atraumatic Eye: COMMON NORMALS: Equal, round and reactive pupils present and EOMs intact bilaterally PUPIL: Yes Equal, round and reactive pupils present Neck/C-Spine: COMMON NORMALS: full ROM and supple Chest: COMMONS NORMALS: normal inspection of the chest and normal palpation of entire chest wall Resp: COMMON NORMALS: normal respiratory effort, No retractions, No use of accessory muscles and clear to auscultation bilaterally AUSCULTATION: clear to auscultation bilaterally Cardio: COMMON NORMALS: regular rate, regular rhythm and No murmurs present (Cardio) RATE: regular rate RHYTHM: regular rhythm GI: COMMON NORMALS: Normal to inspection, nondistended, normoactive bowel sounds present, Soft to palpation, non-tender and no masses PALPATION: Yes Soft to palpation Extremity: COMMON NORMALS: normal to inspection and full ROM Neuro: COMMON NORMALS: patient oriented x3, moves all extremities and no focal motor deficits Psych: COMMON NORMALS: mental status grossly normal, Normal thought process present and cooperative THOUGHT PROCESS: Normal thought process present Skin: COMMON NORMALS: no rashes or lesions noted and no wounds GENERAL SKIN EXAM: no rashes or lesions noted Course Vital Signs: Vital signs: Vital Signs Temperature 97.8 F 08/25/20 15:51 Pulse Rate 87 08/25/20 21:36 Respiratory Rate 17 08/25/20 21:36 Blood Pressure 135/81 08/25/20 21:36 Pulse Oximetry 95 08/25/20 21:36 MDM - Abdominal Pain MDM Narrative: Medical decision making narrative: Paxton presents here with constipation with some slight abdominal pain. His exam here is benign. His blood work did show an elevated white count that could be due to his meds from chemotherapy and he has had an impressive leukocytosis in the past. His lactate here is normal. We will get a CT scan to rule out any intra-abdominal pathology. Patient's care turned over to Dr. Paulino to follow CT scan of his abdomen. Lab Data: Labs: Lab Results 08/25/20 08/25/20 08/25/20 Range/Units 16:28 16:28 16:28 WBC 47.0 H* (4.0-10.0) 10^3/ uL RBC 3.84 L (4.1-5.3) 10^6/u L Hgb 11.7 (11.7-16.6) g/dL Hct 36.4 L (42.0-52.0) % MCV 94.8 H (80-94) fL MCH 30.5 (28.0-34.0) pg MCHC 32.1 (30.0-36.0) g/dL RDW 14.5 (12.1-15.1) % Plt Count 150 (130-400) 10^3/c mm MPV 10.0 (7.4-10.4) fL Neut % (Auto) 87.5 % Lymph % (Auto) 7.0 % [place] % (Auto) 0.6 % Eos % (Auto) 0.7 % Baso % (Auto) 0.0 % Neut # (Auto) 41.06 H (1.8-7.7) 10^3/u L Lymph # (Auto) 3.3 (0.8-4.8) 10^3/u L [place] # (Auto) 0.3 (0.2-0.9) 10^3/u L Eos # (Auto) 0.4 (0.0-0.8) 10^3/u L Baso # (Auto) 0.0 (0.0-0.1) 10^3/u L Nucleated RBC % (a uto) 0 % Nucleated RBCs # 0.0 /100WBC Sodium 135 L (136-145) mmol/L Potassium 3.9 (3.5-5.1) mmol/L Chloride 98 (98-107) mmol/L Carbon Dioxide 27 (22-29) mmol/L Anion Gap 13.9 (5-19) BUN 9 (8-23) mg/dL Creatinine 0.6 L (0.7-1.2) mg/dL GFR Calculation 134.8 H (90-130) mL/min Glucose 107 (65-115) mg/dL Calculated Osmolal ity 279 L (285-295) mOsm/k g Lactic Acid 1.5 (0.5-2.2) mmol/L Calcium 9.2 (8.5-10.5) mg/dL Total Bilirubin 0.3 (0.15-1.2) mg/dL AST 16 (0-40) U/L ALT 25 (0-41) U/L Alkaline Phosphata se 181 H (40-130) IU/L Total Protein 6.9 (6.6-8.7) g/dL Albumin 4.2 (3.5-5.2) g/dL Globulin 2.7 (1.3-4.6) g/dL Imaging Data ^: KUB: Attestation: I personally reviewed and interpreted this imaging study as follows: My impression: No acute abnormality Discharge Plan Discharge Patient Disposition: Home Clinical Impression: Constipation Qualifiers: Constipation type: other constipation type Qualified Code(s): K59.09 - Other constipation Condition: Stable Prescriptions: No Action aspirin [Adult Low Dose Aspirin] 81 mg tablet,delayed release (DR/EC) 81 mg PO DAILY RF: 0 multivitamin Tablet 1 tab PO DAILY RF: 0 prochlorperazine maleate 10 mg tablet 10 mg PO BID PRNRF: 0 lorazepam 0.5 mg tablet 0.5 mg PO BID PRN (Reason: Anxiety) RF: 0 levetiracetam [Keppra XR] 750 mg tablet extended release 24 hr 1,500 mg PO DAILY Qty: 60 RF: 7 cholecalciferol (vitamin D3) 50 mcg (2,000 unit) tablet 50 mcg PO DAILY Qty: 30 RF: 7 Discharge Orders: Discharge ED (Routine); Ordered 08/25/20 Ordered By: Poncho Paulino Referrals: Telly Breen DO [Primary Care Provider] - 4-7 days Chucky Patel MD [Hospitalist] - Discharge Diet: Advance as tolerated and Clear Liquid Discharge Activity: Increase activity as tolerated Patient Instructions: Constipation (ED) Activity Restrictions/Additional Instructions: Return for fever greater than 100 worsening pain, no relief of constipation, vomiting liquids or medications, any other concerning symptoms. 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 Comprehensive Documented by User: Poncho Paulino DO 08/26/20 00:21 HPI - Abdominal Pain General: Chief Complaint: Abdominal Pain Stated Complaint: constipation Time Seen by Provider: 08/25/20 15:59 PFSH ED PFSH: Medical History Bladder cancer 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 Surgical History H/O brain surgery H/O colonoscopy past 6 yrs Hx of transurethral resection of prostate Port-A-Cath in place (12/18/19) S/P thoracostomy tube placement Family History Brother CAD (coronary artery disease) Denies family history of Diabetes Anesthesia complication Bleeding disorder Cancer Social History Smoking and tobacco status: current every day smoker Alcohol intake: current Alcohol intake frequency: holidays/special occasions only Household members: significant other Marital status: Single Current occupational status: retired History of recent travel: No Course Vital Signs: Vital signs: Vital Signs Temperature 97.8 F 08/25/20 15:51 Pulse Rate 87 08/25/20 21:36 Respiratory Rate 17 08/25/20 21:36 Blood Pressure 135/81 08/25/20 21:36 Pulse Oximetry 95 08/25/20 21:36 MDM - Abdominal Pain MDM Narrative: Medical decision making narrative: 64-year-old male with constipation symptoms and generalized belly pain checked out to me by Dr. Dill at shift change. His white blood cell count was 47. He is on Neulasta with his last dose being last week. His CT scan shows no colitis, no diverticulitis. His large intestine is mildly distended and filled with fluid and gas. He has had several small bowel movements here, and his pain related to this is relieved currently. He will be sent home with a one-time dose laxative to continue this process. He will follow closely with his oncologist Lab Data: Labs: Lab Results 08/25/20 08/25/20 08/25/20 Range/Units 16:28 16:28 16:28 WBC 47.0 H* (4.0-10.0) 10^3/ uL RBC 3.84 L (4.1-5.3) 10^6/u L Hgb 11.7 (11.7-16.6) g/dL Hct 36.4 L (42.0-52.0) % MCV 94.8 H (80-94) fL MCH 30.5 (28.0-34.0) pg MCHC 32.1 (30.0-36.0) g/dL RDW 14.5 (12.1-15.1) % Plt Count 150 (130-400) 10^3/c mm MPV 10.0 (7.4-10.4) fL Neut % (Auto) 87.5 % Lymph % (Auto) 7.0 % [place] % (Auto) 0.6 % Eos % (Auto) 0.7 % Baso % (Auto) 0.0 % Neut # (Auto) 41.06 H (1.8-7.7) 10^3/u L Lymph # (Auto) 3.3 (0.8-4.8) 10^3/u L [place] # (Auto) 0.3 (0.2-0.9) 10^3/u L Eos # (Auto) 0.4 (0.0-0.8) 10^3/u L Baso # (Auto) 0.0 (0.0-0.1) 10^3/u L Nucleated RBC % (a uto) 0 % Nucleated RBCs # 0.0 /100WBC Sodium 135 L (136-145) mmol/L Potassium 3.9 (3.5-5.1) mmol/L Chloride 98 (98-107) mmol/L Carbon Dioxide 27 (22-29) mmol/L Anion Gap 13.9 (5-19) BUN 9 (8-23) mg/dL Creatinine 0.6 L (0.7-1.2) mg/dL GFR Calculation 134.8 H (90-130) mL/min Glucose 107 (65-115) mg/dL Calculated Osmolal ity 279 L (285-295) mOsm/k g Lactic Acid 1.5 (0.5-2.2) mmol/L Calcium 9.2 (8.5-10.5) mg/dL Total Bilirubin 0.3 (0.15-1.2) mg/dL AST 16 (0-40) U/L ALT 25 (0-41) U/L Alkaline Phosphata se 181 H (40-130) IU/L Total Protein 6.9 (6.6-8.7) g/dL Albumin 4.2 (3.5-5.2) g/dL Globulin 2.7 (1.3-4.6) g/dL Discharge Plan Discharge Patient Disposition: Home Clinical Impression: Constipation Qualifiers: Constipation type: other constipation type Qualified Code(s): K59.09 - Other constipation Condition: Stable Prescriptions: No Action aspirin [Adult Low Dose Aspirin] 81 mg tablet,delayed release (DR/EC) 81 mg PO DAILY RF: 0 multivitamin Tablet 1 tab PO DAILY RF: 0 prochlorperazine maleate 10 mg tablet 10 mg PO BID PRNRF: 0 lorazepam 0.5 mg tablet 0.5 mg PO BID PRN (Reason: Anxiety) RF: 0 levetiracetam [Keppra XR] 750 mg tablet extended release 24 hr 1,500 mg PO DAILY Qty: 60 RF: 7 cholecalciferol (vitamin D3) 50 mcg (2,000 unit) tablet 50 mcg PO DAILY Qty: 30 RF: 7 Discharge Orders: Discharge ED (Routine); Ordered 08/25/20 Ordered By: Poncho Paulino Referrals: Telly Breen DO [Primary Care Provider] - 4-7 days Chucky Patel MD [Hospitalist] - Discharge Diet: Advance as tolerated and Clear Liquid Discharge Activity: Increase activity as tolerated Patient Instructions: Constipation (ED) Activity Restrictions/Additional Instructions: Return for fever greater than 100 worsening pain, no relief of constipation, vomiting liquids or medications, any other concerning symptoms. 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
[2020-08-25] MEDS: lactulose oral liq 20 gm/30 mL UDC 30 GM PO ×2 (16:28→21:37)
[2020-08-25 16:50] LABS: Eosinophils # 0.4 10^3/uL (0.0-0.8); Eosinophils % 0.7 %; Hematocrit 36.4 % (42.0-52.0); Hemoglobin 11.7 g/dL (11.7-16.6); Lymphocytes # 3.3 10^3/uL (0.8-4.8); Mean Corpuscular HGB Conc 32.1 g/dL (30.0-36.0); Mean Corpuscular Hemoglobin 30.5 pg (28.0-34.0); Mean Corpuscular Volume 94.8 fL (80-94); Monocytes # 0.3 10^3/uL (0.2-0.9); Monocytes % 0.6 %; Neutrophils # 41.06 10^3/uL (1.8-7.7); Neutrophils % 87.5 %; Nucleated Red Blood Cells % 0 %; Platelet Count 150 10^3/cmm (130-400); Red Blood Count 3.84 10^6/uL (4.1-5.3); Red Cell Distribution Width 14.5 % (12.1-15.1)
[2020-08-25 17:05] LABS: Alanine Aminotransferase 25 U/L (0-41); Albumin Level 4.2 g/dL (3.5-5.2); Alkaline Phosphatase 181 IU/L (40-130); Anion Gap 13.9 (5-19); Aspartate Amino Transferase 16 U/L (0-40); Blood Urea Nitrogen 9 mg/dL (8-23); Calcium 9.2 mg/dL (8.5-10.5); Carbon Dioxide 27 mmol/L (22-29); Chloride 98 mmol/L (98-107); Globulin 2.7 g/dL (1.3-4.6); Glomerular Filtration Rate 134.8 mL/min (90-130); Glucose 107 mg/dL (65-115); Osmolality Calculated 279 mOsm/kg (285-295); Potassium 3.9 mmol/L (3.5-5.1); Sodium 135 mmol/L (136-145); Total Bilirubin 0.3 mg/dL (0.15-1.2); Total Protein 6.9 g/dL (6.6-8.7)
[2020-08-25 17:08] LABS: Slide Review Slide Review Perform
--- NOTE | 2020-08-25 17:17 | CTR_ITS ---
PROCEDURE INFORMATION: Exam: CT Abdomen And Pelvis With Contrast Exam date and time: 08/25/2020 6:01 PM Age: 64 years old Clinical indication: Prior surgery; Surgery date: 6+ months; Surgery type: Turp; Patient HX: HX of bladder CA w mets S/P chemo C/O constipation and abd cramping TECHNIQUE: Imaging protocol: Computed tomography of the abdomen and pelvis with contrast. Radiation optimization: All CT scans at this facility use at least one of these dose optimization techniques: automated exposure control; mA and/or kV adjustment per patient size (includes targeted exams where dose is matched to clinical indication); or iterative reconstruction. Contrast material: OMNI 300; Contrast volume: 95 ml; Contrast route: INTRAVENOUS (IV); COMPARISON: CT abdomen pelvis wo con [id number] 02/20/2019 11:46 AM RADIATION DOSE METRICS: Total DLP (mGy-cm): 903.12 FINDINGS: Liver: Normal. No mass. Gallbladder and bile ducts: Cholelithiasis. No convincing evidence of inflammatory gallbladder wall thickening. No dilation of biliary system. Pancreas: Normal. No ductal dilation. Spleen: Normal. No splenomegaly. Adrenal glands: Normal. No mass. Kidneys and ureters: Normal. No hydronephrosis. Stomach and bowel: Large bowel is mildly distended with fluid and gas. No obstructing lesion. No inflammatory bowel wall thickening. Negative for bowel wall pneumatosis. Negative for pneumoperitoneum. Appendix: No evidence of appendicitis. Intraperitoneal space: No intraperitoneal fluid collection. Vasculature: Vasculature is patent. No abdominal aortic aneurysm. No active bleeding. Lymph nodes: Unremarkable. No enlarged lymph nodes. Urinary bladder: Unremarkable as visualized. Reproductive: Unremarkable as visualized. Bones/joints: Unremarkable. No acute fracture. Multiple old healed right lateral rib fractures. No aggressive bone lesions are seen. Moderate severity multilevel facet joint arthritis. Soft tissues: Lumbar paraspinal muscles are symmetric. CT/CT abdomen pelvis w con* [id number] IMPRESSION: Distended large bowel with predominantly fluid and gas. Recommend correlation for lower gastrointestinal illness symptoms. Radiation Dose CTDIVOL = (mGy): DLP = 903.12 (mGy-cm)
[2020-08-25 17:36] LABS: Lactic Sepsis W/Reflex 1.5 mmol/L (0.5-2.2)
[2020-08-25] MEDS: iohexol 300 mg/mL 100 mL Btl IV (18:21)
--- NOTE | 2020-08-25 18:25 | PC.NURSE ---
patient returned from ct
[2020-08-25 18:29] VITALS: BP 118/85; PULSE 104; RESP 18; O2SAT 97
[2020-08-25 20:00] VITALS: BP 188/82; PULSE 100; RESP 22; O2SAT 96
[2020-08-25 21:36] VITALS: BP 135/81; PULSE 87; RESP 17; O2SAT 95
[2020-08-25] MEDS: mineral oil 30 mL UDC PO (21:37)
[2020-08-25] MEDS: magnesium hydroxide 30 mL UDC PO (21:37)
== END 2020-08-25 21:39 | disposition home or self-care (01) ==
PROVIDERS: Emergency Medicine; Emergency Provider Emergency Medicine; PCP Emergency Medicine Emergency Medical Services
DX: K59.09 Other constipation (principal); Z79.82 Long term (current) use of aspirin; Z85.51 Personal history of malignant neoplasm of bladder; Z85.841 Personal history of malignant neoplasm of brain; Z79.899 Other long term (current) drug therapy; F17.210 Nicotine dependence, cigarettes, uncomplicated
CPT/HCPCS: 36415; 74018; 74177; 80053; 83605; 85025; 99283; Q9967

== ENCOUNTER 2020-09-18 09:29 | Outpatient (RCR) | payer OTHER, SELFPAY ==
[2020-09-03 19:06] LABS: Basophils # 0.1 10^3/uL (0.0-0.1); Basophils % 0.5 %; Eosinophils # 0.9 10^3/uL (0.0-0.8); Eosinophils % 4.7 %; Hematocrit 37.2 % (42.0-52.0); Hemoglobin 11.6 g/dL (11.7-16.6); Lymphocytes # 2.9 10^3/uL (0.8-4.8); Lymphocytes % 14.8 %; Mean Corpuscular HGB Conc 31.2 g/dL (30.0-36.0); Mean Corpuscular Hemoglobin 30.5 pg (28.0-34.0); Mean Corpuscular Volume 97.9 fL (80-94); Mean Platelet Volume 9.9 fL (7.4-10.4); Monocytes # 1.7 10^3/uL (0.2-0.9); Monocytes % 8.8 %; Neutrophils # 12.96 10^3/uL (1.8-7.7); Neutrophils % 67.5 %; Nucleated Red Blood Cells % 0 %; Platelet Count 225 10^3/cmm (130-400); Red Cell Distribution Width 16.2 % (12.1-15.1); White Blood Count 19.2 10^3/uL (4.0-10.0)
[2020-09-03 19:27] LABS: Alanine Aminotransferase 15 U/L (0-41); Alkaline Phosphatase 184 IU/L (40-130); Anion Gap 13.2 (5-19); Aspartate Amino Transferase 16 U/L (0-40); Blood Urea Nitrogen 7 mg/dL (8-23); Calcium 9.1 mg/dL (8.5-10.5); Carbon Dioxide 28 mmol/L (22-29); Chloride 105 mmol/L (98-107); Globulin 2.3 g/dL (1.3-4.6); Glomerular Filtration Rate 112.8 mL/min (90-130); Glucose 85 mg/dL (65-115); Osmolality Calculated 291 mOsm/kg (285-295); Potassium 4.2 mmol/L (3.5-5.1); Sodium 142 mmol/L (136-145); Total Bilirubin 0.2 mg/dL (0.15-1.2); Total Protein 6.3 g/dL (6.6-8.7)
[2020-09-05] MEDS: famotidine 20 mg/2 mL INJ IVP (10:22)
[2020-09-05] MEDS: ondansetron 2 mg/ML SDV 2 mL 8 MG IVP (10:24)
[2020-09-05] MEDS: sodium chloride 0.9% 500 ML 999 ML IV (10:30)
[2020-09-05 11:49] LABS: Magnesium 2.1 mg/dL (1.7-2.3)
[2020-09-13 10:41] LABS: Basophils % 0.3 %; Eosinophils # 0.1 10^3/uL (0.0-0.8); Eosinophils % 0.9 %; Hematocrit 36.9 % (42.0-52.0); Hemoglobin 12.1 g/dL (11.7-16.6); Lymphocytes # 1.9 10^3/uL (0.8-4.8); Lymphocytes % 20.7 %; Mean Corpuscular HGB Conc 32.8 g/dL (30.0-36.0); Mean Corpuscular Hemoglobin 30.9 pg (28.0-34.0); Mean Corpuscular Volume 94.4 fL (80-94); Mean Platelet Volume 9.2 fL (7.4-10.4); Monocytes # 1.2 10^3/uL (0.2-0.9); Monocytes % 13.4 %; Neutrophils # 5.71 10^3/uL (1.8-7.7); Neutrophils % 63.9 %; Nucleated Red Blood Cells % 0 %; Platelet Count 289 10^3/cmm (130-400); Red Blood Count 3.91 10^6/uL (4.1-5.3); Red Cell Distribution Width 16.2 % (12.1-15.1); White Blood Count 8.9 10^3/uL (4.0-10.0)
[2020-09-13 11:09] LABS: Alanine Aminotransferase 16 U/L (0-41); Albumin Level 4.1 g/dL (3.5-5.2); Alkaline Phosphatase 76 IU/L (40-130); Anion Gap 12.1 (5-19); Aspartate Amino Transferase 19 U/L (0-40); Blood Urea Nitrogen 11 mg/dL (8-23); Calcium 8.6 mg/dL (8.5-10.5); Carbon Dioxide 26 mmol/L (22-29); Chloride 102 mmol/L (98-107); Globulin 2.3 g/dL (1.3-4.6); Glomerular Filtration Rate 134.8 mL/min (90-130); Glucose 94 mg/dL (65-115); Osmolality Calculated 281 mOsm/kg (285-295); Potassium 4.1 mmol/L (3.5-5.1); Sodium 136 mmol/L (136-145); Total Bilirubin 0.3 mg/dL (0.15-1.2); Total Protein 6.4 g/dL (6.6-8.7)
--- NOTE | 2020-09-13 12:35 | ONC FU_ITS ---
Dr. Clark follow up note Patient: Paxton Kumar Unit #: [id number]: 1955 Dicatated By: Sae Clark M.D.Date of Visit:Sep 13, 2020 Onc Med Follow-up/Prog Note History of Present Illness: Mr. Kumar is a 64-year-old gentleman with history of bladder cancer status post TURP in January 2017 at [facility] in [place], [place]. Mr Kumar's daughter reported that took care of his bladder cancer. In September 2019, he went to a local emergency room with headache and facial droop. A CT scan of the head was done which showed right frontal lobe mass with edema and midline shift. Mr Kumar was transferred to [facility] in [place] where on October 23, 2019 he underwent right frontal lobe tumor resection. Repeat neuro CT MR showed solitary, gently lobulated but predominantly well-circumscribed homogeneously low-attenuation, noncalcified, intra-axial 5 x 6.2 x 4.5 cm mass in the right frontal region. There was significant perilesional vasogenic edema, resulting subfalcine herniation and 0.9 cm right to left midline shift. Pathology showed metastatic poorly differentiated carcinoma with solid to papillary/pseudopapillary growth pattern with a brisk mitotic activity and patchy presence of necrosis. Immunohistochemistry showed diffusely positive for CK7, also widespread reactivity for CK 5/6, GATA3, with very focal expression of Napsin-A. Tumor cells are nonreactive to CDX2, p63, CD20, TTF-1, chromogranin, synaptophysin, and uroplakin. AB/PAS histochemical stain demonstrate focal presence of mucin. Pathology comments were morphological findings are dose of poorly differentiated carcinoma, while definite comment on primary site is limited by its somewhat nonspecific immunoprofile, the possibilities being considered are urothelial and lung among others. Further clinical and imaging correlation to confirm exact site of origin is suggested. A cancer type ID was done which was reported on December 19, 2019, urothelial carcinoma and urinary bladder being primary with 90% probability, Again patient has history of bladder cancer, diagnosed in January, at [facility], where he underwent TURP. CT chest /abd scan done on October 21, 2019 showed No definitively suspicious pulmonary nodule or mass mediastinal right hilar and right supraclavicular adenopathy some of which is necrotic favoring a metastatic process including recurrence of patient's history of prior malignancy.Right paratracheal lymph node measures 1.4 x 1.6 cm, right hilar adenopathy Tiny lytic foci in L5 vertebral body of indeterminate. Scattered small enhancing foci in the liver favored to represent focal areas of vascular shunting versus small hemangiomas CT PET scan done on October 25, 2019 showed right hilar lymphadenopathy with a maximum SUV of 14.9 measuring 2.2 x 3.3 cm this is the most FDG avid lesion. Right supraclavicular lymphadenopathy with maximum SUV 12.2 measuring 1.7 x 1.4 cm. Right cervical level 5 lymph nodes with a maximum SUV of 6.7 measuring 2.7 x 1.4 cm Right paratracheal lymphadenopathy measuring 2.8 x 1.5 cm with SUV of 9.9. The lytic focus in L5 vertebral body is not hypermetabolic. Mr Kumar underwent CT scan of head on November 12, 2019, which showed postsurgical changes of right craniotomy and right frontal lobe tumor resection with residual enhancement along the anterior, medial and superior/posterior margins of the resection bed suspicious for residual tumor., Subsequently patient was treated with SBRT, as per patient he received 5 doses and completed recently. Mr Kumar said he has seen medical oncologist Dr. Lofton at [facility], who informed him that he has a lung cancer and PDL 1 status was ordered and some other blood test were done to identify specific therapy. And they are waiting for the report, as per patient, he will send the record to us for further care here as cancer center grant is more convenient to him. His case was discussed with Dr. Parul Lopez, as it was not sure why significance of urothelial carcinoma or lung cancer so cancer type ID was ordered and reported on December 19, 2019 as urothelial carcinoma, urinary bladder as a primary with 90% probability. Once again his case was discussed with Dr. Lopez on December 28, 2019 and she concurred with cancer type ID confirmation and signing out final pathology report as urothelial carcinoma. With that diagnosis, Mr Kumar was offered treatmweent with Cisplatin/gemcitabine. He began his first cycle on 01/10/2020. He has tolerated it well thus far. Follow-up CT PET scan done on April 10, 2020 at [facility] in [place] showed right-sided level 3 lymph node involvement with a single 1.5 x 1.2 cm lymph node with SUV of 8.48, right-sided pretracheal, paratracheal, precarinal, bronchial lymphadenopathy with index lesion right precarinal lymph node is 0.7 cm with SUV of 13.82. Soft tissue nodular lesion is present in the right upper lobe posteriorly with increased metabolic activity 1.1 x 0.8 cm with SUV of 6.92. No other abnormality seen. No intra-abdominal disease. And this PET scan was not compared with the PET scan done in September 2019 at [facility] prior to palliative chemotherapy started in December 2019 .Follow-up CT PET scan done After 7 cycles of palliative chemotherapy with cisplatin/gemcitabine on June 13, 2020 showed persistent photopenic defect within the right frontal lobe. Right supraclavicular lymph node measuring 1.4 x 0.9 cm with maximum SUV of 8.46 compared to 8.48 previously. No additional cervical lymphadenopathy. Right paratracheal lymph node measuring 1.1 x 0.8 cm with SUV of 10.8 previously 1.1 x 0.8 cm SUV of 13.8. Right upper lobe pulmonary nodule with maximal SUV of 4.8 previously 6.9. Overall findings, consistent with partial response Day 8 cycle #8 was skipped because of patient's episode of allergic reaction to Covid vaccine and patient resumed cycle #9 on July 18, 2020. He is tolerating palliative chemotherapy with split dose cisplatin and gemcitabine well overall. Follow-up CT PET scan done after 10 cycles of chemotherapy with split dose cisplatin/gemcitabine showed right supraclavicular node measuring 1.9 x 1.4 cm SUV of 8, slight progression from previous study. A new subcentimeter right cervical level 4 node is FDG positive. Involvement of right prevascular node measuring 9 mm with SUV of 5. And right hilar node SUV of 5.7. Right paratracheal adenopathy is present in a 2-hour and 4-hour levels with SUV of 9. Came for follow-up, denies any specific complaint except off and on pain in the lower extremity but no numbness or focal weakness, no lower back pain, no recent trauma to his lower back or legs. No headaches or blurred vision or double vision, no hemoptysis or hematemesis, no new bony pains. Tolerated palliative therapy with split dose cisplatin and gemcitabine well Medications: Aspirin 81 1 Tablet (of 81 mg) Tablet, enteric coated Oral daily, Cholecalciferol 1 Tablet (of 125 mcg ) Oral daily, Keppra 1 Tablet (of 750 mg) Oral b.i.d., levoFLOXacin 1 Tablet (of 750 mg) Oral PRN, LORazepam 1 - 2 Tablet (of 1 mg) Oral q 6 to 8 hours PRN, Prochlorperazine Maleate 1 Tablet (of 10 mg) Oral q 4 hours PRN Allergies: No Known Allergies. Review of Systems: Review of Systems is not available for this patient. Vital Signs: Performed on Sep 13, 2020 11:43 Height - 64.00 in Weight - 147.8 lbs (HIGH) BSA - 1.72 sq.m BMI - 25.37 Temperature - 97.6 F (LOW) Pulse - 93 /min Respiration - 18 /min BP - 140/80 mm(hg) O2 Sat - 99 % Pain - 6 Performance Status: 1 - No physically strenuous activity, but ambulatory and able to carry out light or sedentary work (e.g. office work, light house work). (ECOG) Physical Examination: ENMT - No mouth sores, no thrush, no jaundice, Respiratory - Lungs are clear to auscultation , Cardiovascular - Regular rate and rhythm of heart, Abdomen - Soft, bowel sounds present, Extremities - No visible edema or rash. Lab/Imaging: Test performed on Jun 26, 2020 11:30 Sodium 139 mmol/L Potassium 3.7 mmol/L Chloride 101 mmol/L CO2 30 mmol/L Anion Gap 11.7 BUN 10 mg/dL Creatinine 0.7 mg/dL Cr Clearance (Est) 100.3000 mL/min eGFR 112.8 mL/min Glucose 116 mg/dL Osmolality - Calculated 288 mOsm/kg Calcium 9.2 mg/dL Protein, Total 6.7 g/dL Albumin 4.0 g/dL Globulin 2.7 g/dL Bilirubin, Total 0.2 mg/dL ALT (SGPT) 18 U/L AST (SGOT) 13 U/L Alkaline Phosphatase 293 IU/L WBC 40.2 10 3/uL Manual Segs % 43 % Manual Bands % 50.0 % RBC 3.64 10 6/uL HGB 11.5 g/dL Manual Lymphs % 4 % Atypical Lymphs % 0.0 % HCT 35.7 % MCV 98.1 fL Total Cells Counted 100 Manual Monos % 3.0 % MCH 31.6 pg Manual Eos % 0 % MCHC 32.2 g/dL Manual Basos % 0.0 % RDW 14.1 % Platelet Count 228 10 3/cmm MPV 9.2 fL CBC Slide Review Slide Review Perform Platelet Estimate Normal Manual Segs Abs 17.3 10/cmm Manual Bands Abs 20.1 10 3/cmm Manual Neutrophils Abs 37.4 10 3/cmm Manual Monocytes Abs 1.2 10 3/cmm Manual Eosinophils Abs 0.0 10 3/cmm Manual Basophils Abs 0.0 10 3/cmm Test performed on Jun 20, 2020 08:29 Neutrophils 4.25 10 3/uL Lymphocytes 1.9 10 3/uL Monocytes 1.1 10 3/uL Eosinophils 0.1 10 3/uL Basophils 0.0 10 3/uL Neutrophil % 57.7 % Lymphocyte % 25.5 % Monocyte % 14.2 % Eosinophil % 1.6 % Basophils % 0.3 % NRBC % 0 % Impression: Poorly differentiated carcinoma involving right frontal lobe status post partial resection done on October 23, 2019. Immunohistochemistry showed tumor cells to be strongly and diffusely positive for CK7, also widespread reactivity for CK 5/6 and GA TA 3, with very focal expression of Napsin-A. And tumor cell nonreactive to CDX 2, p63, CD20, TTF-1, chromogranin, synaptophysin, uroplakin. AB/PAS histochemical stain demonstrated focal presence of mucin. Cancer type ID reported on December 19, 2019 confirmed urothelial carcinoma, urinary bladder being primary with 90% probability CT PET scan done on October 25, 2019 showed right hilar lymphadenopathy, 2.2 x 3.3 cm with SUV 14.9 Right supraclavicular lymphadenopathy 1.7 x 1.4 cm with SUV of 12.2 Right paratracheal lymphadenopathy 2.8 x 1.5 cm with SUV of 9.9. Lytic focus in L5 vertebral body is non-hypermetabolic. History of bladder cancer, diagnosed in January 2017 at [facility] in [place], status post TURP Cancer type ID reported on December 19, 2019 confirmed brain mets being urothelial carcinoma with urinary bladder being primary with a 90% probability Clinically, patient is doing well with no signs symptoms suggestive of disease progression, there was a concern regarding cancer of unknown primary, lung versus urothelial, so cancer type ID was ordered after discussion with , pathologist at [facility], as mentioned above it confirmed urothelial carcinoma. Discussed with patient regarding systemic chemotherapy and treatment options include MVAC and cisplatin/gemcitabine followed by maintenance immunotherapy with avelumab, considering patient's age and comorbid condition, will consider cisplatin and split dose along with gemcitabine on day 1 and 8 and repeat cycle every 21 days x [address] PET scan and MRI scan of the head if it shows complete remission, then consider maintenance therapy with immunotherapy Avelumab. Mr Kumar is tolerating treatment well overall but does have chemo induced neutropenia. We will try adding Neulasta and proceeding with cycle 2 day 8. The additional growth factor support with Neulasta has allowed him to stay on treatment as planned. He is currently on cycle 8 . He is due for day 8 today. Clinically, patient doing well with no new signs symptoms, tolerating palliative chemotherapy with split dose cisplatin and gemcitabine well, his 04-10-2020 follow-up CT PET scan done after 4 cycles of chemotherapy. It showed excellent response when compared to CT PET scan done in September 2019 at [facility]. Keep in mind his chemotherapy was started in December 2019 as patient was undergoing radiation therapy to the brain. Time was taken by cancer type ID to confirm the primary as initial impression was lung being primary bilateral cancer type ID confirmed urothelial carcinoma. Follow-up CT PET scan done after total of 7 cycles of cisplatin/gemcitabine on June 13, 2020 showed partial response with a decrease FDG uptake within the right upper lobe pulmonary nodule as well as decreased FDG uptake within mediastinal lymphadenopathy and unchanged size and FDG uptake in the right supraclavicular lymph node. No evidence of new lesion or metastatic disease below diaphragm. Clinically, patient is doing well with no new signs symptoms and is tolerating palliative chemotherapy with split dose cisplatin and gemcitabine well but with expected side effect e.g. off and on generalized weakness and fatigue. reviewed the follow-up CT PET scan from 06-13-2020 (which was obtained after total of 7 cycles of split dose cisplatin/gemcitabine)-when compared with PET scan done in March 2020 it showed further improvement in the metastatic disease and read as a partial response. So treatment options include; continue with same regimen as patient is tolerating well and reassess his response after 3 more cycles followed by CT PET scan; the second option would be to refer to radiation oncology for evaluation for SBRT; third option would be to switch him to single agent immunotherapy with Keytruda; and fourth option would be to proceed with observation alone with follow-up with interval CT scans. Mr Kumar and his daughter, Dacia have opted to pursue systemic chemotherapy and reassess after 3 more cycles.Which was done on September 07, 2020 showed slight progressed right supraclavicular lymph node and a new right cervical level 4 lymph node. New subcentimeter FDG positive, prevascular and right hilar lymphadenopathy Palliative chemotherapy with cisplatin/gemcitabine discontinued after last dose given on August 21, 2020 as PET scan shows mild progression Plan: Discussed with patient regarding his labs white blood count 8.9 hemoglobin 12.1 hematocrit 36.9 platelets 289,000 CMP within normal limits and follow-up CT PET scan finding which showed mild progression Clinically, patient doing reasonably well, tolerated palliative chemotherapy with cisplatin/gemcitabine well but with expected side effects. His follow-up CT PET scan done recently showed mild disease progression with a new subcentimeter lymphadenopathy in the right hilum and right cervical area. And also complaining of lower extremity pain but no paresthesia could be musculoskeletal due to systemic chemotherapy or may have radiculopathy or degenerative joint disease in the spine. At this point, we will discontinue chemotherapy and order guardant 360 to identify targetable therapeutic mutations, if negative, may consider Keytruda 200 mg IV every 3 weeks. We will also give him prescription for Percocet 5/325 he will take 1 to 2 tablets every 4-6 hours as needed and if there is no improvement in his pain with discontinuation of chemotherapy or there is a worsening of lower extremity pain, will consider spine evaluation although on CT PET scan there is no evidence of metastatic disease to spine Return to clinic in 3 weeks with CBC CMP and guardant 360. Signed By: Sae Clark M.D. <<Signature on File>>
== END 2020-09-27 23:59 | disposition home or self-care (01) ==
LOC: ONCMED 09:29
PROVIDERS: Nurse Practitioner; PCP Emergency Medicine Emergency Medical Services; Visit Provider Internal Medicine Hematology & Oncology
DX: C67.9 Malignant neoplasm of bladder, unspecified (principal); R59.0 Localized enlarged lymph nodes; D70.1 Agranulocytosis secondary to cancer chemotherapy; T45.1X5A Adverse effect of antineoplastic and immunosuppressive drugs, initial encounter; Z79.899 Other long term (current) drug therapy
CPT/HCPCS: 36415; 36591; 80053; 83735; 84443; 85025; 96361; 96365; 96375; 99215; J1100; J2405; J3490; J7040

== ENCOUNTER 2020-10-02 08:03 | Outpatient (RCR) | payer OTHER, SELFPAY ==
[2020-10-02 09:01] LABS: Basophils % 0.2 %; Eosinophils # 0.2 10^3/uL (0.0-0.8); Eosinophils % 1.8 %; Hematocrit 39.4 % (42.0-52.0); Hemoglobin 12.9 g/dL (11.7-16.6); Lymphocytes # 1.6 10^3/uL (0.8-4.8); Mean Corpuscular HGB Conc 32.7 g/dL (30.0-36.0); Mean Corpuscular Hemoglobin 31.2 pg (28.0-34.0); Mean Corpuscular Volume 95.2 fL (80-94); Mean Platelet Volume 9.3 fL (7.4-10.4); Monocytes # 0.9 10^3/uL (0.2-0.9); Monocytes % 9.3 %; Neutrophils # 6.84 10^3/uL (1.8-7.7); Neutrophils % 71.4 %; Nucleated Red Blood Cells % 0 %; Platelet Count 220 10^3/cmm (130-400); Red Blood Count 4.14 10^6/uL (4.1-5.3); White Blood Count 9.6 10^3/uL (4.0-10.0)
[2020-10-02 09:21] LABS: Alanine Aminotransferase 16 U/L (0-41); Albumin Level 4.3 g/dL (3.5-5.2); Alkaline Phosphatase 61 IU/L (40-130); Aspartate Amino Transferase 19 U/L (0-40); Blood Urea Nitrogen 11 mg/dL (8-23); Carbon Dioxide 26 mmol/L (22-29); Chloride 103 mmol/L (98-107); Globulin 2.3 g/dL (1.3-4.6); Glomerular Filtration Rate 134.8 mL/min (90-130); Glucose 94 mg/dL (65-115); Osmolality Calculated 279 mOsm/kg (285-295); Sodium 135 mmol/L (136-145); Total Bilirubin 0.3 mg/dL (0.15-1.2); Total Protein 6.6 g/dL (6.6-8.7)
--- NOTE | 2020-10-25 12:11 | ONC FU_ITS ---
Dr. Clark follow up note Patient: Paxton Kumar Unit #: [id number]: 1955 Dicatated By: Sae Clark M.D.Date of Visit:October 02, 2020 Onc Med Follow-up/Prog Note History of Present Illness: Mr. Kumar is a 64-year-old gentleman with history of bladder cancer status post TURP in January 2017 at [facility] in [place], [place]. Mr Kumar's daughter reported that took care of his bladder cancer. In September 2019, he went to a local emergency room with headache and facial droop. A CT scan of the head was done which showed right frontal lobe mass with edema and midline shift. Mr Kumar was transferred to [facility] in [place] where on October 23, 2019 he underwent right frontal lobe tumor resection. Repeat neuro CT MR showed solitary, gently lobulated but predominantly well-circumscribed homogeneously low-attenuation, noncalcified, intra-axial 5 x 6.2 x 4.5 cm mass in the right frontal region. There was significant perilesional vasogenic edema, resulting subfalcine herniation and 0.9 cm right to left midline shift. Pathology showed metastatic poorly differentiated carcinoma with solid to papillary/pseudopapillary growth pattern with a brisk mitotic activity and patchy presence of necrosis. Immunohistochemistry showed diffusely positive for CK7, also widespread reactivity for CK 5/6, GATA3, with very focal expression of Napsin-A. Tumor cells are nonreactive to CDX2, p63, CD20, TTF-1, chromogranin, synaptophysin, and uroplakin. AB/PAS histochemical stain demonstrate focal presence of mucin. Pathology comments were morphological findings are dose of poorly differentiated carcinoma, while definite comment on primary site is limited by its somewhat nonspecific immunoprofile, the possibilities being considered are urothelial and lung among others. Further clinical and imaging correlation to confirm exact site of origin is suggested. A cancer type ID was done which was reported on December 19, 2019, urothelial carcinoma and urinary bladder being primary with 90% probability, Again patient has history of bladder cancer, diagnosed in January, at [facility], where he underwent TURP. CT chest /abd scan done on October 21, 2019 showed No definitively suspicious pulmonary nodule or mass mediastinal right hilar and right supraclavicular adenopathy some of which is necrotic favoring a metastatic process including recurrence of patient's history of prior malignancy.Right paratracheal lymph node measures 1.4 x 1.6 cm, right hilar adenopathy Tiny lytic foci in L5 vertebral body of indeterminate. Scattered small enhancing foci in the liver favored to represent focal areas of vascular shunting versus small hemangiomas CT PET scan done on October 25, 2019 showed right hilar lymphadenopathy with a maximum SUV of 14.9 measuring 2.2 x 3.3 cm this is the most FDG avid lesion. Right supraclavicular lymphadenopathy with maximum SUV 12.2 measuring 1.7 x 1.4 cm. Right cervical level 5 lymph nodes with a maximum SUV of 6.7 measuring 2.7 x 1.4 cm Right paratracheal lymphadenopathy measuring 2.8 x 1.5 cm with SUV of 9.9. The lytic focus in L5 vertebral body is not hypermetabolic. Mr Kumar underwent CT scan of head on November 12, 2019, which showed postsurgical changes of right craniotomy and right frontal lobe tumor resection with residual enhancement along the anterior, medial and superior/posterior margins of the resection bed suspicious for residual tumor., Subsequently patient was treated with SBRT, as per patient he received 5 doses and completed recently. Mr Kumar said he has seen medical oncologist Dr. Lofton at [facility], who informed him that he has a lung cancer and PDL 1 status was ordered and some other blood test were done to identify specific therapy. And they are waiting for the report, as per patient, he will send the record to us for further care here as [facility] [place] is more convenient to him. His case was discussed with Dr. Parul Lopez, as it was not sure why significance of urothelial carcinoma or lung cancer so cancer type ID was ordered and reported on December 19, 2019 as urothelial carcinoma, urinary bladder as a primary with 90% probability. Once again his case was discussed with Dr. Lopez on December 28, 2019 and she concurred with cancer type ID confirmation and signing out final pathology report as urothelial carcinoma. With that diagnosis, Mr Kumar was offered treatmweent with Cisplatin/gemcitabine. He began his first cycle on 01/10/2020. He has tolerated it well thus far. Follow-up CT PET scan done on April 10, 2020 at [facility] in [place] showed right-sided level 3 lymph node involvement with a single 1.5 x 1.2 cm lymph node with SUV of 8.48, right-sided pretracheal, paratracheal, precarinal, bronchial lymphadenopathy with index lesion right precarinal lymph node is 0.7 cm with SUV of 13.82. Soft tissue nodular lesion is present in the right upper lobe posteriorly with increased metabolic activity 1.1 x 0.8 cm with SUV of 6.92. No other abnormality seen. No intra-abdominal disease. And this PET scan was not compared with the PET scan done in September 2019 at [facility] prior to palliative chemotherapy started in December 2019 .Follow-up CT PET scan done After 7 cycles of palliative chemotherapy with cisplatin/gemcitabine on June 13, 2020 showed persistent photopenic defect within the right frontal lobe. Right supraclavicular lymph node measuring 1.4 x 0.9 cm with maximum SUV of 8.46 compared to 8.48 previously. No additional cervical lymphadenopathy. Right paratracheal lymph node measuring 1.1 x 0.8 cm with SUV of 10.8 previously 1.1 x 0.8 cm SUV of 13.8. Right upper lobe pulmonary nodule with maximal SUV of 4.8 previously 6.9. Overall findings, consistent with partial response Day 8 cycle #8 was skipped because of patient's episode of allergic reaction to Covid vaccine and patient resumed cycle #9 on July 18, 2020. He is tolerating palliative chemotherapy with split dose cisplatin and gemcitabine well overall. Follow-up CT PET scan done On September 07, 2020 after 10 cycles of chemotherapy with split dose cisplatin/gemcitabine showed right supraclavicular node measuring 1.9 x 1.4 cm SUV of 8, slight progression from previous study. A new subcentimeter right cervical level 4 node is FDG positive. Involvement of right prevascular node measuring 9 mm with SUV of 5. And right hilar node SUV of 5.7. Right paratracheal adenopathy is present in a 2-hour and 4-hour levels with SUV of 9. Guardant 360 done on September 26, 2020 showed TMB 32.03, (pembrolizumab) and also showed alteration in NFE2L2 E79K (everolimus, temsirolimus) and GNAS R201L, (trametinib, binimetinib, selumetinib) Came for follow-up, complaining of pain in left hip radiating to the left knee over 1 week, denies any trauma to the back or to the left hip but this morning had a fall since then hurting more but denies any numbness, denies any leg swelling, denies any urine or stool incontinence. Denies any fever chills, denies any nausea or vomiting or diarrhea. Medications: Aspirin 81 1 Tablet (of 81 mg) Tablet, enteric coated Oral daily, Cholecalciferol 1 Tablet (of 125 mcg ) Oral daily, Keppra 1 Tablet (of 750 mg) Oral b.i.d., levoFLOXacin 1 Tablet (of 750 mg) Oral PRN, LORazepam 1 - 2 Tablet (of 1 mg) Oral q 6 to 8 hours PRN, Prochlorperazine Maleate 1 Tablet (of 10 mg) Oral q 4 hours PRN Allergies: No Known Allergies. Review of Systems: Review of Systems is not available for this patient. Vital Signs: Performed on October 02, 2020 09:34 Height - 64.00 in Temperature - 96.9 F (LOW) Pulse - 85 /min Respiration - 20 /min BP - 162/84 mm(hg) (HIGH) O2 Sat - 97 % Pain - 10 Fatigue - 0 Performance Status: 1 - No physically strenuous activity, but ambulatory and able to carry out light or sedentary work (e.g. office work, light house work). (ECOG) Physical Examination: ENMT - No mouth sores, no thrush, no jaundice, Respiratory - Lungs are clear to auscultation, Cardiovascular - Regular rate and rhythm of heart, Abdomen - Soft, bowel sounds present, Extremities - No visible edema. Lab/Imaging: Test performed on Jun 26, 2020 11:30 Sodium 139 mmol/L Potassium 3.7 mmol/L Chloride 101 mmol/L CO2 30 mmol/L Anion Gap 11.7 BUN 10 mg/dL Creatinine 0.7 mg/dL Cr Clearance (Est) 100.3000 mL/min eGFR 112.8 mL/min Glucose 116 mg/dL Osmolality - Calculated 288 mOsm/kg Calcium 9.2 mg/dL Protein, Total 6.7 g/dL Albumin 4.0 g/dL Globulin 2.7 g/dL Bilirubin, Total 0.2 mg/dL ALT (SGPT) 18 U/L AST (SGOT) 13 U/L Alkaline Phosphatase 293 IU/L WBC 40.2 10 3/uL Manual Segs % 43 % Manual Bands % 50.0 % RBC 3.64 10 6/uL HGB 11.5 g/dL Manual Lymphs % 4 % Atypical Lymphs % 0.0 % HCT 35.7 % MCV 98.1 fL Total Cells Counted 100 Manual Monos % 3.0 % MCH 31.6 pg Manual Eos % 0 % MCHC 32.2 g/dL Manual Basos % 0.0 % RDW 14.1 % Platelet Count 228 10 3/cmm MPV 9.2 fL CBC Slide Review Slide Review Perform Platelet Estimate Normal Manual Segs Abs 17.3 10/cmm Manual Bands Abs 20.1 10 3/cmm Manual Neutrophils Abs 37.4 10 3/cmm Manual Monocytes Abs 1.2 10 3/cmm Manual Eosinophils Abs 0.0 10 3/cmm Manual Basophils Abs 0.0 10 3/cmm Test performed on Jun 20, 2020 08:29 Neutrophils 4.25 10 3/uL Lymphocytes 1.9 10 3/uL Monocytes 1.1 10 3/uL Eosinophils 0.1 10 3/uL Basophils 0.0 10 3/uL Neutrophil % 57.7 % Lymphocyte % 25.5 % Monocyte % 14.2 % Eosinophil % 1.6 % Basophils % 0.3 % NRBC % 0 % Impression: Poorly differentiated carcinoma involving right frontal lobe status post partial resection done on October 23, 2019. Immunohistochemistry showed tumor cells to be strongly and diffusely positive for CK7, also widespread reactivity for CK 5/6 and GA TA 3, with very focal expression of Napsin-A. And tumor cell nonreactive to CDX 2, p63, CD20, TTF-1, chromogranin, synaptophysin, uroplakin. AB/PAS histochemical stain demonstrated focal presence of mucin. Cancer type ID reported on December 19, 2019 confirmed urothelial carcinoma, urinary bladder being primary with 90% probability CT PET scan done on October 25, 2019 showed right hilar lymphadenopathy, 2.2 x 3.3 cm with SUV 14.9 Right supraclavicular lymphadenopathy 1.7 x 1.4 cm with SUV of 12.2 Right paratracheal lymphadenopathy 2.8 x 1.5 cm with SUV of 9.9. Lytic focus in L5 vertebral body is non-hypermetabolic. History of bladder cancer, diagnosed in January 2017 at [facility] in [place], status post TURP Cancer type ID reported on December 19, 2019 confirmed brain mets being urothelial carcinoma with urinary bladder being primary with a 90% probability Clinically, patient is doing well with no signs symptoms suggestive of disease progression, there was a concern regarding cancer of unknown primary, lung versus urothelial, so cancer type ID was ordered after discussion with , pathologist at [facility], as mentioned above it confirmed urothelial carcinoma. Discussed with patient regarding systemic chemotherapy and treatment options include MVAC and cisplatin/gemcitabine followed by maintenance immunotherapy with avelumab, considering patient's age and comorbid condition, will consider cisplatin and split dose along with gemcitabine on day 1 and 8 and repeat cycle every 21 days x [address] PET scan and MRI scan of the head if it shows complete remission, then consider maintenance therapy with immunotherapy Avelumab. Mr Kumar is tolerating treatment well overall but does have chemo induced neutropenia. We will try adding Neulasta and proceeding with cycle 2 day 8. The additional growth factor support with Neulasta has allowed him to stay on treatment as planned. He is currently on cycle 8 . He is due for day 8 today. Clinically, patient doing well with no new signs symptoms, tolerating palliative chemotherapy with split dose cisplatin and gemcitabine well, his 04-10-2020 follow-up CT PET scan done after 4 cycles of chemotherapy. It showed excellent response when compared to CT PET scan done in September 2019 at [facility]. Keep in mind his chemotherapy was started in December 2019 as patient was undergoing radiation therapy to the brain. Time was taken by cancer type ID to confirm the primary as initial impression was lung being primary bilateral cancer type ID confirmed urothelial carcinoma. Follow-up CT PET scan done after total of 7 cycles of cisplatin/gemcitabine on June 13, 2020 showed partial response with a decrease FDG uptake within the right upper lobe pulmonary nodule as well as decreased FDG uptake within mediastinal lymphadenopathy and unchanged size and FDG uptake in the right supraclavicular lymph node. No evidence of new lesion or metastatic disease below diaphragm. Clinically, patient is doing well with no new signs symptoms and is tolerating palliative chemotherapy with split dose cisplatin and gemcitabine well but with expected side effect e.g. off and on generalized weakness and fatigue. reviewed the follow-up CT PET scan from 06-13-2020 (which was obtained after total of 7 cycles of split dose cisplatin/gemcitabine)-when compared with PET scan done in March 2020 it showed further improvement in the metastatic disease and read as a partial response. So treatment options include; continue with same regimen as patient is tolerating well and reassess his response after 3 more cycles followed by CT PET scan; the second option would be to refer to radiation oncology for evaluation for SBRT; third option would be to switch him to single agent immunotherapy with Keytruda; and fourth option would be to proceed with observation alone with follow-up with interval CT scans. Mr Kumar and his daughter, Dacia have opted to pursue systemic chemotherapy and reassess after 3 more cycles.Which was done on September 07, 2020 showed slight progressed right supraclavicular lymph node and a new right cervical level 4 lymph node. New subcentimeter FDG positive, prevascular and right hilar lymphadenopathy Palliative chemotherapy with cisplatin/gemcitabine discontinued after last dose given on August 21, 2020 as PET scan shows mild progression Plan: Discussed with patient regarding his labs white blood count 9.6 hemoglobin 12.9 hematocrit 39.4 platelets 220,000 CMP within normal limits creatinine is pending Guardant 360 shows high TMB at 32.03 and other genetic mutation where everolimus and or trametinib can be used Clinically, patient is in severe distress due to left hip/thigh pain, could be due to disc herniation or collapsed vertebra or fracture as patient sustained a fall this morning, at this point, no acute neurological findings but will send him to ER for evaluation. As per his his metastatic urothelial carcinoma is concerned, his guardant 360 showed high TMB, in that case we will consider him treating with pembrolizumab. All the side effect possible benefits associated with immunotherapy with pembrolizumab were discussed with the family and patient so we will obtain approval from his insurance prior to the treatment Patient will return to clinic in a week to initiate treatment with pembrolizumab Signed By: Sae Clark M.D. <<Signature on File>>
== END 2020-10-02 18:00 | disposition home or self-care (01) ==
LOC: ONCMED 08:03
PROVIDERS: PCP Emergency Medicine Emergency Medical Services; Visit Provider Internal Medicine Hematology & Oncology
DX: C67.9 Malignant neoplasm of bladder, unspecified (principal); C79.31 Secondary malignant neoplasm of brain; C77.8 Secondary and unspecified malignant neoplasm of lymph nodes of multiple regions; D70.1 Agranulocytosis secondary to cancer chemotherapy; T45.1X5A Adverse effect of antineoplastic and immunosuppressive drugs, initial encounter; Z79.899 Other long term (current) drug therapy; Z92.21 Personal history of antineoplastic chemotherapy
CPT/HCPCS: 36591; 80053; 85025; 99214

== ENCOUNTER 2020-10-02 10:42 | Emergency (ER) | payer OTHER, SELFPAY ==
[2020-10-02 11:08] VITALS: BP 151/90; PULSE 83; RESP 16; TEMP 36.6; O2SAT 99; BMI 24.3
[2020-10-02 11:26] VITALS: BP 151/90; PULSE 86; RESP 16; O2SAT 98
--- NOTE | 2020-10-02 11:46 | XR_ITS ---
WS: [id number] Left hip, AP and frog leg views, 10/02/2020 Clinical Data: bladder cancer with mets. Comparison: None. Findings: No fractures or dislocations are seen. The hip joint is intact. The soft tissues are not remarkable. The adjacent pelvis is normal. No bony metastatic lesions are seen. XR/XR hip LT 2-3V wo/w pel* [id number] Impression: Negative left hip.
--- NOTE | 2020-10-02 11:46 | XR_ITS ---
WS: [id number] Left knee, 3 views, 10/02/2020 Clinical Data: knee pain. Comparison: None. Findings: No fractures or dislocations are seen. The joint spaces are normal. The patella is intact. The soft t issues are unremarkable. No bony metastatic lesions are seen. XR/XR knee LT 3V* [id number] Impression: Negative left knee.
--- NOTE | 2020-10-02 11:46 | XR_ITS ---
WS: [id number] Lumbar spine, 3 views, 10/02/2020 Clinical Data: pain. No injury. h/o bladder cancer with mets. Comparison: None. Findings: No compression fractures or subluxation is seen. There is degenerative disc narrowing at L3-L4 with a nterior spurring.. The transverse processes and SI joints are normal. No bony metastatic lesions are seen. XR/XR lumbar spine 2-3V* [id number] Impression: Degenerative disc narrowing with anterior spurring at L3-L4.
--- NOTE | 2020-10-02 14:07 | ED_ITS ---
HPI - Extremity Problem General: Chief complaint: Extremity Problem,Nontraumatic Stated complaint: LEFT KNEE,LEFT HIP, LOW BACK PAIN Time Seen by Provider: 10/02/20 11:25 History of Present Illness: HPI Narrative: The patient is a 64-year-old male with metastatic cancer of bladder origin. He has received chemo over the past year and is set for immunological theray. The patient comes from Dr. Clark's office after he felt weak for a second and his leg buckled from under him after getting out of a car. He walked into the office and complained of left hip, knee, and low back pain. He was sent for x-rays. In the ED he complains of again low back, left hip, left knee pain that has been coming on for a couple weeks. He is able to move the joint and is neurovascularly intact. He is walking around in his room. MD Complaint: extremity pain Location: left Quality: aching Radiation: none Relieving factors: nothing Exacerbating factors: range of motion, weight bearing and walking Associated symptoms: Deny chest pain or rash Review of Systems General: Reports: 10 or more systems reviewed and unremarkable except in HPI and below Const: Denies: fatigue Eyes: Denies: change in vision, blurry vision or eye redness ENMT: Denies: throat pain, swelling of lips/tongue, ear or mastoid pain or nasal congestion Card: Denies: chest pain, palpitations, irregular heart rhythm, edema, dyspnea on exertion or orthopnea Resp: Denies: dyspnea, productive cough or non-productive cough GI: Denies: abdominal pain, diarrhea or GI cramping : Denies: flank pain, urinary frequency or urinary urgency Musc: Reports: back pain and joint pain; Denies: neck pain, extremity pain, joint redness, limited range of motion or muscle weakness Skin/Breast: Denies: rash, pruritus, erythema, skin pain or skin tenderness Neuro: Denies: headache(s), numbness in extremities, weakness in extremities, sensory changes, difficulty walking, dizziness, confusion or Slurred speech present Psych: Denies: anxiety or depression Endo: Denies: polyuria All/Imm: Denies: urticaria, throat swelling or tongue swelling PFS ED PFSH: Medical History Bladder cancer 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 Surgical History H/O brain surgery H/O colonoscopy past 6 yrs Hx of transurethral resection of prostate Port-A-Cath in place (12/18/19) S/P thoracostomy tube placement Family History Brother CAD (coronary artery disease) Denies family history of Diabetes Anesthesia complication Bleeding disorder Cancer Social History Smoking and tobacco status: current every day smoker Alcohol intake: current Alcohol intake frequency: holidays/special occasions only Household members: significant other Marital status: Single Current occupational status: retired History of recent travel: No Physical Exam Const: COMMON NORMALS: no acute distress, average body habitus, patient oriented x3, no limitations, healthy appearing, alert and well nourished GENERAL APPEARANCE: cooperative, comfortable, well kempt and well developed ORIENTATION/CONSCIOUSNESS: Yes awake, Yes oriented to person, Yes oriented to place and Yes oriented to time HENMT: COMMON NORMALS: normocephalic, external ears normal and Normal external nose present HEAD & SCALP: normal to inspection and normocephalic NOSE: Normal external nose present EXTERNAL EAR: Yes external ears normal MOUTH: Normal oral and palatal mucosa present THROAT: posterior oropharynx normal Eye: COMMON NORMALS: Equal, round and reactive pupils present and EOMs intact bilaterally GENERAL EYE: appearance normal, both eyes and all related structures PUPIL: Yes Equal, round and reactive pupils present Neck/C-Spine: COMMON NORMALS: full ROM, no lymphadenopathy, no meningeal signs and no JVD GENERAL: Yes normal visual inspection Lymph: LYMPHATIC: no lymphadenopathy noted Chest: COMMONS NORMALS: normal inspection of the chest and normal palpation of entire chest wall Resp: COMMON NORMALS: normal respiratory effort, No retractions, No use of accessory muscles, clear to auscultation bilaterally and percussion normal EFFORT & INSPECTION: Yes able to speak in complete sentences AUSCULTATION: clear to auscultation bilaterally PERCUSSION: percussion normal Cardio: COMMON NORMALS: no JVD, regular rate, regular rhythm, S1 normal heart sound present, S2 normal heart sound present and Peripheral pulses 2+ throughout RATE: regular rate RHYTHM: regular rhythm HEART SOUNDS: S1 normal heart sound present and S2 normal heart sound present PERIPHERAL PULSES: Peripheral pulses 2+ throughout GI: COMMON NORMALS: Normal to inspection, nondistended, normoactive bowel sounds present, Soft to palpation, non-tender and no masses INSPECTION: Yes normal to inspection PALPATION: Yes Soft to palpation : COMMON NORMALS: Yes no CVA tenderness BLADDER/KIDNEY EXAM: Yes no CVA tenderness Back/Pelvis: COMMON NORMALS: no CVA tenderness, thoracic and lumbar spine normal to inspection, no thoracic nor lumbar tenderness and thoraco-lumbar ROM normal Extremity: COMMON NORMALS: normal to inspection, full ROM, capillary refill normal, no joint enlargement and no pedal edema GENERAL: Yes normal exam except as noted Neuro: COMMON NORMALS: patient oriented x3, CN's II-XII intact bilaterally, moves all extremities, no focal motor deficits, no sensory deficits noted and gait normal SENSORIUM/ORIENTATION: Yes alert, Yes oriented to person, Yes oriented to place and Yes oriented to time MENINGEAL SIGNS: Yes no meningeal signs Psych: COMMON NORMALS: mental status grossly normal, Normal thought process present, cooperative, normal affect and speech normal APPEARANCE: Yes well kempt ATTITUDE: Yes calm SPEECH: Yes normal speech THOUGHT PROCESS: Normal thought process present Skin: COMMON NORMALS: no rashes or lesions noted GENERAL SKIN EXAM: no rashes or lesions noted Course Vital Signs: Vital signs: Vital Signs Temperature 97.8 F 10/02/20 11:08 Pulse Rate 86 10/02/20 11:26 Respiratory Rate 16 10/02/20 11:26 Blood Pressure 151/90 10/02/20 11:26 Pulse Oximetry 98 10/02/20 11:26 MDM - Extremity (Nontraumatic) MDM Narrative: Medical decision making narrative: Patient comes to the ER complaining of low back, left hip, left knee pain. His leg buckled out from under him getting out of a car likely from chronic pain. X-rays are normal. Discussed with Dr. Clark. He is walking around the room well. Discharged for outpatient work-up with MRI to be done by Dr. Clark. Recommended he follow-up with him this week and return to the ER with worsening symptoms. Discharge Plan Discharge Condition: Stable Prescriptions: No Action aspirin [Adult Low Dose Aspirin] 81 mg tablet,delayed release (DR/EC) 81 mg PO DAILY@0700 RF: 0 multivitamin Tablet 1 tab PO DAILY@0700 RF: 0 prochlorperazine maleate 10 mg tablet 10 mg PO BID@0700,1700 PRN (Reason: nausea/vomiting) RF: 0 lorazepam 0.5 mg tablet 0.5 mg PO BID PRN (Reason: Anxiety) RF: 0 aspirin 325 mg Tablet 325 - 650 mg PO Q6H PRN (Reason: Pain) RF: 0 cholecalciferol (vitamin D3) 50 mcg (2,000 unit) tablet 50 mcg PO DAILY@0700 RF: 0 Keppra XR 750 mg tablet extended release 24 hr 1,500 mg PO DAILY@0700 RF: 0 Discharge Orders: Discharge ED (Routine); Ordered 10/02/20 Ordered By: Jimmy Melgar Referrals: Telly Breen, [Primary Care Provider] - Discharge Diet: Advance as tolerated Discharge Activity: Resume usual activity Activity Restrictions/Additional Instructions: You have came in with left hip pain and knee pain as well as low back pain. The x-rays do show some degenerative disks in your back however nothing significant in your hip and knee. Please follow-up with Dr. Clark later this week and return to the ER with worsening symptoms. You may get an outpatient MRI from Dr. Clark at your next visit. Coding Level of Care Code ED Sand Cutter Operator for Salvador Lopez
== END 2020-10-02 14:29 | disposition home or self-care (01) ==
PROVIDERS: Emergency Provider Family Medicine; PCP Emergency Medicine Emergency Medical Services
DX: Z79.82 Long term (current) use of aspirin (principal); Z85.51 Personal history of malignant neoplasm of bladder; Z85.841 Personal history of malignant neoplasm of brain; F17.210 Nicotine dependence, cigarettes, uncomplicated
CPT/HCPCS: 72100; 73502; 73562; 99282

== ENCOUNTER 2020-10-02 18:59 | Inpatient (IN) | payer OTHER, MEDICARE, SELFPAY ==
[2020-10-02 19:04] VITALS: BP 161/96; PULSE 93; RESP 16; TEMP 36.6; O2SAT 98; BMI 24.3
--- NOTE | 2020-10-02 19:10 | CTR_ITS ---
PROCEDURE INFORMATION: Exam: CT Head Without Contrast Exam date and time: 10/02/2020 7:14 PM Age: 64 years old Clinical indication: Condition or disease; Convulsions or seizures; Prior surgery; Surgery type: Brain tumor; Additional info: Seizure TECHNIQUE: Imaging protocol: Computed tomography of the head without contrast. Radiation optimization: All CT scans at this facility use at least one of these dose optimization techniques: automated exposure control; mA and/or kV adjustment per patient size (includes targeted exams where dose is matched to clinical indication); or iterative reconstruction. COMPARISON: CT head wo con* [id number] 10/22/2019 10:26 PM RADIATION DOSE METRICS: Total DLP (mGy-cm): 880.18 FINDINGS: Brain: A 15 mm hyperdense, possibly hemorrhagic, lesion is present in the medial left occipital lobe, with prominent surrounding edema. White matter edema is also seen in the anterolateral right temporal lobe. No discrete lesion is visualized in this area. The large hypodense right frontal lobe mass has significantly decreased in size and currently measures approximately 18 mm. Moderate right frontal lobe white matter edema remains. A 10 x 19 mm lesion is seen in the superior right frontal region, which appears extra-axial (image 25 coronal series for reference). No CT evidence of acute infarction. Cerebral ventricles: The atrium of the left lateral ventricle is effaced. No hydrocephalus. Bones/joints: Right frontal craniotomy is appreciated. No acute fracture. Paranasal sinuses: Mild right anterior ethmoid sinusitis is appreciated. Mastoid air cells: Mild left mastoiditis is noted. Soft tissues: Unremarkable. CT/CT head wo con* [id number] IMPRESSION: 1. New hyperdense, possibly hemorrhagic, left occipital lobe lesion and new white matter edema in the anterior right temporal lobe with no discernible underlying lesion. A superior right frontal indeterminate lesion is also noted, which may be extra-axial. MRI with contrast is recommended for further assessment. The right frontal lobe mass has significantly decreased in size. No CT evidence of acute infarction. 2. Mild right anterior ethmoid sinusitis and left mastoiditis. Radiation Dose CTDIVOL = (mGy): DLP = 880.18 (mGy-cm)
--- NOTE | 2020-10-02 19:19 | W.ED.NEUROSD ---
HPI - Neuro Symptoms/Deficit General: Chief Complaint: Neuro Symptoms/Deficit Stated Complaint: FALL THIS AM, SEIZURE Time Seen by Provider: 10/02/20 19:06 Source: patient and EMS Mode of arrival: EMS Limitations: no limitations History of Present Illness: HPI Narrative: 64-year-old male has a history of metastatic cancer that was initial bladder cancer with mets to the brain. Patient had a seizure today roughly an hour ago. EMS had given him Versed and the seizure lasted roughly 30 to 45 seconds. They states he was postictal for short time. Here he is back to his baseline states he feels fine. Denies any headache. Patient does take Keppra. He denies any fevers. Denies hitting his head or anything. He was laying down when he had a seizure. Associated symptoms: Deny chest pain, nausea or vomiting Review of Systems Const: Denies: fever(s), chills, body aches or change in appetite Eyes: Denies: blurry vision or eye discomfort ENMT: Denies: throat pain or dental pain Card: Denies: chest pain Resp: Denies: dyspnea GI: Denies: abdominal pain, nausea, vomiting or diarrhea : Denies: dysuria Musc: Denies: neck pain or back pain Skin/Breast: Denies: rash Neuro: Reports: seizure-like activity Psych: Denies: depression Robbie/Lymph: Denies: easy bruising All/Imm: Denies: urticaria PFSH ED PFSH: Medical History Bladder cancer 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 Surgical History H/O brain surgery H/O colonoscopy past 6 yrs Hx of transurethral resection of prostate Port-A-Cath in place (12/18/19) S/P thoracostomy tube placement Family History Brother CAD (coronary artery disease) Denies family history of Diabetes Anesthesia complication Bleeding disorder Cancer Social History Smoking and tobacco status: current every day smoker Alcohol intake: current Alcohol intake frequency: holidays/special occasions only Household members: significant other Marital status: Single Current occupational status: retired History of recent travel: No Physical Exam Const: COMMON NORMALS: no acute distress, patient oriented x3 and healthy appearing HENMT: COMMON NORMALS: normocephalic and atraumatic HEAD & SCALP: normocephalic and atraumatic Eye: COMMON NORMALS: Equal, round and reactive pupils present and EOMs intact bilaterally PUPIL: Yes Equal, round and reactive pupils present Neck/C-Spine: COMMON NORMALS: full ROM and supple Chest: COMMONS NORMALS: normal inspection of the chest and normal palpation of entire chest wall Resp: COMMON NORMALS: normal respiratory effort, No retractions, No use of accessory muscles and clear to auscultation bilaterally AUSCULTATION: clear to auscultation bilaterally Cardio: COMMON NORMALS: regular rate, regular rhythm and No murmurs present (Cardio) RATE: regular rate RHYTHM: regular rhythm GI: COMMON NORMALS: Normal to inspection, nondistended, normoactive bowel sounds present, Soft to palpation, non-tender and no masses PALPATION: Yes Soft to palpation Extremity: COMMON NORMALS: normal to inspection and full ROM Neuro: COMMON NORMALS: patient oriented x3, moves all extremities and no focal motor deficits Psych: COMMON NORMALS: mental status grossly normal, Normal thought process present and cooperative THOUGHT PROCESS: Normal thought process present Skin: COMMON NORMALS: no rashes or lesions noted and no wounds GENERAL SKIN EXAM: no rashes or lesions noted Course Vital Signs: Vital signs: Vital Signs Temperature 97.9 F 10/02/20 19:04 Pulse Rate 93 10/02/20 21:34 Respiratory Rate 18 10/02/20 21:34 Blood Pressure 126/77 10/02/20 21:34 Pulse Oximetry 97 10/02/20 21:34 MDM - Neuro Symptoms/Deficit MDM Narrative: Medical decision making narrative: Patient presents here with seizure is found to have a new possible hemorrhagic occipital lobe lesion. I spoke to patient's oncologist Dr. Clark who on patient on Decadron and admitted overnight. Patient who is been well-appearing has had no other seizures. I spoke to the hospitalist and will admit. Lab Data: Labs: Lab Results 10/02/20 Range/Units 19:19 Sodium 136 (136-145) mmol/L Potassium 4.8 (3.5-5.1) mmol/L Chloride 102 (98-107) mmol/L Carbon Dioxide 28 (22-29) mmol/L Anion Gap 10.8 (5-19) BUN 14 (8-23) mg/dL Creatinine 0.5 L (0.7-1.2) mg/dL GFR Calculation 166.4 H (90-130) mL/min Glucose 101 (65-115) mg/dL Calculated Osmolal ity 283 L (285-295) mOsm/k g Calcium 8.8 (8.5-10.5) mg/dL Imaging Data^: CT Head: Radiologist's impression: [facility] [place] [address] CT Scan Report Signed Patient: Paxton Kumar Unit #: [id number] : 1955 Age/Sex: 64 / M ADM Date: 10/02/20 Loc: ER Room/Bed: Attending Dr: Ordering Provider/Ordering MD: Celio Dill MD Date of Service: 10/02/20 Procedure(s): CT head wo con* [id number] Accession Number(s): [id number] Report Number: [id number] PROCEDURE INFORMATION: Exam: CT Head Without Contrast Exam date and time: 10/02/2020 7:14 PM Age: 64 years old Clinical indication: Condition or disease; Convulsions or seizures; Prior surgery; Surgery type: Brain tumor; Additional info: Seizure TECHNIQUE: Imaging protocol: Computed tomography of the head without contrast. Radiation optimization: All CT scans at this facility use at least one of these dose optimization techniques: automated exposure control; mA and/or kV adjustment per patient size (includes targeted exams where dose is matched to clinical indication); or iterative reconstruction. COMPARISON: CT head wo con* [id number] 10/22/2019 10:26 PM RADIATION DOSE METRICS: Total DLP (mGy-cm): 880.18 FINDINGS: Brain: A 15 mm hyperdense, possibly hemorrhagic, lesion is present in the medial left occipital lobe, with prominent surrounding edema. White matter edema is also seen in the anterolateral right temporal lobe. No discrete lesion is visualized in this area. The large hypodense right frontal lobe mass has significantly decreased in size and currently measures approximately 18 mm. Moderate right frontal lobe white matter edema remains. A 10 x 19 mm lesion is seen in the superior right frontal region, which appears extra-axial (image 25 coronal series for reference). No CT evidence of acute infarction. Cerebral ventricles: The atrium of the left lateral ventricle is effaced. No hydrocephalus. Bones/joints: Right frontal craniotomy is appreciated. No acute fracture. Paranasal sinuses: Mild right anterior ethmoid sinusitis is appreciated. Mastoid air cells: Mild left mastoiditis is noted. Soft tissues: Unremarkable. CT/CT head wo con* [id number] IMPRESSION: 1. New hyperdense, possibly hemorrhagic, left occipital lobe lesion and new white matter edema in the anterior right temporal lobe with no discernible underlying lesion. A superior right frontal indeterminate lesion is also noted, which may be extra-axial. MRI with contrast is recommended for further assessment. The right frontal lobe mass has significantly decreased in size. No CT evidence of acute infarction. 2. 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
[2020-10-02 20:05] LABS: Blood Urea Nitrogen 14 mg/dL (8-23); Calcium 8.8 mg/dL (8.5-10.5); Carbon Dioxide 28 mmol/L (22-29); Chloride 102 mmol/L (98-107); Glomerular Filtration Rate 166.4 mL/min (90-130); Glucose 101 mg/dL (65-115); Osmolality Calculated 283 mOsm/kg (285-295); Sodium 136 mmol/L (136-145)
[2020-10-02 20:06] LABS: Creatinine Clr Calc Pharmacy 78.7329
[2020-10-02 20:07] LABS: Anion Gap 10.8 (5-19); Potassium 4.8 mmol/L (3.5-5.1)
[2020-10-02] MEDS: dexamethasone 4 mg/mL INJ 10 MG IVP (21:03)
[2020-10-02 21:34] VITALS: BP 126/77; PULSE 93; RESP 18; O2SAT 97
--- NOTE | 2020-10-02 21:39 | PC.NURSE ---
pt report called to Ana BUCHANAN in SBAR format.
[2020-10-02 22:14] VITALS: BP 142/87; PULSE 87; RESP 18; TEMP 36.4; O2SAT 96
--- NOTE | 2020-10-02 22:14 | P.HP_ITS ---
Providers/Chief Complaint Admitting Physician: Phillip Simon MD Primary Care Provider: Telly Breen DO Chief Complaint: FALL THIS AM, SEIZURE History of Present Illness Paxton Kumar is a 64 year old male who was brought in by EMS after a witnessed episode of seizure. Patient is stating that he does not have any history of seizures in the past, today he was talking with his girlfriend when he suddenly fell on the floor and seizure was witnessed. He did not notice any tongue bite, urinary or fecal incontinence. He experienced postictal confusion, seizure duration 45 seconds. No recurrence. No recent fever, chest pain, shortness of breath productive cough or diarrhea. He has history of bladder cancer with metastases to right frontal lobe status post resection. His last chemotherapy session was about 2 months ago, follows with Dr. Clark. Diagnostics in the ER revealed normal BMP, head CT revealed the following findings 1. New hyperdense, possibly hemorrhagic, left occipital lobe lesion and new white matter edema in the anterior right temporal lobe with no discernible underlying lesion. A superior right frontal indeterminate lesion is also noted, which may be extra-axial. MRI with contrast is recommended for further assessment. The right frontal lobe mass has significantly decreased in size. No CT evidence of acute infarction. 2. Mild right anterior ethmoid sinusitis and left mastoiditis. Dr. Clark did not recommend transfer to neurosurgery service at [facility], he recommended Decadron and repeat CT scan in the morning, patient has no ne urological signs or symptoms he is feeling fine his breathing is normal, he is able to walk, he went to the bathroom to void urine as well without any difficulty. Review of Systems Const: Denies: fever(s) or chills Eyes: Denies: change in vision ENMT: Denies: throat pain Card: Denies: chest pain Resp: Denies: dyspnea GI: Denies: abdominal pain : Denies: flank pain Musc: Denies: neck pain Skin/Breast: Denies: rash Neuro: Reports: seizure-like activity Psych: Denies: anxiety Endo: Denies: polyuria Robbie/Lymph: Denies: easy bruising All/Imm: Denies: urticaria Medications/Allergies Home Medications Medication Instructions Recorded Confirmed Last Taken Type aspirin 81 mg tablet,delayed 81 mg PO DAILY@0700 12/07/19 10/02/20 12/17/19 History release multivitamin 1 tab PO DAILY@0700 12/07/19 10/02/20 10/02/20 History lorazepam 0.5 mg tablet 0.5 mg PO BID PRN 12/11/19 10/02/20 10/02/20 History prochlorperazine maleate 10 mg 10 mg PO BID@0700,1700 PRN 05/07/20 10/02/20 10/02/20 History tablet aspirin 325 - 650 mg PO Q6H PRN 10/02/20 10/02/20 10/01/20 History cholecalciferol (vitamin D3) 50 mcg PO DAILY@0700 10/02/20 10/02/20 10/02/20 History levetiracetam [Keppra XR] 1,500 mg PO DAILY@0700 10/02/20 10/02/20 10/02/20 History Allergies Allergy/AdvReac Type Severity Reaction Status Date / Time No Known Drug Allergies Allergy Unknown Verified 10/02/20 19:10 NKDA Allergy Unknown Unknown Uncoded 10/02/20 19:10 PFSH Acute PFSH: Medical History Bladder cancer 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 Surgical History H/O brain surgery H/O colonoscopy past 6 yrs Hx of transurethral resection of prostate Port-A-Cath in place (12/18/19) S/P thoracostomy tube placement Family History Brother CAD (coronary artery disease) Denies family history of Diabetes Anesthesia complication Bleeding disorder Cancer Social History Smoking and tobacco status: current every day smoker Alcohol intake: current Alcohol intake frequency: holidays/special occasions only Household members: significant other Marital status: Single Current occupational status: retired History of recent travel: No Vitals/I&O/Wt Last Vital Signs Temp 97.9 F 10/02/20 19:04 Pulse 93 10/02/20 21:34 Resp 18 10/02/20 21:34 BP 126/77 10/02/20 21:34 Pulse Ox 97 10/02/20 21:34 Weight last 48 hrs Weight 64.41 kg Physical Exam Narrative: EXAM NARRATIVE: Pleasant elderly male, appears more than stated age Does not look fluid overloaded or dehydrated Saturating well on room air No active neurological signs or symptoms EOMI, PERRLA No cerebellar signs Able to walk without any difficulty Alert and awake GCS 15 oriented x3 S1, S2 no murmur appreciated left-sided Mediport Abdomen soft nontender Lower extremity no edema gangrene ulcer No active neurological/focal deficits No joint swelling no skin ulcers Very pleasant during my evaluation Data : 10/02/20 19:19 A&P Assessment and plan (1) Seizure: Status: Acute (2) Brain metastases: Status: Acute Additional A&P Information New onset seizure No previous history of breakthrough seizures Bladder cancer with frontal lobe metastatic lesion which was resected Current CT head is showing new hyperdense left occipital lobe lesion with white matter edema and right anterior temporal lobe, No active neurological signs or symptoms, NIH 0 however 15mm hypodense lesion in left occipital lobe Patient is able to walk he is awake and alert GCS 15 Raise head end Start Decadron with concern of Metastatic lesions Keep mean arterial pressure between 70-80mmhg Temperature normal, euglycemic Closely monitor for signs of intracranial hypertension heart rate 87 no relative bradycardia noted Continue Keppra IV I will keep him n.p.o. overnight in case he experiences breakthrough seizure Repeat CT head without contrast in the morning My threshold to transfer him to ICU or transfer him for neurosurgery evaluation will be low, will monitor overnight N.p.o. DVT prophylaxis contraindicated Full code Attestations Medical Necessity Statement*: Anticipating stay in the hospital cross more than 2 midnights for metastatic brain lesion, possible left occipital lobe hemorrhagic lesion Time Spent in Patient Care: (>than 50% of time spent in counselling and/or direct pt care on unit) . 35mins Coding Level of Care Code Acute Die Tripper for Salvador Lopez Diagnoses Seizure R56.9 Brain metastases C79.31
[2020-10-02] MEDS: sodium chloride 0.9% 1,000 ML 75 ML IV (23:50)
[2020-10-03] VITALS (29 sets, daily range): BP systolic 100–186; BP diastolic 72–108; PULSE 105–167; RESP 12–42; TEMP 36.7–36.8; O2SAT 88–100
[2020-10-03] MEDS: LORazepam 2 mg/mL INJ 1 mL IVP ×2 (01:01→01:50)
--- NOTE | 2020-10-03 01:14 | PC.NURSE ---
Seizure Activity: The OPERATIONS LEADER went to get vitals on the pt and came back to get nursing staff saying that he was having a seizure. Upon entering the room found the patient leaning to the side of his bed, eyes rolled back and having seizure like activity. Rolled pt to his side and suction performed. Physician notified, seizure lasted 90 seconds but the start time was not witnessed. Last known well was 2350 when the patient care nurse hung IVF. VS are BP 186/87, HR 141, SPO2 96% on 2L. Orders to send to ICU. While marketing writer was calling report pt began to seize again and lasted 2 minutes 15 seconds, Ativan 2mg IV given and pt taken to ICU.
--- NOTE | 2020-10-03 01:22 | ECG_ITS ---
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 Measurements Intervals Lewis Rate: 158 P: 77 GA: 121 QRS: 38 QRSD: 82 T: 58 QT: 272 QTc: 441 Interpretive Statements SINUS TACHYCARDIA, POSSIBLE ATRIAL FLUTTER MODERATE ST DEPRESSION [0.05+ mV ST DEPRESSION] No previous ECG available for comparison Electronically Signed On 10-03-2020 20:47:27 CDT by Shahana Shah M.D. [id number] f
[2020-10-03] MEDS: sodium bicarbonate 8.4% 1 mEq/mL 50mL Syr 50 MEQ IVP (01:25)
[2020-10-03 01:26] LABS: ABG PH Result 7.01 (7.35-7.45)
[2020-10-03 01:27] LABS: Arterial Blood Gas Hematocrit 45.4 % (42-52); Base Excess ABG -21.7 mmol/L (-2.0-2.0); HCO3 ABG 8.6 mmol/L (22-26); Oxygen Device nc
[2020-10-03 01:54] LABS: Lactate (Lactic Acid level) 13.4 mmol/L (0.5-2.2)
[2020-10-03] MEDS: etomidate 20 ML 7.5 MG (01:55)
[2020-10-03] MEDS: rocuronium 10 mg/mL INJ 5mL 50 MG ×2 (01:55→02:26)
--- NOTE | 2020-10-03 02:03 | XRR_ITS ---
PROCEDURE INFORMATION: Exam: XR Chest Exam date and time: 10/03/2020 2:11 AM Age: 64 years old Clinical indication: Device placement; Ett placement (vent status); Patient HX: Check for et and og placement; Additional info: Intubation TECHNIQUE: Imaging protocol: XR of the chest. Views: 1 view. COMPARISON: DX Chest 2 views* [id number] 11/16/2019 12:59 AM FINDINGS: Tubes, catheters and devices: Nasogastric tube is in good position. Endotracheal tube is 2.5 cm above the tianna. Lungs: Unremarkable. No consolidation. Pleural spaces: Unremarkable. No pleural effusion. No pneumothorax. Heart/Mediastinum: Unremarkable. No cardiomegaly. Vasculature: Left-sided MediPort tip is present in the mid to distal superior vena cava. Bones/joints: Old right-sided rib fractures are present. XR/XR chest 1V [id number] IMPRESSION: Support tubes and lines in good position.
--- NOTE | 2020-10-03 02:29 | P.TS_ITS ---
Transfer Summary Providers Date of Admission: 10/02/20 20:57 Date of Discharge: 10/03/20 Attending Provider at Admission: Phillip Simon MD Attending Provider at Transfer: Phillip Simon MD Primary Care Provider: Telly Breen DO Anticipated Date of Transfer: Anticipated date of transfer: 10/03/20 Receiving Facility & Provider: Receiving Provider: [] Receiving facility: [] Diagnoses at Discharge Discharge Diagnosis (1) Seizure: Status: Acute (2) Brain metastases: Status: Acute Reason for Visit Reason for Visit: FALL THIS AM, SEIZURE Hospital Course Hospital Course Indication of transfer: Neurosurgery not available at [facility] for cerebellar metastatic brain lesion bleed management Hospital course: Paxton Kumar is a 64 year old male who was brought in by EMS after a witnessed episode of seizure. Patient is stating that he does not have any history of seizures in the past, today he was talking with his girlfriend when he suddenly fell on the floor and seizure was witnessed. He did not notice any tongue bite, urinary or fecal incontinence. He experienced postictal confusion, seizure duration 45 seconds. Diagnostics in the ER revealed normal BMP, head CT revealed the following findings 1. New hyperdense, possibly hemorrhagic, left occipital lobe lesion and new white matter edema in the anterior right temporal lobe with no discernible underlying lesion. A superior right frontal indeterminate lesion is also noted, which may be extra-axial. MRI with contrast is recommended for further assessment. The right frontal lobe mass has significantly decreased in size. No CT evidence of acute infarction. 2. Mild right anterior ethmoid sinusitis and left mastoiditis. 30 minutes after admission he had another episode of seizure which lasted for about 90 seconds, he was transferred to ICU and was intubated, endotracheal tube size 8 secured at lip by 25 cm chest x-ray confirmed satisfactory position of endotracheal tube OG tube in place, he was sedated with midazolam, for intubation etomidate 20 mg and rocuronium 80 mg were given Currently he is sinus tachycardic heart rate 130s EKG showing sinus tachycardia, mean arterial pressure 80mmhg. No complications during gleidoscope mediated intubation Consent was taken from his daughter Dacia Carrion, she is agreeable with intubation and transfer [facility] Spoke with the neurosurgeon Dr. Ball, who accepted the patient, patient will be admitted under Dr. Smith in neuro ICU. Dr. Smith did craniotomy for his metastatic brain lesion in the past as well. Repeat labs are showing metabolic acidosis, 2 A of bicarb were given in the ICU, he was given Cardizem 20 mg IV push for sinus tachycardia heart rate respiratory in between 1 40-1 50s. Mean arterial pressure 80smmhg, he was started on IV Keppra 1500 mg bolus was administered, Decadron 10 mg was given in the ER and after 2 hours 4 mg IV was given. Hypertonic saline or mannitol was not administered, this plan was discussed with Dr. aBll neurosurgeon at [facility]. Physical Exam Narrative: EXAM NARRATIVE: Post ictal Intubated and sedated Ventilator settings tidal volume 500, PEEP 5 FiO2 40% respirate 18 Tachycardic heart rate 130s sinus tachycardia on EKG Blood pressure 130s systolic mean arterial pressure 78 mmHg Bilateral breath sounds, Abdomen soft No skin findings of cellulitis or gangrene Pupils equal and reactive to light Sedated with midazolam S1, S2 sinus tachycardia without any murmur or signs of heart failure Endotracheal tube size 8, secured at lip @ 25 cm Chest x-ray confirmed the position TS Data Data Completed and Pending: Completed Studies During Hospitalization Category Date Time Status CT head wo con* 7 0450 Urgent Cat Scan 10/02/20 19:10 Completed Pending at discharge Category Date Time Status CT head wo con* 7 0450 Routine Cat Scan 10/03/20 07:00 Ordered XR chest 1V [id number] Stat Exams 10/03/20 02:03 Ordered ABG ONLY [Arteria l Blood Gas W/O Co ox] Stat Lab 10/03/20 01:11 Results Labs from last 24 hours 10/03/20 10/03/20 10/02/20 01:29 01:11 19:19 Specimen Type arterial Sample Site brachial,right ABG pH 7.01 L* ABG pCO2 34.2 L ABG pO2 129.0 H ABG HCO3 8.6 L ABG Base Excess -21.7 L Jonathan Test n/a Hematocrit 45.4 O2 Delivery Device nc O2 Liters/Min 4.0 Specimen Drawn By mary ellen Resource Engineer ID Pending Sodium 136 Potassium 4.8 Chloride 102 Carbon Dioxide 28 Anion Gap 10.8 BUN 14 Creatinine 0.5 L GFR Calculation 166.4 H Glucose 101 Calculated Osmolal ity 283 L Lactate 13.4 H* Calcium 8.8 Vitals: Last Vital Signs Temp 97.6 F 10/02/20 22:14 Pulse 141 H 10/03/20 00:45 Resp 18 10/02/20 22:14 BP 186/87 10/03/20 00:45 Pulse Ox 96 10/03/20 00:45 TS Medications Medications Home Medications aspirin 81 mg tablet,delayed release 81 mg PO DAILY@0700 12/07/19 [History Confirmed 10/02/20] multivitamin 1 tab PO DAILY@0700 12/07/19 [History Confirmed 10/02/20] lorazepam 0.5 mg tablet 0.5 mg PO BID PRN 12/11/19 [History Confirmed 10/02/20] prochlorperazine maleate 10 mg tablet 10 mg PO BID@0700,1700 PRN 05/07/20 [History Confirmed 10/02/20] aspirin 325 - 650 mg PO Q6H PRN 10/02/20 [History Confirmed 10/02/20] cholecalciferol (vitamin D3) 50 mcg PO DAILY@0700 10/02/20 [History Confirmed 10/02/20] levetiracetam [Keppra XR] 1,500 mg PO DAILY@0700 10/02/20 [History Confirmed 10/02/20] Active Medications Acetaminophen (Acetaminophen 325 Mg Tablet) 325 - 650 mg PO Q4H PRN PRN Reason: MILD PAIN OR INCREASE TEMP Dexamethasone (Dexamethasone 4 Mg/Ml Inj) 4 mg IVP Q6H RENATA Sodium Chloride (Sodium Chloride 0.9%) 1,000 mls @ 75 mls/hr IV .[id number] RENATA Last Admin: 10/02/20 23:50 Dose: 75 mls/hr Documented by: Levetiracetam 1,500 mg/ Sodium (Chloride) 115 mls @ 440 mls/hr IV Q12H [facility] Last Admin: 10/03/20 01:41 Dose: 440 mls/hr Documented by: Midazolam HCl 100 mg/ Sodium (Chloride) 100 mls @ 0 mls/hr IV .Q0M [facility]; Protocol Lorazepam (Lorazepam 0.5 Mg Tablet) 0.5 mg PO BID PRN PRN Reason: Anxiety Lorazepam (Lorazepam 2 Mg/Ml Inj 1 Ml) 2 mg IVP Q4H PRN PRN Reason: SEIZURES Last Admin: 10/03/20 01:01 Dose: 2 mg Documented by: Discharge Plan Discharge Patient Disposition: Home Condition: Stable Prescriptions: Discontinued aspirin [Adult Low Dose Aspirin] 81 mg tablet,delayed release (DR/EC) 81 mg PO DAILY@0700 RF: 0 multivitamin Tablet 1 tab PO DAILY@0700 RF: 0 prochlorperazine maleate 10 mg tablet 10 mg PO BID@0700,1700 PRN (Reason: nausea/vomiting) RF: 0 lorazepam 0.5 mg tablet 0.5 mg PO BID PRN (Reason: Anxiety) RF: 0 aspirin 325 mg Tablet 325 - 650 mg PO Q6H PRN (Reason: Pain) RF: 0 cholecalciferol (vitamin D3) 50 mcg (2,000 unit) tablet 50 mcg PO DAILY@0700 RF: 0 levetiracetam [Keppra XR] 750 mg tablet extended release 24 hr 1,500 mg PO DAILY@0700 RF: 0 Discharge Orders: Discharge Order (Routine); Ordered 10/03/20 Ordered By: Phillip Simon Discharge Diet: Resume prior tube feeds Discharge Activity: Bedrest Patient Instructions: Opioid Safety Transfer Attestations Time Spent in Transfer Care*: critical care time (Including 2 evaluations, intubation, calling the family, arranging transfer, following up with chest x- ray) Critical Care Time (min): 120 Status at Transfer: Cognitive status at transfer: other (Intubated and sedated, hemodynamically stable) , Overall status at transfer: patient is not back to baseline Quality Metrics Clinical Quality Measures: During this hospital stay, did patient experience: None Coding Level of Care Code Acute Cardiac Rn for Tol[place] Fwd Diagnoses Seizure R56.9 Brain metastases C79.31
--- NOTE | 2020-10-03 02:50 | PM.ACPR ---
Acute Procedures Intubation: Time out performed: Yes Sedative: etomidate Mg given: 20 Paralytic: rocuronium Mg given: 80 ET tube size: 8 Tube secured depth (cm): 25 Tube secured location: lips Tube placement confirmation: visualized tube passing through cords, equal breath sounds bilaterally, no breath sounds over epigastrium, confirmation by capnometry and color change noted Patient tolerated procedure: well and no complications Intubation complications: none Additional comments: Indication: Recurrent seizures Post intubation no complications, endotracheal tube in satisfactory position 2 cm above tianna patient saturating well Hypertensive and tachycardic Consent was taken over the phone from his daughter Dacia Kaur
--- NOTE | 2020-10-03 03:19 | PC.NURSE ---
0100 Received Pt from [facility] Placed on bedside monitor. Ativan given. per [address] Simon notified admit by phone. Withdraw from painful stimuli only. Fixed pupils. 0110 Hernandez inserted per sterile technique 0125 Dr. Simon at bedsidecardizem given 0130 Na Bicarb amp given per Dr. Simon orders at bedside.[address] Simon ETT 8.0 RT at bedside prior to intubation Etomidate 15mg IVP and Dominick 50 mg IVP given. 0215 OGT inserted tolerated well Chest xray reviewed by Dr. Simon at bedside. 0300 Report called to Keri Casillas RN at [facility] Neuro ICU. BEd [id number] 0315 Pt taken by air Evac to [place] Bedside report given Chart and copy of radiology reports given.
[2020-10-03 07:14] LABS: Blood Gas Operator Identificat Anonymous; Blood Gas Sample Type CalVer
[2020-10-03 07:28] LABS: ABG PCO2 37.2 mmHg (35-45)
--- NOTE | 2020-10-04 11:24 | PC.RESP ---
SMOKING CESSATION INFORMATION SENT TO PATIENT.
== END 2020-10-03 03:15 | disposition short-term general hospital (02) | DRG 54 ==
LOC: ER 19:21 → MEDSURG 21:16 → ICU 10-03 01:09
PROVIDERS: Admitting Provider Internal Medicine; Emergency Provider Emergency Medicine; PCP Emergency Medicine Emergency Medical Services; Visit Provider Internal Medicine
DX: C79.31 Secondary malignant neoplasm of brain (principal); I61.1 Nontraumatic intracerebral hemorrhage in hemisphere, cortical; G40.89 Other seizures; E87.2 Acidosis; C67.9 Malignant neoplasm of bladder, unspecified; Z79.899 Other long term (current) drug therapy; J32.2 Chronic ethmoidal sinusitis; H70.92 Unspecified mastoiditis, left ear; Z98.890 Other specified postprocedural states; Z95.828 Presence of other vascular implants and grafts; F17.210 Nicotine dependence, cigarettes, uncomplicated
CPT/HCPCS: 31500; 36415; 51702; 70450; 71045; 80048; 82803; 83605; 93005; 94002; 94799; 96374; 99285; J1100; J1953; J2060; J2250; J3490; J7030